=== PATIENT | female | born 1955 | race Caucasian/White ===

== ENCOUNTER → 2017-06-21 | Day surgery (SDC) | payer BC, OTHER ==
[~2017-06-21] MED LIST: APIX5TAB PO; ASPI-630 PO; BUPR150T8 PO; BYSTOLIC20 MG PO; CARV12.5 PO; CRESTOR20 MG PO; CYCL10TA2 PO; IBUP-1027 PO; IV RINGERS,LACTATED 1000ML 1,000 ML IV SCH; LANS30CA66 PO; LIDOCAINE 1% PF 2 ML VIAL. ID PRN; LIDOCAINE 2% PF Vial for OR 5 ML VIAL. ONE; LISI-338 PO; LORA-434 PO; MIDAZOLAM HCL/PF 2 MG/2 ML VIAL. IV PRN; MIDAZOLAM HCL/PF 5 MG/5 ML VIAL. ONE; NIAC1000 PO; OMEG500C PO; OMEP40CA5 PO; PROPOFOL 20 ML IV ONE; RANO10002 PO; RIVA20TA2 PO; SITA50TA PO; VILA20TA PO; diphenhydrAMINE 50 MG/ML VIAL IV ONE; diphenhydrAMINE 50 MG/ML VIAL ONE; fentaNYL PF VIAL 100 MCG/2 ML VIAL IV PRN; fentaNYL PF VIAL 100 MCG/2 ML VIAL ONE
[2017-06-21 11:15] VITALS: BP 144/83
--- NOTE | 2017-06-22 13:27 | PATHOLOGY ---
PATHOLOGY REPORT * * * * * * * * FINAL DIAGNOSIS: Esophageal biopsy, distal esophagus: - Segments of hyperplastic squamous esophageal mucosa consistent with reflux esophagitis. COMMENT: Sections of the distal esophageal biopsy reveal segments of focally tangentially-oriented hyperplastic squamous esophageal mucosa. The findings are consistent with reflux esophagitis. There is no evidence of Velez's change, dysplasia or malignancy. (JPM:mml; 06/22/2017) REPORT ELECTRONICALLY SIGNED BY: Aman Shukla M.D. DATE/TIME: 06/22/2017 13:26 * * * * * * * * GROSS PATHOLOGY: Received in formalin labeled "Ana Mcgrath, distal esophagus BX," are 4 segments of lauren soft tissue measuring 1.9 x 0.6 x 0.3 cm in aggregate dimensions and ranging from 0.3 to 0.8 cm in maximum dimension. The specimen is submitted entirely in cassette A1. (TSD; 06/21/2017) INITIAL CPT CODE(S): A; 56811 Professional services performed [place] [facility] [place] [address] Technical services performed by [facility] at [address] [place] [address]. SPECIMEN(S) RECEIVED: A.Distal esophagus biopsy CLINICAL HISTORY: Dysphagia PATIENT: ANA MCGRATH /AGE: 10 1955 (Age: 61) PATIENT #: [id number] ALT CASE #: SPECIMEN COLLECTION DATE: 06/21/2017 SPECIMEN RECEIVED DATE: 06/21/2017 [facility] - [address] [place] [address] - PHONE: [phone] * * * END OF REPORT * * *
== END | disposition home or self-care (01) ==
LOC: SURG 09:47
PROVIDERS: ATTEND Internal Medicine Gastroenterology
DX: K22.2 Esophageal obstruction (principal); K21.0 Gastro-esophageal reflux disease with esophagitis; Z98.890 Other specified postprocedural states; Z88.0 Allergy status to penicillin
CPT/HCPCS: 43239; 43450; 82962; J1200; J2250; J2704; J3010; 88305; J2001

== ENCOUNTER 2019-01-25 13:14 | Inpatient (IN) | payer BC, OTHER ==
[~2019-01-25] VITALS: Ht 162.6 cm; Wt 88.9 kg
[~2019-01-25 13:14] MED LIST changes: -IV RINGERS,LACTATED 1000ML 1,000 ML IV SCH; -LIDOCAINE 1% PF 2 ML VIAL. ID PRN; -LIDOCAINE 2% PF Vial for OR 5 ML VIAL. ONE; -MIDAZOLAM HCL/PF 2 MG/2 ML VIAL. IV PRN; -MIDAZOLAM HCL/PF 5 MG/5 ML VIAL. ONE; -PROPOFOL 20 ML IV ONE; -diphenhydrAMINE 50 MG/ML VIAL IV ONE; -diphenhydrAMINE 50 MG/ML VIAL ONE; -fentaNYL PF VIAL 100 MCG/2 ML VIAL IV PRN; -fentaNYL PF VIAL 100 MCG/2 ML VIAL ONE
[2019-01-25] MEDS ORDERED: fentaNYL PF VIAL 100 MCG/2 ML VIAL IV ONE (14:15)
[2019-01-25] MEDS ORDERED: IV NORMAL SALINE 1000ML BAG 1,000 ML IV ONE ×2 (14:15→18:15)
[2019-01-25] MEDS ORDERED: FAMOTIDINE 20 MG/2 ML VIAL IVP ONE (14:15)
[2019-01-25] MEDS ORDERED: ONDANSETRON PF 4 MG/2 ML VIAL. IV ONE (14:15)
[2019-01-25 14:24] LABS: BASO # 0.1 x10^3/uL (0.0-0.2); BASO % 0 % (0-3); EOS % 0 % (0-3); HEMATOCRIT 35.1 % (36.0-47.0); HEMOGLOBIN 11.6 g/dL (12.0-15.5); LYMPH # 1.1 x10^3/uL (1.0-4.8); LYMPH % 8 % (24-48); MEAN CORPUSCULAR HEMOGLOBIN 29 pg (25-35); MEAN CORPUSCULAR HGB CONC 33 g/dL (31-37); MEAN CORPUSCULAR VOLUME 87 fL (79-100); MONO # 0.7 x10^3/uL (0.0-1.1); MONO % 5 % (0-9); NEUT # 12.2 x10^3uL (1.8-7.7); NEUT % 87 % (31-73); PLATELET COUNT 401 x10^3/uL (140-400); RED BLOOD COUNT 4.05 x10^6/uL (3.50-5.40); RED CELL DISTRIBUTION WIDTH 13.4 % (11.5-14.5); WHITE BLOOD COUNT 14.1 x10^3/uL (4.0-11.0)
[2019-01-25 14:36] LABS: CALCIUM 9.7 mg/dL (8.5-10.1); CREATININE 1.3 mg/dL (0.6-1.0); GFR 41.4
[2019-01-25 14:42] LABS: ALBUMIN/GLOBULIN RATIO 1.1 (1.0-1.7); TOTAL BILIRUBIN 0.6 mg/dL (0.2-1.0); TOTAL PROTEIN 7.8 g/dL (6.4-8.2)
[2019-01-25 15:04] LABS: % BANDS 1 % (0-9); % BASOS 1 % (0-3); % LYMPHS 6 % (24-48); % MONOS 6 % (0-10); % SEGS 86 % (35-66)
[2019-01-25 15:07] LABS: PLT ESTIMATE ADEQUATE (ADEQUATE); POLYCHROMASIA SLIGHT
--- NOTE | 2019-01-25 15:07 | RAD ---
Examination: CT ABDOMEN PELVIS WO CONTRAST History: Abdominal pain, nausea, vomiting, diarrhea Comparison/Correlation: None Findings: Axial images of the abdomen and pelvis were obtained without contrast. Sagittal and coronal reformatted images were provided. Marked right coronary and left circumflex coronary show calcifications identified. Visualized lung bases are clear. Small hiatal hernia is present containing fluid. Liver, spleen, pancreas, adrenal glands, and kidneys are normal. Gallbladder fossa is unremarkable. Appendix is nondistended. Appendicoliths identified. Diverticulosis of the colon is present. No acute inflammation. Urinary bladder is unremarkable. No pelvic free fluid. Impression: Small hiatal hernia. Fluid within the distal esophagus which may represent gastroesophageal reflux. Diverticulosis. No acute inflammatory process. PQRS Compliance Statement: One or more of the following individualized dose reduction techniques were utilized for this examination: 1. Automated exposure control 2. Adjustment of the mA and/or kV according to patient size 3. Use of iterative reconstruction technique Electronically signed by: Shiva Beltran MD (01/25/2019 3:04 PM) [id number]
[2019-01-25 15:57] LABS: AMPHETAMINE/METHAMPHETAMINE NEG (NEG); BARBITURATES NEG (NEG); BENZODIAZEPINES NEG (NEG); CANNABINOIDS POS (NEG); COCAINE NEG (NEG); METHADONE NEG (NEG); OPIATES NEG (NEG); PHENCYCLIDINE NEG (NEG)
[2019-01-25] MEDS ORDERED: LIDO:MAALOX 1:1 20 ML SINGLE DOSE. SWSW ONE (16:00)
[2019-01-25 16:26] LABS: BILIRUBIN,URINE NEGATIVE (NEG); CLARITY,URINE CLEAR; COLOR,URINE YELLOW; NITRITE,URINE NEGATIVE (NEG); PH,URINE 8.5; PROTEIN,URINE 30 mg/dL (NEG-TRACE); UROBILINOGEN,URINE 0.2 mg/dL (0.2 mg/dL)
[2019-01-25 16:32] LABS: BACTERIA,URINE FEW /HPF (0-FEW); HYALINE CASTS, URINE OCCASIONAL /HPF; RBC,URINE 0 /HPF (0-2); SQUAMOUS EPITHELIAL CELL,UR FEW /LPF; WBC,URINE OCC /HPF (0-4)
--- NOTE | 2019-01-25 17:19 | PHYS DOC ---
Past Medical History Past Medical History: A-Fib, CAD, Diabetes-Type II, Hypertension, MT, Migraines Additional Past Medical Histor: hernia (JAKUB LOVE APRN) Past Surgical History: Hysterectomy, Tonsillectomy Additional Past Surgical Histo: heart stents, colonoscopy, wrist sx (JAKUB LOVE APRN) Alcohol Use: None Drug Use: Marijuana (JAKUB LOVE APRN) Adult General Chief Complaint Chief Complaint: ABDOMINAL PAIN HPI HPI Patient is a 63 year old female with a history of hypertension, CAD, diabetes type 2, acid reflex, who presents with nausea, vomiting, diarrhea, symptoms began 3 AM this morning. Patient is also complaining of generalized 8 out of 10 sharp constant abdominal pain. She states she was seen at [facility] and got discharged on Wednesday, she states she had rectal bleeding then, she states she had a colonoscopy which she was told was negative. Denies any bloody stools this Patient is a poor historian, when I walked into the room, she had covered her head, holding an emesis bag, i asked her why she was in the hospital, she removed the cover, kept her eyes closed but told me to wait because she was vomiting and needs to take a break before she can talk to me.I waited for a few seconds then she started talking. (JAKUB LOVE APRN) Review of Systems Review of Systems Constitutional: Denies fever or chills [] Eyes: Denies change in visual acuity, redness, or eye pain [] HENT: Denies nasal congestion or sore throat [] Respiratory: Denies cough or shortness of breath [] Cardiovascular: No additional information not addressed in HPI [] GI: Reports abdominal pain, nausea, vomiting, diarrhea, denies bloody stools : Denies dysuria or hematuria [] Musculoskeletal: Denies back pain or joint pain [] Integument: Denies rash or skin lesions [] Neurologic: Denies headache, focal weakness or sensory changes [] All other systems were reviewed and found to be within normal limits, except as documented in this note. (JAKUB LOVE APRN) Current Medications Current Medications Current Medications Medications (Trade) Dose Ordered Sig/Lelia Start Time Stop Time Status Last Admin Dose Admin Famotidine (Pepcid Vial) 20 mg 1X ONCE 01/25/19 14:15 01/25/19 14:16 DC 01/25/19 14:21 20 MG Fentanyl Citrate (Fentanyl 2ml Vial) 50 mcg 1X ONCE 01/25/19 14:15 01/25/19 14:16 DC 01/25/19 14:22 50 MCG Multi-Ingredient Mouthwash/Gargle (Gi Cocktail) 20 ml 1X ONCE 01/25/19 16:00 01/25/19 16:01 DC 01/25/19 16:23 20 ML Ondansetron HCl (Zofran) 4 mg 1X ONCE 01/25/19 14:15 01/25/19 14:16 DC 01/25/19 14:21 4 MG Sodium Chloride 1,000 ml @ 1,000 mls/hr 1X ONCE 01/25/19 14:15 01/25/19 15:14 DC 01/25/19 14:21 1,000 MLS/HR (RASHID LOMBARDI MD) Allergies Allergies Allergies Coded Allergies Type Severity Reaction Last Updated Verified adhesive Allergy Severe 05/18/14 Yes morphine Allergy Intermediate hives 05/18/14 Yes (RASHID LOMBARDI MD) Physical Exam Physical Exam Constitutional: Well developed, well nourished, no acute distress, non-toxic appearance. [] HENT: Normocephalic, atraumatic, bilateral external ears normal, oropharynx moist, no oral exudates, nose normal. [] Eyes: PERRLA, EOMI, conjunctiva normal, no discharge. [] Neck: Normal range of motion, no tenderness, supple, no stridor. [] Cardiovascular:Heart rate regular rhythm, no murmur [] Lungs & Thorax: Bilateral breath sounds clear to auscultation [] Abdomen: Bowel sounds normal, soft, rounded abdomen, tenderness throughout the abdomen, no masses, no pulsatile masses. [] Skin: Warm, dry, no erythema, no rash. [] Back: No tenderness, no CVA tenderness. [] Extremities: No tenderness, no cyanosis, no clubbing, ROM intact, no edema. [] Neurologic: Alert and oriented X 3, normal motor function, normal sensory function, no focal deficits noted. [] Psychologic: Flat affect, appears depressed (MUTUNGA,JAKUB PROCESS TANK TENDER) Current Patient Data Vital Signs Vital Signs Date Time Temp Pulse Resp B/P (MAP) Pulse Ox O2 Delivery O2 Flow Rate FiO2 5/15/19 16:48 90 16 154/73 (100) 97 Room Air 01/25/19 13:26 98.2 98.2 (RASHID LOMBARDI MD) Lab Values Laboratory Tests Test 01/25/19 14:13 01/25/19 15:43 White Blood Count 14.1 x10^3/uL (4.0-11.0) H Red Blood Count 4.05 x10^6/uL (3.50-5.40) Hemoglobin 11.6 g/dL (12.0-15.5) L Hematocrit 35.1 % (36.0-47.0) L Mean Corpuscular Volume 87 fL (79-100) Mean Corpuscular Hemoglobin 29 pg (25-35) Mean Corpuscular Hemoglobin Concent 33 g/dL (31-37) Red Cell Distribution Width 13.4 % (11.5-14.5) Platelet Count 401 x10^3/uL (140-400) H Neutrophils (%) (Auto) 87 % (31-73) H Lymphocytes (%) (Auto) 8 % (24-48) L Monocytes (%) (Auto) 5 % (0-9) Eosinophils (%) (Auto) 0 % (0-3) Basophils (%) (Auto) 0 % (0-3) Neutrophils # (Auto) 12.2 x10^3uL (1.8-7.7) H Lymphocytes # (Auto) 1.1 x10^3/uL (1.0-4.8) Monocytes # (Auto) 0.7 x10^3/uL (0.0-1.1) Eosinophils # (Auto) 0.0 x10^3/uL (0.0-0.7) Basophils # (Auto) 0.1 x10^3/uL (0.0-0.2) Segmented Neutrophils % 86 % (35-66) H Band Neutrophils % 1 % (0-9) Lymphocytes % 6 % (24-48) L Monocytes % 6 % (0-10) Basophils % 1 % (0-3) Platelet Estimate Adequate (ADEQUATE) Polychromasia Slight Sodium Level 143 mmol/L (136-145) Potassium Level 4.0 mmol/L (3.5-5.1) Chloride Level 104 mmol/L (98-107) Carbon Dioxide Level 23 mmol/L (21-32) Anion Gap 16 (6-14) H Blood Urea Nitrogen 16 mg/dL (7-20) Creatinine 1.3 mg/dL (0.6-1.0) H Estimated GFR (Cockcroft-Gault) 41.4 BUN/Creatinine Ratio 12 (6-20) Glucose Level 175 mg/dL (70-99) H Calcium Level 9.7 mg/dL (8.5-10.1) Total Bilirubin 0.6 mg/dL (0.2-1.0) Aspartate Amino Transferase (AST) 50 U/L (15-37) H Alanine Aminotransferase (ALT) 49 U/L (14-59) Alkaline Phosphatase 77 U/L (46-116) Troponin I Quantitative < 0.017 ng/mL (0.000-0.055) Total Protein 7.8 g/dL (6.4-8.2) Albumin 4.0 g/dL (3.4-5.0) Albumin/Globulin Ratio 1.1 (1.0-1.7) Lipase 179 U/L (73-393) Ethyl Alcohol Level < 10 mg/dL (0-10) Urine Collection Type Unknown Urine Color Yellow Urine Clarity Clear Urine pH 8.5 Urine Specific [place] 1.020 Urine Protein 30 mg/dL (NEG-TRACE) Urine Glucose (UA) Negative mg/dL (NEG) Urine Ketones (Stick) 15 mg/dL (NEG) Urine Blood Negative (NEG) Urine Nitrite Negative (NEG) Urine Bilirubin Negative (NEG) Urine Urobilinogen Dipstick 0.2 mg/dL (0.2 mg/dL) Urine Leukocyte Esterase Negative (NEG) Urine RBC 0 /HPF (0-2) Urine WBC Occ /HPF (0-4) Urine Squamous Epithelial Cells Few /LPF Urine Bacteria Few /HPF (0-FEW) Urine Hyaline Casts Occasional /HPF Urine Mucus Mod /LPF Urine Opiates Screen Neg (NEG) Urine Methadone Screen Neg (NEG) Urine Barbiturates Neg (NEG) Urine Phencyclidine Screen Neg (NEG) Urine Amphetamine/Methamphetamine Neg (NEG) Urine Benzodiazepines Screen Neg (NEG) Urine Cocaine Screen Neg (NEG) Urine Cannabinoids Screen Pos (NEG) Urine Ethyl Alcohol Neg (NEG) Laboratory Tests 01/25/19 14:13 Laboratory Tests 01/25/19 14:13 (RASHID LOMBARDI MD) EKG EKG 13:[address] Lombardi sinus rhythm heart rate 74 no STEMI (JAKUB LOVE APRN) Radiology/Procedures Radiology/Procedures []PROCEDURE: CT ABDOMEN PELVIS WO CONTRAST Examination: CT ABDOMEN PELVIS WO CONTRAST History: Abdominal pain, nausea, vomiting, diarrhea Comparison/Correlation: None Findings: Axial images of the abdomen and pelvis were obtained without contrast. Sagittal and coronal reformatted images were provided. Marked right coronary and left circumflex coronary show calcifications identified. Visualized lung bases are clear. Small hiatal hernia is present containing fluid. Liver, spleen, pancreas, adrenal glands, and kidneys are normal. Gallbladder fossa is unremarkable. Appendix is nondistended. Appendicoliths identified. Diverticulosis of the colon is present. No acute inflammation. Urinary bladder is unremarkable. No pelvic free fluid. Impression: Small hiatal hernia. Fluid within the distal esophagus which may represent gastroesophageal reflux. Diverticulosis. No acute inflammatory process. PQRS Compliance Statement: One or more of the following individualized dose reduction techniques were utilized for this examination: 1. Automated exposure control 2. Adjustment of the mA and/or kV according to patient size 3. Use of iterative reconstruction technique Electronically signed by: Shiva Castro MD (01/25/2019 3:04 PM) [id number] DICTATED and SIGNED BY: SHIVA CASTRO MD DATE: 01/25/19 1504 (JAKUB LOVE APRN) Course & Med Decision Making Course & Med Decision Making Pertinent Labs and Imaging studies reviewed. (See chart for details) This is a 63-year-old female patient presenting to the ED today complaining of nausea vomiting and diarrhea that began at 3 AM this morning, also complaining of abdominal pain. Patient was seen at [facility], discharged on Wednesday, had a colonoscopy for rectal bleeding. She believes the results were negative. CBC with a WBC of 14.1, hemoglobin 11.6, hematocrit 35.1, creatinine 1.3, BUN is normal, glucose [address] of the abdomen and pelvic was negative for any acute findings noted for acid reflex diverticulosis with no diverticulitis. Patient has been given IV fluids, Zofran and Pepcid. Also given pain medicine. Discussed above results with patient, patient became emotional, she states she cannot go home because she lives by herself. She states if I send her home she'll turn around and come back to the ED. She is requesting to be admitted. I asked her if she needs placement, she states she does not need placement but does not feel well enough to go home. Spoke with Dr. Restrepo who accepted patient for admission Routine consult placed for GI (JAKUB LOVE APRN) Course & Med Decision Making This pt was seen by an YVONNE. I did not see or evaluate the pt unless specified above. I was available for consultation as needed. (RASHID LOMBARDI MD) Dragon Disclaimer Dragon Disclaimer This electronic medical record was generated, in whole or in part, using a voice recognition dictation system. (JAKUB LOVE APRN) Departure Departure Impression: Primary Impression: Gastroparesis Additional Impressions: Intractable nausea and vomiting Abdominal pain Diarrhea Disposition: ADMITTED INPATIENT Condition: STABLE Referrals: UNKNOWN PCP NAME (PCP) Scripts Metronidazole (FLAGYL) 500 Mg Tablet 1 TAB PO BID for Giardiasis for 7 Days, #14 TAB Prov: ELAINE CROOKS MD 01/28/19 Ondansetron (ONDANSETRON ODT) 4 Mg Tab.rapdis 4 MG PO PRN Q6HRS PRN for NAUSEA/VOMITING for 30 Days, #60 TAB 5 Refills Prov: ELAINE CROOKS MD 01/28/19 [Lido:Maalox 1:1] 20 ML ORAL.SUSP No Conflict Check 20 ML PO PRN QID PRN for CHEST PAIN for 30 Days, #240 ML 5 Refills Prov: ELAINE CROOKS MD 01/28/19 Problem Qualifiers Additional Impressions: Intractable nausea and vomiting Vomiting type: unspecified Qualified Codes: R11.2 - Nausea with vomiting, unspecified Abdominal pain Abdominal location: generalized Qualified Codes: R10.84 - Generalized abdominal pain Diarrhea Diarrhea type: unspecified type Qualified Codes: R19.7 - Diarrhea, unspecified JAKUB LOVE APRN January 25, 2019 17:19 RASHID LOMBARDI MD February 03, 2019 18:36
[2019-01-25] MEDS ORDERED: METOCLOPRAMIDE HCL 10 MG/2 ML VIAL. IV PRN (18:15)
[2019-01-25] MEDS ORDERED: ACETAMINOPHEN 325 MG TABLET. PO PRN (18:15)
[2019-01-25] MEDS ORDERED: ONDANSETRON PF 4 MG/2 ML VIAL. IV PRN (18:15)
[2019-01-25] MEDS: fentaNYL PF VIAL 100 MCG/2 ML VIAL IV PRN (18:38)
--- NOTE | 2019-01-25 19:28 | NUR ---
The patient, ANA MCGRATH, 63 y/o, F admitted by HAMZAH PATINO MD, was given written information regarding hospital policies, unit procedures and contact persons. Patient arrived to room via wheelchair accompanied by ED staff. Valuables were checked and noted. Patient is resting in bed with her eyes closed at this time. Patient states no needs, this RN will continue to monitor the patient at this time.
[2019-01-25] MEDS ORDERED: guaiFENesin ORAL 200 MG/10 ML LIQUID. PO PRN (20:00)
[2019-01-25] MEDS ORDERED: cloNIDine HCL 0.1 MG TABLET PO PRN (20:00)
[2019-01-25] MEDS ORDERED: LORazepam 0.5 MG TABLET PO PRN (20:00)
[2019-01-25] MEDS ORDERED: ZOLPIDEM 5 MG TABLET. PO PRN (20:00)
[2019-01-25] MEDS ORDERED: MAG HYDROX/ALUMINUM HYD/SIMETH 30 ML ORAL.SUSP PO PRN (20:00)
[2019-01-25] MEDS ORDERED: DOCUSATE SODIUM 100 MG CAPSULE. PO PRN (20:00)
[2019-01-25] MEDS ORDERED: DEXTROSE 50% 25 GM / 50ML DISP.SYRIN. IV PRN (20:00)
[2019-01-25] MEDS ORDERED: ALBUTEROL SULFATE 2.5 MG/3 ML NEBU. NEB PRN (20:00)
[2019-01-25] MEDS: IV NORMAL SALINE 1000ML BAG 1,000 ML IV SCH (20:44)
[2019-01-25] MEDS: CARVEDILOL 12.5 MG TABLET. PO SCH (20:45)
[2019-01-25] MEDS: LORazepam 1 MG TABLET PO SCH (20:45)
[2019-01-25] MEDS: buPROPion SR 150 MG TABLET.SA PO SCH (20:45)
[2019-01-25] MEDS: CYCLOBENZAPRINE 10 MG TABLET. PO SCH (20:45)
[2019-01-25] MEDS: VILAZODONE HYDROCHLORIDE 20 MG PO SCH (20:45)
[2019-01-25] MEDS ORDERED: CLON1TAB11 PO (21:43)
[2019-01-25] MEDS ORDERED: ERGO500027 PO (21:43)
[2019-01-25] MEDS ORDERED: OMEP20CA10 PO (21:43)
[2019-01-25] MEDS ORDERED: FERR325T14 PO (21:43)
[2019-01-25] MEDS ORDERED: RANI300C PO (21:43)
[2019-01-25] MEDS ORDERED: ISOS30TA4 PO (21:43)
[2019-01-25] MEDS ORDERED: CITA10TA4 PO (21:43)
[2019-01-25] MEDS ORDERED: LORA0.5T96 PO (21:43)
[2019-01-25] MEDS ORDERED: PROM6.257 PO (21:43)
[2019-01-25] MEDS ORDERED: SITA100T PO (21:43)
[2019-01-25] MEDS ORDERED: SILV20CR14 TP (21:43)
--- NOTE | 2019-01-25 22:23 | PDOC1 ---
History and Physical Date of Admission Date of Admission 01/25/2019 Identification/Chief Complaint Chief Complaint I am bleeding Problems: (1) Gastroparesis (2) Intractable nausea and vomiting Source Source: Chart review, Patient History of Present Illness History of Present Illness Patient with past medical history of diabetes mellitus, hypertension who was recently admitted to [facility] for similar presentation and black tarry stools. She was admitted for evaluation and had a colonoscopy done she reports normal results no records are available for review. She went to a follow up appointment with her primary care but due to persistent symptoms caem to the ED for evlaution . She reports being told at [facility] she had an E coli infection but she says she was not given treatment for it. She denies fever or chills, she does complain of abdominal discomfort over the epigastric area that she describes as a cramp. Nio hematemesis no hemaotchezxia reported. Patient last hemoglobin a1c wqs reported at 7.8. she denies palpitations, no shortness of breath no cough or sputum production. No dietary trangression no travels outside the area. no sick contacts reported. SHe does complain of odynophagia and dysphagia as well. Plan of care discussed in detail. Reassurance provided. Current Problem List Problem List Problems Medical Problems: (1) Abdominal pain Status: Acute (2) Diarrhea Status: Acute (3) Gastroparesis Status: Acute (4) Intractable nausea and vomiting Status: Acute Current Medications Current Medications Current Medications Medications (Trade) Dose Ordered Sig/Lelia Start Time Stop Time Status Last Admin Dose Admin Acetaminophen (Tylenol) 650 mg PRN Q4HRS PRN 01/25/19 20:00 Al Hydroxide/Mg Hydroxide (Mylanta Plus Xs) 30 ml PRN DAILY PRN 01/25/19 20:00 Albuterol Sulfate (Ventolin Neb Soln) 2.5 mg PRN Q4HRS PRN 01/25/19 20:00 Bupropion HCl (Wellbutrin Sr) 150 mg BID 01/25/19 21:00 Carvedilol (Coreg) 12.5 mg BIDWMEALS 01/25/19 21:00 Clonidine HCl (Catapres) 0.1 mg PRN Q6HRS PRN 01/25/19 20:00 Cyclobenzaprine HCl (Flexeril) 10 mg TID 01/25/19 21:00 Dextrose (Dextrose 50%-Water Syringe) 12.5 gm PRN Q15MIN PRN 01/25/19 20:00 Docusate Sodium (Colace) 100 mg PRN BID PRN 01/25/19 20:00 Famotidine (Pepcid Vial) 20 mg DAILY 01/26/19 09:00 Fentanyl Citrate (Fentanyl 2ml Vial) 50 mcg PRN Q1HR PRN 01/25/19 18:15 01/26/19 18:14 01/25/19 18:38 50 MCG Guaifenesin (Robitussin) 200 mg PRN Q4HRS PRN 01/25/19 20:00 Insulin Human Lispro (HumaLOG) 0-5 UNITS TIDWMEALS 01/26/19 08:00 Linagliptin (Tradjenta) 5 mg DAILY 01/26/19 09:00 Lisinopril (Prinivil) 5 mg DAILY 01/26/19 09:00 Lorazepam (Ativan) 1 mg BID 01/25/19 21:00 Metoclopramide HCl (Reglan Vial) 10 mg PRN TID PRN 01/25/19 18:15 01/25/19 20:46 10 MG Multi-Ingredient Mouthwash/Gargle (Gi Cocktail) 20 ml 1X ONCE 01/25/19 16:00 01/25/19 16:01 DC 01/25/19 16:23 20 ML Non-Formulary Medication (Vilazodone Hydrochloride (Viibryd)) 20 mg BID 01/25/19 21:00 UNV Ondansetron HCl (Zofran) 4 mg PRN Q4HRS PRN 01/25/19 20:00 Pantoprazole Sodium (Protonix) 40 mg DAILYAC 01/26/19 07:30 Sodium Chloride 1,000 ml @ 100 mls/hr Q10H 01/25/19 19:48 01/25/19 20:44 100 MLS/HR Zolpidem Tartrate (Ambien) 5 mg PRN QHS PRN 01/25/19 20:00 Allergies Allergies Allergies Coded Allergies Type Severity Reaction Last Updated Verified adhesive Allergy Severe 05/18/14 Yes morphine Allergy Intermediate hives 05/18/14 Yes amlodipine Allergy Unknown Swelling 01/25/19 Yes ROS Review of System CONSTITUTIONAL: No fever or chills EYES: No recent changes SKIN: No rash or itching CARDIOVASCULAR: No chest pain, syncope, palpitations, or edema RESPIRATORY: No SOB or cough GASTROINTESTINAL: No nausea, vomiting or abdominal pain NEUROLOGICAL: No headaches or weakness ENDOCRINE: No cold or heat intolerance GENITOURINARY: No urgency or frequency of urination MUSCULOSKELETAL: No back pain or joint pain LYMPHATICS: No enlarged lymph nodes PSYCHIATRIC: No anxiety or depression Physical Exam Physical Exam GEN.: No apparent distress. Alert and oriented. HEENT: Head is normocephalic, atraumatic NECK: Supple. LUNGS: Clear to auscultation. HEART: RRR, S1, S2 present. Peripheral pulses intact ABDOMEN: Soft, nontender. Positive bowel sounds. EXTREMITIES: Without any cyanosis. NEUROLOGIC: Normal speech, normal tone PSYCHIATRIC: Normal affect, normal mood. SKIN: No ulcerations Vitals Vitals Vital Signs Date Time Temp Pulse Resp B/P (MAP) Pulse Ox O2 Delivery O2 Flow Rate FiO2 01/25/19 20:08 Room Air 01/25/19 19:18 90 140/77 (98) 92 01/25/19 18:48 17 01/25/19 13:26 98.2 98.2 Labs Labs Laboratory Tests Test 01/25/19 14:13 01/25/19 15:43 01/25/19 20:59 White Blood Count 14.1 x10^3/uL (4.0-11.0) Red Blood Count 4.05 x10^6/uL (3.50-5.40) Hemoglobin 11.6 g/dL (12.0-15.5) Hematocrit 35.1 % (36.0-47.0) Mean Corpuscular Volume 87 fL (79-100) Mean Corpuscular Hemoglobin 29 pg (25-35) Mean Corpuscular Hemoglobin Concent 33 g/dL (31-37) Red Cell Distribution Width 13.4 % (11.5-14.5) Platelet Count 401 x10^3/uL (140-400) Neutrophils (%) (Auto) 87 % (31-73) Lymphocytes (%) (Auto) 8 % (24-48) Monocytes (%) (Auto) 5 % (0-9) Eosinophils (%) (Auto) 0 % (0-3) Basophils (%) (Auto) 0 % (0-3) Neutrophils # (Auto) 12.2 x10^3uL (1.8-7.7) Lymphocytes # (Auto) 1.1 x10^3/uL (1.0-4.8) Monocytes # (Auto) 0.7 x10^3/uL (0.0-1.1) Eosinophils # (Auto) 0.0 x10^3/uL (0.0-0.7) Basophils # (Auto) 0.1 x10^3/uL (0.0-0.2) Segmented Neutrophils % 86 % (35-66) Band Neutrophils % 1 % (0-9) Lymphocytes % 6 % (24-48) Monocytes % 6 % (0-10) Basophils % 1 % (0-3) Platelet Estimate Adequate (ADEQUATE) Polychromasia Slight Sodium Level 143 mmol/L (136-145) Potassium Level 4.0 mmol/L (3.5-5.1) Chloride Level 104 mmol/L (98-107) Carbon Dioxide Level 23 mmol/L (21-32) Anion Gap 16 (6-14) Blood Urea Nitrogen 16 mg/dL (7-20) Creatinine 1.3 mg/dL (0.6-1.0) Estimated GFR (Cockcroft-Gault) 41.4 BUN/Creatinine Ratio 12 (6-20) Glucose Level 175 mg/dL (70-99) Calcium Level 9.7 mg/dL (8.5-10.1) Total Bilirubin 0.6 mg/dL (0.2-1.0) Aspartate Amino Transf (AST/SGOT) 50 U/L (15-37) Alanine Aminotransferase (ALT/SGPT) 49 U/L (14-59) Alkaline Phosphatase 77 U/L (46-116) Troponin I Quantitative < 0.017 ng/mL (0.000-0.055) Total Protein 7.8 g/dL (6.4-8.2) Albumin 4.0 g/dL (3.4-5.0) Albumin/Globulin Ratio 1.1 (1.0-1.7) Lipase 179 U/L (73-393) Ethyl Alcohol Level < 10 mg/dL (0-10) Urine Collection Type Unknown Urine Color Yellow Urine Clarity Clear Urine pH 8.5 Urine Specific [place] 1.020 Urine Protein 30 mg/dL (NEG-TRACE) Urine Glucose (UA) Negative mg/dL (NEG) Urine Ketones (Stick) 15 mg/dL (NEG) Urine Blood Negative (NEG) Urine Nitrite Negative (NEG) Urine Bilirubin Negative (NEG) Urine Urobilinogen Dipstick 0.2 mg/dL (0.2 mg/dL) Urine Leukocyte Esterase Negative (NEG) Urine RBC 0 /HPF (0-2) Urine WBC Occ /HPF (0-4) Urine Squamous Epithelial Cells Few /LPF Urine Bacteria Few /HPF (0-FEW) Urine Hyaline Casts Occasional /HPF Urine Mucus Mod /LPF Urine Opiates Screen Neg (NEG) Urine Methadone Screen Neg (NEG) Urine Barbiturates Neg (NEG) Urine Phencyclidine Screen Neg (NEG) Urine Amphetamine/Methamphetamine Neg (NEG) Urine Benzodiazepines Screen Neg (NEG) Urine Cocaine Screen Neg (NEG) Urine Cannabinoids Screen Pos (NEG) Urine Ethyl Alcohol Neg (NEG) Glucose (Fingerstick) 125 mg/dL (70-99) Laboratory Tests Test 01/25/19 14:13 01/25/19 15:43 01/25/19 20:59 White Blood Count 14.1 x10^3/uL (4.0-11.0) Red Blood Count 4.05 x10^6/uL (3.50-5.40) Hemoglobin 11.6 g/dL (12.0-15.5) Hematocrit 35.1 % (36.0-47.0) Mean Corpuscular Volume 87 fL (79-100) Mean Corpuscular Hemoglobin 29 pg (25-35) Mean Corpuscular Hemoglobin Concent 33 g/dL (31-37) Red Cell Distribution Width 13.4 % (11.5-14.5) Platelet Count 401 x10^3/uL (140-400) Neutrophils (%) (Auto) 87 % (31-73) Lymphocytes (%) (Auto) 8 % (24-48) Monocytes (%) (Auto) 5 % (0-9) Eosinophils (%) (Auto) 0 % (0-3) Basophils (%) (Auto) 0 % (0-3) Neutrophils # (Auto) 12.2 x10^3uL (1.8-7.7) Lymphocytes # (Auto) 1.1 x10^3/uL (1.0-4.8) Monocytes # (Auto) 0.7 x10^3/uL (0.0-1.1) Eosinophils # (Auto) 0.0 x10^3/uL (0.0-0.7) Basophils # (Auto) 0.1 x10^3/uL (0.0-0.2) Segmented Neutrophils % 86 % (35-66) Band Neutrophils % 1 % (0-9) Lymphocytes % 6 % (24-48) Monocytes % 6 % (0-10) Basophils % 1 % (0-3) Platelet Estimate Adequate (ADEQUATE) Polychromasia Slight Sodium Level 143 mmol/L (136-145) Potassium Level 4.0 mmol/L (3.5-5.1) Chloride Level 104 mmol/L (98-107) Carbon Dioxide Level 23 mmol/L (21-32) Anion Gap 16 (6-14) Blood Urea Nitrogen 16 mg/dL (7-20) Creatinine 1.3 mg/dL (0.6-1.0) Estimated GFR (Cockcroft-Gault) 41.4 BUN/Creatinine Ratio 12 (6-20) Glucose Level 175 mg/dL (70-99) Calcium Level 9.7 mg/dL (8.5-10.1) Total Bilirubin 0.6 mg/dL (0.2-1.0) Aspartate Amino Transf (AST/SGOT) 50 U/L (15-37) Alanine Aminotransferase (ALT/SGPT) 49 U/L (14-59) Alkaline Phosphatase 77 U/L (46-116) Troponin I Quantitative < 0.017 ng/mL (0.000-0.055) Total Protein 7.8 g/dL (6.4-8.2) Albumin 4.0 g/dL (3.4-5.0) Albumin/Globulin Ratio 1.1 (1.0-1.7) Lipase 179 U/L (73-393) Ethyl Alcohol Level < 10 mg/dL (0-10) Urine Collection Type Unknown Urine Color Yellow Urine Clarity Clear Urine pH 8.5 Urine Specific [place] 1.020 Urine Protein 30 mg/dL (NEG-TRACE) Urine Glucose (UA) Negative mg/dL (NEG) Urine Ketones (Stick) 15 mg/dL (NEG) Urine Blood Negative (NEG) Urine Nitrite Negative (NEG) Urine Bilirubin Negative (NEG) Urine Urobilinogen Dipstick 0.2 mg/dL (0.2 mg/dL) Urine Leukocyte Esterase Negative (NEG) Urine RBC 0 /HPF (0-2) Urine WBC Occ /HPF (0-4) Urine Squamous Epithelial Cells Few /LPF Urine Bacteria Few /HPF (0-FEW) Urine Hyaline Casts Occasional /HPF Urine Mucus Mod /LPF Urine Opiates Screen Neg (NEG) Urine Methadone Screen Neg (NEG) Urine Barbiturates Neg (NEG) Urine Phencyclidine Screen Neg (NEG) Urine Amphetamine/Methamphetamine Neg (NEG) Urine Benzodiazepines Screen Neg (NEG) Urine Cocaine Screen Neg (NEG) Urine Cannabinoids Screen Pos (NEG) Urine Ethyl Alcohol Neg (NEG) Glucose (Fingerstick) 125 mg/dL (70-99) VTE Prophylaxis Ordered VTE Prophylaxis Devices: Yes VTE Pharmacological Prophylaxi: No Assessment/Plan Assessment/Plan Intractabel nausea and vomiting Dysphagia Diabetic gastroparesis? E coli infection? 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
[2019-01-25 23:00] VITALS: BP 126/76
[2019-01-26] MEDS: fentaNYL PF VIAL 100 MCG/2 ML VIAL IV PRN ×3 (00:52→16:10)
[2019-01-26 03:00] VITALS: BP 132/80
[2019-01-26] MEDS: IV NORMAL SALINE 1000ML BAG 1,000 ML IV SCH ×2 (06:28→15:48)
[2019-01-26] MEDS: ONDANSETRON PF 4 MG/2 ML VIAL. IV PRN ×3 (06:35→21:15)
[2019-01-26 07:00] VITALS: BP 113/71
[2019-01-26] MEDS: PANTOPRAZOLE 40 MG TABLET.DR. PO SCH (07:30)
[2019-01-26] MEDS: CARVEDILOL 12.5 MG TABLET. PO SCH (08:00)
[2019-01-26] MEDS: INSULIN LISPRO 300 UNITS/3 ML INSULN.PEN. SQ SCH ×3 (08:00→17:00)
--- NOTE | 2019-01-26 08:22 | EKG ---
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
[2019-01-26] MEDS: LORazepam 1 MG TABLET PO SCH (09:00)
[2019-01-26] MEDS: CYCLOBENZAPRINE 10 MG TABLET. PO SCH ×2 (09:00→14:00)
[2019-01-26] MEDS ORDERED: FAMOTIDINE 20 MG/2 ML VIAL IVP SCH (09:00)
[2019-01-26] MEDS: LINAGLIPTIN 5 MG TABLET PO SCH (09:00)
[2019-01-26] MEDS: LISINOPRIL 5 MG TABLET. PO SCH (09:00)
[2019-01-26] MEDS: buPROPion SR 150 MG TABLET.SA PO SCH ×2 (09:00→21:00)
[2019-01-26] MEDS: VILAZODONE HYDROCHLORIDE 20 MG PO SCH (09:00)
--- NOTE | 2019-01-26 09:34 | PDOC2 ---
GI CONSULT HPI: HPI: 63 y/o female admitted through ER. Says she went to [facility] on 01/15/19 w/ hematochezia (no diarrhea or constipation). She says her Hgb was 8 (not transfused), she stayed overnight, had a colonoscopy, was told she had E Coli and Giardia, and was discharged to home without any specific treatment. Bleeding did not recur after discharge. She followed-up w/ Dr. Donahue and says she was prescribed iron and an anxiety medication but did not start the iron. She also resumed Xarelto (h/o A Fib) w/o issue. Then, on 01/24, possibly after eating a burger and fries ("that smelled like smoke") at [facility], she had 4 episodes of brown watery diarrhea. The next day she had vomiting ("brown liquid that burned"). Diarrhea and vomiting have resolved, but now she has some upper abdominal soreness, bloating, and a sore throat w/ possible globus/dysphagia. She took a couple bites of applesauce that "didn't feel right" so she stopped eating. Thinks a GI cocktail would probably help. H/o GERD on Prilosec 40mg QD ("usually before breakfast") and ranitidine QHS. Intermittent issues w/ nausea but not typically vomiting. Typically no abd pain, diarrhea, or constipation. No melena. No weight loss. No swallowing issues prior to today. Normal GES here in 2013. Does not recall h/o gastroparesis or any repeat GES since then. Says DM is well-controlled w/ A1c of 7.8. Colonoscopy 02/2015 (Dr. Beltre) for screening and h/o adenomatous polyp: sigmoid diverticulosis, non-bleeding internal hemorrhoids. EGD 06/2017 (Dr. Beltre) for dysphagia and heartburn: LA Grade A reflux esophagitis (biopsy c/s reflux, no Velez's), mild Schatzki's ring (dilated 54Fr), normal stomach, normal duodenum. Office notes indicate h/o reflux (at one point visually c/w Velez's - not on pathology), dysphagia, esophageal stricture/dilation, epigastric pain, n/v, flattened duodenal mucosa (biopsy negative for pathology), and colon polyps in 2001 and possibly 2004. No GB, liver, or pancreas history. Remote h/o ulcers, remembers taking Carafate. No NSAIDs. CT A/P here shows small hiatal hernia, fluid in distal esophagus (possible GERD), and diverticulosis. PMH: PMH: [place], CAD, A Fib, HTN, TIA, DM, migraines cardiac caths w/ stents, lumbar puncture, hysterectomy, bilateral wrist surgeries, tonsillectomy and adenoidectomy FH: Family History: Cancer (brother - "esopahgeal and stomach"), CAD, CVA, Other (son comitted suicide, first due to a work accident, second had Hep C and liver cancer, father had alcoholic cirrhosis and colon polyps) Social History: Smoke: Quit ALCOHOL: rare Drugs: Marijuana ROS: GEN: Denies fevers, chills, sweats HEENT: Denies blurred vision, sore throat CV: Denies chest pain RESP: Denies shortness of air, cough GI: Per HPI : Denies hematuria, dysuria ENDO: Denies weight changes NEURO: Denies confusion, dizziness MSK: Denies weakness, joint pain/swelling SKIN: Denies jaundice, pruritus Vitals: Vitals: Vital Signs Date Time Temp Pulse Resp B/P (MAP) Pulse Ox O2 Delivery O2 Flow Rate FiO2 01/26/19 07:00 99.0 90 14 113/71 (85) 94 Room Air 99.0 Labs: Labs: Laboratory Tests Test 01/25/19 14:13 01/25/19 15:43 01/25/19 20:59 01/26/19 07:17 White Blood Count 14.1 x10^3/uL (4.0-11.0) Red Blood Count 4.05 x10^6/uL (3.50-5.40) Hemoglobin 11.6 g/dL (12.0-15.5) Hematocrit 35.1 % (36.0-47.0) Mean Corpuscular Volume 87 fL (79-100) Mean Corpuscular Hemoglobin 29 pg (25-35) Mean Corpuscular Hemoglobin Concent 33 g/dL (31-37) Red Cell Distribution Width 13.4 % (11.5-14.5) Platelet Count 401 x10^3/uL (140-400) Neutrophils (%) (Auto) 87 % (31-73) Lymphocytes (%) (Auto) 8 % (24-48) Monocytes (%) (Auto) 5 % (0-9) Eosinophils (%) (Auto) 0 % (0-3) Basophils (%) (Auto) 0 % (0-3) Neutrophils # (Auto) 12.2 x10^3uL (1.8-7.7) Lymphocytes # (Auto) 1.1 x10^3/uL (1.0-4.8) Monocytes # (Auto) 0.7 x10^3/uL (0.0-1.1) Eosinophils # (Auto) 0.0 x10^3/uL (0.0-0.7) Basophils # (Auto) 0.1 x10^3/uL (0.0-0.2) Segmented Neutrophils % 86 % (35-66) Band Neutrophils % 1 % (0-9) Lymphocytes % 6 % (24-48) Monocytes % 6 % (0-10) Basophils % 1 % (0-3) Platelet Estimate Adequate (ADEQUATE) Polychromasia Slight Sodium Level 143 mmol/L (136-145) Potassium Level 4.0 mmol/L (3.5-5.1) Chloride Level 104 mmol/L (98-107) Carbon Dioxide Level 23 mmol/L (21-32) Anion Gap 16 (6-14) Blood Urea Nitrogen 16 mg/dL (7-20) Creatinine 1.3 mg/dL (0.6-1.0) Estimated GFR (Cockcroft-Gault) 41.4 BUN/Creatinine Ratio 12 (6-20) Glucose Level 175 mg/dL (70-99) Calcium Level 9.7 mg/dL (8.5-10.1) Total Bilirubin 0.6 mg/dL (0.2-1.0) Aspartate Amino Transf (AST/SGOT) 50 U/L (15-37) Alanine Aminotransferase (ALT/SGPT) 49 U/L (14-59) Alkaline Phosphatase 77 U/L (46-116) Troponin I Quantitative < 0.017 ng/mL (0.000-0.055) Total Protein 7.8 g/dL (6.4-8.2) Albumin 4.0 g/dL (3.4-5.0) Albumin/Globulin Ratio 1.1 (1.0-1.7) Lipase 179 U/L (73-393) Ethyl Alcohol Level < 10 mg/dL (0-10) Urine Collection Type Unknown Urine Color Yellow Urine Clarity Clear Urine pH 8.5 Urine Specific [place] 1.020 Urine Protein 30 mg/dL (NEG-TRACE) Urine Glucose (UA) Negative mg/dL (NEG) Urine Ketones (Stick) 15 mg/dL (NEG) Urine Blood Negative (NEG) Urine Nitrite Negative (NEG) Urine Bilirubin Negative (NEG) Urine Urobilinogen Dipstick 0.2 mg/dL (0.2 mg/dL) Urine Leukocyte Esterase Negative (NEG) Urine RBC 0 /HPF (0-2) Urine WBC Occ /HPF (0-4) Urine Squamous Epithelial Cells Few /LPF Urine Bacteria Few /HPF (0-FEW) Urine Hyaline Casts Occasional /HPF Urine Mucus Mod /LPF Urine Opiates Screen Neg (NEG) Urine Methadone Screen Neg (NEG) Urine Barbiturates Neg (NEG) Urine Phencyclidine Screen Neg (NEG) Urine Amphetamine/Methamphetamine Neg (NEG) Urine Benzodiazepines Screen Neg (NEG) Urine Cocaine Screen Neg (NEG) Urine Cannabinoids Screen Pos (NEG) Urine Ethyl Alcohol Neg (NEG) Glucose (Fingerstick) 125 mg/dL (70-99) 131 mg/dL (70-99) Allergies: Coded Allergies: adhesive (Verified Allergy, Severe, 05/18/14) morphine (Verified Allergy, Intermediate, hives, 05/18/14) amlodipine (Verified Allergy, Unknown, Swelling, 01/25/19) feet swelling Medications: Current Medications Medications (Trade) Dose Ordered Sig/Lelia Route PRN Reason Start Time Stop Time Status Last Admin Dose Admin Fentanyl Citrate (Fentanyl 2ml Vial) 50 mcg 1X ONCE IV 01/25/19 14:15 01/25/19 14:16 DC 01/25/19 14:22 Ondansetron HCl (Zofran) 4 mg 1X ONCE IV 01/25/19 14:15 01/25/19 14:16 DC 01/25/19 14:21 Famotidine (Pepcid Vial) 20 mg 1X ONCE IVP 01/25/19 14:15 01/25/19 14:16 DC 01/25/19 14:21 Sodium Chloride 1,000 ml @ 1,000 mls/hr 1X ONCE IV 01/25/19 14:15 01/25/19 15:14 DC 01/25/19 14:21 Multi-Ingredient Mouthwash/Gargle (Gi Cocktail) 20 ml 1X ONCE SWSW 01/25/19 16:00 01/25/19 16:01 DC 01/25/19 16:23 Ondansetron HCl (Zofran) 4 mg PRN Q8HRS PRN IV NAUSEA/VOMITING 01/25/19 18:15 01/26/19 18:14 01/25/19 18:37 Fentanyl Citrate (Fentanyl 2ml Vial) 50 mcg PRN Q1HR PRN IV PAIN 01/25/19 18:15 01/26/19 18:14 01/26/19 00:52 Metoclopramide HCl (Reglan Vial) 10 mg PRN TID PRN IV NAUSEA 01/25/19 18:15 01/25/19 20:46 Sodium Chloride 1,000 ml @ 100 mls/hr Q10H IV 01/25/19 19:48 01/26/19 06:28 Ondansetron HCl (Zofran) 4 mg PRN Q4HRS PRN IV NAUSEA/VOMITING 01/25/19 20:00 01/26/19 06:35 Imaging: Imaging: CT A/P w/o contrast 01/25/19 Marked right coronary and left circumflex coronary show calcifications identified. Visualized lung bases are clear. Small hiatal hernia is present containing fluid. Liver, spleen, pancreas, adrenal glands, and kidneys are normal. Gallbladder fossa is unremarkable. Appendix is nondistended. Appendicoliths identified. Diverticulosis of the colon is present. No acute inflammation. Urinary bladder is unremarkable. No pelvic free fluid. Impression: Small hiatal hernia. Fluid within the distal esophagus which may represent gastroesophageal reflux. Diverticulosis. No acute inflammatory process. PE: GEN: NAD - voice is raspy HEENT: Atraumatic, PERRL LUNGS: CTAB HEART: RRR ABD: NABS, S/ND, epigastric discomfort to RUQ EXTREMITY: No edema SKIN: No rashes, no jaundice NEURO/PSYCH: A & O 3 A/P: A/P: N/v, diarrhea - acute onset after eating a burger and fries, now resolved Upper abd discomfort, ?dysphagia/globus H/o GERD and dysphagia, remote h/o ulcer - on PPI, H2 christopher, past EGDs w/ esophageal dilation Recent hematochezia - workup @ [facility] per HPI, no recurrent bleeding CRC screen, h/o polyps - UTD (2014) Diverticulosis, hemorrhoids H/o A Fib on Xarelto, h/o DM (says well-controlled), ?ABDULLAHI Anemia +marijuana -- NPO for EGD this afternoon. Agree w/ PPI. Records already requested from [facility]. FRANCISCO JAVIER TOBIAS January 26, 2019 09:34
[2019-01-26 09:59] LABS: BASO % 0 % (0-3); EOS % 0 % (0-3); HEMATOCRIT 30.1 % (36.0-47.0); LYMPH # 1.5 x10^3/uL (1.0-4.8); LYMPH % 13 % (24-48); MEAN CORPUSCULAR HEMOGLOBIN 29 pg (25-35); MEAN CORPUSCULAR HGB CONC 33 g/dL (31-37); MEAN CORPUSCULAR VOLUME 88 fL (79-100); MONO # 0.8 x10^3/uL (0.0-1.1); MONO % 7 % (0-9); NEUT # 9.6 x10^3uL (1.8-7.7); NEUT % 80 % (31-73); PLATELET COUNT 298 x10^3/uL (140-400); RED BLOOD COUNT 3.43 x10^6/uL (3.50-5.40); RED CELL DISTRIBUTION WIDTH 13.7 % (11.5-14.5)
[2019-01-26 10:40] LABS: CALCIUM 8.4 mg/dL (8.5-10.1); CREATININE 0.9 mg/dL (0.6-1.0); GFR 63.2; POTASSIUM 3.7 mmol/L (3.5-5.1)
[2019-01-26 11:02] VITALS: BP 142/107
[2019-01-26] MEDS ORDERED: IV RINGERS,LACTATED 1000ML 1,000 ML IV SCH (13:00)
[2019-01-26] MEDS ORDERED: fentaNYL PF VIAL 100 MCG/2 ML VIAL IV PRN ×2 (13:15)
--- NOTE | 2019-01-26 14:07 | PDOC ---
PROGRESS NOTES Chief Complaint Chief Complaint Intractabel nausea and vomiting Dysphagia Diabetic gastroparesis? E coli infection? 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 Says she went to [facility] on 01/15/19 w/ hematochezia, found with Hgb was 8, had a colonoscopy, was told she had E Coli and Giardia, and was discharged to home without any specific treatment. Intermittent issues w/ nausea but not typically vomiting, now with difficulty with swallowing and food sticking as well as diarrhea. No melena. No weight loss. No swallowing issues prior to today. Normal GES here in 2013. Does not recall h/o gastroparesis or any repeat GES since then. Says DM is well-controlled w/ A1c of 7.8. She still has loose bowels this morning, going for EGD this afternoon. Still has abdominal pain, not improved. Vitals Vitals Vital Signs Date Time Temp Pulse Resp B/P (MAP) Pulse Ox O2 Delivery O2 Flow Rate FiO2 01/26/19 11:41 16 01/26/19 11:11 Room Air 01/26/19 11:02 99.0 88 142/107 (119) 96 99.0 Physical Exam General: Alert, Oriented X3, Cooperative Heart: Regular rate, Normal S1, Normal S2 Lungs: Clear Abdomen: Normal bowel sounds Extremities: No clubbing, No cyanosis Skin: No rashes, No breakdown Labs LABS Laboratory Tests Test 01/25/19 14:13 01/25/19 15:43 01/25/19 20:59 01/26/19 07:17 White Blood Count 14.1 x10^3/uL (4.0-11.0) Red Blood Count 4.05 x10^6/uL (3.50-5.40) Hemoglobin 11.6 g/dL (12.0-15.5) Hematocrit 35.1 % (36.0-47.0) Mean Corpuscular Volume 87 fL (79-100) Mean Corpuscular Hemoglobin 29 pg (25-35) Mean Corpuscular Hemoglobin Concent 33 g/dL (31-37) Red Cell Distribution Width 13.4 % (11.5-14.5) Platelet Count 401 x10^3/uL (140-400) Neutrophils (%) (Auto) 87 % (31-73) Lymphocytes (%) (Auto) 8 % (24-48) Monocytes (%) (Auto) 5 % (0-9) Eosinophils (%) (Auto) 0 % (0-3) Basophils (%) (Auto) 0 % (0-3) Neutrophils # (Auto) 12.2 x10^3uL (1.8-7.7) Lymphocytes # (Auto) 1.1 x10^3/uL (1.0-4.8) Monocytes # (Auto) 0.7 x10^3/uL (0.0-1.1) Eosinophils # (Auto) 0.0 x10^3/uL (0.0-0.7) Basophils # (Auto) 0.1 x10^3/uL (0.0-0.2) Segmented Neutrophils % 86 % (35-66) Band Neutrophils % 1 % (0-9) Lymphocytes % 6 % (24-48) Monocytes % 6 % (0-10) Basophils % 1 % (0-3) Platelet Estimate Adequate (ADEQUATE) Polychromasia Slight Sodium Level 143 mmol/L (136-145) Potassium Level 4.0 mmol/L (3.5-5.1) Chloride Level 104 mmol/L (98-107) Carbon Dioxide Level 23 mmol/L (21-32) Anion Gap 16 (6-14) Blood Urea Nitrogen 16 mg/dL (7-20) Creatinine 1.3 mg/dL (0.6-1.0) Estimated GFR (Cockcroft-Gault) 41.4 BUN/Creatinine Ratio 12 (6-20) Glucose Level 175 mg/dL (70-99) Calcium Level 9.7 mg/dL (8.5-10.1) Total Bilirubin 0.6 mg/dL (0.2-1.0) Aspartate Amino Transf (AST/SGOT) 50 U/L (15-37) Alanine Aminotransferase (ALT/SGPT) 49 U/L (14-59) Alkaline Phosphatase 77 U/L (46-116) Troponin I Quantitative < 0.017 ng/mL (0.000-0.055) Total Protein 7.8 g/dL (6.4-8.2) Albumin 4.0 g/dL (3.4-5.0) Albumin/Globulin Ratio 1.1 (1.0-1.7) Lipase 179 U/L (73-393) Ethyl Alcohol Level < 10 mg/dL (0-10) Urine Collection Type Unknown Urine Color Yellow Urine Clarity Clear Urine pH 8.5 Urine Specific Davis 1.020 Urine Protein 30 mg/dL (NEG-TRACE) Urine Glucose (UA) Negative mg/dL (NEG) Urine Ketones (Stick) 15 mg/dL (NEG) Urine Blood Negative (NEG) Urine Nitrite Negative (NEG) Urine Bilirubin Negative (NEG) Urine Urobilinogen Dipstick 0.2 mg/dL (0.2 mg/dL) Urine Leukocyte Esterase Negative (NEG) Urine RBC 0 /HPF (0-2) Urine WBC Occ /HPF (0-4) Urine Squamous Epithelial Cells Few /LPF Urine Bacteria Few /HPF (0-FEW) Urine Hyaline Casts Occasional /HPF Urine Mucus Mod /LPF Urine Opiates Screen Neg (NEG) Urine Methadone Screen Neg (NEG) Urine Barbiturates Neg (NEG) Urine Phencyclidine Screen Neg (NEG) Urine Amphetamine/Methamphetamine Neg (NEG) Urine Benzodiazepines Screen Neg (NEG) Urine Cocaine Screen Neg (NEG) Urine Cannabinoids Screen Pos (NEG) Urine Ethyl Alcohol Neg (NEG) Glucose (Fingerstick) 125 mg/dL (70-99) 131 mg/dL (70-99) Test 01/26/19 09:03 01/26/19 11:39 White Blood Count 12.0 x10^3/uL (4.0-11.0) Red Blood Count 3.43 x10^6/uL (3.50-5.40) Hemoglobin 10.0 g/dL (12.0-15.5) Hematocrit 30.1 % (36.0-47.0) Mean Corpuscular Volume 88 fL (79-100) Mean Corpuscular Hemoglobin 29 pg (25-35) Mean Corpuscular Hemoglobin Concent 33 g/dL (31-37) Red Cell Distribution Width 13.7 % (11.5-14.5) Platelet Count 298 x10^3/uL (140-400) Neutrophils (%) (Auto) 80 % (31-73) Lymphocytes (%) (Auto) 13 % (24-48) Monocytes (%) (Auto) 7 % (0-9) Eosinophils (%) (Auto) 0 % (0-3) Basophils (%) (Auto) 0 % (0-3) Neutrophils # (Auto) 9.6 x10^3uL (1.8-7.7) Lymphocytes # (Auto) 1.5 x10^3/uL (1.0-4.8) Monocytes # (Auto) 0.8 x10^3/uL (0.0-1.1) Eosinophils # (Auto) 0.0 x10^3/uL (0.0-0.7) Basophils # (Auto) 0.0 x10^3/uL (0.0-0.2) Sodium Level 141 mmol/L (136-145) Potassium Level 3.7 mmol/L (3.5-5.1) Chloride Level 106 mmol/L (98-107) Carbon Dioxide Level 22 mmol/L (21-32) Anion Gap 13 (6-14) Blood Urea Nitrogen 10 mg/dL (7-20) Creatinine 0.9 mg/dL (0.6-1.0) Estimated GFR (Cockcroft-Gault) 63.2 Glucose Level 180 mg/dL (70-99) Calcium Level 8.4 mg/dL (8.5-10.1) Iron Level 28 ug/dL (50-170) Total Iron Binding Capacity 328 ug/dL (250-450) Iron Saturation 9 % (15-34) Glucose (Fingerstick) 118 mg/dL (70-99) Assessment and Plan Assessmemt and Plan Problems Medical Problems: (1) Abdominal pain Status: Acute (2) Diarrhea Status: Acute (3) Gastroparesis Status: Acute (4) Intractable nausea and vomiting Status: Acute Comment Review of Relevant I have reviewed the following items mumtaz (where applicable) has been applied. Labs Laboratory Tests Test 01/25/19 14:13 01/25/19 15:43 01/25/19 20:59 01/26/19 07:17 White Blood Count 14.1 x10^3/uL (4.0-11.0) Red Blood Count 4.05 x10^6/uL (3.50-5.40) Hemoglobin 11.6 g/dL (12.0-15.5) Hematocrit 35.1 % (36.0-47.0) Mean Corpuscular Volume 87 fL (79-100) Mean Corpuscular Hemoglobin 29 pg (25-35) Mean Corpuscular Hemoglobin Concent 33 g/dL (31-37) Red Cell Distribution Width 13.4 % (11.5-14.5) Platelet Count 401 x10^3/uL (140-400) Neutrophils (%) (Auto) 87 % (31-73) Lymphocytes (%) (Auto) 8 % (24-48) Monocytes (%) (Auto) 5 % (0-9) Eosinophils (%) (Auto) 0 % (0-3) Basophils (%) (Auto) 0 % (0-3) Neutrophils # (Auto) 12.2 x10^3uL (1.8-7.7) Lymphocytes # (Auto) 1.1 x10^3/uL (1.0-4.8) Monocytes # (Auto) 0.7 x10^3/uL (0.0-1.1) Eosinophils # (Auto) 0.0 x10^3/uL (0.0-0.7) Basophils # (Auto) 0.1 x10^3/uL (0.0-0.2) Segmented Neutrophils % 86 % (35-66) Band Neutrophils % 1 % (0-9) Lymphocytes % 6 % (24-48) Monocytes % 6 % (0-10) Basophils % 1 % (0-3) Platelet Estimate Adequate (ADEQUATE) Polychromasia Slight Sodium Level 143 mmol/L (136-145) Potassium Level 4.0 mmol/L (3.5-5.1) Chloride Level 104 mmol/L (98-107) Carbon Dioxide Level 23 mmol/L (21-32) Anion Gap 16 (6-14) Blood Urea Nitrogen 16 mg/dL (7-20) Creatinine 1.3 mg/dL (0.6-1.0) Estimated GFR (Cockcroft-Gault) 41.4 BUN/Creatinine Ratio 12 (6-20) Glucose Level 175 mg/dL (70-99) Calcium Level 9.7 mg/dL (8.5-10.1) Total Bilirubin 0.6 mg/dL (0.2-1.0) Aspartate Amino Transf (AST/SGOT) 50 U/L (15-37) Alanine Aminotransferase (ALT/SGPT) 49 U/L (14-59) Alkaline Phosphatase 77 U/L (46-116) Troponin I Quantitative < 0.017 ng/mL (0.000-0.055) Total Protein 7.8 g/dL (6.4-8.2) Albumin 4.0 g/dL (3.4-5.0) Albumin/Globulin Ratio 1.1 (1.0-1.7) Lipase 179 U/L (73-393) Ethyl Alcohol Level < 10 mg/dL (0-10) Urine Collection Type Unknown Urine Color Yellow Urine Clarity Clear Urine pH 8.5 Urine Specific Davis 1.020 Urine Protein 30 mg/dL (NEG-TRACE) Urine Glucose (UA) Negative mg/dL (NEG) Urine Ketones (Stick) 15 mg/dL (NEG) Urine Blood Negative (NEG) Urine Nitrite Negative (NEG) Urine Bilirubin Negative (NEG) Urine Urobilinogen Dipstick 0.2 mg/dL (0.2 mg/dL) Urine Leukocyte Esterase Negative (NEG) Urine RBC 0 /HPF (0-2) Urine WBC Occ /HPF (0-4) Urine Squamous Epithelial Cells Few /LPF Urine Bacteria Few /HPF (0-FEW) Urine Hyaline Casts Occasional /HPF Urine Mucus Mod /LPF Urine Opiates Screen Neg (NEG) Urine Methadone Screen Neg (NEG) Urine Barbiturates Neg (NEG) Urine Phencyclidine Screen Neg (NEG) Urine Amphetamine/Methamphetamine Neg (NEG) Urine Benzodiazepines Screen Neg (NEG) Urine Cocaine Screen Neg (NEG) Urine Cannabinoids Screen Pos (NEG) Urine Ethyl Alcohol Neg (NEG) Glucose (Fingerstick) 125 mg/dL (70-99) 131 mg/dL (70-99) Test 01/26/19 09:03 01/26/19 11:39 White Blood Count 12.0 x10^3/uL (4.0-11.0) Red Blood Count 3.43 x10^6/uL (3.50-5.40) Hemoglobin 10.0 g/dL (12.0-15.5) Hematocrit 30.1 % (36.0-47.0) Mean Corpuscular Volume 88 fL (79-100) Mean Corpuscular Hemoglobin 29 pg (25-35) Mean Corpuscular Hemoglobin Concent 33 g/dL (31-37) Red Cell Distribution Width 13.7 % (11.5-14.5) Platelet Count 298 x10^3/uL (140-400) Neutrophils (%) (Auto) 80 % (31-73) Lymphocytes (%) (Auto) 13 % (24-48) Monocytes (%) (Auto) 7 % (0-9) Eosinophils (%) (Auto) 0 % (0-3) Basophils (%) (Auto) 0 % (0-3) Neutrophils # (Auto) 9.6 x10^3uL (1.8-7.7) Lymphocytes # (Auto) 1.5 x10^3/uL (1.0-4.8) Monocytes # (Auto) 0.8 x10^3/uL (0.0-1.1) Eosinophils # (Auto) 0.0 x10^3/uL (0.0-0.7) Basophils # (Auto) 0.0 x10^3/uL (0.0-0.2) Sodium Level 141 mmol/L (136-145) Potassium Level 3.7 mmol/L (3.5-5.1) Chloride Level 106 mmol/L (98-107) Carbon Dioxide Level 22 mmol/L (21-32) Anion Gap 13 (6-14) Blood Urea Nitrogen 10 mg/dL (7-20) Creatinine 0.9 mg/dL (0.6-1.0) Estimated GFR (Cockcroft-Gault) 63.2 Glucose Level 180 mg/dL (70-99) Calcium Level 8.4 mg/dL (8.5-10.1) Iron Level 28 ug/dL (50-170) Total Iron Binding Capacity 328 ug/dL (250-450) Iron Saturation 9 % (15-34) Glucose (Fingerstick) 118 mg/dL (70-99) Laboratory Tests Test 01/25/19 14:13 01/25/19 15:43 01/25/19 20:59 01/26/19 07:17 White Blood Count 14.1 x10^3/uL (4.0-11.0) Red Blood Count 4.05 x10^6/uL (3.50-5.40) Hemoglobin 11.6 g/dL (12.0-15.5) Hematocrit 35.1 % (36.0-47.0) Mean Corpuscular Volume 87 fL (79-100) Mean Corpuscular Hemoglobin 29 pg (25-35) Mean Corpuscular Hemoglobin Concent 33 g/dL (31-37) Red Cell Distribution Width 13.4 % (11.5-14.5) Platelet Count 401 x10^3/uL (140-400) Neutrophils (%) (Auto) 87 % (31-73) Lymphocytes (%) (Auto) 8 % (24-48) Monocytes (%) (Auto) 5 % (0-9) Eosinophils (%) (Auto) 0 % (0-3) Basophils (%) (Auto) 0 % (0-3) Neutrophils # (Auto) 12.2 x10^3uL (1.8-7.7) Lymphocytes # (Auto) 1.1 x10^3/uL (1.0-4.8) Monocytes # (Auto) 0.7 x10^3/uL (0.0-1.1) Eosinophils # (Auto) 0.0 x10^3/uL (0.0-0.7) Basophils # (Auto) 0.1 x10^3/uL (0.0-0.2) Segmented Neutrophils % 86 % (35-66) Band Neutrophils % 1 % (0-9) Lymphocytes % 6 % (24-48) Monocytes % 6 % (0-10) Basophils % 1 % (0-3) Platelet Estimate Adequate (ADEQUATE) Polychromasia Slight Sodium Level 143 mmol/L (136-145) Potassium Level 4.0 mmol/L (3.5-5.1) Chloride Level 104 mmol/L (98-107) Carbon Dioxide Level 23 mmol/L (21-32) Anion Gap 16 (6-14) Blood Urea Nitrogen 16 mg/dL (7-20) Creatinine 1.3 mg/dL (0.6-1.0) Estimated GFR (Cockcroft-Gault) 41.4 BUN/Creatinine Ratio 12 (6-20) Glucose Level 175 mg/dL (70-99) Calcium Level 9.7 mg/dL (8.5-10.1) Total Bilirubin 0.6 mg/dL (0.2-1.0) Aspartate Amino Transf (AST/SGOT) 50 U/L (15-37) Alanine Aminotransferase (ALT/SGPT) 49 U/L (14-59) Alkaline Phosphatase 77 U/L (46-116) Troponin I Quantitative < 0.017 ng/mL (0.000-0.055) Total Protein 7.8 g/dL (6.4-8.2) Albumin 4.0 g/dL (3.4-5.0) Albumin/Globulin Ratio 1.1 (1.0-1.7) Lipase 179 U/L (73-393) Ethyl Alcohol Level < 10 mg/dL (0-10) Urine Collection Type Unknown Urine Color Yellow Urine Clarity Clear Urine pH 8.5 Urine Specific Davis 1.020 Urine Protein 30 mg/dL (NEG-TRACE) Urine Glucose (UA) Negative mg/dL (NEG) Urine Ketones (Stick) 15 mg/dL (NEG) Urine Blood Negative (NEG) Urine Nitrite Negative (NEG) Urine Bilirubin Negative (NEG) Urine Urobilinogen Dipstick 0.2 mg/dL (0.2 mg/dL) Urine Leukocyte Esterase Negative (NEG) Urine RBC 0 /HPF (0-2) Urine WBC Occ /HPF (0-4) Urine Squamous Epithelial Cells Few /LPF Urine Bacteria Few /HPF (0-FEW) Urine Hyaline Casts Occasional /HPF Urine Mucus Mod /LPF Urine Opiates Screen Neg (NEG) Urine Methadone Screen Neg (NEG) Urine Barbiturates Neg (NEG) Urine Phencyclidine Screen Neg (NEG) Urine Amphetamine/Methamphetamine Neg (NEG) Urine Benzodiazepines Screen Neg (NEG) Urine Cocaine Screen Neg (NEG) Urine Cannabinoids Screen Pos (NEG) Urine Ethyl Alcohol Neg (NEG) Glucose (Fingerstick) 125 mg/dL (70-99) 131 mg/dL (70-99) Test 01/26/19 09:03 01/26/19 11:39 White Blood Count 12.0 x10^3/uL (4.0-11.0) Red Blood Count 3.43 x10^6/uL (3.50-5.40) Hemoglobin 10.0 g/dL (12.0-15.5) Hematocrit 30.1 % (36.0-47.0) Mean Corpuscular Volume 88 fL (79-100) Mean Corpuscular Hemoglobin 29 pg (25-35) Mean Corpuscular Hemoglobin Concent 33 g/dL (31-37) Red Cell Distribution Width 13.7 % (11.5-14.5) Platelet Count 298 x10^3/uL (140-400) Neutrophils (%) (Auto) 80 % (31-73) Lymphocytes (%) (Auto) 13 % (24-48) Monocytes (%) (Auto) 7 % (0-9) Eosinophils (%) (Auto) 0 % (0-3) Basophils (%) (Auto) 0 % (0-3) Neutrophils # (Auto) 9.6 x10^3uL (1.8-7.7) Lymphocytes # (Auto) 1.5 x10^3/uL (1.0-4.8) Monocytes # (Auto) 0.8 x10^3/uL (0.0-1.1) Eosinophils # (Auto) 0.0 x10^3/uL (0.0-0.7) Basophils # (Auto) 0.0 x10^3/uL (0.0-0.2) Sodium Level 141 mmol/L (136-145) Potassium Level 3.7 mmol/L (3.5-5.1) Chloride Level 106 mmol/L (98-107) Carbon Dioxide Level 22 mmol/L (21-32) Anion Gap 13 (6-14) Blood Urea Nitrogen 10 mg/dL (7-20) Creatinine 0.9 mg/dL (0.6-1.0) Estimated GFR (Cockcroft-Gault) 63.2 Glucose Level 180 mg/dL (70-99) Calcium Level 8.4 mg/dL (8.5-10.1) Iron Level 28 ug/dL (50-170) Total Iron Binding Capacity 328 ug/dL (250-450) Iron Saturation 9 % (15-34) Glucose (Fingerstick) 118 mg/dL (70-99) Medications Current Medications Fentanyl Citrate (Fentanyl 2ml Vial) 50 mcg 1X ONCE IV Last administered on 01/25/19at 14:22; Start 01/25/19 at 14:15; Stop 01/25/19 at 14:16; Status DC Ondansetron HCl (Zofran) 4 mg 1X ONCE IV Last administered on 01/25/19at 14:21; Start 01/25/19 at 14:15; Stop 01/25/19 at 14:16; Status DC Famotidine (Pepcid Vial) 20 mg 1X ONCE IVP Last administered on 01/25/19at 14:21; Start 01/25/19 at 14:15; Stop 01/25/19 at 14:16; Status DC Sodium Chloride 1,000 ml @ 1,000 mls/hr 1X ONCE IV Last administered on 01/25/19at 14:21; Start 01/25/19 at 14:15; Stop 01/25/19 at 15:14; Status DC Multi-Ingredient Mouthwash/Gargle (Gi Cocktail) 20 ml 1X ONCE SWSW Last administered on 01/25/19at 16:23; Start 01/25/19 at 16:00; Stop 01/25/19 at 16:01; Status DC Ondansetron HCl (Zofran) 4 mg PRN Q8HRS PRN IV NAUSEA/VOMITING Last administered on 01/25/19at 18:37; Start 01/25/19 at 18:15; Stop 01/26/19 at 18:14 Fentanyl Citrate (Fentanyl 2ml Vial) 50 mcg PRN Q1HR PRN IV PAIN Last administered on 01/26/19at 11:11; Start 01/25/19 at 18:15; Stop 01/26/19 at 18:14 Acetaminophen (Tylenol) 650 mg PRN Q4HRS PRN PO FEVER; Start 01/25/19 at 18:15; Stop 01/26/19 at 18:14 Metoclopramide HCl (Reglan Vial) 10 mg PRN TID PRN IV NAUSEA Last administered on 01/25/19at 20:46; Start 01/25/19 at 18:15 Famotidine (Pepcid Vial) 20 mg DAILY IVP Last administered on 01/26/19at 09:53; Start 01/26/19 at 09:00; Stop 01/26/19 at 10:59; Status DC Sodium Chloride 1,000 ml @ 125 mls/hr 1X ONCE IV ; Start 01/25/19 at 18:15; Stop 01/26/19 at 02:14; Status DC Sodium Chloride 1,000 ml @ 100 mls/hr Q10H IV Last administered on 01/26/19at 06:28; Start 01/25/19 at 19:48 Ondansetron HCl (Zofran) 4 mg PRN Q4HRS PRN IV NAUSEA/VOMITING Last administered on 01/26/19at 06:35; Start 01/25/19 at 20:00 Zolpidem Tartrate (Ambien) 5 mg PRN QHS PRN PO INSOMNIA; Start 01/25/19 at 20:00 Acetaminophen (Tylenol) 650 mg PRN Q4HRS PRN PO TEMP OVER 100.4F OR MILD PAIN; Start 01/25/19 at 20:00 Al Hydroxide/Mg Hydroxide (Mylanta Plus Xs) 30 ml PRN DAILY PRN PO HEARTBURN / GAS; Start 01/25/19 at 20:00 Clonidine HCl (Catapres) 0.1 mg PRN Q6HRS PRN PO SBP>160 OR DBP>90; Start 01/25/19 at 20:00 Docusate Sodium (Colace) 100 mg PRN BID PRN PO CONSTIPATION; Start 01/25/19 at 20:00 Albuterol Sulfate (Ventolin Neb Soln) 2.5 mg PRN Q4HRS PRN NEB SHORTNESS OF BREATH; Start 01/25/19 at 20:00 Guaifenesin (Robitussin) 200 mg PRN Q4HRS PRN PO COUGH; Start 01/25/19 at 20:00 Lorazepam (Ativan) 0.5 mg PRN Q4HRS PRN PO ANXIETY / AGITATION; Start 01/25/19 at 20:00 Insulin Human Lispro (HumaLOG) 0-5 UNITS TIDWMEALS SQ ; Start 01/26/19 at 08:00 Dextrose (Dextrose 50%-Water Syringe) 12.5 gm PRN Q15MIN PRN IV SEE COMMENTS; Start 01/25/19 at 20:00 Bupropion HCl (Wellbutrin Sr) 150 mg BID PO ; Start 01/25/19 at 21:00 Carvedilol (Coreg) 12.5 mg BIDWMEALS PO ; Start 01/25/19 at 21:00 Cyclobenzaprine HCl (Flexeril) 10 mg TID PO ; Start 01/25/19 at 21:00 Lorazepam (Ativan) 1 mg BID PO ; Start 01/25/19 at 21:00 Lisinopril (Prinivil) 5 mg DAILY PO ; Start 01/26/19 at 09:00 Pantoprazole Sodium (Protonix) 40 mg DAILYAC PO ; Start 01/26/19 at 07:30 Linagliptin (Tradjenta) 5 mg DAILY PO ; Start 01/26/19 at 09:00 Non-Formulary Medication (Vilazodone Hydrochloride (Viibryd)) 20 mg BID PO ; Start 01/25/19 at 21:00; Status UNV Fentanyl Citrate (Fentanyl 2ml Vial) 25 mcg PRN Q5MIN PRN IV MILD PAIN 1-3; S tart 01/26/19 at 13:15; Stop 01/26/19 at 21:00 Fentanyl Citrate (Fentanyl 2ml Vial) 50 mcg PRN Q5MIN PRN IV MODERATE TO SEVERE PAIN; Start 01/26/19 at 13:15; Stop 01/26/19 at 21:00 Ringer's Solution 1,000 ml @ 30 mls/hr Q24H IV ; Start 01/26/19 at 13:00; Stop 01/26/19 at 21:00 Active Scripts Active Reported Ativan (Lorazepam) 0.5 Mg Tablet 0.5 Mg PO TID Isosorbide Mononitrate Er (Isosorbide Mononitrate) 30 Mg Tab.er.24h 30 Mg PO BID Januvia (Sitagliptin Phosphate) 100 Mg Tablet 1 Tab PO DAILY Citalopram Hbr (Citalopram Hydrobromide) 10 Mg Tablet 10 Mg PO DAILY Silvadene (Silver Sulfadiazine) 20 Gm Cream..g. 1 Varun TP PRN BID PRN Promethazine Hcl 6.25 Mg/5 Ml Syrup 10 Ml PO PRN Q6HRS PRN Vitamin D2 (Ergocalciferol (Vitamin D2)) 50,000 Unit Capsule 50,000 Unit PO BID Omeprazole 20 Mg Capsule.dr 1 Cap PO DAILY Ranitidine Hcl 300 Mg Capsule 300 Mg PO PRN DAILY PRN Ferrous Sulfate 325 Mg Tablet 1 Tab PO BID Clonazepam 1 Mg Tablet 1 Tab PO BID Coreg (Carvedilol) 12.5 Mg Tablet 1 Tab PO BID Lisinopril 5 Mg Tablet 1 Tab PO DAILY Xarelto (Rivaroxaban) 20 Mg Tablet 20 Mg PO DAILY Wellbutrin Sr (Bupropion Hcl) 150 Mg Tablet.er 1 Tab PO BID Vitals/I & O Vital Sign - Last 24 Hours 01/25/19 01/25/19 01/25/19 5/15/19 14:18 15:08 15:18 15:49 Pulse 82 84 82 86 Resp 17 18 18 18 B/P (MAP) 161/77 (105) 161/86 (111) 153/81 (105) 157/74 (101) Pulse Ox 98 95 96 96 O2 Delivery Room Air Room Air Room Air Room Air 01/25/19 01/25/19 01/25/19 01/25/19 16:18 16:48 17:18 17:48 Pulse 86 90 90 92 Resp 16 16 15 16 B/P (MAP) 167/79 (108) 154/73 (100) 144/70 (94) 147/75 (99) Pulse Ox 95 97 95 96 O2 Delivery Room Air Room Air Room Air Room Air 01/25/19 01/25/19 01/25/19 01/25/19 18:18 18:38 18:48 19:18 Pulse 90 92 90 Resp 18 16 17 B/P (MAP) 157/74 (101) 138/64 (88) 140/77 (98) Pulse Ox 99 99 96 92 O2 Delivery Room Air Room Air Room Air Room Air 01/25/19 01/25/19 01/25/19 01/26/19 19:30 20:08 23:00 00:52 Temp 99.7 99.7 Pulse 93 Resp 18 B/P (MAP) 126/76 (93) Pulse Ox 97 O2 Delivery Room Air Room Air Room Air Room Air 01/26/19 01/26/19 01/26/19 01/26/19 03:00 07:00 11:02 11:11 Temp 98.2 99.0 99.0 98.2 99.0 99.0 Pulse 97 90 88 Resp 18 14 14 16 B/P (MAP) 132/80 (97) 113/71 (85) 142/107 (119) Pulse Ox 95 94 96 O2 Delivery Room Air Room Air Room Air Room Air 01/26/19 11:41 Resp 16 Intake and Output 01/25/19 01/25/19 01/26/19 15:00 23:00 07:00 Intake Total 1200 ml 300 ml Balance 1200 ml 300 ml ELAINE CROOKS MD January 26, 2019 14:07
[2019-01-26] MEDS ORDERED: LIDOCAINE 2% PF 5 ML VIAL. ONE (14:08)
[2019-01-26] MEDS ORDERED: PROPOFOL 20 ML IV ONE (14:08)
[2019-01-26] MEDS ORDERED: LIDO:MAALOX 1:1 20 ML SINGLE DOSE. PO PRN (14:30)
--- NOTE | 2019-01-26 14:33 | PDOC4 ---
PROCEDURE Procedure EGD Indication: odynophagia w/o dysphagia Meds: per anesthesia Findings: E--Exudate distal half, likely from repeat emesis of gastric contents. Mild Shatzki's ring at GEJ; not dilated due to esophageal injury and no dysphagia currently. G--Small HH. D--Normal to second portion. Marquis. well. IMP: Exudative esophagitis from repeated emesis. Mild Shatzki's ring, not dilated this occasion. Hiatal hernia. REC: Continue PPI, etc. In the short term, might benefit from GI cocktail prn. OK to try diet, consider discharge. JEY CONTRERAS MD January 26, 2019 14:33
[2019-01-26 15:00] VITALS: BP 147/75
[2019-01-26] MEDS: RIVAROXABAN 10 MG TABLET. PO SCH (17:00)
[2019-01-26 19:00] VITALS: BP 119/67
[2019-01-26] MEDS: ISOSORBIDE MONONITRATE ER 30 MG TAB.ER.24H PO SCH (21:00)
[2019-01-26 22:52] VITALS: BP 125/86
[2019-01-27] MEDS: IV NORMAL SALINE 1000ML BAG 1,000 ML IV SCH ×2 (01:48→12:15)
[2019-01-27 02:58] VITALS: BP 124/82
[2019-01-27 06:30] VITALS: BP 122/84
[2019-01-27] MEDS: INSULIN LISPRO 300 UNITS/3 ML INSULN.PEN. SQ SCH ×3 (08:00→17:00)
[2019-01-27] MEDS: FERROUS SULFATE 325 MG TABLET. PO SCH (08:00)
[2019-01-27] MEDS: LINAGLIPTIN 5 MG TABLET PO SCH (08:03)
[2019-01-27] MEDS: CITALOPRAM 10 MG TABLET. PO SCH (08:03)
[2019-01-27] MEDS: ISOSORBIDE MONONITRATE ER 30 MG TAB.ER.24H PO SCH ×2 (08:03→21:16)
[2019-01-27] MEDS: PANTOPRAZOLE 40 MG TABLET.DR. PO SCH (08:03)
[2019-01-27] MEDS: buPROPion SR 150 MG TABLET.SA PO SCH ×2 (08:03→21:16)
[2019-01-27] MEDS: LISINOPRIL 5 MG TABLET. PO SCH (08:04)
[2019-01-27] MEDS: ONDANSETRON PF 4 MG/2 ML VIAL. IV PRN ×3 (08:07→21:15)
--- NOTE | 2019-01-27 09:16 | PDOC ---
PROGRESS NOTES Chief Complaint Chief Complaint Intractable nausea and vomiting Dysphagia Diabetic gastroparesis? E coli infection? History of atrial fibrillation on Xarelto currently has not taken her medications since her dismissal from the hospital History of CAD with 12 stents placed in the past as per patient currently asymptomatic History of Present Illness History of Present Illness Ms Zhang is a 63 y/o F w/ PMH NE, CAD, A Fib, HTN, TIA, DM, migraines admitted through ER for abdominal pain. Says she went to [facility] on 01/15/19 w/ hematochezia, found with Hgb was 8, had a colonoscopy, was told she had E Coli and Giardia, and was discharged to home without any specific treatment. Intermittent issues w/ nausea but not typically vomiting, now with difficulty with swallowing and food sticking as well as diarrhea. No melena. No weight loss. No swallowing issues prior to today. Normal GES here in 2013. Does not recall h/o gastroparesis or any repeat GES since then. Says DM is well-controlled w/ A1c of 7.8. S/P EGD 01/26/19 - Exudate distal half, likely from repeat emesis of gastric contents. Mild Shatzki's ring at [facility]; not dilated due to esophageal injury She still has loose bowels this morning. Still has abdominal pain, not improved. Confirmed her stool DNA testing from [facility] positive for EAEC and giardia. No mention from physicians about treatment considerations and no ova and parasite results. Vitals Vitals Vital Signs Date Time Temp Pulse Resp B/P (MAP) Pulse Ox O2 Delivery O2 Flow Rate FiO2 01/27/19 08:04 94 122/84 01/27/19 06:30 98.5 17 97 Room Air 98.5 01/26/19 14:29 3 Physical Exam General: Alert, Oriented X3, Cooperative Heart: Regular rate, Normal S1, Normal S2 Lungs: Clear Abdomen: Normal bowel sounds Extremities: No clubbing, No cyanosis Skin: No rashes, No breakdown Labs LABS Laboratory Tests Test 01/26/19 11:39 01/26/19 17:01 01/26/19 20:12 01/27/19 07:14 Glucose (Fingerstick) 118 mg/dL (70-99) 145 mg/dL (70-99) 119 mg/dL (70-99) 129 mg/dL (70-99) Assessment and Plan Assessmemt and Plan Problems Medical Problems: (1) Abdominal pain Status: Acute (2) Diarrhea Status: Acute (3) Gastroparesis Status: Acute (4) Intractable nausea and vomiting Status: Acute Comment Review of Relevant I have reviewed the following items mumtaz (where applicable) has been applied. Labs Laboratory Tests Test 01/25/19 14:13 01/25/19 15:43 01/25/19 20:59 01/26/19 07:17 White Blood Count 14.1 x10^3/uL (4.0-11.0) Red Blood Count 4.05 x10^6/uL (3.50-5.40) Hemoglobin 11.6 g/dL (12.0-15.5) Hematocrit 35.1 % (36.0-47.0) Mean Corpuscular Volume 87 fL (79-100) Mean Corpuscular Hemoglobin 29 pg (25-35) Mean Corpuscular Hemoglobin Concent 33 g/dL (31-37) Red Cell Distribution Width 13.4 % (11.5-14.5) Platelet Count 401 x10^3/uL (140-400) Neutrophils (%) (Auto) 87 % (31-73) Lymphocytes (%) (Auto) 8 % (24-48) Monocytes (%) (Auto) 5 % (0-9) Eosinophils (%) (Auto) 0 % (0-3) Basophils (%) (Auto) 0 % (0-3) Neutrophils # (Auto) 12.2 x10^3uL (1.8-7.7) Lymphocytes # (Auto) 1.1 x10^3/uL (1.0-4.8) Monocytes # (Auto) 0.7 x10^3/uL (0.0-1.1) Eosinophils # (Auto) 0.0 x10^3/uL (0.0-0.7) Basophils # (Auto) 0.1 x10^3/uL (0.0-0.2) Segmented Neutrophils % 86 % (35-66) Band Neutrophils % 1 % (0-9) Lymphocytes % 6 % (24-48) Monocytes % 6 % (0-10) Basophils % 1 % (0-3) Platelet Estimate Adequate (ADEQUATE) Polychromasia Slight Sodium Level 143 mmol/L (136-145) Potassium Level 4.0 mmol/L (3.5-5.1) Chloride Level 104 mmol/L (98-107) Carbon Dioxide Level 23 mmol/L (21-32) Anion Gap 16 (6-14) Blood Urea Nitrogen 16 mg/dL (7-20) Creatinine 1.3 mg/dL (0.6-1.0) Estimated GFR (Cockcroft-Gault) 41.4 BUN/Creatinine Ratio 12 (6-20) Glucose Level 175 mg/dL (70-99) Calcium Level 9.7 mg/dL (8.5-10.1) Total Bilirubin 0.6 mg/dL (0.2-1.0) Aspartate Amino Transf (AST/SGOT) 50 U/L (15-37) Alanine Aminotransferase (ALT/SGPT) 49 U/L (14-59) Alkaline Phosphatase 77 U/L (46-116) Troponin I Quantitative < 0.017 ng/mL (0.000-0.055) Total Protein 7.8 g/dL (6.4-8.2) Albumin 4.0 g/dL (3.4-5.0) Albumin/Globulin Ratio 1.1 (1.0-1.7) Lipase 179 U/L (73-393) Ethyl Alcohol Level < 10 mg/dL (0-10) Urine Collection Type Unknown Urine Color Yellow Urine Clarity Clear Urine pH 8.5 Urine Specific [place] 1.020 Urine Protein 30 mg/dL (NEG-TRACE) Urine Glucose (UA) Negative mg/dL (NEG) Urine Ketones (Stick) 15 mg/dL (NEG) Urine Blood Negative (NEG) Urine Nitrite Negative (NEG) Urine Bilirubin Negative (NEG) Urine Urobilinogen Dipstick 0.2 mg/dL (0.2 mg/dL) Urine Leukocyte Esterase Negative (NEG) Urine RBC 0 /HPF (0-2) Urine WBC Occ /HPF (0-4) Urine Squamous Epithelial Cells Few /LPF Urine Bacteria Few /HPF (0-FEW) Urine Hyaline Casts Occasional /HPF Urine Mucus Mod /LPF Urine Opiates Screen Neg (NEG) Urine Methadone Screen Neg (NEG) Urine Barbiturates Neg (NEG) Urine Phencyclidine Screen Neg (NEG) Urine Amphetamine/Methamphetamine Neg (NEG) Urine Benzodiazepines Screen Neg (NEG) Urine Cocaine Screen Neg (NEG) Urine Cannabinoids Screen Pos (NEG) Urine Ethyl Alcohol Neg (NEG) Glucose (Fingerstick) 125 mg/dL (70-99) 131 mg/dL (70-99) Test 01/26/19 09:03 01/26/19 11:39 01/26/19 17:01 01/26/19 20:12 White Blood Count 12.0 x10^3/uL (4.0-11.0) Red Blood Count 3.43 x10^6/uL (3.50-5.40) Hemoglobin 10.0 g/dL (12.0-15.5) Hematocrit 30.1 % (36.0-47.0) Mean Corpuscular Volume 88 fL (79-100) Mean Corpuscular Hemoglobin 29 pg (25-35) Mean Corpuscular Hemoglobin Concent 33 g/dL (31-37) Red Cell Distribution Width 13.7 % (11.5-14.5) Platelet Count 298 x10^3/uL (140-400) Neutrophils (%) (Auto) 80 % (31-73) Lymphocytes (%) (Auto) 13 % (24-48) Monocytes (%) (Auto) 7 % (0-9) Eosinophils (%) (Auto) 0 % (0-3) Basophils (%) (Auto) 0 % (0-3) Neutrophils # (Auto) 9.6 x10^3uL (1.8-7.7) Lymphocytes # (Auto) 1.5 x10^3/uL (1.0-4.8) Monocytes # (Auto) 0.8 x10^3/uL (0.0-1.1) Eosinophils # (Auto) 0.0 x10^3/uL (0.0-0.7) Basophils # (Auto) 0.0 x10^3/uL (0.0-0.2) Sodium Level 141 mmol/L (136-145) Potassium Level 3.7 mmol/L (3.5-5.1) Chloride Level 106 mmol/L (98-107) Carbon Dioxide Level 22 mmol/L (21-32) Anion Gap 13 (6-14) Blood Urea Nitrogen 10 mg/dL (7-20) Creatinine 0.9 mg/dL (0.6-1.0) Estimated GFR (Cockcroft-Gault) 63.2 Glucose Level 180 mg/dL (70-99) Calcium Level 8.4 mg/dL (8.5-10.1) Iron Level 28 ug/dL (50-170) Total Iron Binding Capacity 328 ug/dL (250-450) Iron Saturation 9 % (15-34) Glucose (Fingerstick) 118 mg/dL (70-99) 145 mg/dL (70-99) 119 mg/dL (70-99) Test 01/27/19 07:14 Glucose (Fingerstick) 129 mg/dL (70-99) Laboratory Tests Test 01/26/19 11:39 01/26/19 17:01 01/26/19 20:12 01/27/19 07:14 Glucose (Fingerstick) 118 mg/dL (70-99) 145 mg/dL (70-99) 119 mg/dL (70-99) 129 mg/dL (70-99) Medications Current Medications Fentanyl Citrate (Fentanyl 2ml Vial) 50 mcg 1X ONCE IV Last administered on 01/25/19 14:22; Start 01/25/19 at 14:15; Stop 01/25/19 at 14:16; Status DC Ondansetron HCl (Zofran) 4 mg 1X ONCE IV Last administered on 01/25/19at 14:21; Start 01/25/19 at 14:15; Stop 01/25/19 at 14:16; Status DC Famotidine (Pepcid Vial) 20 mg 1X ONCE IVP Last administered on 01/25/19at 14:21; Start 01/25/19 at 14:15; Stop 01/25/19 at 14:16; Status DC Sodium Chloride 1,000 ml @ 1,000 mls/hr 1X ONCE IV Last administered on 01/25/19at 14:21; Start 01/25/19 at 14:15; Stop 01/25/19 at 15:14; Status DC Multi-Ingredient Mouthwash/Gargle (Gi Cocktail) 20 ml 1X ONCE SWSW Last administered on 01/25/19at 16:23; Start 01/25/19 at 16:00; Stop 01/25/19 at 16:01; Status DC Ondansetron HCl (Zofran) 4 mg PRN Q8HRS PRN IV NAUSEA/VOMITING Last administered on 01/25/19at 18:37; Start 01/25/19 at 18:15; Stop 01/26/19 at 18:14; Status DC Fentanyl Citrate (Fentanyl 2ml Vial) 50 mcg PRN Q1HR PRN IV PAIN Last administered on 01/26/19at 16:10; Start 01/25/19 at 18:15; Stop 01/26/19 at 18:14; Status DC Acetaminophen (Tylenol) 650 mg PRN Q4HRS PRN PO FEVER; Start 01/25/19 at 18:15; Stop 01/26/19 at 14:44; Status DC Metoclopramide HCl (Reglan Vial) 10 mg PRN TID PRN IV NAUSEA Last administered on 01/25/19at 20:46; Start 01/25/19 at 18:15; Stop 01/26/19 at 14:35; Status DC Famotidine (Pepcid Vial) 20 mg DAILY IVP Last administered on 01/26/19at 09:53; Start 01/26/19 at 09:00; Stop 01/26/19 at 10:59; Status DC Sodium Chloride 1,000 ml @ 125 mls/hr 1X ONCE IV ; Start 01/25/19 at 18:15; Stop 01/26/19 at 02:14; Status DC Sodium Chloride 1,000 ml @ 100 mls/hr Q10H IV Last administered on 01/27/19at 01:48; Start 01/25/19 at 19:48 Ondansetron HCl (Zofran) 4 mg PRN Q4HRS PRN IV NAUSEA/VOMITING Last administered on 01/27/19at 08:07; Start 01/25/19 at 20:00 Zolpidem Tartrate (Ambien) 5 mg PRN QHS PRN PO INSOMNIA; Start 01/25/19 at 20:00 Acetaminophen (Tylenol) 650 mg PRN Q4HRS PRN PO TEMP OVER 100.4F OR MILD PAIN; Start 01/25/19 at 20:00 Al Hydroxide/Mg Hydroxide (Mylanta Plus Xs) 30 ml PRN DAILY PRN PO HEARTBURN / GAS; Start 01/25/19 at 20:00; Status Cancel Clonidine HCl (Catapres) 0.1 mg PRN Q6HRS PRN PO SBP>160 OR DBP>90; Start 01/25/19 at 20:00; Status Cancel Docusate Sodium (Colace) 100 mg PRN BID PRN PO CONSTIPATION; Start 01/25/19 at 20:00; Status Cancel Albuterol Sulfate (Ventolin Neb Soln) 2.5 mg PRN Q4HRS PRN NEB SHORTNESS OF BREATH; Start 01/25/19 at 20:00 Guaifenesin (Robitussin) 200 mg PRN Q4HRS PRN PO COUGH; Start 01/25/19 at 20:00 Lorazepam (Ativan) 0.5 mg PRN Q4HRS PRN PO ANXIETY / AGITATION Last administered on 01/26/19at 21:15; Start 01/25/19 at 20:00 Insulin Human Lispro (HumaLOG) 0-5 UNITS TIDWMEALS SQ ; Start 01/26/19 at 08:00 Dextrose (Dextrose 50%-Water Syringe) 12.5 gm PRN Q15MIN PRN IV SEE COMMENTS; Start 01/25/19 at 20:00 Bupropion HCl (Wellbutrin Sr) 150 mg BID PO Last administered on 01/27/19at 08:03; Start 01/25/19 at 21:00 Carvedilol (Coreg) 12.5 mg BIDWMEALS PO ; Start 01/25/19 at 21:00; Stop 01/26/19 at 14:35; Status DC Cyclobenzaprine HCl (Flexeril) 10 mg TID PO ; Start 01/25/19 at 21:00; Stop 01/26/19 at 14:35; Status DC Lorazepam (Ativan) 1 mg BID PO ; Start 01/25/19 at 21:00; Stop 01/26/19 at 14:35; Status DC Lisinopril (Prinivil) 5 mg DAILY PO Last administered on 01/27/19at 08:04; Start 01/26/19 at 09:00 Pantoprazole Sodium (Protonix) 40 mg DAILYAC PO Last administered on 01/27/19at 08:03; Start 01/26/19 at 07:30 Linagliptin (Tradjenta) 5 mg DAILY PO Last administered on 01/27/19at 08:03; Start 01/26/19 at 09:00 Non-Formulary Medication (Vilazodone Hydrochloride (Viibryd)) 20 mg BID PO ; Start 01/25/19 at 21:00; Stop 01/26/19 at 14:35; Status DC Fentanyl Citrate (Fentanyl 2ml Vial) 25 mcg PRN Q5MIN PRN IV MILD PAIN 1-3; Start 01/26/19 at 13:15; Stop 01/26/19 at 21:00; Status DC Fentanyl Citrate (Fentanyl 2ml Vial) 50 mcg PRN Q5MIN PRN IV MODERATE TO SEVERE PAIN; Start 01/26/19 at 13:15; Stop 01/26/19 at 21:00; Status DC Ringer's Solution 1,000 ml @ 30 mls/hr Q24H IV Last administered on 01/26/19at 14:14; Start 01/26/19 at 13:00; Stop 01/26/19 at 21:00; Status DC Propofol 20 ml @ As Directed STK-MED ONCE IV ; Start 01/26/19 at 14:08; Stop 01/26/19 at 14:09; Status DC Lidocaine HCl (Lidocaine Pf 2% Vial) 5 ml STK-MED ONCE .ROUTE ; Start 01/26/19 at 14:08; Stop 01/26/19 at 14:09; Status DC Multi-Ingredient Mouthwash/Gargle (Gi Cocktail) 20 ml PRN QID PRN PO throat pain; Start 01/26/19 at 14:30 Isosorbide Mononitrate (Imdur) 30 mg BID PO Last administered on 01/27/19at 08:03; Start 01/26/19 at 21:00 Rivaroxaban (Xarelto) 20 mg DAILYWSUP PO ; Start 01/26/19 at 17:00 Citalopram Hydrobromide (CeleXA) 10 mg DAILY PO Last administered on 01/27/19at 08:03; Start 01/27/19 at 09:00 Ferrous Sulfate (Feosol) 325 mg DAILYWBKFT PO ; Start 01/27/19 at 08:00 Active Scripts Active Reported Ativan (Lorazepam) 0.5 Mg Tablet 0.5 Mg PO TID Isosorbide Mononitrate Er (Isosorbide Mononitrate) 30 Mg Tab.er.24h 30 Mg PO BID Januvia (Sitagliptin Phosphate) 100 Mg Tablet 1 Tab PO DAILY Citalopram Hbr (Citalopram Hydrobromide) 10 Mg Tablet 10 Mg PO DAILY Silvadene (Silver Sulfadiazine) 20 Gm Cream..g. 1 Varun TP PRN BID PRN Promethazine Hcl 6.25 Mg/5 Ml Syrup 10 Ml PO PRN Q6HRS PRN Vitamin D2 (Ergocalciferol (Vitamin D2)) 50,000 Unit Capsule 50,000 Unit PO BID Omeprazole 20 Mg Capsule.dr 1 Cap PO DAILY Ranitidine Hcl 300 Mg Capsule 300 Mg PO PRN DAILY PRN Ferrous Sulfate 325 Mg Tablet 1 Tab PO BID Clonazepam 1 Mg Tablet 1 Tab PO BID Coreg (Carvedilol) 12.5 Mg Tablet 1 Tab PO BID Lisinopril 5 Mg Tablet 1 Tab PO DAILY Xarelto (Rivaroxaban) 20 Mg Tablet 20 Mg PO DAILY Wellbutrin Sr (Bupropion Hcl) 150 Mg Tablet.er 1 Tab PO BID Vitals/I & O Vital Sign - Last 24 Hours 01/26/19 01/26/19 01/26/19 01/26/19 11:02 11:11 14:05 14:05 Temp 99.0 97.8 99.0 97.8 Pulse 88 95 Resp 14 16 18 B/P (MAP) 142/107 (119) Pulse Ox 96 97 O2 Delivery Room Air Room Air Room Air 01/26/19 01/26/19 01/26/19 01/26/19 14:29 14:44 14:59 15:00 Temp 98 98.0 98.0 98.2 98.0 98.0 98.0 98.2 Pulse 92 89 87 84 Resp 18 18 18 14 B/P (MAP) 131/64 141/84 139/77 147/75 (99) Pulse Ox 95 95 95 95 O2 Delivery Room Air Room Air Room Air Room Air O2 Flow Rate 3 01/26/19 01/26/19 01/26/19 01/26/19 16:10 16:40 19:00 20:00 Temp 100.2 100.2 Pulse 113 Resp 18 16 18 B/P (MAP) 119/67 (84) Pulse Ox 96 O2 Delivery Room Air Room Air Room Air Room Air 01/26/19 01/26/19 01/27/19 01/27/19 21:00 22:52 02:58 06:30 Temp 99.3 99.5 99.1 98.5 99.3 99.5 99.1 98.5 Pulse 108 108 94 Resp 18 18 17 B/P (MAP) 125/86 (99) 124/82 (96) 122/84 (97) Pulse Ox 97 94 97 O2 Delivery Room Air Room Air Room Air 01/27/19 01/27/19 08:03 08:04 Pulse 94 94 B/P (MAP) 122/84 122/84 Intake and Output 01/26/19 01/26/19 01/27/19 15:00 23:00 07:00 Intake Total 100 ml 400 ml Output Total 50 ml Balance 50 ml 400 ml ELAINE CROOKS MD January 27, 2019 09:16
[2019-01-27] MEDS ORDERED: IRON SUCROSE COMPLEX 200 MG in IV NORMAL SALINE 100ML 100 ML IV ONE (10:00)
[2019-01-27] MEDS: LIDO:MAALOX 1:1 20 ML SINGLE DOSE. PO PRN ×2 (10:43→21:17)
[2019-01-27 11:00] VITALS: BP 125/80
--- NOTE | 2019-01-27 11:24 | PDOC ---
Subjective: Subjective: Voice is better. Tolerating some PO - no n/v, just not much appetite. Throat is still sore, feels swollen. No dysphagia. Hasn't tried GI cocktail. Crampy LLQ pain, probably worse before stooling - had three watery stools this morning. Says Bentyl has worked well for cramping in the past. Doesn't think ready to go home yet. Thinks got a dose of Zosyn at [facility]. Objective: Objective: D/w Dr. Rae. Records from [facility] reviewed after I saw her - suspected diverticular bleed, CT showed distal descending and sigmoid diverticular changes without diverticulitis, colonoscopy on 01/16 (Dr. Willson) showed moderate diverticulosis in the whole colon but was otherwise normal, and stool panel showed enteroaggregative E. coli and Giardia were detected, though this was not discussed in notes. Vital Signs: Vital Signs Date Time Temp Pulse Resp B/P (MAP) Pulse Ox O2 Delivery O2 Flow Rate FiO2 01/27/19 08:04 94 122/84 01/27/19 06:30 98.5 17 97 Room Air 98.5 01/26/19 14:29 3 Labs: Laboratory Tests Test 01/26/19 17:01 01/26/19 20:12 01/27/19 07:14 01/27/19 10:56 Glucose (Fingerstick) 145 mg/dL 119 mg/dL 129 mg/dL 135 mg/dL Imaging: EGD 01/26 E--Exudate distal half, likely from repeat emesis of gastric contents. Mild Shatzki's ring at [facility]; not dilated due to esophageal injury and no dysphagia currently. G--Small HH. D--Normal to second portion. IMP: Exudative esophagitis from repeated emesis. Mild Shatzki's ring, not dilated this occasion. Hiatal hernia. PE: GEN: NAD LUNGS: CTAB HEART: RRR ABD: NABS, S/ND/NT NEURO/PSYCH: A & O 3 A/P: N/v, odynophagia - better, exudative esophagitis on EGD Lower abd discomfort/cramping, diarrhea CECILLE - recent diverticular bleed @ [facility] -- Diarrhea worse today - will review [facility] testing w/ Dr. Crook. Continue PPI, can try GI cocktail, add Bentyl. FRANCISCO JAVIER TOBIAS January 27, 2019 11:24
[2019-01-27] MEDS: DICYCLOMINE HCL 10 MG CAPSULE PO PRN ×2 (12:14→21:16)
[2019-01-27] MEDS ORDERED: ANTI-COAG MONITOR BY PHARMACY. MC PRN (12:30)
[2019-01-27 15:00] VITALS: BP 126/69
[2019-01-27] MEDS: ACETAMINOPHEN 325 MG TABLET. PO PRN ×2 (16:38→21:16)
[2019-01-27] MEDS: RIVAROXABAN 10 MG TABLET. PO SCH (16:38)
[2019-01-27 19:00] VITALS: BP 129/70
[2019-01-27 23:00] VITALS: BP 139/83
[2019-01-28 00:14] VITALS: BP 161/69
[2019-01-28 04:10] VITALS: BP 118/75
[2019-01-28] MEDS: IV NORMAL SALINE 1000ML BAG 1,000 ML IV SCH (04:41)
[2019-01-28 07:00] VITALS: BP 128/79
[2019-01-28] MEDS: INSULIN LISPRO 300 UNITS/3 ML INSULN.PEN. SQ SCH (08:00)
--- NOTE | 2019-01-28 08:43 | PDOC ---
PROGRESS NOTES Chief Complaint Chief Complaint Intractable nausea and vomiting Dysphagia Diabetic gastroparesis? E coli infection? History of atrial fibrillation on Xarelto currently has not taken her medications since her dismissal from the hospital History of CAD with 12 stents placed in the past as per patient currently asymptomatic History of Present Illness History of Present Illness Ms Zhang is a 63 y/o F w/ PMH MO, CAD, A Fib, HTN, TIA, DM, migraines admitted through ER for abdominal pain. Says she went to [facility] on 01/15/19 w/ hematochezia, found with Hgb was 8, had a colonoscopy, was told she had E Coli and Giardia, and was discharged to home without any specific treatment. Intermittent issues w/ nausea but not typically vomiting, now with difficulty with swallowing and food sticking as well as diarrhea. No melena. No weight loss. No swallowing issues prior to today. Normal GES here in 2013. Does not recall h/o gastroparesis or any repeat GES since then. Says DM is well-controlled w/ A1c of 7.8. S/P EGD 01/26/19 - Exudate distal half, likely from repeat emesis of gastric contents. Mild Shatzki's ring at [facility]; not dilated due to esophageal injury She still has loose bowels this morning. Still has abdominal pain, not improved. Confirmed her stool DNA testing from [facility] positive for EAEC and giardia. No mention from physicians about treatment considerations and no ova and parasite results. Plan: May be worthwhile to give Flagyl 500mg BID for 5-7 days. I am uncertain how to interpret giardia DNA results on stool PCR, however Vitals Vitals Vital Signs Date Time Temp Pulse Resp B/P (MAP) Pulse Ox O2 Delivery O2 Flow Rate FiO2 01/28/19 07:00 98.6 85 19 128/79 (95) 96 Room Air 98.6 Physical Exam General: Alert, Oriented X3, Cooperative Heart: Regular rate, Normal S1, Normal S2 Lungs: Clear Abdomen: Normal bowel sounds Extremities: No clubbing, No cyanosis Skin: No rashes, No breakdown Labs LABS Laboratory Tests Test 01/27/19 10:56 01/27/19 16:56 01/27/19 20:04 Glucose (Fingerstick) 135 mg/dL (70-99) 149 mg/dL (70-99) 98 mg/dL (70-99) Assessment and Plan Assessmemt and Plan Problems Medical Problems: (1) Abdominal pain Status: Acute (2) Diarrhea Status: Acute (3) Gastroparesis Status: Acute (4) Intractable nausea and vomiting Status: Acute Comment Review of Relevant I have reviewed the following items mumtaz (where applicable) has been applied. Labs Laboratory Tests Test 01/26/19 09:03 01/26/19 11:39 01/26/19 17:01 01/26/19 20:12 White Blood Count 12.0 x10^3/uL (4.0-11.0) Red Blood Count 3.43 x10^6/uL (3.50-5.40) Hemoglobin 10.0 g/dL (12.0-15.5) Hematocrit 30.1 % (36.0-47.0) Mean Corpuscular Volume 88 fL (79-100) Mean Corpuscular Hemoglobin 29 pg (25-35) Mean Corpuscular Hemoglobin Concent 33 g/dL (31-37) Red Cell Distribution Width 13.7 % (11.5-14.5) Platelet Count 298 x10^3/uL (140-400) Neutrophils (%) (Auto) 80 % (31-73) Lymphocytes (%) (Auto) 13 % (24-48) Monocytes (%) (Auto) 7 % (0-9) Eosinophils (%) (Auto) 0 % (0-3) Basophils (%) (Auto) 0 % (0-3) Neutrophils # (Auto) 9.6 x10^3uL (1.8-7.7) Lymphocytes # (Auto) 1.5 x10^3/uL (1.0-4.8) Monocytes # (Auto) 0.8 x10^3/uL (0.0-1.1) Eosinophils # (Auto) 0.0 x10^3/uL (0.0-0.7) Basophils # (Auto) 0.0 x10^3/uL (0.0-0.2) Sodium Level 141 mmol/L (136-145) Potassium Level 3.7 mmol/L (3.5-5.1) Chloride Level 106 mmol/L (98-107) Carbon Dioxide Level 22 mmol/L (21-32) Anion Gap 13 (6-14) Blood Urea Nitrogen 10 mg/dL (7-20) Creatinine 0.9 mg/dL (0.6-1.0) Estimated GFR (Cockcroft-Gault) 63.2 Glucose Level 180 mg/dL (70-99) Calcium Level 8.4 mg/dL (8.5-10.1) Iron Level 28 ug/dL (50-170) Total Iron Binding Capacity 328 ug/dL (250-450) Iron Saturation 9 % (15-34) Glucose (Fingerstick) 118 mg/dL (70-99) 145 mg/dL (70-99) 119 mg/dL (70-99) Test 01/27/19 07:14 01/27/19 10:56 01/27/19 16:56 01/27/19 20:04 Glucose (Fingerstick) 129 mg/dL (70-99) 135 mg/dL (70-99) 149 mg/dL (70-99) 98 mg/dL (70-99) Laboratory Tests Test 01/27/19 10:56 01/27/19 16:56 01/27/19 20:04 Glucose (Fingerstick) 135 mg/dL (70-99) 149 mg/dL (70-99) 98 mg/dL (70-99) Medications Current Medications Fentanyl Citrate (Fentanyl 2ml Vial) 50 mcg 1X ONCE IV Last administered on 01/25/19at 14:22; Start 01/25/19 at 14:15; Stop 01/25/19 at 14:16; Status DC Ondansetron HCl (Zofran) 4 mg 1X ONCE IV Last administered on 01/25/19at 14:21; Start 01/25/19 at 14:15; Stop 01/25/19 at 14:16; Status DC Famotidine (Pepcid Vial) 20 mg 1X ONCE IVP Last administered on 01/25/19at 14:21; Start 01/25/19 at 14:15; Stop 01/25/19 at 14:16; Status DC Sodium Chloride 1,000 ml @ 1,000 mls/hr 1X ONCE IV Last administered on 01/25/19at 14:21; Start 01/25/19 at 14:15; Stop 01/25/19 at 15:14; Status DC Multi-Ingredient Mouthwash/Gargle (Gi Cocktail) 20 ml 1X ONCE SWSW Last administered on 01/25/19 16:23; Start 01/25/19 at 16:00; Stop 01/25/19 at 16:01; Status DC Ondansetron HCl (Zofran) 4 mg PRN Q8HRS PRN IV NAUSEA/VOMITING Last adminis tered on 01/25/19at 18:37; Start 01/25/19 at 18:15; Stop 01/26/19 at 18:14; Status DC Fentanyl Citrate (Fentanyl 2ml Vial) 50 mcg PRN Q1HR PRN IV PAIN Last administered on 01/26/19 16:10; Start 01/25/19 at 18:15; Stop 01/26/19 at 18:14; Status DC Acetaminophen (Tylenol) 650 mg PRN Q4HRS PRN PO FEVER; Start 01/25/19 at 18:15; Stop 01/26/19 at 14:44; Status DC Metoclopramide HCl (Reglan Vial) 10 mg PRN TID PRN IV NAUSEA Last administered on 01/25/19at 20:46; Start 01/25/19 at 18:15; Stop 01/26/19 at 14:35; Status DC Famotidine (Pepcid Vial) 20 mg DAILY IVP Last administered on 01/26/19 09:53; Start 01/26/19 at 09:00; Stop 01/26/19 at 10:59; Status DC Sodium Chloride 1,000 ml @ 125 mls/hr 1X ONCE IV ; Start 01/25/19 at 18:15; Stop 01/26/19 at 02:14; Status DC Sodium Chloride 1,000 ml @ 100 mls/hr Q10H IV Last administered on 01/28/19at 04:41; Start 01/25/19 at 19:48 Ondansetron HCl (Zofran) 4 mg PRN Q4HRS PRN IV NAUSEA/VOMITING Last administered on 01/27/19at 21:15; Start 01/25/19 at 20:00 Zolpidem Tartrate (Ambien) 5 mg PRN QHS PRN PO INSOMNIA Last administered on 01/27/19at 22:17; Start 01/25/19 at 20:00 Acetaminophen (Tylenol) 650 mg PRN Q4HRS PRN PO TEMP OVER 100.4F OR MILD PAIN Last administered on 01/27/19at 21:16; Start 01/25/19 at 20:00 Al Hydroxide/Mg Hydroxide (Mylanta Plus Xs) 30 ml PRN DAILY PRN PO HEARTBURN / GAS; Start 01/25/19 at 20:00; Status Cancel Clonidine HCl (Catapres) 0.1 mg PRN Q6HRS PRN PO SBP>160 OR DBP>90; Start 01/25/19 at 20:00; Status Cancel Docusate Sodium (Colace) 100 mg PRN BID PRN PO CONSTIPATION; Start 01/25/19 at 20:00; Status Cancel Albuterol Sulfate (Ventolin Neb Soln) 2.5 mg PRN Q4HRS PRN NEB SHORTNESS OF BREATH; Start 01/25/19 at 20:00 Guaifenesin (Robitussin) 200 mg PRN Q4HRS PRN PO COUGH; Start 01/25/19 at 20:00 Lorazepam (Ativan) 0.5 mg PRN Q4HRS PRN PO ANXIETY / AGITATION Last administered on 01/26/19at 21:15; Start 01/25/19 at 20:00 Insulin Human Lispro (HumaLOG) 0-5 UNITS TIDWMEALS SQ ; Start 01/26/19 at 08:00 Dextrose (Dextrose 50%-Water Syringe) 12.5 gm PRN Q15MIN PRN IV SEE COMMENTS; Start 01/25/19 at 20:00 Bupropion HCl (Wellbutrin Sr) 150 mg BID PO Last administered on 01/27/19at 21:16; Start 01/25/19 at 21:00 Carvedilol (Coreg) 12.5 mg BIDWMEALS PO ; Start 01/25/19 at 21:00; Stop 01/26/19 at 14:35; Status DC Cyclobenzaprine HCl (Flexeril) 10 mg TID PO ; Start 01/25/19 at 21:00; Stop 01/26/19 at 14:35; Status DC Lorazepam (Ativan) 1 mg BID PO ; Start 01/25/19 at 21:00; Stop 01/26/19 at 14:35; Status DC Lisinopril (Prinivil) 5 mg DAILY PO Last administered on 01/27/19at 08:04; Start 01/26/19 at 09:00 Pantoprazole Sodium (Protonix) 40 mg DAILYAC PO Last administered on 01/27/19at 08:03; Start 01/26/19 at 07:30 Linagliptin (Tradjenta) 5 mg DAILY PO Last administered on 01/27/19at 08:03; Start 01/26/19 at 09:00 Non-Formulary Medication (Vilazodone Hydrochloride (Viibryd)) 20 mg BID PO ; Start 01/25/19 at 21:00; Stop 01/26/19 at 14:35; Status DC Fentanyl Citrate (Fentanyl 2ml Vial) 25 mcg PRN Q5MIN PRN IV MILD PAIN 1-3; Start 01/26/19 at 13:15; Stop 01/26/19 at 21:00; Status DC Fentanyl Citrate (Fentanyl 2ml Vial) 50 mcg PRN Q5MIN PRN IV MODERATE TO SEVERE PAIN; Start 01/26/19 at 13:15; Stop 01/26/19 at 21:00; Status DC Ringer's Solution 1,000 ml @ 30 mls/hr Q24H IV Last administered on 01/26/19at 14:14; Start 01/26/19 at 13:00; Stop 01/26/19 at 21:00; Status DC Propofol 20 ml @ As Directed STK-MED ONCE IV ; Start 01/26/19 at 14:08; Stop 01/26/19 at 14:09; Status DC Lidocaine HCl (Lidocaine Pf 2% Vial) 5 ml STK-MED ONCE .ROUTE ; Start 01/26/19 a t 14:08; Stop 01/26/19 at 14:09; Status DC Multi-Ingredient Mouthwash/Gargle (Gi Cocktail) 20 ml PRN QID PRN PO throat pain; Start 01/26/19 at 14:30; Status Cancel Isosorbide Mononitrate (Imdur) 30 mg BID PO Last administered on 01/27/19at 21:16; Start 01/26/19 at 21:00 Rivaroxaban (Xarelto) 20 mg DAILYWSUP PO Last administered on 01/27/19at 16:38; Start 01/26/19 at 17:00 Citalopram Hydrobromide (CeleXA) 10 mg DAILY PO Last administered on 01/27/19at 08:03; Start 01/27/19 at 09:00 Ferrous Sulfate (Feosol) 325 mg DAILYWBKFT PO ; Start 01/27/19 at 08:00 Iron Sucrose 200 mg/Sodium Chloride 110 ml @ 55 mls/hr 1X ONCE IV Last admin istered on 01/27/19at 10:41; Start 01/27/19 at 10:00; Stop 01/27/19 at 11:59; Status DC Multi-Ingredient Mouthwash/Gargle (Gi Cocktail) 20 ml PRN QID PRN PO CHEST PAIN Last administered on 01/27/19at 21:17; Start 01/27/19 at 09:15 Dicyclomine HCl (Bentyl) 10 mg PRN QID PRN PO abd pain Last administered on 01/27/19at 21:16; Start 01/27/19 at 11:30 Info (Anti-Coagulation Monitoring By Pharmacy) 1 each PRN DAILY PRN MC SEE COMMENTS Last administered on 01/27/19at 12:34; Start 01/27/19 at 12:30 Active Scripts Active Reported Ativan (Lorazepam) 0.5 Mg Tablet 0.5 Mg PO TID Isosorbide Mononitrate Er (Isosorbide Mononitrate) 30 Mg Tab.er.24h 30 Mg PO BID Januvia (Sitagliptin Phosphate) 100 Mg Tablet 1 Tab PO DAILY Citalopram Hbr (Citalopram Hydrobromide) 10 Mg Tablet 10 Mg PO DAILY Silvadene (Silver Sulfadiazine) 20 Gm Cream..g. 1 Varun TP PRN BID PRN Promethazine Hcl 6.25 Mg/5 Ml Syrup 10 Ml PO PRN Q6HRS PRN Vitamin D2 (Ergocalciferol (Vitamin D2)) 50,000 Unit Capsule 50,000 Unit PO BID Omeprazole 20 Mg Capsule.dr 1 Cap PO DAILY Ranitidine Hcl 300 Mg Capsule 300 Mg PO PRN DAILY PRN Ferrous Sulfate 325 Mg Tablet 1 Tab PO BID Clonazepam 1 Mg Tablet 1 Tab PO BID Coreg (Carvedilol) 12.5 Mg Tablet 1 Tab PO BID Lisinopril 5 Mg Tablet 1 Tab PO DAILY Xarelto (Rivaroxaban) 20 Mg Tablet 20 Mg PO DAILY Wellbutrin Sr (Bupropion Hcl) 150 Mg Tablet.er 1 Tab PO BID Vitals/I & O Vital Sign - Last 24 Hours 01/27/19 01/27/19 01/27/19 01/27/19 11:00 15:00 19:00 20:00 Temp 98.1 98.3 99.3 98.1 98.3 99.3 Pulse 74 73 69 Resp 18 19 20 B/P (MAP) 125/80 (95) 126/69 (88) 129/70 (89) Pulse Ox 97 96 92 O2 Delivery Room Air Room Air Room Air Room Air 01/27/19 01/27/19 01/28/19 01/28/19 21:16 23:00 00:14 04:10 Temp 98.3 98.2 98.6 98.3 98.2 98.6 Pulse 69 73 75 103 Resp 20 20 20 B/P (MAP) 129/70 139/83 (101) 161/69 (99) 118/75 (89) Pulse Ox 96 93 96 O2 Delivery Room Air Nasal Cannula Room Air 01/28/19 07:00 Temp 98.6 98.6 Pulse 85 Resp 19 B/P (MAP) 128/79 (95) Pulse Ox 96 O2 Delivery Room Air ELAINE CROOKS MD January 28, 2019 08:43
[2019-01-28] MEDS: PANTOPRAZOLE 40 MG TABLET.DR. PO SCH (10:50)
[2019-01-28] MEDS: FERROUS SULFATE 325 MG TABLET. PO SCH (10:50)
[2019-01-28] MEDS: CITALOPRAM 10 MG TABLET. PO SCH (10:50)
[2019-01-28] MEDS: LISINOPRIL 5 MG TABLET. PO SCH (10:51)
[2019-01-28] MEDS: LINAGLIPTIN 5 MG TABLET PO SCH (10:51)
[2019-01-28] MEDS: buPROPion SR 150 MG TABLET.SA PO SCH (10:51)
[2019-01-28 11:00] VITALS: BP 129/88
[2019-01-28] MEDS ORDERED: LIDO:MAALOX 1:1 20 ML SINGLE DOSE. PO PRN (11:00)
[2019-01-28] MEDS ORDERED: ONDANSETRON ODT 4 MG TAB.RAPDIS. PO PRN (11:00)
[2019-01-28] MEDS ORDERED: METR500T PO (11:01)
[2019-01-28] MEDS ORDERED: Lido:Maalox 1:1 PO (11:01)
[2019-01-28] MEDS ORDERED: ONDA4TAB12 PO (11:01)
--- NOTE | 2019-01-28 11:05 | PDOC3 ---
Discharge Summary Visit Information Date of Admission: January 25, 2019 Date of Discharge: January 28, 2019 Admitting Diagnosis: Diarrhea, abdominal pain Final Diagnosis Problems Medical Problems: (1) Abdominal pain Status: Acute (2) Diarrhea Status: Acute (3) Gastroparesis Status: Acute (4) Intractable nausea and vomiting Status: Acute Brief Hospital Course Allergies Allergies Coded Allergies Type Severity Reaction Last Updated Verified adhesive Allergy Severe 05/18/14 Yes morphine Allergy Intermediate hives 05/18/14 Yes amlodipine Allergy Unknown Swelling 01/25/19 Yes Vital Signs Vital Signs Date Time Temp Pulse Resp B/P (MAP) Pulse Ox O2 Delivery O2 Flow Rate FiO2 01/28/19 10:51 96 129/88 01/28/19 07:00 98.6 19 96 Room Air 98.6 Lab Results Laboratory Tests Test 01/26/19 11:39 01/26/19 17:01 01/26/19 20:12 01/27/19 07:14 Glucose (Fingerstick) 118 mg/dL (70-99) 145 mg/dL (70-99) 119 mg/dL (70-99) 129 mg/dL (70-99) Test 01/27/19 10:56 01/27/19 16:56 01/27/19 20:04 Glucose (Fingerstick) 135 mg/dL (70-99) 149 mg/dL (70-99) 98 mg/dL (70-99) Laboratory Tests Test 01/27/19 16:56 01/27/19 20:04 Glucose (Fingerstick) 149 mg/dL (70-99) 98 mg/dL (70-99) Brief Hospital Course Ms Zhang is a 63 y/o F w/ PMH MO, CAD, A Fib, HTN, TIA, DM, migraines admitted through ER for abdominal pain. Says she went to [facility] on 01/15/19 w/ hematochezia, found with Hgb was 8, had a colonoscopy, was told she had E Coli and Giardia, and was discharged to home without any specific treatment. Intermittent issues w/ nausea but not typically vomiting, now with difficulty with swallowing and food sticking as well as diarrhea. No melena. No weight loss. No swallowing issues prior to today. Normal GES here in 2013. Does not recall h/o gastroparesis or any repeat GES since then. Says DM is well-controlled w/ A1c of 7.8. S/P EGD 01/26/19 - Exudate distal half, likely from repeat emesis of gastric contents. Mild Shatzki's ring at [facility]; not dilated due to esophageal injury She still has loose bowels this morning. Still has abdominal pain, not improved. Confirmed her stool DNA testing from [facility] positive for EAEC and giardia. No mention from physicians about treatment considerations and no ova and parasite results. Will be worthwhile to give Flagyl 500mg BID for 5-7 days. I am uncertain how to interpret giardia DNA results on stool PCR, however. GI is ambivalent, but with her cyclical diarrhea it is worth treating. Intractable nausea and vomiting - will treat with zofran, GI cocktail, flagyl Dysphagia - s/p EGD as above Diabetic gastroparesis - GES down the road recommended E coli infection - uncertain historically how EAEC should be interpreted, will not treat History of atrial fibrillation on Xarelto currently has not taken her medications since her dismissal from the hospital - recommended to restart History of CAD with 12 stents placed in the past as per patient currently asymptomatic Greater than 30 minutes spent on discharge. Discharge Information Condition at Discharge: Improved Follow Up: Weeks (2) Disposition/Orders: D/C to Home Scheduled Bupropion Hcl (Wellbutrin Sr) 150 Mg Tablet.er, 1 TAB PO BID, #60 Ref 5 (Reported) Entered as Reported by: MAKI LOPEZ on 05/18/14 1524 Last Action: Continued on 01/25/191957 by HAMZAH PATINO MD Carvedilol (Coreg ) 12.5 Mg Tablet, 1 TAB PO BID, #180 Ref 1 (Reported) Entered as Reported by: ROXIE COLINDRES on 06/21/17 1023 Last Action: Continued on 01/25/191957 by HAMZAH PATINO MD Citalopram Hydrobromide (Citalopram Hbr) 10 Mg Tablet, 10 MG PO DAILY for depression, (Reported) Entered as Reported by: FRANNIE KEVIN on 01/25/192142 Last Action: New Order on 01/25/192142 by FRANNIE KEVIN Ergocalciferol (Vitamin D2) (Vitamin D2) 50,000 Unit Capsule, 50,000 UNIT PO BID for vitamin D deficiency, (Reported) Entered as Reported by: FRANNIE KEVIN on 01/25/192142 Last Action: New Order on 01/25/192142 by FRANNIE KEVIN Ferrous Sulfate (Ferrous Sulfate) 325 Mg Tablet, 1 TAB PO BID for anemia, #30 Ref 3 (Reported) Entered as Reported by: FRANNIE KEVIN on 01/25/192142 Last Action: New Order on 01/25/192142 by FRANNIE KEVIN Isosorbide Mononitrate (Isosorbide Mononitrate Er) 30 Mg Tab.er.24h, 30 MG PO BID for high blood pressure, (Reported) Entered as Reported by: FRANNIE KEVIN on 01/25/192142 Last Action: New Order on 01/25/192142 by FRANNIE KEVIN Lisinopril (Lisinopril) 5 Mg Tablet, 1 TAB PO DAILY, #30 Ref 5 (Reported) Entered as Reported by: ROXIE COLINDRES on 06/21/17 1023 Last Action: Converted on 01/25/191957 by HAMZAH PATINO MD Lorazepam (Ativan) 0.5 Mg Tablet, 0.5 MG PO TID for anxiety, (Reported) Entered as Reported by: FRANNIE KEVIN on 01/25/192142 Last Action: New Order on 01/25/192142 by FRANNIE KEVIN Metronidazole (Flagyl) 500 Mg Tablet, 1 TAB PO BID for Giardiasis for 7 Days, #14 Prescribed by: ELAINE CROOKS MD on 01/28/19 1101 Omeprazole (Omeprazole) 20 Mg Capsule.dr, 1 CAP PO DAILY for heartburn, #30 Ref 5 (Reported) Entered as Reported by: FRANNIE KEVIN on 01/25/192142 Last Action: New Order on 01/25/192142 by FRANNIE KEVIN Rivaroxaban (Xarelto) 20 Mg Tablet, 20 MG PO DAILY, (Reported) Entered as Reported by: ROXIE COLINDRES on 06/21/17 1023 Last Action: HELD on 01/25/191956 by HAMZAH PATINO MD Sitagliptin Phosphate (Januvia) 100 Mg Tablet, 1 TAB PO DAILY for diabetes, #30 Ref 5 (Reported) Entered as Reported by: FRANNIE KEVIN on 01/25/192142 Last Action: New Order on 01/25/192142 by FRANNIE KEVIN Scheduled PRN Ondansetron (Ondansetron Odt) 4 Mg Tab.rapdis, 4 MG PO PRN Q6HRS PRN for NAUSEA /VOMITING for 30 Days, #60 Ref 5 Prescribed by: ELAINE CROOKS MD on 01/28/191100 Promethazine Hcl (Promethazine Hcl) 6.25 Mg/5 Ml Syrup, 10 ML PO PRN Q6HRS PRN for MIGRAINE HEADACHE, #400 (Reported) Entered as Reported by: FRANNIE KEVIN on 01/25/192142 Last Action: New Order on 01/25/192142 by FRANNIE KEVIN Ranitidine Hcl (Ranitidine Hcl) 300 Mg Capsule, 300 MG PO PRN DAILY PRN for HEARTBURN / GAS, (Reported) Entered as Reported by: FRANNIE KEVIN on 01/25/192142 Last Action: New Order on 01/25/192142 by FRANNIE KEVIN Silver Sulfadiazine (Silvadene) 20 Gm Cream..g., 1 YVONNE TP PRN BID PRN for wounds, #50 (Reported) Entered as Reported by: FRANNIE KEVIN on 01/25/192142 Last Action: New Order on 01/25/192142 by FRANNIE KEVIN [Lido:Maalox 1:1] 20 ML ORAL.SUSP, 20 ML PO PRN QID PRN for CHEST PAIN for 30 Days, #240 Ref 5 Prescribed by: ELAINE CROOKS MD on 01/28/191100 Discontinued Medications Aspirin (Aspirin) 81 Mg Tab.chew, 1 TAB PO HS, #30 Ref 3 (Reported) Entered as Reported by: MAKI LOPEZ on 05/18/141523 Last Action: Discontinued on 01/25/192142 by FRANNIE KEVIN Clonazepam (Clonazepam) 1 Mg Tablet, 1 TAB PO BID for anxiety, #60 Ref 1 (Reported) Entered as Reported by: FRANNIE KEVIN on 01/25/192142 Last Action: New Order on 01/25/192142 by FRANNIE KEVIN Lorazepam (Ativan) 1 Mg Tablet, 1 MG PO BID, (Reported) Entered as Reported by: MAKI LOPEZ on 05/18/141523 Last Action: Discontinued on 01/25/192142 by FRANNIE KEVIN Omeprazole (Omeprazole) 40 Mg Capsule.dr, 1 CAP PO DAILY, #30 Ref 3 (Reported) Entered as Reported by: ROXIE COLINDRES on 06/21/17 1026 Last Action: Discontinued on 01/25/192142 by FRANNIE KEVIN Sitagliptin Phosphate (Januvia) 50 Mg Tablet, 1 TAB PO DAILY, #30 Ref 5 (Reported) Entered as Reported by: ORXIE COLINDRES on 06/21/17 1032 Last Action: Discontinued on 01/25/192142 by FRANNIE KEVIN Vilazodone Hydrochloride (Viibryd) 20 Mg Tablet, 20 MG PO BID, (Reported) Entered as Reported by: MAKI LOPEZ on 05/18/14 1524 Last Action: Discontinued on 01/25/192142 by ELAINE ZAMBRANO MD January 28, 2019 11:05
--- NOTE | 2019-01-28 13:12 | PDOC ---
G I PROGRESS NOTE Subjective Much less odynophagia; eating well. Had formed stool. Physical Exam Lungs clear. RRR Abdomen soft, not distended. Some rectus muscle tenderness. Review of Relevant I have reviewed the following items mumtaz (where applicable) has been applied. Labs Laboratory Tests Test 01/26/19 17:01 01/26/19 20:12 01/27/19 07:14 01/27/19 10:56 Glucose (Fingerstick) 145 mg/dL (70-99) 119 mg/dL (70-99) 129 mg/dL (70-99) 135 mg/dL (70-99) Test 01/27/19 16:56 01/27/19 20:04 01/28/19 07:11 01/28/19 10:45 Glucose (Fingerstick) 149 mg/dL (70-99) 98 mg/dL (70-99) 107 mg/dL (70-99) 149 mg/dL (70-99) Laboratory Tests Test 01/27/19 16:56 01/27/19 20:04 01/28/19 07:11 01/28/19 10:45 Glucose (Fingerstick) 149 mg/dL (70-99) 98 mg/dL (70-99) 107 mg/dL (70-99) 149 mg/dL (70-99) Vitals/I & O Vital Sign - Last 24 Hours 01/27/19 01/27/19 01/27/19 01/27/19 15:00 19:00 20:00 21:16 Temp 98.3 99.3 98.3 99.3 Pulse 73 69 69 Resp 19 20 B/P (MAP) 126/69 (88) 129/70 (89) 129/70 Pulse Ox 96 92 O2 Delivery Room Air Room Air Room Air 01/27/19 01/28/19 01/28/19 01/28/19 23:00 00:14 04:10 07:00 Temp 98.3 98.2 98.6 98.6 98.3 98.2 98.6 98.6 Pulse 73 75 103 85 Resp 20 20 20 19 B/P (MAP) 139/83 (101) 161/69 (99) 118/75 (89) 128/79 (95) Pulse Ox 96 93 96 96 O2 Delivery Room Air Nasal Cannula Room Air Room Air 01/28/19 01/28/19 10:51 11:00 Temp 98.9 98.9 Pulse 96 97 Resp 18 B/P (MAP) 129/88 129/88 (102) Pulse Ox 97 O2 Delivery Room Air Problem List Problems Medical Problems: (1) Abdominal pain Status: Acute (2) Diarrhea Status: Acute (3) Gastroparesis Status: Acute (4) Intractable nausea and vomiting Status: Acute Assessment Probable toxic food poisoning; seems resolved. Plan of Care Note Discussed with Dr. Rae; OK to dismiss on chronic GI meds. JEY CONTRERAS MD January 28, 2019 13:12
[2019-01-28 13:19] VITALS: BP 129/88
[2019-01-28] MEDS: ISOSORBIDE MONONITRATE ER 30 MG TAB.ER.24H PO SCH (13:19)
[2019-01-28] MEDS: DICYCLOMINE HCL 10 MG CAPSULE PO PRN (13:19)
[2019-01-28] MEDS: LIDO:MAALOX 1:1 20 ML SINGLE DOSE. PO PRN (13:19)
--- NOTE | 2019-01-28 16:24 | NUR ---
Discharge Note: ANA MCGRATH Discharge instructions and discharge home medications reviewed with Patient and a copy given. All questions have been answered and understanding verbalized. The following instructions and handouts were given: medication education, diet, follow up information. Discontinued lines and drains: peripheral IV. Patient discharged to home with self care via private vehicle. Pt left unit in stable condition with all personal belongings.
== END 2019-01-28 13:31 | disposition home or self-care (01) | DRG 74 ==
LOC: ER 13:14 → 5 NORTH 17:17
PROVIDERS: ADMIT Internal Medicine; ATTEND Internal Medicine
PROC: 0DJ08ZZ Inspection of Upper Intestinal Tract, Via Natural or Artificial Opening Endoscopic (ICD-10-PCS; principal; 2019-01-26 14:30)
DX: E11.43 Type 2 diabetes mellitus with diabetic autonomic (poly)neuropathy (principal); K31.84 Gastroparesis; I25.10 Atherosclerotic heart disease of native coronary artery without angina pectoris; I48.91 Unspecified atrial fibrillation; I10 Essential (primary) hypertension; G43.909 Migraine, unspecified, not intractable, without status migrainosus; K21.9 Gastro-esophageal reflux disease without esophagitis; K57.90 Diverticulosis of intestine, part unspecified, without perforation or abscess without bleeding; F12.90 Cannabis use, unspecified, uncomplicated; D64.9 Anemia, unspecified; R13.10 Dysphagia, unspecified; K20.9 Esophagitis, unspecified; K44.9 Diaphragmatic hernia without obstruction or gangrene; I25.2 Old myocardial infarction; Z90.710 Acquired absence of both cervix and uterus; Z95.5 Presence of coronary angioplasty implant and graft; Z88.5 Allergy status to narcotic agent; Z91.048 Other nonmedicinal substance allergy status; Z86.73 Personal history of transient ischemic attack (TIA), and cerebral infarction without residual deficits; Z80.9 Family history of malignant neoplasm, unspecified; Z82.3 Family history of stroke; Z82.49 Family history of ischemic heart disease and other diseases of the circulatory system; Z79.01 Long term (current) use of anticoagulants; Z87.891 Personal history of nicotine dependence; K20.8 Other esophagitis; K22.2 Esophageal obstruction
CPT/HCPCS: 36415; 43235; 74176; 80048; 80053; 80307; 81001; 82962; 83540; 83550; 83690; 84484; 85007; 85025; 93005; 96361; 96374; 96375; 96376; G0480; J1756; J2001; J2405; J2704; J2765; J3010; J3490; J7030; J7120; Q0162; 99285-25

== ENCOUNTER 2019-05-31 08:35 | Inpatient (IN) | payer BC ==
[2019-05-31] VITALS (14 sets, daily range): BP systolic 83–150; BP diastolic 49–74
[~2019-05-31] VITALS: Ht 162.6 cm; Wt 88.1 kg
[~2019-05-31 08:35] MED LIST changes: +CITA10TA4 PO; +CLONAZEPAM1 MG PO; +ERGO500027 PO; +FERR325T14 PO; +ISOS30TA4 PO; +LACT1CAP19 PO; +LORA0.5T96 PO; +Lido:Maalox 1:1 PO; +METR500T PO; +OMEP20CA10 PO; +ONDA4TAB12 PO; +PROM6.257 PO; +RANI300C PO; +RANI300T PO; +SILV20CR14 TP; +SITA100T PO; +VANC500V PO
[2019-05-31] MEDS ORDERED: IV NORMAL SALINE 1000ML BAG 1,000 ML IV SCH (08:56)
[2019-05-31] MEDS ORDERED: ONDANSETRON PF 4 MG/2 ML VIAL. IV ONE ×3 (09:00→12:45)
[2019-05-31 09:10] LABS: BILIRUBIN,URINE NEGATIVE (NEG); CLARITY,URINE CLEAR; COLOR,URINE YELLOW; NITRITE,URINE NEGATIVE (NEG); PH,URINE 5.5; PROTEIN,URINE NEGATIVE (NEG-TRACE); UROBILINOGEN,URINE 0.2 mg/dL (0.2 mg/dL)
[2019-05-31 09:28] LABS: BASO # 0.1 x10^3/uL (0.0-0.2); BASO % 1 % (0-3); EOS # 0.1 x10^3/uL (0.0-0.7); EOS % 1 % (0-3); HEMATOCRIT 33.4 % (36.0-47.0); HEMOGLOBIN 11.1 g/dL (12.0-15.5); LYMPH # 2.5 x10^3/uL (1.0-4.8); LYMPH % 17 % (24-48); MEAN CORPUSCULAR HEMOGLOBIN 28 pg (25-35); MEAN CORPUSCULAR HGB CONC 33 g/dL (31-37); MEAN CORPUSCULAR VOLUME 83 fL (79-100); MONO # 0.8 x10^3/uL (0.0-1.1); MONO % 5 % (0-9); NEUT # 11.3 x10^3/uL (1.8-7.7); NEUT % 77 % (31-73); PLATELET COUNT 284 x10^3/uL (140-400); RED BLOOD COUNT 4.03 x10^6/uL (3.50-5.40); RED CELL DISTRIBUTION WIDTH 17.7 % (11.5-14.5); WHITE BLOOD COUNT 14.7 x10^3/uL (4.0-11.0)
[2019-05-31 09:29] LABS: BACTERIA,URINE FEW /HPF (0-FEW); RBC,URINE OCC /HPF (0-2); SQUAMOUS EPITHELIAL CELL,UR MANY /LPF
[2019-05-31 09:45] LABS: CALCIUM 9.3 mg/dL (8.5-10.1); CREATININE 1.3 mg/dL (0.6-1.0); GFR 41.4; POTASSIUM 4.2 mmol/L (3.5-5.1)
[2019-05-31] MEDS ORDERED: fentaNYL PF VIAL 100 MCG/2 ML VIAL IV ONE ×2 (09:45→11:30)
--- NOTE | 2019-05-31 09:45 | PHYS DOC ---
Past Medical History Past Medical History: A-Fib, CAD, Diabetes-Type II, Diverticulosis, Hypertension, HI, Migraines Additional Past Medical Histor: hernia, GASTROPARESIS Past Surgical History: Hysterectomy, Tonsillectomy Additional Past Surgical Histo: heart stents, colonoscopy, wrist sx Alcohol Use: None Drug Use: Marijuana Social History Narrative: last use "January" Adult General Chief Complaint Chief Complaint: NAUSEA/VOMITING/DIARRHA HPI HPI Patient is a 63 year old female who presents with complaining of vomiting. Patient complaining of more than 10 episodes of vomiting since last night with left upper quadrant and substernal chest pain. Patient states left upper quadrant pain only happens during episodes of vomiting but chest pain is a con stant pressure pain with radiation to left arm and rated her pain 7/10. Patient states she has had intermittent episodes of nausea and vomiting since April of this year after she was admitted at Hospital and diagnosed with C Diff.. Patient states she finished a course of oral vancomycin and denies using antibiotic or diarrhea. Review of Systems Review of Systems Constitutional: Denies fever or chills [] Eyes: Denies change in visual acuity, redness, or eye pain [] HENT: Denies nasal congestion or sore throat [] Respiratory: Denies cough or shortness of breath [] Cardiovascular: No additional information not addressed in HPI [] GI: Reports abdominal pain, nausea, vomiting, denies bloody stools or diarrhea [] : Denies dysuria or hematuria [] Musculoskeletal: Denies back pain or joint pain [] Integument: Denies rash or skin lesions [] Neurologic: Denies headache, focal weakness or sensory changes [] Endocrine: Denies polyuria or polydipsia [] All other systems were reviewed and found to be within normal limits, except as documented in this note. Current Medications Current Medications Current Medications Medications (Trade) Dose Ordered Sig/Lelia Start Time Stop Time Status Last Admin Dose Admin Amiodarone HCl 900 mg/Dextrose 518 ml @ 0 mls/hr CONT PRN 05/31/19 10:15 05/31/19 10:41 DC 05/31/19 10:41 33.3 MLS/HR Diltiazem HCl (Cardizem Iv Push) 15 mg 1X ONCE 05/31/19 10:30 05/31/19 10:31 DC 05/31/19 10:18 15 MG Fentanyl Citrate (Fentanyl 2ml Vial) 50 mcg 1X ONCE 05/31/19 09:45 05/31/19 09:46 DC 05/31/19 09:49 50 MCG Ondansetron HCl (Zofran) 4 mg 1X ONCE 05/31/19 10:15 05/31/19 10:16 DC 05/31/19 10:14 4 MG Pantoprazole Sodium (PROTONIX VIAL for IV PUSH) 80 mg 1X ONCE 05/31/19 10:30 05/31/19 10:31 DC 05/31/19 11:34 80 MG Pantoprazole Sodium 80 mg/ Sodium Chloride 100 ml @ 10 mls/hr 1X ONCE 05/31/19 10:30 05/31/19 20:29 05/31/19 14:05 10 MLS/HR Piperacillin Sod/ Tazobactam Sod 3.375 gm/Sodium Chloride 50 ml @ 100 mls/hr 1X ONCE 05/31/19 10:30 05/31/19 10:59 DC 05/31/19 10:52 100 MLS/HR Sodium Chloride 1,000 ml @ 1,000 mls/hr 1X ONCE 05/31/19 10:30 05/31/19 11:29 DC 05/31/19 10:40 1,000 MLS/HR Vancomycin HCl 250 ml @ 250 mls/hr 1X ONCE 05/31/19 10:30 05/31/19 11:29 DC Allergies Allergies Allergies Coded Allergies Type Severity Reaction Last Updated Verified adhesive Allergy Severe 05/18/14 Yes morphine Allergy Intermediate hives 05/18/14 Yes amlodipine Allergy Unknown Swelling 01/25/19 Yes Physical Exam Physical Exam Constitutional: Well developed, well nourished, moderate distress, non-toxic appearance. [] HENT: Normocephalic, atraumatic. Eyes: PERRLA, EOMI, conjunctiva normal, no discharge. [] Neck: Normal range of motion, no tenderness, supple, no stridor. [] Cardiovascular:Heart rate regular rhythm, no murmur [] Lungs & Thorax: Bilateral breath sounds clear to auscultation [] Abdomen: Bowel sounds normal, soft, no tenderness, no masses, no pulsatile masses. [] Skin: Warm, dry, no erythema, no rash. [] Back: No tenderness, no CVA tenderness. [] Extremities: No tenderness, no cyanosis, no clubbing, ROM intact, no edema. [] Neurologic: Alert and oriented X 3, no focal deficits noted. [] Psychologic: Affect anxious, judgement normal, mood normal. [] Current Patient Data Vital Signs Vital Signs Date Time Temp Pulse Resp B/P (MAP) Pulse Ox O2 Delivery O2 Flow Rate FiO2 05/31/19 10:42 62 30 72/42 (52) 96 Nasal Cannula 3.0 05/31/19 08:40 98.0 98.0 Lab Values Laboratory Tests Test 05/31/19 08:55 05/31/19 09:15 05/31/19 09:19 05/31/19 10:15 Urine Collection Type Void Urine Color Yellow Urine Clarity Clear Urine pH 5.5 Urine Specific [place] 1.025 Urine Protein Negative mg/dL (NEG-TRACE) Urine Glucose (UA) Negative mg/dL (NEG) Urine Ketones (Stick) Negative mg/dL (NEG) Urine Blood Negative (NEG) Urine Nitrite Negative (NEG) Urine Bilirubin Negative (NEG) Urine Urobilinogen Dipstick 0.2 mg/dL (0.2 mg/dL) Urine Leukocyte Esterase Moderate (NEG) Urine RBC Occ /HPF (0-2) Urine WBC 5-10 /HPF (0-4) Urine Squamous Epithelial Cells Many /LPF Urine Transitional Epithelial Cells Mod /LPF Urine Renal Epithelial Cells Occ /LPF Urine Bacteria Few /HPF (0-FEW) Urine Mucus Slight /LPF White Blood Count 14.7 x10^3/uL (4.0-11.0) H Red Blood Count 4.03 x10^6/uL (3.50-5.40) Hemoglobin 11.1 g/dL (12.0-15.5) L Hematocrit 33.4 % (36.0-47.0) L Mean Corpuscular Volume 83 fL (79-100) Mean Corpuscular Hemoglobin 28 pg (25-35) Mean Corpuscular Hemoglobin Concent 33 g/dL (31-37) Red Cell Distribution Width 17.7 % (11.5-14.5) H Platelet Count 284 x10^3/uL (140-400) Neutrophils (%) (Auto) 77 % (31-73) H Lymphocytes (%) (Auto) 17 % (24-48) L Monocytes (%) (Auto) 5 % (0-9) Eosinophils (%) (Auto) 1 % (0-3) Basophils (%) (Auto) 1 % (0-3) Neutrophils # (Auto) 11.3 x10^3/uL (1.8-7.7) H Lymphocytes # (Auto) 2.5 x10^3/uL (1.0-4.8) Monocytes # (Auto) 0.8 x10^3/uL (0.0-1.1) Eosinophils # (Auto) 0.1 x10^3/uL (0.0-0.7) Basophils # (Auto) 0.1 x10^3/uL (0.0-0.2) Prothrombin Time 14.8 SEC (11.7-14.0) H Prothrombin Time INR 1.2 (0.8-1.1) H Activated Partial Thromboplast Time 28 SEC (24-38) Sodium Level 143 mmol/L (136-145) Potassium Level 4.2 mmol/L (3.5-5.1) Chloride Level 108 mmol/L (98-107) H Carbon Dioxide Level 16 mmol/L (21-32) L Anion Gap 19 (6-14) H Blood Urea Nitrogen 47 mg/dL (7-20) H Creatinine 1.3 mg/dL (0.6-1.0) H Estimated GFR (Cockcroft-Gault) 41.4 BUN/Creatinine Ratio 36 (6-20) H Glucose Level 187 mg/dL (70-99) H Lactic Acid Level 4.5 mmol/L (0.4-2.0) *H Calcium Level 9.3 mg/dL (8.5-10.1) Magnesium Level 1.9 mg/dL (1.8-2.4) Total Bilirubin 0.5 mg/dL (0.2-1.0) Aspartate Amino Transferase (AST) 14 U/L (15-37) L Alanine Aminotransferase (ALT) 15 U/L (14-59) Alkaline Phosphatase 77 U/L (46-116) Creatine Kinase 21 U/L (26-192) L Troponin I Quantitative < 0.017 ng/mL (0.000-0.055) WZ-Tyx-P-Type Natriuretic Peptide 307 pg/mL (0-124) H Total Protein 7.0 g/dL (6.4-8.2) Albumin 3.5 g/dL (3.4-5.0) Albumin/Globulin Ratio 1.0 (1.0-1.7) Lipase 124 U/L (73-393) Glucose (Fingerstick) 178 mg/dL (70-99) H Gastric Fluid Occult Blood Positive (NEG) Laboratory Tests 05/31/19 09:15 Laboratory Tests 05/31/19 09:15 EKG EKG EKG interpreted by me. EKG at 0852 showed normal sinus rhythm at rate 91, left dalton axis, normal AR and QT interval, no acute ST and T-wave elevation. Repeated EKG at 1004 after cardioversion showed atrial fibrillation with RVR at rate of 120, ST and T-wave abnormalities with severe ST depression in anteroseptal leads and ST elevation in inferior leads EKG at 1028 after conversation of atrial fibrillation with Cardizem showed atrial fibrillation at rate of 74, moist elevation, new onset of ST depression in anteroseptal leads Repeated EKG at 1040 showed sinus rhythm at rate of 83 with PVCs, prolonged AR interval worse, ST and T-wave abnormalities with severe ST depression in anteroseptal leads without acute ST-T elevation. Radiology/Procedures Radiology/Procedures [] Course & Med Decision Making Course & Med Decision Making Pertinent Labs and Imaging studies reviewed. (See chart for details) Evaluation of patient in ER showed 63-year-old female patient with history of extensive cardiac history and multiple stent placement presented to ER with complaining of nausea and vomiting since last night with episodes of left upper quadrant and substernal chest pain. Patient had coffee-ground material with taking Xarelto and aspirin was not given. Patient treated with IV fluid, Zofran, fentanyl with improvement of vomiting and pain. Patient developed ventricular fibrillation at 1000 without having parts and CPR was started and looked at 1002 with 200 J 8 change of heart rate regular physician with RVR and having spontaneous pulse and able to talk. Atrial fibrillation with RVR converted to atrial fibrillation without RVR with 15 mg of Cardizem bolus and EKG showed severe ST depression in anteroseptal leads and code STEMI was activated and Dr. Kim was returned the call at 1040. Patient was transferred to woven label designer. Patient requiring admission for further evaluation and treatment. Discussed with Dr. Osei who is in agreement with admission. Discussed findings and plan with patient and family, who acknowledge understanding and agreement. Hospitalist was informed at 1043 again about patient's condition. GI metal numerical control programmer Dr. Crook was consulted at 1033. Dragon Disclaimer Dragon Disclaimer This electronic medical record was generated, in whole or in part, using a voice recognition dictation system. Departure Departure Impression: Primary Impression: Ventricular fibrillation Additional Impressions: STEMI (ST elevation myocardial infarction) Severe sepsis Intractable nausea and vomiting Atrial fibrillation with RVR ABDULLAHI (acute kidney injury) Upper GI bleeding Anemia Disposition: 09 ADMITTED INPATIENT (At 1001) Condition: GUARDED Referrals: UNKNOWN PCP NAME (PCP) Critical Care Time Critical care time was 90 minutes exclusive of procedures. The HEART Score for CP Pts HEART Score for Chest Pain: HEART Score for Chest Pain Response (Comments) Value History Moderately Suspicious 1 ECG Normal 0 Age >45 - < 65 1 Risk Factors >3 Risk Factors or Hx CAD 2 Troponin < Normal Limit 0 Total 4 Risk Factors: Risk Factors: DM, Current or recent (<one month) smoker, HTN, HLP, family history of CAD, obesity. Risk Scores: Score 0 - 3: 2.5% MACE over next 6 weeks - Discharge Home Score 4 - 6: 20.3% MACE over next 6 weeks - Admit for Clinical Observation Score 7 - 10: 72.7% MACE over next 6 weeks - Early Invasive Strategies Date and Time of Reassessment Date: May 31, 2019 Time: 10:45 Fluid Challenge Is the fluid challenge complet: Yes IBW Target Volume Used: Yes BMI > 30: No Vital Signs Vital Signs: Vital Signs Date Time Temp Pulse Resp B/P (MAP) Pulse Ox O2 Delivery O2 Flow Rate FiO2 05/31/19 10:42 62 30 72/42 (52) 96 Nasal Cannula 3.0 05/31/19 08:40 98.0 98.0 Temperature Source: Oral Cardiovascular Pulse Rhythm: Irregular Heart: S1 and S2 normal Lung Sounds Breath Sounds: Clear Capillary Refil Capillary Refill: Rt Hand > 3 seconds Peripheral Pulse Pulse Location: Radial Pulse Strength: Weak (1+) Pulse Assessment Method: NIBP Integumentary Skin Moisture: Diaphoretic Problem Qualifiers Additional Impressions: STEMI (ST elevation myocardial infarction) Involved coronary artery: unspecified coronary artery Qualified Codes: I21.3 - ST elevation (STEMI) myocardial infarction of unspecified site Intractable nausea and vomiting Vomiting type: unspecified Qualified Codes: R11.2 - Nausea with vomiting, unspecified Anemia Anemia type: unspecified type Qualified Codes: D64.9 - Anemia, unspecified MARGARITA CORNEJO MD May 31, 2019 09:45
[2019-05-31 09:46] LABS: PROTHROMBIN TIME PATIENT 14.8 SEC (11.7-14.0)
[2019-05-31 09:52] LABS: ALBUMIN 3.5 g/dL (3.4-5.0); MAGNESIUM 1.9 mg/dL (1.8-2.4); TOTAL BILIRUBIN 0.5 mg/dL (0.2-1.0)
[2019-05-31] MEDS ORDERED: PANTOPRAZOLE IV PUSH 40 MG VIAL. IVP ONE ×2 (10:08→10:30)
[2019-05-31] MEDS ORDERED: dilTIAZem IV PUSH 25 MG/5 ML VIAL ONE (10:09)
[2019-05-31] MEDS ORDERED: IV NORMAL SALINE 1000ML BAG 1,000 ML IV ONE ×2 (10:15→10:30)
[2019-05-31] MEDS ORDERED: AMIODARONE 900 MG in IV DEXTROSE 5% 500 ML IV PRN (10:15)
[2019-05-31] MEDS: IV NORMAL SALINE 1000ML BAG 1,000 ML IV SCH ×3 (10:16→22:26)
[2019-05-31] MEDS ORDERED: IV NORMAL SALINE 500ML BAG 500 ML IV ONE (10:30)
[2019-05-31] MEDS ORDERED: PIPERACILLIN/TAZOBACTAM 3.375 GM in IV NORMAL SALINE 50ML 50 ML IV ONE (10:30)
[2019-05-31] MEDS ORDERED: PANTOPRAZOLE SODIUM IV DRIP 80 MG in IV NORMAL SALINE 100ML 100 ML IV ONE (10:30)
[2019-05-31] MEDS ORDERED: dilTIAZem IV PUSH 25 MG/5 ML VIAL IVP ONE (10:30)
[2019-05-31] MEDS ORDERED: VANCOMYCIN 1GM IVPB FOR OMNI 250 ML IV ONE (10:30)
[2019-05-31 10:46] LABS: GASTRIC OB PAT POSITIVE (NEG)
[2019-05-31] MEDS ORDERED: IODIXANOL 320 MG/ML 100 ML VIAL. ONE ×2 (10:58→11:02)
[2019-05-31] MEDS ORDERED: LIDOCAINE 1% Multi-Dose 20 ML VIAL. ONE (11:02)
[2019-05-31] MEDS ORDERED: NOREPINEPHRIN 8MG/250ML PREMIX 250 ML IV PRN (11:15)
--- NOTE | 2019-05-31 11:21 | EKG ---
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
[2019-05-31] MEDS ORDERED: BIVALIRUDIN 250 MG VIAL. IV ONE ×2 (11:23→11:30)
--- NOTE | 2019-05-31 11:23 | EKG ---
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
--- NOTE | 2019-05-31 11:27 | EKG ---
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
--- NOTE | 2019-05-31 11:27 | EKG ---
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
[2019-05-31] MEDS ORDERED: fentaNYL PF VIAL 100 MCG/2 ML VIAL ONE (11:28)
[2019-05-31] MEDS ORDERED: MIDAZOLAM HCL/PF 2 MG/2 ML VIAL. ONE (11:28)
[2019-05-31] MEDS ORDERED: IODIXANOL 320 MG/ML 100 ML VIAL. IART ONE (11:30)
[2019-05-31] MEDS ORDERED: MIDAZOLAM HCL/PF 2 MG/2 ML VIAL. IV ONE (11:30)
[2019-05-31] MEDS ORDERED: LIDOCAINE 1% Multi-Dose 20 ML VIAL. INJ ONE (11:30)
[2019-05-31] MEDS ORDERED: CONTRAST GIVEN. MC PRN (11:45)
[2019-05-31] MEDS ORDERED: NITROGLYCERIN 200 MCG/2 ML SYRINGE FOR CATH/VASC LAB. ICAR ONE (12:00)
[2019-05-31] MEDS ORDERED: ASPIRIN 325 MG TABLET PO ONE (12:00)
[2019-05-31] MEDS ORDERED: CLOPIDOGREL BISULFATE 75 MG TABLET PO ONE (12:00)
[2019-05-31] MEDS ORDERED: ONDANSETRON PF 4 MG/2 ML VIAL. ONE (12:22)
--- NOTE | 2019-05-31 13:16 | HP ---
ADMIT DATE: 05/31/2019 CHIEF COMPLAINT: Nausea, vomiting, diarrhea. HISTORY OF PRESENT ILLNESS: The patient is a pleasant 63-year-old female who presented to the ER with nausea, vomiting, diarrhea. She has been very weak. She rates it at 7/10. She has associated anxiety. The ER doctor called me, explained the situation and stated that the patient also had a little bit of chest pain. We initially were just going to admit the patient with some routine GI workup and consult Cardiology, but then the patient developed VFib in the ER, she got shocked. We then called Cardiology back, they have now taken her for emergent cardiac catheterization. The patient is now just received her thirteenth cardiac stent. The patient is going to the ICU. PAST MEDICAL HISTORY: AFib, CAD with previous 12 stents and a "full metal jacket," diabetes, diverticulosis, hypertension, migraines, hernia repair, gastroparesis, hysterectomy, tonsillectomy, colonoscopy, wrist surgery, marijuana use. ALLERGIES: ADHESIVE, AMLODIPINE AND MORPHINE. FAMILY HISTORY: Coronary artery disease. SOCIAL HISTORY: She quit smoking, no drinking or drugs. MEDICATIONS: Reviewed, please refer to the MRAD. REVIEW OF SYSTEMS: GENERAL: No history of weight change, weakness or fevers. SKIN: No bruising, hair changes or rashes. EYES: No blurred, double or loss of vision. NOSE AND THROAT: No history of nosebleeds, hoarseness or sore throat. HEART: She complains of chest pain. LUNGS: Denies cough, hemoptysis, wheezing or shortness of breath. GASTROINTESTINAL: She complains of nausea, vomiting. GENITOURINARY: No history of frequency, urgency, hesitancy or nocturia. NEUROLOGIC: Denies history of numbness, tingling, tremor or weakness. PSYCHIATRIC: No history of panic, anxiety or depression. ENDOCRINE: No history of heat or cold intolerance, polyuria or polydipsia. EXTREMITIES: Denies muscle weakness, joint pain, pain on walking or stiffness. PHYSICAL EXAMINATION: VITALS: Within normal limits and are stable. GENERAL: No apparent distress. Alert and oriented. HEENT: Head is normocephalic, atraumatic, pupils were equally round and reactive to light and accommodation. NECK: Supple, no JVD, no thyromegaly was noted. LUNGS: Clear to auscultation in all lung hyde without rhonchi or wheezing. HEART: RRR, S1, S2 present. Peripheral pulses intact, no obvious murmurs were noted. ABDOMEN: She has decreased bowel sounds. EXTREMITIES: Without any cyanosis, clubbing, or edema. Pedal pulses intact, Homans sign is negative. NEUROLOGIC: She is very weak. PSYCHIATRIC: She is depressed. SKIN: She is very pale. VASCULAR: Good capillary refill, neurovascular bundle appears to be intact. LABORATORY DATA: Troponin is 0.5. ASSESSMENT AND PLAN: Acute myocardial infarction. The patient has been admitted and taken to the catheterization lab. She received an emergent cardiac stent (that is her thirteenth stents). Clinically, the patient is slightly improved after her stent, she is going to the ICU. I talked to Dr. Jc as well. For now, we are going to do home meds. Deep vein thrombosis prophylaxis. Full code. PROGNOSIS: Guarded. RACHEL RODRIGUEZ DO DR: KAITY/michael JOB#: [id number] / [id number]
[2019-05-31] MEDS: IV 1/2 NORMAL SALINE 1,000 ML IV SCH (13:46)
--- NOTE | 2019-05-31 13:46 | PDOC2 ---
CONSULT Date of Consult Date of Consult DATE: 05/31/19 TIME: 13:46 Reason for Consult Reason for Consult: Acute myocardial infarction Referring Physician Referring Physician: Dr. Osei Identification/Chief Complaint Chief Complaint Nausea/vomiting Source Source: Chart review, Patient History of Present Illness Reason for Visit: 63-year-old female with history of coronary artery disease s/p multiple PCI/stents placement (12 stents from 2000 to 2007 per patient) and paroxysmal atrial fibrillation, usually followed by [facility] for was recently treated at [facility] for C. difficile colitis presented with nausea, vomiting, coffee-ground emesis, chest pain and diarrhea. Initial EKG showed sinus rhythm without any acute changes. While she was being worked up in the ED, she had cardiac arrest from ventricular fibrillation and underwent CPR/defibrillations and successful conversion to sinus rhythm. Repeat EKG however showed atrial fibrillation with inferior ST elevations prompting cardiology consultation. Patient continues to complain of retrosternal chest pain. She denied any orthopnea/PND or palpitations. Past Medical History Past Medical History Coronary artery disease s/p multiple PCI/stents placement Hypertension Diabetes mellitus type 2 C. difficile colitis Migraine Gastroparesis Past Surgical History Past Surgical History Hysterectomy Tonsillectomy Family History Family History Not contributory due to her known history of coronary artery disease Social History ALCOHOL: rare Drugs: Marijuana Current Problem List Problem List Problems Medical Problems: (1) ABDULLAHI (acute kidney injury) Status: Acute (2) Anemia Status: Acute (3) Atrial fibrillation with RVR Status: Acute (4) Intractable nausea and vomiting Status: Acute (5) Severe sepsis Status: Acute (6) STEMI (ST elevation myocardial infarction) Status: Acute (7) Upper GI bleeding Status: Acute (8) Ventricular fibrillation Status: Acute Current Medications Current Medications Current Medications Sodium Chloride 1,000 ml @ 1,000 mls/hr Q1H IV Last administered on 05/31/19at 09:29; Start 05/31/19 at 08:56; Stop 05/31/19 at 09:55; Status DC Ondansetron HCl (Zofran) 4 mg 1X ONCE IV Last administered on 05/31/19at 09:29; Start 05/31/19 at 09:00; Stop 05/31/19 at 09:05; Status DC Fentanyl Citrate (Fentanyl 2ml Vial) 50 mcg 1X ONCE IV Last administered on 05/31/19at 09:49; Start 05/31/19 at 09:45; Stop 05/31/19 at 09:46; Status DC Pantoprazole Sodium (PROTONIX VIAL for IV PUSH) 40 mg STK-MED ONCE IVP ; Start 05/31/19 at 10:08; Stop 05/31/19 at 10:09; Status DC Diltiazem HCl (Cardizem Iv Push) 25 mg STK-MED ONCE .ROUTE ; Start 05/31/19 at 10:09; Stop 05/31/19 at 10:09; Status DC Diltiazem HCl (Cardizem Iv Push) 15 mg 1X ONCE IVP Last administered on 05/31/19at 10:18; Start 05/31/19 at 10:30; Stop 05/31/19 at 10:31; Status DC Pantoprazole Sodium (PROTONIX VIAL for IV PUSH) 80 mg 1X ONCE IVP Last administered on 05/31/19at 11:34; Start 05/31/19 at 10:30; Stop 05/31/19 at 10:31; Status DC Sodium Chloride 1,000 ml @ 1,000 mls/hr 1X ONCE IV Last administered on 05/31/19at 10:14; Start 05/31/19 at 10:15; Stop 05/31/19 at 11:14; Status DC Ondansetron HCl (Zofran) 4 mg 1X ONCE IV Last administered on 05/31/19at 10:14; Start 05/31/19 at 10:15; Stop 05/31/19 at 10:16; Status DC Amiodarone HCl 900 mg/Dextrose 518 ml @ 0 mls/hr CONT PRN IV SEE I/O RECORD Last administered on 05/31/19at 10:41; Start 05/31/19 at 10:15; Stop 05/31/19 at 10:41; Status DC Pantoprazole Sodium 80 mg/ Sodium Chloride 100 ml @ 10 mls/hr 1X ONCE IV ; Start 05/31/19 at 10:30; Stop 05/31/19 at 20:29 Vancomycin HCl 250 ml @ 250 mls/hr 1X ONCE IV ; Start 05/31/19 at 10:30; Stop 05/31/19 at 11:29; Status DC Piperacillin Sod/ Tazobactam Sod 3.375 gm/Sodium Chloride 50 ml @ 100 mls/hr 1X ONCE IV Last administered on 05/31/19at 10:52; Start 05/31/19 at 10:30; Stop 05/31/19 at 10:59; Status DC Sodium Chloride 500 ml @ 500 mls/hr 1X ONCE IV ; Start 05/31/19 at 10:30; Stop 05/31/19 at 11:29; Status DC Sodium Chloride 1,000 ml @ 150 mls/hr Q6H40M IV ; Start 05/31/19 at 10:16; Stop 06/01/19 at 10:15 Sodium Chloride 1,000 ml @ 1,000 mls/hr 1X ONCE IV Last administered on 05/31/19at 10:40; Start 05/31/19 at 10:30; Stop 05/31/19 at 11:29; Status DC Iodixanol (Visipaque 320) 100 ml STK-MED ONCE .ROUTE ; Start 05/31/19 at 10:58; Stop 05/31/19 at 10:58; Status DC Heparin Sodium/ Sodium Chloride 500 ml @ As Directed STK-MED ONCE .ROUTE ; Start 05/31/19 at 10:58; Stop 05/31/19 at 10:59; Status DC Iodixanol (Visipaque 320) 100 ml STK-MED ONCE .ROUTE ; Start 05/31/19 at 11:02; Stop 05/31/19 at 11:02; Status DC Lidocaine HCl (Lidocaine 1% 20ml Vial) 20 ml STK-MED ONCE .ROUTE ; Start 05/31/19 at 11:02; Stop 05/31/19 at 11:02; Status DC Heparin Sodium/ Sodium Chloride 500 ml @ As Directed STK-MED ONCE .ROUTE ; Start 05/31/19 at 11:04; Stop 05/31/19 at 11:04; Status DC Norepinephrine Bitartrate 250 ml @ 14.17 mls/ hr CONT PRN IV SEE I/O RECORD Last administered on 05/31/19at 12:33; Start 05/31/19 at 11:15 Bivalirudin (Angiomax) 250 mg STK-MED ONCE IV ; Start 05/31/19 at 11:23; Stop 05/31/19 at 11:24; Status DC Midazolam HCl (Versed) 2 mg STK-MED ONCE .ROUTE ; Start 05/31/19 at 11:28; Stop 05/31/19 at 11:28; Status DC Fentanyl Citrate (Fentanyl 2ml Vial) 100 mcg STK-MED ONCE .ROUTE ; Start 05/31/19 at 11:28; Stop 05/31/19 at 11:28; Status DC Heparin Sodium/ Sodium Chloride (HEPARIN for ARTERIAL LINE FLUSH) 1,000 unit 1X ONCE IART Last administered on 05/31/19 12:33; Start 05/31/19 at 11:30; Stop 05/31/19 at 11:38; Status DC Heparin Sodium/ Sodium Chloride (HEPARIN for ARTERIAL LINE FLUSH) 1,000 unit 1X ONCE IART Last administered on 05/31/19at 12:33; Start 05/31/19 at 11:30; Stop 05/31/19 at 11:39; Status DC Midazolam HCl (Versed) 2 mg 1X ONCE IV Last administered on 05/31/19 12:33; Start 05/31/19 at 11:30; Stop 05/31/19 at 11:40; Status DC Fentanyl Citrate (Fentanyl 2ml Vial) 100 mcg 1X ONCE IV Last administered on 05/31/19 12:33; Start 05/31/19 at 11:30; Stop 05/31/19 at 11:38; Status DC Iodixanol (Visipaque 320) 100 ml 1X ONCE IART Last administered on 05/31/19 12:33; Start 05/31/19 at 11:30; Stop 05/31/19 at 11:39; Status DC Bivalirudin (Angiomax) 250 mg 1X ONCE IV Last administered on 05/31/19 12:33; Start 05/31/19 at 11:30; Stop 05/31/19 at 11:41; Status DC Lidocaine HCl (Lidocaine 1% 20ml Vial) 20 ml 1X ONCE INJ Last administered on 05/31/19 12:33; Start 05/31/19 at 11:30; Stop 05/31/19 at 11:39; Status DC Info (CONTRAST GIVEN -- Rx MONITORING) 1 each PRN DAILY PRN MC SEE COMMENTS; Start 05/31/19 at 11:45; Stop 06/02/19 at 11:44 Nitroglycerin (Nitroglycerin) 200 mcg 1X ONCE ICAR Last administered on 05/31/19at 12:34; Start 05/31/19 at 12:00; Stop 05/31/19 at 12:01; Status DC Clopidogrel Bisulfate (Plavix) 600 mg 1X ONCE PO Last administered on 05/31/19at 12:34; Start 05/31/19 at 12:00; Stop 05/31/19 at 12:01; Status DC Aspirin (Naomi Aspirin) 325 mg 1X ONCE PO Last administered on 05/31/19at 12:34; Start 05/31/19 at 12:00; Stop 05/31/19 at 12:01; Status DC Ondansetron HCl (Zofran) 4 mg STK-MED ONCE .ROUTE ; Start 05/31/19 at 12:22; Stop 05/31/19 at 12:23; Status DC Ondansetron HCl (Zofran) 4 mg 1X ONCE IV Last administered on 05/31/19at 12:41; Start 05/31/19 at 12:45; Stop 05/31/19 at 12:46; Status DC Ondansetron HCl (Zofran) 4 mg PRN Q6HRS PRN IV NAUSEA/VOMITING; Start 05/31/19 at 13:45 Fentanyl Citrate (Fentanyl 2ml Vial) 50 mcg PRN Q2HR PRN IV PAIN; Start 05/31/19 at 13:45 Active Scripts Active Ondansetron Odt (Ondansetron) 4 Mg Tab.rapdis 4 Mg PO PRN Q6HRS PRN 30 Days Reported Ranitidine Hcl 300 Mg Tablet 1 Tab PO QHS Aspirin 81 Mg Tab.chew 1 Tab PO DAILY Clonazepam 1 Mg Tablet 1 Mg PO BID Isosorbide Mononitrate Er (Isosorbide Mononitrate) 30 Mg Tab.er.24h 30 Mg PO BID Januvia (Sitagliptin Phosphate) 100 Mg Tablet 1 Tab PO DAILY Citalopram Hbr (Citalopram Hydrobromide) 10 Mg Tablet 10 Mg PO DAILY Promethazine Hcl 6.25 Mg/5 Ml Syrup 10 Ml PO PRN Q6HRS PRN Coreg (Carvedilol) 12.5 Mg Tablet 1 Tab PO BID Lisinopril 5 Mg Tablet 1 Tab PO DAILY Xarelto (Rivaroxaban) 20 Mg Tablet 20 Mg PO DAILY Wellbutrin Sr (Bupropion Hcl) 150 Mg Tablet.er 1 Tab PO BID Allergies Allergies: Coded Allergies: adhesive (Verified Allergy, Severe, 05/18/14) morphine (Verified Allergy, Intermediate, hives, 05/18/14) amlodipine (Verified Allergy, Unknown, Swelling, 01/25/19) feet swelling ROS General: YES: Fatigue PSYCHOLOGICAL ROS: No: Hallucinations Eyes: No Loss of vision HEENT: No: Epistaxis Respiratory: No: Hemoptysis Cardiovascular: yes Chest Pain Gastrointestinal: Yes Nausea, Yes Vomiting, Yes Diarrhea Neurological: No Seizures Skin: No Rash Physical Exam General: Alert, mild distress HEENT: Atraumatic Lungs: Clear to auscultation Heart: Other (heart rate is irregular) Abdomen: Soft Extremities: No edema Psych/Mental Status: Mood NL Vitals VITALS Vital Signs Date Time Temp Pulse Resp B/P (MAP) Pulse Ox O2 Delivery O2 Flow Rate FiO2 05/31/19 12:34 97 24 97 Nasal Cannula 4.0 05/31/19 10:18 132/85 05/31/19 08:40 98.0 98.0 Labs Labs Laboratory Tests Test 05/31/19 08:55 05/31/19 09:15 05/31/19 09:19 05/31/19 10:15 Urine Collection Type Void Urine Color Yellow Urine Clarity Clear Urine pH 5.5 Urine Specific Dodson 1.025 Urine Protein Negative mg/dL (NEG-TRACE) Urine Glucose (UA) Negative mg/dL (NEG) Urine Ketones (Stick) Negative mg/dL (NEG) Urine Blood Negative (NEG) Urine Nitrite Negative (NEG) Urine Bilirubin Negative (NEG) Urine Urobilinogen Dipstick 0.2 mg/dL (0.2 mg/dL) Urine Leukocyte Esterase Moderate (NEG) Urine RBC Occ /HPF (0-2) Urine WBC 5-10 /HPF (0-4) Urine Squamous Epithelial Cells Many /LPF Urine Transitional Epithelial Cells Mod /LPF Urine Renal Epithelial Cells Occ /LPF Urine Bacteria Few /HPF (0-FEW) Urine Mucus Slight /LPF White Blood Count 14.7 x10^3/uL (4.0-11.0) Red Blood Count 4.03 x10^6/uL (3.50-5.40) Hemoglobin 11.1 g/dL (12.0-15.5) Hematocrit 33.4 % (36.0-47.0) Mean Corpuscular Volume 83 fL (79-100) Mean Corpuscular Hemoglobin 28 pg (25-35) Mean Corpuscular Hemoglobin Concent 33 g/dL (31-37) Red Cell Distribution Width 17.7 % (11.5-14.5) Platelet Count 284 x10^3/uL (140-400) Neutrophils (%) (Auto) 77 % (31-73) Lymphocytes (%) (Auto) 17 % (24-48) Monocytes (%) (Auto) 5 % (0-9) Eosinophils (%) (Auto) 1 % (0-3) Basophils (%) (Auto) 1 % (0-3) Neutrophils # (Auto) 11.3 x10^3/uL (1.8-7.7) Lymphocytes # (Auto) 2.5 x10^3/uL (1.0-4.8) Monocytes # (Auto) 0.8 x10^3/uL (0.0-1.1) Eosinophils # (Auto) 0.1 x10^3/uL (0.0-0.7) Basophils # (Auto) 0.1 x10^3/uL (0.0-0.2) Prothrombin Time 14.8 SEC (11.7-14.0) Prothromb Time International Ratio 1.2 (0.8-1.1) Activated Partial Thromboplast Time 28 SEC (24-38) Sodium Level 143 mmol/L (136-145) Potassium Level 4.2 mmol/L (3.5-5.1) Chloride Level 108 mmol/L (98-107) Carbon Dioxide Level 16 mmol/L (21-32) Anion Gap 19 (6-14) Blood Urea Nitrogen 47 mg/dL (7-20) Creatinine 1.3 mg/dL (0.6-1.0) Estimated GFR (Cockcroft-Gault) 41.4 BUN/Creatinine Ratio 36 (6-20) Glucose Level 187 mg/dL (70-99) Lactic Acid Level 4.5 mmol/L (0.4-2.0) Calcium Level 9.3 mg/dL (8.5-10.1) Magnesium Level 1.9 mg/dL (1.8-2.4) Total Bilirubin 0.5 mg/dL (0.2-1.0) Aspartate Amino Transf (AST/SGOT) 14 U/L (15-37) Alanine Aminotransferase (ALT/SGPT) 15 U/L (14-59) Alkaline Phosphatase 77 U/L (46-116) Creatine Kinase 21 U/L (26-192) Troponin I Quantitative < 0.017 ng/mL (0.000-0.055) PQ-Jyr-V-Type Natriuretic Peptide 307 pg/mL (0-124) Total Protein 7.0 g/dL (6.4-8.2) Albumin 3.5 g/dL (3.4-5.0) Albumin/Globulin Ratio 1.0 (1.0-1.7) Lipase 124 U/L (73-393) Glucose (Fingerstick) 178 mg/dL (70-99) Gastric Fluid Occult Blood Positive (NEG) Laboratory Tests Test 05/31/19 08:55 05/31/19 09:15 05/31/19 09:19 05/31/19 10:15 Urine Collection Type Void Urine Color Yellow Urine Clarity Clear Urine pH 5.5 Urine Specific Dodson 1.025 Urine Protein Negative mg/dL (NEG-TRACE) Urine Glucose (UA) Negative mg/dL (NEG) Urine Ketones (Stick) Negative mg/dL (NEG) Urine Blood Negative (NEG) Urine Nitrite Negative (NEG) Urine Bilirubin Negative (NEG) Urine Urobilinogen Dipstick 0.2 mg/dL (0.2 mg/dL) Urine Leukocyte Esterase Moderate (NEG) Urine RBC Occ /HPF (0-2) Urine WBC 5-10 /HPF (0-4) Urine Squamous Epithelial Cells Many /LPF Urine Transitional Epithelial Cells Mod /LPF Urine Renal Epithelial Cells Occ /LPF Urine Bacteria Few /HPF (0-FEW) Urine Mucus Slight /LPF White Blood Count 14.7 x10^3/uL (4.0-11.0) Red Blood Count 4.03 x10^6/uL (3.50-5.40) Hemoglobin 11.1 g/dL (12.0-15.5) Hematocrit 33.4 % (36.0-47.0) Mean Corpuscular Volume 83 fL (79-100) Mean Corpuscular Hemoglobin 28 pg (25-35) Mean Corpuscular Hemoglobin Concent 33 g/dL (31-37) Red Cell Distribution Width 17.7 % (11.5-14.5) Platelet Count 284 x10^3/uL (140-400) Neutrophils (%) (Auto) 77 % (31-73) Lymphocytes (%) (Auto) 17 % (24-48) Monocytes (%) (Auto) 5 % (0-9) Eosinophils (%) (Auto) 1 % (0-3) Basophils (%) (Auto) 1 % (0-3) Neutrophils # (Auto) 11.3 x10^3/uL (1.8-7.7) Lymphocytes # (Auto) 2.5 x10^3/uL (1.0-4.8) Monocytes # (Auto) 0.8 x10^3/uL (0.0-1.1) Eosinophils # (Auto) 0.1 x10^3/uL (0.0-0.7) Basophils # (Auto) 0.1 x10^3/uL (0.0-0.2) Prothrombin Time 14.8 SEC (11.7-14.0) Prothromb Time International Ratio 1.2 (0.8-1.1) Activated Partial Thromboplast Time 28 SEC (24-38) Sodium Level 143 mmol/L (136-145) Potassium Level 4.2 mmol/L (3.5-5.1) Chloride Level 108 mmol/L (98-107) Carbon Dioxide Level 16 mmol/L (21-32) Anion Gap 19 (6-14) Blood Urea Nitrogen 47 mg/dL (7-20) Creatinine 1.3 mg/dL (0.6-1.0) Estimated GFR (Cockcroft-Gault) 41.4 BUN/Creatinine Ratio 36 (6-20) Glucose Level 187 mg/dL (70-99) Lactic Acid Level 4.5 mmol/L (0.4-2.0) Calcium Level 9.3 mg/dL (8.5-10.1) Magnesium Level 1.9 mg/dL (1.8-2.4) Total Bilirubin 0.5 mg/dL (0.2-1.0) Aspartate Amino Transf (AST/SGOT) 14 U/L (15-37) Alanine Aminotransferase (ALT/SGPT) 15 U/L (14-59) Alkaline Phosphatase 77 U/L (46-116) Creatine Kinase 21 U/L (26-192) Troponin I Quantitative < 0.017 ng/mL (0.000-0.055) JK-[id number]-Z-Type Natriuretic Peptide 307 pg/mL (0-124) Total Protein 7.0 g/dL (6.4-8.2) Albumin 3.5 g/dL (3.4-5.0) Albumin/Globulin Ratio 1.0 (1.0-1.7) Lipase 124 U/L (73-393) Glucose (Fingerstick) 178 mg/dL (70-99) Gastric Fluid Occult Blood Positive (NEG) Assessment/Plan Assessment/Plan 1. Acute inferior wall myocardial infarction in a patient with known history of coronary artery disease s/p multiple PCI/stents placement, the last one in 2007. She has ongoing chest pain. We will proceed with emergent cardiac catheterization and possible primary PCI/stent placement. Risks and benefits were explained. 2. Hypertension: Controlled 3. Cardiac arrest/ventricular fibrillation: most probably ischemic etiology s/p defibrillation, presently in sinus rhythm. Continue amiodarone for now. 4. Nausea/vomiting/hematemesis/diarrhea: Consult gastroenterology team 5. Diabetes mellitus type 2: Treat per IM Thank you for your consultation CYDNEY JACKSON MD May 31, 2019 13:46
[2019-05-31] MEDS ORDERED: NITROGLYCERIN SUBLINGUAL 0.4 MG BOTTLE OF 25. SL PRN (14:00)
[2019-05-31] MEDS: fentaNYL PF VIAL 100 MCG/2 ML VIAL IV PRN ×3 (14:05→22:09)
[2019-05-31] MEDS: ONDANSETRON PF 4 MG/2 ML VIAL. IV PRN (14:05)
--- NOTE | 2019-05-31 15:35 | CARD ---
MR#: [id number] Date of Study: 05/31/2019 Ordering Physician: MARGARITA CORNEJO, Referring Physician: MARGARITA CORNEJO, Tech: RT Amilcar (R) APPROVED REPORT Technologist: RT Amilcar (R) Nurse: Esha Mcfarlane R.N. Procedure(s) performed: 1. Left heart catheterization, selective coronary angiography and left ventr iculography 2. Successful PCI/drug eluting stent placement to the left circumflex artery and successful PTCA to the obtuse marginal branch FLuoro time: 12.5 MIN Dose: 54 Gycm2 Contrast: 161cc Moderate sedation: 57 MINUTES INDICATION The indication(s) include : 63-year-old female with history of coronary artery disease presented with nausea and vomiting with coffee ground emesis. Initial EKG showed sinus rhythm without any ST elevat ions. While she was being worked up in ED, she had sudden cardiac arrest and was found to be in ventr icular fibrillation. She underwent CPR and defibrillation with conversion to atrial fibrillation. Rep eat EKG showed ST elevations inferior leads and hence she was emergently taken to catheter lab for co ronary angiography and possible PCI.. CSHA Clinical Frailty Scale [facility] Clinical Frailty Scale: Moderately Frail Heart Failure Heart Failure: No PROCEDURE NARRATIVE After explaining the risks, benefits and alternative options, informed consent was obtained from haley ent. Patient was brought to the [facility] [employer] [facility] and her right groin was prepped and draped in the usu al fashion. 20 mL of 2% lidocaine was infiltrated into the skin and subcutaneous drain is tissues for local anesthesia. Arterial access was obtained the right common femoral artery and a [place] sheath was inserted. [place] JL4 and [place] JR4 catheters were used to perform selective angiography of the left and right coronary arteries. 6 [place] pigtail catheter was used to perform left ventriculogr aphy. The following findings were noted: FINDINGS 1. Hemodynamics: Left ventricle end diastolic pressure 22 mmHg. No pullback gradient across the aor tic valve. 2. Left ventriculography: Posterobasal and diaphragmatic wall hypokinesis with ejection fraction es timated at 40%. No significant mitral regurgitation was seen. 3. Coronary angiography: a. The left main coronary artery arose from the left sinus of Valsalva, gave rise to the left anteri or descending and left circumflex arteries and did not show any significant stenosis. b. The left anterior descending artery showed 30% in-stent restenosis in the midsegment and 80% in-s tent restenosis in the distal segment. c. The left circumflex artery was a large and dominant vessel that showed long stented proximal, mid and distal segments and also a stented obtuse marginal branch with 100% occlusion noted within the s tent in proximal segment of left circumflex artery. d. The right coronary artery was a nondominant vessel that showed a long 80-90% in-stent restenosis in the proximal to midsegment. INTERVENTION The left main coronary artery was engaged with a 6 [place] XB 3.5 guide catheter and the occlusion wit hin the stent in the proximal segment of the left circumflex artery was crossed into the obtuse liliana nal branch with a 0.014 inch Alverix Pro water guidewire. Multiple inflations were made within the prox imal to mid segments of the left circumflex artery and the proximal segment of the obtuse marginal br anch using 2.5 x 12 mm trek balloon. The proximal to midsegment of the left circumflex artery was th en dilated with a 3.5 x 12 mm noncompliant NC euphora balloon. Initial attempts to advance a stent in to the proximal segment of the left circumflex artery were unsuccessful. With the help of backup supp ort from guide liner inner catheter, a 3.5 x 15 mm Chaves Xience Brenda drug-eluting stent was advanc ed into the proximal to midsegment of left circumflex artery and deployed successfully. Follow-up atr ophy showed resolution of the stenosis to 0% with good distal flow. Patient tolerated the procedure w ell. Hemostasis in the right groin was achieved using Angio-Seal. There were no immediate complicatio ns. JAZMIN Flow JAZMIN Flow (Pre-Intervention): JAZMIN-0 JAZMIN Flow (Post-Intervention): JAZMIN-3 Conclusion 1. Three-vessel coronary artery disease as described above with the culprit vessel for patient's JESSIE MS being dominant left circumflex artery occlusion 2. Successful PCI/drug eluting stent placement to the left circumflex artery and successful PTCA to the obtuse marginal branch 3. Posterobasal and diaphragmatic wall hypokinesis with ejection fraction estimated at 40% Recommendations 1. Aspirin 81 mg daily for one month (patient on triple therapy) 2. Plavix 75 mg daily for preferably one year 3. Cardiovascular risk factor modification Signed by : Umesh Jc, Electronically Approved : 05/31/2019 15:34:47
--- NOTE | 2019-05-31 15:45 | PDOC2 ---
GI CONSULT Reason For Consult: GI bleeding on Xarelto HPI: HPI: 63 y/o female admitted through ER - d/w ER physician this morning - came w/ n/v, had an episode of "coffee-ground emesis" in ER, went into V Fib and pulse was lost, had CPR and was shocked, now s/p cardiac cath w/ stent placement ( in circumflex). N/v intermittently since we last saw in April - much worse yesterday and terrible today. No bleeding at home but "red and black" in ER. "I knew I was having a heart attack." H/o GERD - previously on Prilosec, then took Reglan, and most recently on raniti dine QD. We last saw in 04/2019 for n/v, post-prandial epigastric pain, and C Diff. Finished vanco and diarrhea improved. Has lost 30 pounds since February. Past workup: Normal GES here in 2013. Does not recall h/o gastroparesis or any repeat GES since then though this diagnosis is mentioned in her chart. Colonoscopy 02/2015 (Dr. Beltre) for screening and h/o adenomatous polyp: si gmoid diverticulosis, non-bleeding internal hemorrhoids. [facility]ochezia and anemia - was told she had E Coli and Giardia. EGD 06/2017 (Dr. Beltre) for dysphagia and heartburn: LA Grade A reflux esophagitis (biopsy c/s reflux, no Velez's), mild Schatzki's ring (dilated 54Fr), normal stomach, normal duodenum. EGD 01/2019 (Dr. Crook) for n/v and dysphagia showed exudative esophagitis from vomiting, mild Schatzki's ring (not dilated), hiatal hernia, and normal duodenum. Office notes indicate h/o reflux (at one point visually c/w Velez's - not on pathology), dysphagia, esophageal stricture/dilation, epigastric pain, n/v, flattened duodenal mucosa (biopsy negative for pathology), and colon polyps in 2001 and possibly 2004. No GB, liver, or pancreas history. Remote h/o ulcers, remembers taking Carafate. No NSAIDs. H/o A Fib on Xarelto. Past CT A/P: small hiatal hernia, fluid in distal esophagus (possible GERD), and diverticulosis. PMH: PMH: MA, CAD, A Fib, HTN, TIA, DM, migraines, GERD, Schatzki's ring, hiatal hernia, adenomatous colon polyp, diverticulosis, hemorrhoids cardiac stents, LP, hysterectomy, bilateral wrist surgeries, tonsillectomy/adenoidectomy FH: Family History: Cancer (brother - esopahgeal and stomach), CAD, CVA, Other (son comitted suicide, first due to a work accident, second had Hep C and liver cancer, father had alcoholic cirrhosis and colon polyps) Social History: Smoke: Quit ALCOHOL: rare Drugs: Marijuana ROS: GEN: Denies fevers, chills, sweats HEENT: Denies blurred vision, sore throat CV: +chest pain RESP: Denies shortness of air, cough GI: Per HPI : Denies hematuria, dysuria ENDO: Denies weight changes NEURO: Denies confusion, dizziness MSK: Denies weakness, joint pain/swelling SKIN: Denies jaundice, pruritus Vitals: Vitals: Vital Signs Date Time Temp Pulse Resp B/P (MAP) Pulse Ox O2 Delivery O2 Flow Rate FiO2 05/31/19 14:05 16 97 Nasal Cannula 3.0 05/31/19 12:34 97 05/31/19 10:47 84/40 (55) 05/31/19 08:40 98.0 98.0 Labs: Labs: Laboratory Tests Test 05/31/19 08:55 05/31/19 09:15 05/31/19 09:19 05/31/19 10:15 Urine Collection Type Void Urine Color Yellow Urine Clarity Clear Urine pH 5.5 Urine Specific [place] Level 1.025 Urine Protein Negative mg/dL (NEG-TRACE) Urine Glucose (UA) Negative mg/dL (NEG) Urine Ketones (Stick) Negative mg/dL (NEG) Urine Blood Negative (NEG) Urine Nitrite Negative (NEG) Urine Bilirubin Negative (NEG) Urine Urobilinogen Dipstick 0.2 mg/dL (0.2 mg/dL) Urine Leukocyte Esterase Moderate (NEG) Urine RBC Occ /HPF (0-2) Urine WBC 5-10 /HPF (0-4) Urine Squamous Epithelial Cells Many /LPF Urine Transitional Epithelial Cells Mod /LPF Urine Renal Epithelial Cells Occ /LPF Urine Bacteria Few /HPF (0-FEW) Urine Mucus Slight /LPF White Blood Count 14.7 x10^3/uL (4.0-11.0) Red Blood Count 4.03 x10^6/uL (3.50-5.40) Hemoglobin 11.1 g/dL (12.0-15.5) Hematocrit 33.4 % (36.0-47.0) Mean Corpuscular Volume 83 fL (79-100) Mean Corpuscular Hemoglobin 28 pg (25-35) Mean Corpuscular Hemoglobin Concent 33 g/dL (31-37) Red Cell Distribution Width 17.7 % (11.5-14.5) Platelet Count 284 x10^3/uL (140-400) Neutrophils (%) (Auto) 77 % (31-73) Lymphocytes (%) (Auto) 17 % (24-48) Monocytes (%) (Auto) 5 % (0-9) Eosinophils (%) (Auto) 1 % (0-3) Basophils (%) (Auto) 1 % (0-3) Neutrophils # (Auto) 11.3 x10^3/uL (1.8-7.7) Lymphocytes # (Auto) 2.5 x10^3/uL (1.0-4.8) Monocytes # (Auto) 0.8 x10^3/uL (0.0-1.1) Eosinophils # (Auto) 0.1 x10^3/uL (0.0-0.7) Basophils # (Auto) 0.1 x10^3/uL (0.0-0.2) Prothrombin Time 14.8 SEC (11.7-14.0) Prothromb Time International Ratio 1.2 (0.8-1.1) Activated Partial Thromboplast Time 28 SEC (24-38) Sodium Level 143 mmol/L (136-145) Potassium Level 4.2 mmol/L (3.5-5.1) Chloride Level 108 mmol/L (98-107) Carbon Dioxide Level 16 mmol/L (21-32) Anion Gap 19 (6-14) Blood Urea Nitrogen 47 mg/dL (7-20) Creatinine 1.3 mg/dL (0.6-1.0) Estimated GFR (Cockcroft-Gault) 41.4 BUN/Creatinine Ratio 36 (6-20) Glucose Level 187 mg/dL (70-99) Lactic Acid Level 4.5 mmol/L (0.4-2.0) Calcium Level 9.3 mg/dL (8.5-10.1) Magnesium Level 1.9 mg/dL (1.8-2.4) Total Bilirubin 0.5 mg/dL (0.2-1.0) Aspartate Amino Transf (AST/SGOT) 14 U/L (15-37) Alanine Aminotransferase (ALT/SGPT) 15 U/L (14-59) Alkaline Phosphatase 77 U/L (46-116) Creatine Kinase 21 U/L (26-192) Troponin I Quantitative < 0.017 ng/mL (0.000-0.055) DW-Qer-L-Type Natriuretic Peptide 307 pg/mL (0-124) Total Protein 7.0 g/dL (6.4-8.2) Albumin 3.5 g/dL (3.4-5.0) Albumin/Globulin Ratio 1.0 (1.0-1.7) Lipase 124 U/L (73-393) Glucose (Fingerstick) 178 mg/dL (70-99) Gastric Fluid Occult Blood Positive (NEG) Test 05/31/19 13:13 Lactic Acid Level 3.3 mmol/L (0.4-2.0) Troponin I Quantitative 18.296 ng/mL (0.000-0.055) Allergies: Coded Allergies: adhesive (Verified Allergy, Severe, 05/18/14) morphine (Verified Allergy, Intermediate, hives, 05/18/14) amlodipine (Verified Allergy, Unknown, Swelling, 01/25/19) feet swelling Medications: Current Medications Medications (Trade) Dose Ordered Sig/Lelia Route PRN Reason Start Time Stop Time Status Last Admin Dose Admin Sodium Chloride 1,000 ml @ 1,000 mls/hr Q1H IV 05/31/19 08:56 05/31/19 09:55 DC 05/31/19 09:29 Ondansetron HCl (Zofran) 4 mg 1X ONCE IV 05/31/19 09:00 05/31/19 09:05 DC 05/31/19 09:29 Fentanyl Citrate (Fentanyl 2ml Vial) 50 mcg 1X ONCE IV 05/31/19 09:45 05/31/19 09:46 DC 05/31/19 09:49 Diltiazem HCl (Cardizem Iv Push) 15 mg 1X ONCE IVP 05/31/19 10:30 05/31/19 10:31 DC 05/31/19 10:18 Pantoprazole Sodium (PROTONIX VIAL for IV PUSH) 80 mg 1X ONCE IVP 05/31/19 10:30 05/31/19 10:31 DC 05/31/19 11:34 Sodium Chloride 1,000 ml @ 1,000 mls/hr 1X ONCE IV 05/31/19 10:15 05/31/19 11:14 DC 05/31/19 10:14 Ondansetron HCl (Zofran) 4 mg 1X ONCE IV 05/31/19 10:15 05/31/19 10:16 DC 05/31/19 10:14 Amiodarone HCl 900 mg/Dextrose 518 ml @ 0 mls/hr CONT PRN IV SEE I/O RECORD 05/31/19 10:15 05/31/19 10:41 DC 05/31/19 10:41 Pantoprazole Sodium 80 mg/ Sodium Chloride 100 ml @ 10 mls/hr 1X ONCE IV 05/31/19 10:30 05/31/19 20:29 05/31/19 14:05 Piperacillin Sod/ Tazobactam Sod 3.375 gm/Sodium Chloride 50 ml @ 100 mls/hr 1X ONCE IV 05/31/19 10:30 05/31/19 10:59 DC 05/31/19 10:52 Sodium Chloride 1,000 ml @ 1,000 mls/hr 1X ONCE IV 05/31/19 10:30 05/31/19 11:29 DC 05/31/19 10:40 Norepinephrine Bitartrate 250 ml @ 14.17 mls/ hr CONT PRN IV SEE I/O RECORD 05/31/19 11:15 05/31/19 12:33 Heparin Sodium/ Sodium Chloride (HEPARIN for ARTERIAL LINE FLUSH) 1,000 unit 1X ONCE IART 05/31/19 11:30 05/31/19 11:38 DC 05/31/19 12:33 Heparin Sodium/ Sodium Chloride (HEPARIN for ARTERIAL LINE FLUSH) 1,000 unit 1X ONCE IART 05/31/19 11:30 05/31/19 11:39 DC 05/31/19 12:33 Midazolam HCl (Versed) 2 mg 1X ONCE IV 05/31/19 11:30 05/31/19 11:40 DC 05/31/19 12:33 Fentanyl Citrate (Fentanyl 2ml Vial) 100 mcg 1X ONCE IV 05/31/19 11:30 05/31/19 11:38 DC 05/31/19 12:33 Iodixanol (Visipaque 320) 100 ml 1X ONCE IART 05/31/19 11:30 05/31/19 11:39 DC 05/31/19 12:33 Bivalirudin (Angiomax) 250 mg 1X ONCE IV 05/31/19 11:30 05/31/19 11:41 DC 05/31/19 12:33 Lidocaine HCl (Lidocaine 1% 20ml Vial) 20 ml 1X ONCE INJ 05/31/19 11:30 05/31/19 11:39 DC 05/31/19 12:33 Nitroglycerin (Nitroglycerin) 200 mcg 1X ONCE ICAR 05/31/19 12:00 05/31/19 12:01 DC 05/31/19 12:34 Clopidogrel Bisulfate (Plavix) 600 mg 1X ONCE PO 05/31/19 12:00 05/31/19 12:01 DC 05/31/19 12:34 Aspirin (Naomi Aspirin) 325 mg 1X ONCE PO 05/31/19 12:00 05/31/19 12:01 DC 05/31/19 12:34 Ondansetron HCl (Zofran) 4 mg 1X ONCE IV 05/31/19 12:45 05/31/19 12:46 DC 05/31/19 12:41 Ondansetron HCl (Zofran) 4 mg PRN Q6HRS PRN IV NAUSEA/VOMITING 05/31/19 13:45 05/31/19 14:05 Fentanyl Citrate (Fentanyl 2ml Vial) 50 mcg PRN Q2HR PRN IV PAIN 05/31/19 13:45 05/31/19 14:05 Sodium Chloride 1,000 ml @ 75 mls/hr [id number] IV 05/31/19 13:46 05/31/19 14:07 Imaging: Imaging: - PE: GEN: NAD HEENT: Atraumatic, PERRL LUNGS: CTAB HEART: RRR ABD: NABS, S/ND/NT EXTREMITY: No edema SKIN: No rashes, no jaundice NEURO/PSYCH: A & O �3 A/P: A/P: N/v, "coffee-ground emesis," +gastric occult MA, CAD s/p stent placement 05/31/19, ABDULLAHI GERD, Schatzki's ring, hiatal hernia - on H2 christopher at home [facility] screen, h/o colon polyps - UTD Diverticulosis, hemorrhoids H/o C Diff - treated w/ vanco H/o A Fib on Xarelto Anemia - iron deficient in 01/2019 -- Concern for UGI bleeding w/ n/v - feels better after cath/stent placement and has had recent scopes. Continue PPI - could probably change to IV push. ?try PO - will review w/ Dr. Armaan RICH-FRANCISCO JAVIER MICHAELS May 31, 2019 15:45
[2019-05-31] MEDS: KETOROLAC 15 MG/ML VIAL. IV PRN ×2 (16:16→22:34)
[2019-05-31 16:43] LABS: MAGNESIUM 1.8 mg/dL (1.8-2.4); POTASSIUM 5.1 mmol/L (3.5-5.1)
[2019-05-31] MEDS ORDERED: RIVAROXABAN 10 MG TABLET. PO SCH (17:00)
[2019-05-31] MEDS: CARVEDILOL 12.5 MG TABLET. PO SCH (17:00)
[2019-05-31] MEDS ORDERED: C.DIFF MED SCREEN BY RX. MC SCH (17:45)
[2019-05-31] MEDS ORDERED: FAMOTIDINE 20 MG TABLET. PO SCH (21:00)
[2019-05-31] MEDS: LACTOBACILLUS RHAMNOSUS GG 1 CAPSULE. PO SCH (21:09)
[2019-05-31] MEDS: clonazePAM 0.5 MG TABLET PO SCH (21:09)
[2019-05-31] MEDS: ISOSORBIDE MONONITRATE ER 30 MG TAB.ER.24H PO SCH (21:09)
[2019-05-31] MEDS: ATORVASTATIN CALCIUM 40 MG TABLET. PO SCH (21:09)
[2019-05-31] MEDS: buPROPion SR 150 MG TABLET.SA PO SCH (21:10)
[2019-06-01] VITALS (32 sets, daily range): BP systolic 67–122; BP diastolic 44–68
[2019-06-01] MEDS: PROMETHAZINE 6.25 MG/5 ML SYRUP. PO PRN (05:38)
[2019-06-01] MEDS: IV 1/2 NORMAL SALINE 1,000 ML IV SCH ×2 (06:10→21:52)
[2019-06-01] MEDS: IV NORMAL SALINE 1000ML BAG 1,000 ML IV SCH (06:16)
[2019-06-01] MEDS: CARVEDILOL 12.5 MG TABLET. PO SCH ×2 (08:00→17:00)
[2019-06-01] MEDS: CITALOPRAM 10 MG TABLET. PO SCH (08:45)
[2019-06-01] MEDS: ASPIRIN ENTERIC COATED 81 MG TABLET.DR. PO SCH (08:45)
[2019-06-01] MEDS: LACTOBACILLUS RHAMNOSUS GG 1 CAPSULE. PO SCH ×2 (08:46→20:00)
[2019-06-01] MEDS: CLOPIDOGREL BISULFATE 75 MG TABLET PO SCH (08:46)
[2019-06-01] MEDS: clonazePAM 0.5 MG TABLET PO SCH ×2 (08:47→19:59)
[2019-06-01] MEDS: buPROPion SR 150 MG TABLET.SA PO SCH ×2 (08:47→20:01)
[2019-06-01] MEDS: LISINOPRIL 5 MG TABLET. PO SCH (09:00)
[2019-06-01] MEDS: ISOSORBIDE MONONITRATE ER 30 MG TAB.ER.24H PO SCH ×2 (09:00→20:00)
[2019-06-01] MEDS ORDERED: ASPIRIN CHEWABLE 81 MG TABLET. PO SCH (09:00)
[2019-06-01 09:25] LABS: CALCIUM 7.9 mg/dL (8.5-10.1); MAGNESIUM 1.7 mg/dL (1.8-2.4); POTASSIUM 4.1 mmol/L (3.5-5.1)
--- NOTE | 2019-06-01 10:10 | PDOC ---
[employer] PROGRESS NOTE Chief Complaint Chief Complaint Nausea, vomiting, diarrhea, chest pain History of Present Illness History of Present Illness 06/01/19 Pt seen at bedside 1 day post catheterization. She had a drug eluting stent placed in her left coronary artery and percutaneous transluminal angioplasty to her obtuse marginal branch. Pt has right groin clean dry dressing Pt feels worse DW RN Vitals/I&O Vitals/I&O: Vital Signs Date Time Temp Pulse Resp B/P (MAP) Pulse Ox O2 Delivery O2 Flow Rate FiO2 06/01/19 09:59 97.9 82 20 90/58 (69) 95 Room Air 97.9 05/31/19 18:14 2.0 I & O 05/31/19 05/31/19 06/01/19 15:00 23:00 07:00 Intake Total 1000 ml 557 ml 2691 ml Output Total 0 ml Balance 1000 ml 557 ml 2691 ml Physical Exam General: Alert, Oriented X3, mild distress Heart: Regular rate, Other (heart rate is irregular) Lungs: Clear Abdomen: Soft Extremities: No edema Labs Labs: Laboratory Tests Test 05/31/19 10:15 05/31/19 13:13 05/31/19 16:20 05/31/19 22:07 Gastric Fluid Occult Blood Positive (NEG) Lactic Acid Level 3.3 mmol/L (0.4-2.0) Troponin I Quantitative 18.296 ng/mL (0.000-0.055) 38.538 ng/mL (0.000-0.055) Potassium Level 5.1 mmol/L (3.5-5.1) Magnesium Level 1.8 mg/dL (1.8-2.4) Glucose (Fingerstick) 129 mg/dL (70-99) Test 06/01/19 08:36 06/01/19 08:50 Glucose (Fingerstick) 153 mg/dL (70-99) Sodium Level 140 mmol/L (136-145) Potassium Level 4.1 mmol/L (3.5-5.1) Chloride Level 111 mmol/L (98-107) Carbon Dioxide Level 19 mmol/L (21-32) Anion Gap 10 (6-14) Blood Urea Nitrogen 36 mg/dL (7-20) Creatinine 1.0 mg/dL (0.6-1.0) Estimated GFR (Cockcroft-Gault) 56.0 Glucose Level 158 mg/dL (70-99) Calcium Level 7.9 mg/dL (8.5-10.1) Magnesium Level 1.7 mg/dL (1.8-2.4) Review of Systems Review of Systems: Pt co fatigue Pt co nausea Assessment and Plan Assessmemt and Plan Problems Medical Problems: (1) ABDULLAHI (acute kidney injury) Status: Acute (2) Anemia Status: Acute (3) Atrial fibrillation with RVR Status: Acute (4) CAD (coronary artery disease) Status: Chronic (5) Coffee ground emesis Status: Acute (6) GERD (gastroesophageal reflux disease) Status: Chronic (7) Hemorrhoids Status: Chronic (8) Hiatal hernia Status: Chronic (9) Intractable nausea and vomiting Status: Acute (10) Schatzki's ring Status: Chronic (11) Severe sepsis Status: Acute (12) STEMI (ST elevation myocardial infarction) Status: Acute (13) Upper GI bleeding Status: Acute (14) Ventricular fibrillation Status: Acute Assessment Anemia Acute inferior wall myocardial infarction CAD HTN Cardiac arrest/ventricular fibrillation Nausea/vomiting/hematemesis/diarrhea Diabetes mellitus type 2 Plan Type, cross, and transfuse 2 units blood ICU monitoring Wound care Consult GI +/- medications per Cardio and GI Full code Comment Review of Relevant I have reviewed the following items mumtaz (where applicable) has been applied. Medications: Current Medications Medications (Trade) Dose Ordered Sig/Lelia Route PRN Reason Start Time Stop Time Status Last Admin Dose Admin Diltiazem HCl (Cardizem Iv Push) 15 mg 1X ONCE IVP 05/31/19 10:30 05/31/19 10:31 DC 05/31/19 10:18 Pantoprazole Sodium (PROTONIX VIAL for IV PUSH) 80 mg 1X ONCE IVP 05/31/19 10:30 05/31/19 10:31 DC 05/31/19 11:34 Sodium Chloride 1,000 ml @ 1,000 mls/hr 1X ONCE IV 05/31/19 10:15 05/31/19 11:14 DC 05/31/19 10:14 Ondansetron HCl (Zofran) 4 mg 1X ONCE IV 05/31/19 10:15 05/31/19 10:16 DC 05/31/19 10:14 Amiodarone HCl 900 mg/Dextrose 518 ml @ 0 mls/hr CONT PRN IV SEE I/O RECORD 05/31/19 10:15 05/31/19 10:41 DC 05/31/19 10:41 Pantoprazole Sodium 80 mg/ Sodium Chloride 100 ml @ 10 mls/hr 1X ONCE IV 05/31/19 10:30 05/31/19 20:29 DC 05/31/19 14:05 Piperacillin Sod/ Tazobactam Sod 3.375 gm/Sodium Chloride 50 ml @ 100 mls/hr 1X ONCE IV 05/31/19 10:30 05/31/19 10:59 DC 05/31/19 10:52 Sodium Chloride 1,000 ml @ 1,000 mls/hr 1X ONCE IV 05/31/19 10:30 05/31/19 11:29 DC 05/31/19 10:40 Norepinephrine Bitartrate 250 ml @ 14.17 mls/ hr CONT PRN IV SEE I/O RECORD 05/31/19 11:15 05/31/19 12:33 Heparin Sodium/ Sodium Chloride (HEPARIN for ARTERIAL LINE FLUSH) 1,000 unit 1X ONCE IART 05/31/19 11:30 05/31/19 11:38 DC 05/31/19 12:33 Heparin Sodium/ Sodium Chloride (HEPARIN for ARTERIAL LINE FLUSH) 1,000 unit 1X ONCE IART 05/31/19 11:30 05/31/19 11:39 DC 05/31/19 12:33 Midazolam HCl (Versed) 2 mg 1X ONCE IV 05/31/19 11:30 05/31/19 11:40 DC 05/31/19 12:33 Fentanyl Citrate (Fentanyl 2ml Vial) 100 mcg 1X ONCE IV 05/31/19 11:30 05/31/19 11:38 DC 05/31/19 12:33 Iodixanol (Visipaque 320) 100 ml 1X ONCE IART 05/31/19 11:30 05/31/19 11:39 DC 05/31/19 12:33 Bivalirudin (Angiomax) 250 mg 1X ONCE IV 05/31/19 11:30 05/31/19 11:41 DC 05/31/19 12:33 Lidocaine HCl (Lidocaine 1% 20ml Vial) 20 ml 1X ONCE INJ 05/31/19 11:30 05/31/19 11:39 DC 05/31/19 12:33 Nitroglycerin (Nitroglycerin) 200 mcg 1X ONCE ICAR 05/31/19 12:00 05/31/19 12:01 DC 05/31/19 12:34 Clopidogrel Bisulfate (Plavix) 600 mg 1X ONCE PO 05/31/19 12:00 05/31/19 12:01 DC 05/31/19 12:34 Aspirin (Naomi Aspirin) 325 mg 1X ONCE PO 05/31/19 12:00 05/31/19 12:01 DC 05/31/19 12:34 Ondansetron HCl (Zofran) 4 mg 1X ONCE IV 05/31/19 12:45 05/31/19 12:46 DC 05/31/19 12:41 Ondansetron HCl (Zofran) 4 mg PRN Q6HRS PRN IV NAUSEA/VOMITING 05/31/19 13:45 05/31/19 14:05 Fentanyl Citrate (Fentanyl 2ml Vial) 50 mcg PRN Q2HR PRN IV PAIN 05/31/19 13:45 05/31/19 22:09 Sodium Chloride 1,000 ml @ 75 mls/hr [id number] IV 05/31/19 13:46 06/01/19 06:10 Aspirin (Ecotrin) 81 mg DAILYWBKFT PO 06/01/19 08:00 06/01/19 08:47 Clopidogrel Bisulfate (Plavix) 75 mg DAILYWBKFT PO 06/01/19 08:00 06/01/19 08:47 Atorvastatin Calcium (Lipitor) 40 mg QHS PO 05/31/19 21:00 05/31/19 21:10 Bupropion HCl (Wellbutrin Sr) 150 mg BID PO 05/31/19 21:00 06/01/19 08:47 Citalopram Hydrobromide (CeleXA) 10 mg DAILY PO 06/01/19 09:00 06/01/19 08:47 Isosorbide Mononitrate (Imdur) 30 mg BID PO 05/31/19 21:00 05/31/19 21:10 Lactobacillus Rhamnosus (Culturelle) 1 cap BID PO 05/31/19 21:00 06/01/19 08:47 Promethazine HCl (Phenergan Syrup) 12.5 mg PRN Q6HRS PRN PO NAUSEA/VOMITING 05/31/19 16:00 06/01/19 05:38 Clonazepam (KlonoPIN) 1 mg BID PO 05/31/19 21:00 06/01/19 08:47 Famotidine (Pepcid) 20 mg QHS PO 05/31/19 21:00 05/31/19 21:10 Rivaroxaban (Xarelto) 20 mg DAILYWSUP PO 05/31/19 17:00 05/31/19 18:20 Ketorolac Tromethamine (Toradol 15mg Vial) 15 mg PRN Q6HRS PRN IV PAIN 05/31/19 16:00 06/05/19 15:59 05/31/19 22:34 RACHEL RODRIGUEZ III DO Jun 01, 2019 10:10
[2019-06-01] MEDS: KETOROLAC 15 MG/ML VIAL. IV PRN ×3 (10:27→23:08)
[2019-06-01 10:31] LABS: RED BLOOD COUNT 2.11 x10^6/uL (3.50-5.40); RED CELL DISTRIBUTION WIDTH 17.9 % (11.5-14.5); WHITE BLOOD COUNT 8.8 x10^3/uL (4.0-11.0)
[2019-06-01 10:36] LABS: HEMATOCRIT 17.8 % (36.0-47.0)
[2019-06-01] MEDS ORDERED: AMIODARONE HCL 200 MG TABLET. PO SCH (10:45)
[2019-06-01] MEDS ORDERED: AMIODARONE 900 MG in IV DEXTROSE 5% 500 ML IV PRN (11:00)
[2019-06-01] MEDS: AMIODARONE 450 MG in IV DEXTROSE 5% 250 ML IV PRN (11:26)
--- NOTE | 2019-06-01 11:43 | PDOC ---
Subjective: Subjective: Chest pain - thinks related to chest compressions. Nausea w/o vomiting - no recurrent bleeding. Objective: Objective: D/w nurse - no bleeding since admission - getting Xarelto, Plavix, ASA per cardiology. PPI drip stopped and is getting PO H2 christopher. Vital Signs: Vital Signs Date Time Temp Pulse Resp B/P (MAP) Pulse Ox O2 Delivery O2 Flow Rate FiO2 06/01/19 11:00 83 20 94/63 (73) 93 Room Air 06/01/19 09:59 97.9 97.9 05/31/19 18:14 2.0 Labs: Laboratory Tests Test 05/31/19 13:13 05/31/19 16:20 05/31/19 22:07 06/01/19 08:36 Lactic Acid Level 3.3 mmol/L Troponin I Quantitative 18.296 ng/mL 38.538 ng/mL Potassium Level 5.1 mmol/L Magnesium Level 1.8 mg/dL Glucose (Fingerstick) 129 mg/dL 153 mg/dL Test 06/01/19 08:50 06/01/19 10:05 Sodium Level 140 mmol/L Potassium Level 4.1 mmol/L Chloride Level 111 mmol/L Carbon Dioxide Level 19 mmol/L Anion Gap 10 Blood Urea Nitrogen 36 mg/dL Creatinine 1.0 mg/dL Estimated GFR (Cockcroft-Gault) 56.0 Glucose Level 158 mg/dL Calcium Level 7.9 mg/dL Magnesium Level 1.7 mg/dL White Blood Count 8.8 x10^3/uL Red Blood Count 2.11 x10^6/uL Hemoglobin 6.0 g/dL Hematocrit 17.8 % Mean Corpuscular Volume 85 fL Mean Corpuscular Hemoglobin 29 pg Mean Corpuscular Hemoglobin Concent 34 g/dL Red Cell Distribution Width 17.9 % Platelet Count 150 x10^3/uL PE: GEN: NAD LUNGS: CTAB HEART: RRR ABD: S/ND/NT NEURO/PSYCH: A & O �3 A/P: N/v, "coffee-ground emesis" - has nausea today, no recurrent vomiting or bleeding STEMI s/p stent placement Anemia - on Xarelto, ASA, Plavix per cardiology -- Clears sparingly. Stop H2 christopher and resume IV PPI. Transfusion ordered. [facility] FRANCISCO JAVIER TOBIAS Jun 01, 2019 11:43
--- NOTE | 2019-06-01 13:02 | PDOC ---
Infectious Disease Note Vital Sign Vital Signs Vital Signs Date Time Temp Pulse Resp B/P (MAP) Pulse Ox O2 Delivery O2 Flow Rate FiO2 06/01/19 11:00 83 20 94/63 (73) 93 Room Air 06/01/19 09:59 97.9 97.9 05/31/19 18:14 2.0 Labs Lab Laboratory Tests Test 05/31/19 13:13 05/31/19 16:20 05/31/19 22:07 06/01/19 08:36 Lactic Acid Level 3.3 mmol/L (0.4-2.0) Troponin I Quantitative 18.296 ng/mL (0.000-0.055) 38.538 ng/mL (0.000-0.055) Potassium Level 5.1 mmol/L (3.5-5.1) Magnesium Level 1.8 mg/dL (1.8-2.4) Glucose (Fingerstick) 129 mg/dL (70-99) 153 mg/dL (70-99) Test 06/01/19 08:50 06/01/19 10:05 Sodium Level 140 mmol/L (136-145) Potassium Level 4.1 mmol/L (3.5-5.1) Chloride Level 111 mmol/L (98-107) Carbon Dioxide Level 19 mmol/L (21-32) Anion Gap 10 (6-14) Blood Urea Nitrogen 36 mg/dL (7-20) Creatinine 1.0 mg/dL (0.6-1.0) Estimated GFR (Cockcroft-Gault) 56.0 Glucose Level 158 mg/dL (70-99) Calcium Level 7.9 mg/dL (8.5-10.1) Magnesium Level 1.7 mg/dL (1.8-2.4) White Blood Count 8.8 x10^3/uL (4.0-11.0) Red Blood Count 2.11 x10^6/uL (3.50-5.40) Hemoglobin 6.0 g/dL (12.0-15.5) Hematocrit 17.8 % (36.0-47.0) Mean Corpuscular Volume 85 fL (79-100) Mean Corpuscular Hemoglobin 29 pg (25-35) Mean Corpuscular Hemoglobin Concent 34 g/dL (31-37) Red Cell Distribution Width 17.9 % (11.5-14.5) Platelet Count 150 x10^3/uL (140-400) Micro Microbiology 05/31/19 Blood Culture - Final, Complete Objective Assessment GPC sepsis 05/31 POA STEMI S/p Successful PCI/drug eluting stent placement to the left circumflex artery and successful PTCA to the obtuse marginal branch 05/31 Leukocytosis - better Anemia - getting PRBCs S/p cardiac arrest from ventricular fibrillation and underwent CPR/defibrillations and successful conversion to sinus rhythm - 05/31 H/o C-diff April 20 h/o E. coli and Giardia on stool panel treated in January 2019 at [facility] Plan Plan of Care Vanc and zosyn PO BID Vanc F/u labs and cults Thank you # [id number] LYNN KNAPP MD Jun 01, 2019 13:02
[2019-06-01] MEDS: PANTOPRAZOLE SODIUM IV DRIP 80 MG in IV NORMAL SALINE 100ML 100 ML IV SCH (13:05)
[2019-06-01] MEDS: VANCOMYCIN 125 MG/2.5 ML ORAL SOLUTION. PO SCH ×2 (13:05→20:01)
[2019-06-01] MEDS: PIPERACILLIN/TAZOBACTAM 3.375 GM in IV NORMAL SALINE 50ML 50 ML IV SCH ×2 (13:13→17:50)
[2019-06-01] MEDS ORDERED: MAGNESIUM SULFATE 2GM 50 ML IV ONE (13:45)
[2019-06-01] MEDS ORDERED: FUROSEMIDE 40 MG/4 ML VIAL. IVP ONE (13:45)
--- NOTE | 2019-06-01 13:47 | PDOC ---
K[facility]STA [facility]UIZ [employer] TRA[employer] 06/01/19 1347: CARDIO Progress Notes Date and Time Date of Service 06/01/2019 Time of Evaluation 1300 Subjective Subjective: No Chest Pain, No shortness of breath, No Palpitations, Other (right chest pain from compression) Vitals Vitals Vital Signs Date Time Temp Pulse Resp B/P (MAP) Pulse Ox O2 Delivery O2 Flow Rate FiO2 06/01/19 13:04 83 94/63 06/01/19 11:00 20 93 Room Air 06/01/19 09:59 97.9 97.9 05/31/19 18:14 2.0 Weight Weight [ ] Input and Output Intake and Output Intake and Output 06/01/19 06:59 Intake Total 4248 ml Output Total 0 ml Balance 4248 ml Intake Oral 600 ml IV Total 3648 ml Output Urine Total 0 ml # Voids 2 # Bowel Movements 1 Laboratory Labs Laboratory Tests Test 05/31/19 16:20 05/31/19 22:07 06/01/19 08:36 06/01/19 08:50 Potassium Level 5.1 mmol/L (3.5-5.1) 4.1 mmol/L (3.5-5.1) Magnesium Level 1.8 mg/dL (1.8-2.4) 1.7 mg/dL (1.8-2.4) Troponin I Quantitative 38.538 ng/mL (0.000-0.055) Glucose (Fingerstick) 129 mg/dL (70-99) 153 mg/dL (70-99) Sodium Level 140 mmol/L (136-145) Chloride Level 111 mmol/L (98-107) Carbon Dioxide Level 19 mmol/L (21-32) Anion Gap 10 (6-14) Blood Urea Nitrogen 36 mg/dL (7-20) Creatinine 1.0 mg/dL (0.6-1.0) Estimated GFR (Cockcroft-Gault) 56.0 Glucose Level 158 mg/dL (70-99) Calcium Level 7.9 mg/dL (8.5-10.1) Test 06/01/19 10:05 White Blood Count 8.8 x10^3/uL (4.0-11.0) Red Blood Count 2.11 x10^6/uL (3.50-5.40) Hemoglobin 6.0 g/dL (12.0-15.5) Hematocrit 17.8 % (36.0-47.0) Mean Corpuscular Volume 85 fL (79-100) Mean Corpuscular Hemoglobin 29 pg (25-35) Mean Corpuscular Hemoglobin Concent 34 g/dL (31-37) Red Cell Distribution Width 17.9 % (11.5-14.5) Platelet Count 150 x10^3/uL (140-400) Microbiology Micro Microbiology 05/31/19 Blood Culture - Preliminary, Resulted NO GROWTH AFTER 1 DAY Physical Exam HEENT: Neck Supple W Full Motion Chest: Symmetric LUNGS: Other (diminished bases) Heart: RRR (SR) Abdomen: Soft N/T Extremities: No Calf Tenderness Neurology: alert, oriented, follow commands Assessment Assessment 1. Brief Vfib arrest: shock x1, AFIB RVR then SR. 2. Acute inferior TN: S/P PCI/ANABEL to LCx and PTCA to OM 3. Acute GI bleed, +gastroccult. unclear source possibly frail ectasias. so far. 5. Nausea/vomiting/hematemesis/diarrhea: with hx of gastroparesis. GI following 6. DM2 7. Acute anemia: from 11.1 to 6 8. ICM: EF 40% 9. PAFIB: presently SR 10. HTN: BP marginal Recommendations 1. Continue BB, ACEi pending BP trend. Continue with PPI. 2. TTE today 3. Transfuse today, lasix between bags 4. DC xarelto. Continue ASA/plavix. Statin. Monitor hemogram. 5. Consult ID antibiotics per them. 6. Cardiac rehab. 7. Convert amiodarone to PO. Lidoderm to right chest CYDNEY JACKSON MD 06/01/19 1645: CARDIO Progress Notes Assessment Assessment Patient seen and examined. Agree with [employer]'s assessment and plan. s/p PCI/ANABEL to LCx yesterday. Continue DAPT No further episodes of VT/VF on telemetry Patient getting blood transfusion for anemia Agree with holding xarelto Continue antibiotics per ID team KRISTA RUIZ APRN Jun 01, 2019 13:47 CYDNEY JACKSON MD Jun 01, 2019 16:45
[2019-06-01] MEDS ORDERED: VANCOMYCIN 1.75 GM in IV NORMAL SALINE 500ML BAG 500 ML IV ONE (14:00)
--- NOTE | 2019-06-01 14:56 | CARD ---
MR#: [id number] Date of Study: 06/01/2019 Ordering Physician: KRISTA RUIZ, Referring Physician: KRISTA RUIZ Tech: Negra Case BENNETT APPROVED REPORT EXAM: Two-dimensional and M-mode echocardiogram with Doppler and color Doppler. Other Information Quality : AverageHR: 80bpm Rhythm : NSRTechnically limited study due to body habitus. INDICATION STEMI 2D DIMENSIONS RVDd2.7 (2.9-3.5cm)Left Atrium(2D)3.9 (1.6-4.0cm) IVSd1.1 (0.7-1.1cm)Aortic Root(2D)2.7 (2.0-3.7cm) LVDd5.2 (3.9-5.9cm)LVOT Diameter2.1 (1.8-2.4cm) PWd1.2 (0.7-1.1cm)LVDs3.9 (2.5-4.0cm) FS (%) 25.2 %SV63.8 ml LVEF(%)49.5 (>50%) M-Mode DIMENSIONS Left Atrium(MM)4.20 (2.5-4.0cm)Aortic Root3.07 (2.2-3.7cm) Aortic Cusp Exc1.75 (1.5-2.0cm) Aortic Valve AoV Peak Shaun.150.8cm/sAoV VTI25.1cm AO Peak GR.9.1mmHgLVOT VTI 16.69cm AO Mean GR.5mmHgAVA (VTI)2.20cm2 Mitral Valve MV E Teowuogj24.1cm/sMV E Peak Gr.73mmHg MV DECEL [id number] A Sokhhpdm59.4cm/s MV E Mean Gr.2mmHgE/A Ratio1.1 MV A Dutveyaw26td Tricuspid Valve TR P. [id number]/sRAP [id number] TR Peak Gr.90guLjRVIV09rvEx LEFT VENTRICLE The left ventricle is normal size. There is mild concentric left ventricular hypertrophy. Left ventri daniel systolic function is mildly impaired. The Ejection Fraction is 45-50%. There is global hypokinesi s of the left ventricle. Transmitral Doppler flow pattern is Grade II-pseudonormal filling dynamics. RIGHT VENTRICLE The right ventricle is normal size. There is normal right ventricular wall thickness. The right ventr icular systolic function is normal. ATRIA The left atrium is mildly dilated. The right atrium size is normal. The interatrial septum is intact with no evidence for an atrial septal defect or patent foramen ovale as noted on 2-D or Doppler imagi ng. AORTIC VALVE Mild calcified Doppler and Color Flow revealed no significant aortic regurgitation. There is no signi ficant aortic valvular stenosis. There is no aortic valvular vegetation. MITRAL VALVE The mitral valve is normal in structure and function. There is no evidence of mitral valve prolapse. There is no mitral valve stenosis. Doppler and Color-flow revealed mild mitral regurgitation. TRICUSPID VALVE The tricuspid valve is normal in structure and function. Doppler and Color Flow revealed trace tricus pid regurgitation. The PA pressure was estimated at 29 mmHg. There is no tricuspid valve prolapse or vegetation. There is no tricuspid valve stenosis. PULMONIC VALVE The pulmonic valve is not well visualized. GREAT VESSELS The aortic root is normal in size. The ascending aorta is normal in size. The IVC is normal in size a nd collapses >50% with inspiration. PERICARDIAL EFFUSION There is no evidence of significant pericardial effusion. Critical Notification Critical Value: No <Conclusion> Left ventricle systolic function is mildly impaired. The Ejection Fraction is 45-50%. There is global hypokinesis of the left ventricle. Signed by : Nash Kim, Electronically Approved : 06/01/2019 14:55:46
[2019-06-01] MEDS: LIDOCAINE (700MG/PATCH) PATCH. TD SCH (15:25)
[2019-06-01] MEDS: ONDANSETRON PF 4 MG/2 ML VIAL. IV PRN (16:27)
[2019-06-01] MEDS: VANCOMYCIN PER PHARMACY MC PRN (16:44)
[2019-06-01] MEDS: ATORVASTATIN CALCIUM 40 MG TABLET. PO SCH (20:00)
[2019-06-01] MEDS: fentaNYL PF VIAL 100 MCG/2 ML VIAL IV PRN (20:01)
[2019-06-01 20:38] LABS: HEMOGLOBIN 8.4 g/dL (12.0-15.5); RED BLOOD COUNT 2.86 x10^6/uL (3.50-5.40); RED CELL DISTRIBUTION WIDTH 17.3 % (11.5-14.5); WHITE BLOOD COUNT 8.6 x10^3/uL (4.0-11.0)
[2019-06-01] MEDS ORDERED: HYDROmorphone 2 MG/ML VIAL IV PRN (20:45)
--- NOTE | 2019-06-01 21:05 | CONS ---
DATE OF CONSULTATION: 06/01/2019 INFECTIOUS DISEASE CONSULT PATIENT'S ROOM: ICU 5. REQUESTING PHYSICIAN: ____ of Cardiology. REASON FOR CONSULTATION: Positive blood cultures. HISTORY OF PRESENT ILLNESS: The patient is a 63-year-old female with a history of recent Giardia and E. coli in her stool over the summer, recently admitted to [facility], was found to have C. diff colitis. She does have a history of coronary artery disease and complications with previous nausea and vomiting. She presented to [facility] Emergency Room on the afternoon of 05/31/2019 with nausea, vomiting and coffee-ground emesis with some chest pain and some loose stool. While she was being worked up in the Emergency Room, she underwent a cardiac arrest from ventricular fibrillation, underwent CPR and defibrillation and successful conversion to sinus rhythm. She was taken to the metallurgy laboratory technician and underwent cardiac catheterization and had a successful stent placed to the left circumflex artery and successful PTCA to the obtuse marginal branch. She was given vancomycin and Zosyn. She is now in the Intensive Care Unit. She is on amiodarone and blood cultures have now turned positive for 2 out of 4 bottles with Gram-positive cocci. Currently, she is lying in bed. She is fairly comfortable. PAST MEDICAL HISTORY: Positive for the above-mentioned C. diff colitis, history of the E. coli and Giardia in her stool previously, history of gastroesophageal reflux disease, sigmoid diverticulosis, Schatzki's ring with a history of gastroparesis, atrial fibrillation, type 2 diabetes, coronary artery disease, myocardial infarction, depression, anxiety, hypertension and chronic low back pain. PAST SURGICAL HISTORY: Positive for Schatzki's ring dilation, tonsillectomy, adenoidectomy, cardiac stents, hysterectomy and the above-mentioned cardiac stents. REVIEW OF SYSTEMS: Otherwise, negative. ALLERGIES: LISTED ADHESIVE, AMLODIPINE AND MORPHINE. REVIEW OF SYSTEMS: Otherwise, negative except for mentioned above. SOCIAL HISTORY: She is x 2. Does have a history of marijuana use. No alcohol. She is disabled and has dogs at home. FAMILY HISTORY: Positive for cancer, suicide, hypertension, depression and cardiovascular disease. CURRENT MEDICATIONS: Again, she did receive a dose of vancomycin and Zosyn. She is on amiodarone drip, Levophed p.r.n., pantoprazole, aspirin, Lipitor, Wellbutrin, Coreg, Celexa, Klonopin, Plavix, Imdur, lactobacillus, Prinivil and Xarelto. PHYSICAL EXAMINATION: VITAL SIGNS: She has been afebrile since her admission. Blood pressure has been as low as the 70s/40s, current temperature 97.9, pulse 83, respirations 20, blood pressure 94/63 and satting 93% on room air. CONSTITUTIONAL: She is lying in bed. She is cooperative. She is in no acute distress. HEENT: Her pupils are equal and reactive. She has normal conjunctivae. Oral cavity, pharynx was dry. NECK: Supple, no JVD. LUNGS: Clear to auscultation bilaterally. HEART: S1, S2. ABDOMEN: Soft with decreased but positive bowel sounds, nontender and nondistended. EXTREMITIES: Without clubbing, cyanosis or gross edema. SKIN: Warm to touch without signs of rash. NEUROLOGIC: She is nonfocal. Affect is appropriate, IV sites clean. LABORATORY VALUES: White count 8.8, down from 14.7; hemoglobin 6 and platelets of 115. Creatinine of 1 and glucose 158. Urinalysis looks contaminated. IMAGING: There are no radiological studies. IMPRESSION: 1. Gram-positive sepsis on 05/31, present on admission. 2. ST-elevation myocardial infarction. 3. Successful percutaneous transluminal coronary angioplasty as mentioned above and drug-eluting stent on the left circumflex artery and percutaneous transluminal coronary angioplasty to the obtuse marginal on the . 4. Leukocytosis, that is better. 5. Anemia. Packed red blood cells. 6. Status post cardiac arrest from ventricular fibrillation as mentioned above. 7. History of Clostridium difficile on 05/07. 8. History of Escherichia coli and Giardia in the stool back in 01/[address] [facility]. RECOMMENDATIONS: For now, we will restart vancomycin and Zosyn and begin p.o. vancomycin b.i.d. We will follow up on labs and cultures. Thank you for allowing me to participate in the patient's care. Should you have any questions, please do not hesitate to contact me. LYNN KNAPP MD DR: JOSUE/michael JOB#: [id number] / [id number]
[2019-06-02] VITALS (23 sets, daily range): BP systolic 85–109; BP diastolic 51–74
[2019-06-02] MEDS: PIPERACILLIN/TAZOBACTAM 3.375 GM in IV NORMAL SALINE 50ML 50 ML IV SCH ×2 (00:14→05:57)
[2019-06-02] MEDS: VANCOMYCIN 1.25 GM in IV NORMAL SALINE 250ML 250 ML IV SCH ×2 (01:10→12:18)
[2019-06-02] MEDS: AMIODARONE 450 MG in IV DEXTROSE 5% 250 ML IV PRN (03:32)
[2019-06-02] MEDS: PANTOPRAZOLE SODIUM IV DRIP 80 MG in IV NORMAL SALINE 100ML 100 ML IV SCH (03:33)
[2019-06-02 05:44] LABS: BASO % 1 % (0-3); EOS # 0.2 x10^3/uL (0.0-0.7); EOS % 3 % (0-3); HEMOGLOBIN 7.8 g/dL (12.0-15.5); LYMPH # 1.5 x10^3/uL (1.0-4.8); LYMPH % 20 % (24-48); MEAN CORPUSCULAR HEMOGLOBIN 30 pg (25-35); MEAN CORPUSCULAR HGB CONC 34 g/dL (31-37); MEAN CORPUSCULAR VOLUME 87 fL (79-100); MONO # 0.5 x10^3/uL (0.0-1.1); MONO % 7 % (0-9); NEUT # 5.4 x10^3/uL (1.8-7.7); NEUT % 70 % (31-73); PLATELET COUNT 117 x10^3/uL (140-400); RED BLOOD COUNT 2.64 x10^6/uL (3.50-5.40); RED CELL DISTRIBUTION WIDTH 17.4 % (11.5-14.5); WHITE BLOOD COUNT 7.7 x10^3/uL (4.0-11.0)
[2019-06-02] MEDS: fentaNYL PF VIAL 100 MCG/2 ML VIAL IV PRN ×3 (05:58→20:51)
[2019-06-02 06:04] LABS: CALCIUM 7.8 mg/dL (8.5-10.1); MAGNESIUM 2.2 mg/dL (1.8-2.4); POTASSIUM 3.6 mmol/L (3.5-5.1)
[2019-06-02] MEDS: ONDANSETRON PF 4 MG/2 ML VIAL. IV PRN (06:05)
--- NOTE | 2019-06-02 07:14 | PDOC ---
Infectious Disease Note Subjective Subjective Some pain from CPR but o/w ok No F/C/S/N/V/D/SOA/rash ROS ROS o/w neg Vital Sign Vital Signs Vital Signs Date Time Temp Pulse Resp B/P (MAP) Pulse Ox O2 Delivery O2 Flow Rate FiO2 06/02/19 06:45 Nasal Cannula 2.0 06/02/19 06:00 70 18 85/51 (62) 97 06/02/19 05:00 98.5 98.5 Physical Exam PHYSICAL EXAM CONSTITUTIONAL: She is lying in bed. She is cooperative. She is in no acute distress. Looks well HEENT: Her pupils are equal and reactive. She has normal conjunctivae. Oral cavity, pharynx was dry. NECK: Supple, no JVD. LUNGS: Clear to auscultation bilaterally. HEART: S1, S2. ABDOMEN: Soft with decreased but positive bowel sounds, nontender and nondistended. : tirado in place EXTREMITIES: Without clubbing, cyanosis or gross edema. Right groin post cath site is clean SKIN: Warm to touch without signs of rash. NEUROLOGIC: She is nonfocal. Affect is appropriate, IV sites clean. Labs Lab Laboratory Tests Test 06/01/19 08:36 06/01/19 08:50 06/01/19 10:05 06/01/19 13:11 Glucose (Fingerstick) 153 mg/dL (70-99) 136 mg/dL (70-99) Sodium Level 140 mmol/L (136-145) Potassium Level 4.1 mmol/L (3.5-5.1) Chloride Level 111 mmol/L (98-107) Carbon Dioxide Level 19 mmol/L (21-32) Anion Gap 10 (6-14) Blood Urea Nitrogen 36 mg/dL (7-20) Creatinine 1.0 mg/dL (0.6-1.0) Estimated GFR (Cockcroft-Gault) 56.0 Glucose Level 158 mg/dL (70-99) Calcium Level 7.9 mg/dL (8.5-10.1) Magnesium Level 1.7 mg/dL (1.8-2.4) White Blood Count 8.8 x10^3/uL (4.0-11.0) Red Blood Count 2.11 x10^6/uL (3.50-5.40) Hemoglobin 6.0 g/dL (12.0-15.5) Hematocrit 17.8 % (36.0-47.0) Mean Corpuscular Volume 85 fL (79-100) Mean Corpuscular Hemoglobin 29 pg (25-35) Mean Corpuscular Hemoglobin Concent 34 g/dL (31-37) Red Cell Distribution Width 17.9 % (11.5-14.5) Platelet Count 150 x10^3/uL (140-400) Test 06/01/19 18:08 06/01/19 20:25 06/01/19 23:11 06/02/19 05:00 Glucose (Fingerstick) 123 mg/dL (70-99) 117 mg/dL (70-99) White Blood Count 8.6 x10^3/uL (4.0-11.0) 7.7 x10^3/uL (4.0-11.0) Red Blood Count 2.86 x10^6/uL (3.50-5.40) 2.64 x10^6/uL (3.50-5.40) Hemoglobin 8.4 g/dL (12.0-15.5) 7.8 g/dL (12.0-15.5) Hematocrit 25.0 % (36.0-47.0) 23.0 % (36.0-47.0) Mean Corpuscular Volume 88 fL (79-100) 87 fL (79-100) Mean Corpuscular Hemoglobin 30 pg (25-35) 30 pg (25-35) Mean Corpuscular Hemoglobin Concent 34 g/dL (31-37) 34 g/dL (31-37) Red Cell Distribution Width 17.3 % (11.5-14.5) 17.4 % (11.5-14.5) Platelet Count 128 x10^3/uL (140-400) 117 x10^3/uL (140-400) Neutrophils (%) (Auto) 70 % (31-73) Lymphocytes (%) (Auto) 20 % (24-48) Monocytes (%) (Auto) 7 % (0-9) Eosinophils (%) (Auto) 3 % (0-3) Basophils (%) (Auto) 1 % (0-3) Neutrophils # (Auto) 5.4 x10^3/uL (1.8-7.7) Lymphocytes # (Auto) 1.5 x10^3/uL (1.0-4.8) Monocytes # (Auto) 0.5 x10^3/uL (0.0-1.1) Eosinophils # (Auto) 0.2 x10^3/uL (0.0-0.7) Basophils # (Auto) 0.0 x10^3/uL (0.0-0.2) Sodium Level 141 mmol/L (136-145) Potassium Level 3.6 mmol/L (3.5-5.1) Chloride Level 114 mmol/L (98-107) Carbon Dioxide Level 16 mmol/L (21-32) Anion Gap 11 (6-14) Blood Urea Nitrogen 21 mg/dL (7-20) Creatinine 1.0 mg/dL (0.6-1.0) Estimated GFR (Cockcroft-Gault) 56.0 Glucose Level 123 mg/dL (70-99) Calcium Level 7.8 mg/dL (8.5-10.1) Magnesium Level 2.2 mg/dL (1.8-2.4) Micro Microbiology 05/31/19 Blood Culture - Final, Complete Objective Assessment GPC sepsis 05/31 POA STEMI Urinary retention s/p tirado S/p Successful PCI/drug eluting stent placement to the left circumflex artery and successful PTCA to the obtuse marginal branch 05/31 Leukocytosis - better Anemia - getting PRBCs S/p cardiac arrest from ventricular fibrillation and underwent CPR/defib rillations and successful conversion to sinus rhythm - 05/31 H/o C-diff April 20 h/o E. coli and Giardia on stool panel treated in January 2019 at [facility] Plan Plan of Care Vanc D/c zosyn today PO BID Vanc F/u labs and cults D/w LYNN DEL CID MD Jun 02, 2019 07:14
[2019-06-02] MEDS: CARVEDILOL 12.5 MG TABLET. PO SCH ×2 (08:00→17:00)
[2019-06-02] MEDS: LACTOBACILLUS RHAMNOSUS GG 1 CAPSULE. PO SCH ×2 (08:29→20:48)
[2019-06-02] MEDS: buPROPion SR 150 MG TABLET.SA PO SCH ×2 (08:29→20:49)
[2019-06-02] MEDS: CITALOPRAM 10 MG TABLET. PO SCH (08:29)
[2019-06-02] MEDS: clonazePAM 0.5 MG TABLET PO SCH ×2 (08:29→20:48)
[2019-06-02] MEDS: ASPIRIN ENTERIC COATED 81 MG TABLET.DR. PO SCH (08:29)
[2019-06-02] MEDS: CLOPIDOGREL BISULFATE 75 MG TABLET PO SCH (08:29)
[2019-06-02] MEDS: VANCOMYCIN 125 MG/2.5 ML ORAL SOLUTION. PO SCH ×2 (08:30→20:49)
[2019-06-02] MEDS: KETOROLAC 15 MG/ML VIAL. IV PRN ×2 (08:30→20:50)
[2019-06-02] MEDS: LIDOCAINE (700MG/PATCH) PATCH. TD SCH (08:33)
[2019-06-02] MEDS: ISOSORBIDE MONONITRATE ER 30 MG TAB.ER.24H PO SCH ×2 (09:00→20:51)
[2019-06-02] MEDS: LISINOPRIL 5 MG TABLET. PO SCH (09:00)
[2019-06-02] MEDS: VANCOMYCIN PER PHARMACY MC PRN (11:47)
--- NOTE | 2019-06-02 12:20 | PDOC ---
Subjective: Subjective: Feels better. Tolerating clears. No bleeding. Mild LUQ pain - thinks might be a muscle. Objective: Objective: D/w nurse - better today, off levo, tolerating clears, no bleeding. Wonders if still needs C Diff checked (order from ER). Vital Signs: Vital Signs Date Time Temp Pulse Resp B/P (MAP) Pulse Ox O2 Delivery O2 Flow Rate FiO2 06/02/19 11:06 72 18 109/67 (81) 96 Nasal Cannula 2.0 06/02/19 07:00 97.9 97.9 Labs: Laboratory Tests Test 06/01/19 13:11 06/01/19 18:08 06/01/19 20:25 06/01/19 23:11 Glucose (Fingerstick) 136 mg/dL 123 mg/dL 117 mg/dL White Blood Count 8.6 x10^3/uL Red Blood Count 2.86 x10^6/uL Hemoglobin 8.4 g/dL Hematocrit 25.0 % Mean Corpuscular Volume 88 fL Mean Corpuscular Hemoglobin 30 pg Mean Corpuscular Hemoglobin Concent 34 g/dL Red Cell Distribution Width 17.3 % Platelet Count 128 x10^3/uL Test 06/02/19 05:00 White Blood Count 7.7 x10^3/uL Red Blood Count 2.64 x10^6/uL Hemoglobin 7.8 g/dL Hematocrit 23.0 % Mean Corpuscular Volume 87 fL Mean Corpuscular Hemoglobin 30 pg Mean Corpuscular Hemoglobin Concent 34 g/dL Red Cell Distribution Width 17.4 % Platelet Count 117 x10^3/uL Neutrophils (%) (Auto) 70 % Lymphocytes (%) (Auto) 20 % Monocytes (%) (Auto) 7 % Eosinophils (%) (Auto) 3 % Basophils (%) (Auto) 1 % Neutrophils # (Auto) 5.4 x10^3/uL Lymphocytes # (Auto) 1.5 x10^3/uL Monocytes # (Auto) 0.5 x10^3/uL Eosinophils # (Auto) 0.2 x10^3/uL Basophils # (Auto) 0.0 x10^3/uL Sodium Level 141 mmol/L Potassium Level 3.6 mmol/L Chloride Level 114 mmol/L Carbon Dioxide Level 16 mmol/L Anion Gap 11 Blood Urea Nitrogen 21 mg/dL Creatinine 1.0 mg/dL Estimated GFR (Cockcroft-Gault) 56.0 Glucose Level 123 mg/dL Calcium Level 7.8 mg/dL Magnesium Level 2.2 mg/dL Imaging: Echo 06/01 <Conclusion> Left ventricle systolic function is mildly impaired. The Ejection Fraction is 45-50%. There is global hypokinesis of the left ventricl PE: GEN: NAD - looks better today LUNGS: NC HEART: RRR ABD: mild LUQ discomfort NEURO/PSYCH: A & O �3 A/P: "Coffee-ground emesis" - no recurrence STEMI s/p stent placement - on Plavix and ASA Anemia - stable after transfusion H/o C Diff - no stools -- Try full liquids. Change to PO PPI. Cancel C Diff check for now. Agree that LUQ discomfort could be MSK. FRANCISCO JAVIER TOBIAS Jun 02, 2019 12:20
--- NOTE | 2019-06-02 12:30 | PDOC ---
KRISTA RUIZ FINE [employer]S INSTRUCTOR 06/02/19 1230: CARDIO Progress Notes Date and Time Date of Service 06/02/2019 Time of Evaluation 1210 Subjective Subjective: No Chest Pain, No shortness of breath, No Palpitations, Other (feels better today) Vitals Vitals Vital Signs Date Time Temp Pulse Resp B/P (MAP) Pulse Ox O2 Delivery O2 Flow Rate FiO2 06/02/19 12:19 72 95/59 06/02/19 11:06 18 96 Nasal Cannula 2.0 06/02/19 07:00 97.9 97.9 Weight Weight [ ] Input and Output Intake and Output Intake and Output 06/02/19 06:59 Intake Total 4895.78 ml Output Total 2510 ml Balance 2385.78 ml Intake Oral 1260 ml IV Total 2919.78 ml Blood Product 616 ml Blood Product IV Normal Saline Flush 100 ml Output Urine Total 2510 ml Laboratory Labs Laboratory Tests Test 06/01/19 13:11 06/01/19 18:08 06/01/19 20:25 06/01/19 23:11 Glucose (Fingerstick) 136 mg/dL (70-99) 123 mg/dL (70-99) 117 mg/dL (70-99) White Blood Count 8.6 x10^3/uL (4.0-11.0) Red Blood Count 2.86 x10^6/uL (3.50-5.40) Hemoglobin 8.4 g/dL (12.0-15.5) Hematocrit 25.0 % (36.0-47.0) Mean Corpuscular Volume 88 fL (79-100) Mean Corpuscular Hemoglobin 30 pg (25-35) Mean Corpuscular Hemoglobin Concent 34 g/dL (31-37) Red Cell Distribution Width 17.3 % (11.5-14.5) Platelet Count 128 x10^3/uL (140-400) Test 06/02/19 05:00 White Blood Count 7.7 x10^3/uL (4.0-11.0) Red Blood Count 2.64 x10^6/uL (3.50-5.40) Hemoglobin 7.8 g/dL (12.0-15.5) Hematocrit 23.0 % (36.0-47.0) Mean Corpuscular Volume 87 fL (79-100) Mean Corpuscular Hemoglobin 30 pg (25-35) Mean Corpuscular Hemoglobin Concent 34 g/dL (31-37) Red Cell Distribution Width 17.4 % (11.5-14.5) Platelet Count 117 x10^3/uL (140-400) Neutrophils (%) (Auto) 70 % (31-73) Lymphocytes (%) (Auto) 20 % (24-48) Monocytes (%) (Auto) 7 % (0-9) Eosinophils (%) (Auto) 3 % (0-3) Basophils (%) (Auto) 1 % (0-3) Neutrophils # (Auto) 5.4 x10^3/uL (1.8-7.7) Lymphocytes # (Auto) 1.5 x10^3/uL (1.0-4.8) Monocytes # (Auto) 0.5 x10^3/uL (0.0-1.1) Eosinophils # (Auto) 0.2 x10^3/uL (0.0-0.7) Basophils # (Auto) 0.0 x10^3/uL (0.0-0.2) Sodium Level 141 mmol/L (136-145) Potassium Level 3.6 mmol/L (3.5-5.1) Chloride Level 114 mmol/L (98-107) Carbon Dioxide Level 16 mmol/L (21-32) Anion Gap 11 (6-14) Blood Urea Nitrogen 21 mg/dL (7-20) Creatinine 1.0 mg/dL (0.6-1.0) Estimated GFR (Cockcroft-Gault) 56.0 Glucose Level 123 mg/dL (70-99) Calcium Level 7.8 mg/dL (8.5-10.1) Magnesium Level 2.2 mg/dL (1.8-2.4) Microbiology Micro Microbiology 05/31/19 Blood Culture - Preliminary, Resulted NO GROWTH AFTER 1 DAY Physical Exam HEENT: Neck Supple W Full Motion Chest: Symmetric LUNGS: Other (diminished bases) Heart: RRR (SR) Abdomen: Soft N/T Extremities: No Calf Tenderness Neurology: alert, oriented, follow commands Assessment Assessment 1. Brief Vfib arrest: shock x1, AFIB RVR then SR. 2. Acute inferior LA: S/P PCI/ANABEL to LCx and PTCA to OM 3. Acute GI bleed, +gastroccult. unclear source, Hgb stable at 7.8 post transfusion 5. Nausea/vomiting/hematemesis/diarrhea: with hx of gastroparesis. GI following 6. DM2 7. Acute anemia: from 11.1 to 6. Hgb 7.8 post transfusion 8. ICM: EF 40% 9. PAFIB: maintaining SR 10. HTN: BP marginal but stable Recommendations 1. Continue BB, ACEi, lasix pending BP trend. Continue with PPI. 2. Convert amiodarone to PO. Lidoderm to right chest 3. DC xarelto. Continue ASA/plavix. Statin. Monitor hemogram. 4. Abx per ID 5. Cardiac rehab. CYDNEY JACKSON MD 06/02/19 1535: CARDIO Progress Notes Assessment Assessment Patient seen and examined. Agree with CONSUMER AFFAIRS DIRECTOR's assessment and plan. Telemetry did not show any VT/VF. PAF maintaining sinus rhythm with amiodarone s/p PCI/ANABEL to LCx, stable clinically Continue DAPT Hold off any oral anticoagulation till GI workup is completed Follow-up with our office in 1 month KRISTA RUIZ APRN Jun 02, 2019 12:30 CYDNEY JACKSON MD Jun 02, 2019 15:35
[2019-06-02] MEDS: FUROSEMIDE 20 MG TABLET PO SCH (12:49)
[2019-06-02] MEDS: AMIODARONE HCL 200 MG TABLET. PO SCH (12:49)
[2019-06-02] MEDS: PANTOPRAZOLE 40 MG TABLET.DR. PO SCH (12:49)
--- NOTE | 2019-06-02 13:50 | PDOC ---
PROGRESS NOTES Chief Complaint Chief Complaint Nausea, vomiting, diarrhea, chest pain sepsis, bacteremia STEMI - acute systolic CHF, S/p Successful PCI/drug eluting stent placement to the left circumflex artery and successful PTCA to the obtuse marginal branch 05/31 acute blood loss anemia, upper GI bleed, ? gastritis= S/p cardiac arrest from ventricular fibrillation and underwent CPR/defibrillations and successful conversion to sinus rhythm - 05/31 chest pain from chest compressions History of Present Illness History of Present Illness 06/02, still in ICU blood given yesterday, req. 02 overnight abx to be tapered try Pt and ot , very weak 06/01/19 Pt seen at bedside 1 day post catheterization. She had a drug eluting stent placed in her left coronary artery and percutaneous transluminal angioplasty to her obtuse marginal branch. Pt has right groin clean dry dressing Pt feels worse DW RN Vitals Vitals Vital Signs Date Time Temp Pulse Resp B/P (MAP) Pulse Ox O2 Delivery O2 Flow Rate FiO2 06/02/19 13:02 78 18 98/62 (74) 96 Room Air 06/02/19 12:00 98.0 98.0 06/02/19 11:06 2.0 Physical Exam Physical Exam CONSTITUTIONAL: She is lying in bed. She is cooperative. She is in no acute distress. Looks well HEENT: Her pupils are equal and reactive. She has normal conjunctivae. Oral cavity, pharynx was dry. NECK: Supple, no JVD. LUNGS: Clear to auscultation bilaterally. HEART: S1, S2. ABDOMEN: Soft with decreased but positive bowel sounds, nontender and nondistended. : tirado in place EXTREMITIES: Without clubbing, cyanosis or gross edema. Right groin post cath site is clean SKIN: Warm to touch without signs of rash. NEUROLOGIC: She is nonfocal. Affect is appropriate, IV sites clean. General: Alert, Oriented X3, mild distress Heart: Regular rate, Other (heart rate is irregular) Lungs: Clear Abdomen: Soft Extremities: No cyanosis, No edema Skin: No rashes Labs LABS Laboratory Tests Test 06/01/19 18:08 06/01/19 20:25 06/01/19 23:11 06/02/19 05:00 Glucose (Fingerstick) 123 mg/dL (70-99) 117 mg/dL (70-99) White Blood Count 8.6 x10^3/uL (4.0-11.0) 7.7 x10^3/uL (4.0-11.0) Red Blood Count 2.86 x10^6/uL (3.50-5.40) 2.64 x10^6/uL (3.50-5.40) Hemoglobin 8.4 g/dL (12.0-15.5) 7.8 g/dL (12.0-15.5) Hematocrit 25.0 % (36.0-47.0) 23.0 % (36.0-47.0) Mean Corpuscular Volume 88 fL (79-100) 87 fL (79-100) Mean Corpuscular Hemoglobin 30 pg (25-35) 30 pg (25-35) Mean Corpuscular Hemoglobin Concent 34 g/dL (31-37) 34 g/dL (31-37) Red Cell Distribution Width 17.3 % (11.5-14.5) 17.4 % (11.5-14.5) Platelet Count 128 x10^3/uL (140-400) 117 x10^3/uL (140-400) Neutrophils (%) (Auto) 70 % (31-73) Lymphocytes (%) (Auto) 20 % (24-48) Monocytes (%) (Auto) 7 % (0-9) Eosinophils (%) (Auto) 3 % (0-3) Basophils (%) (Auto) 1 % (0-3) Neutrophils # (Auto) 5.4 x10^3/uL (1.8-7.7) Lymphocytes # (Auto) 1.5 x10^3/uL (1.0-4.8) Monocytes # (Auto) 0.5 x10^3/uL (0.0-1.1) Eosinophils # (Auto) 0.2 x10^3/uL (0.0-0.7) Basophils # (Auto) 0.0 x10^3/uL (0.0-0.2) Sodium Level 141 mmol/L (136-145) Potassium Level 3.6 mmol/L (3.5-5.1) Chloride Level 114 mmol/L (98-107) Carbon Dioxide Level 16 mmol/L (21-32) Anion Gap 11 (6-14) Blood Urea Nitrogen 21 mg/dL (7-20) Creatinine 1.0 mg/dL (0.6-1.0) Estimated GFR (Cockcroft-Gault) 56.0 Glucose Level 123 mg/dL (70-99) Calcium Level 7.8 mg/dL (8.5-10.1) Magnesium Level 2.2 mg/dL (1.8-2.4) Test 06/02/19 12:31 Glucose (Fingerstick) 195 mg/dL (70-99) Assessment and Plan Assessmemt and Plan Problems Medical Problems: (1) ABDULLAHI (acute kidney injury) Status: Acute (2) Anemia Status: Acute (3) Atrial fibrillation with RVR Status: Acute (4) CAD (coronary artery disease) Status: Chronic (5) Coffee ground emesis Status: Acute (6) GERD (gastroesophageal reflux disease) Status: Chronic (7) Hemorrhoids Status: Chronic (8) Hiatal hernia Status: Chronic (9) Intractable nausea and vomiting Status: Acute (10) Schatzki's ring Status: Chronic (11) Severe sepsis Status: Acute (12) STEMI (ST elevation myocardial infarction) Status: Acute (13) Upper GI bleeding Status: Acute (14) Ventricular fibrillation Status: Acute Comment Review of Relevant I have reviewed the following items mumtaz (where applicable) has been applied. Labs Laboratory Tests Test 05/31/19 16:20 05/31/19 22:07 06/01/19 08:36 06/01/19 08:50 Potassium Level 5.1 mmol/L (3.5-5.1) 4.1 mmol/L (3.5-5.1) Magnesium Level 1.8 mg/dL (1.8-2.4) 1.7 mg/dL (1.8-2.4) Troponin I Quantitative 38.538 ng/mL (0.000-0.055) Glucose (Fingerstick) 129 mg/dL (70-99) 153 mg/dL (70-99) Sodium Level 140 mmol/L (136-145) Chloride Level 111 mmol/L (98-107) Carbon Dioxide Level 19 mmol/L (21-32) Anion Gap 10 (6-14) Blood Urea Nitrogen 36 mg/dL (7-20) Creatinine 1.0 mg/dL (0.6-1.0) Estimated GFR (Cockcroft-Gault) 56.0 Glucose Level 158 mg/dL (70-99) Calcium Level 7.9 mg/dL (8.5-10.1) Test 06/01/19 10:05 06/01/19 13:11 06/01/19 18:08 06/01/19 20:25 White Blood Count 8.8 x10^3/uL (4.0-11.0) 8.6 x10^3/uL (4.0-11.0) Red Blood Count 2.11 x10^6/uL (3.50-5.40) 2.86 x10^6/uL (3.50-5.40) Hemoglobin 6.0 g/dL (12.0-15.5) 8.4 g/dL (12.0-15.5) Hematocrit 17.8 % (36.0-47.0) 25.0 % (36.0-47.0) Mean Corpuscular Volume 85 fL (79-100) 88 fL (79-100) Mean Corpuscular Hemoglobin 29 pg (25-35) 30 pg (25-35) Mean Corpuscular Hemoglobin Concent 34 g/dL (31-37) 34 g/dL (31-37) Red Cell Distribution Width 17.9 % (11.5-14.5) 17.3 % (11.5-14.5) Platelet Count 150 x10^3/uL (140-400) 128 x10^3/uL (140-400) Glucose (Fingerstick) 136 mg/dL (70-99) 123 mg/dL (70-99) Test 06/01/19 23:11 06/02/19 05:00 06/02/19 12:31 Glucose (Fingerstick) 117 mg/dL (70-99) 195 mg/dL (70-99) White Blood Count 7.7 x10^3/uL (4.0-11.0) Red Blood Count 2.64 x10^6/uL (3.50-5.40) Hemoglobin 7.8 g/dL (12.0-15.5) Hematocrit 23.0 % (36.0-47.0) Mean Corpuscular Volume 87 fL (79-100) Mean Corpuscular Hemoglobin 30 pg (25-35) Mean Corpuscular Hemoglobin Concent 34 g/dL (31-37) Red Cell Distribution Width 17.4 % (11.5-14.5) Platelet Count 117 x10^3/uL (140-400) Neutrophils (%) (Auto) 70 % (31-73) Lymphocytes (%) (Auto) 20 % (24-48) Monocytes (%) (Auto) 7 % (0-9) Eosinophils (%) (Auto) 3 % (0-3) Basophils (%) (Auto) 1 % (0-3) Neutrophils # (Auto) 5.4 x10^3/uL (1.8-7.7) Lymphocytes # (Auto) 1.5 x10^3/uL (1.0-4.8) Monocytes # (Auto) 0.5 x10^3/uL (0.0-1.1) Eosinophils # (Auto) 0.2 x10^3/uL (0.0-0.7) Basophils # (Auto) 0.0 x10^3/uL (0.0-0.2) Sodium Level 141 mmol/L (136-145) Potassium Level 3.6 mmol/L (3.5-5.1) Chloride Level 114 mmol/L (98-107) Carbon Dioxide Level 16 mmol/L (21-32) Anion Gap 11 (6-14) Blood Urea Nitrogen 21 mg/dL (7-20) Creatinine 1.0 mg/dL (0.6-1.0) Estimated GFR (Cockcroft-Gault) 56.0 Glucose Level 123 mg/dL (70-99) Calcium Level 7.8 mg/dL (8.5-10.1) Magnesium Level 2.2 mg/dL (1.8-2.4) Laboratory Tests Test 06/01/19 18:08 06/01/19 20:25 06/01/19 23:11 06/02/19 05:00 Glucose (Fingerstick) 123 mg/dL (70-99) 117 mg/dL (70-99) White Blood Count 8.6 x10^3/uL (4.0-11.0) 7.7 x10^3/uL (4.0-11.0) Red Blood Count 2.86 x10^6/uL (3.50-5.40) 2.64 x10^6/uL (3.50-5.40) Hemoglobin 8.4 g/dL (12.0-15.5) 7.8 g/dL (12.0-15.5) Hematocrit 25.0 % (36.0-47.0) 23.0 % (36.0-47.0) Mean Corpuscular Volume 88 fL (79-100) 87 fL (79-100) Mean Corpuscular Hemoglobin 30 pg (25-35) 30 pg (25-35) Mean Corpuscular Hemoglobin Concent 34 g/dL (31-37) 34 g/dL (31-37) Red Cell Distribution Width 17.3 % (11.5-14.5) 17.4 % (11.5-14.5) Platelet Count 128 x10^3/uL (140-400) 117 x10^3/uL (140-400) Neutrophils (%) (Auto) 70 % (31-73) Lymphocytes (%) (Auto) 20 % (24-48) Monocytes (%) (Auto) 7 % (0-9) Eosinophils (%) (Auto) 3 % (0-3) Basophils (%) (Auto) 1 % (0-3) Neutrophils # (Auto) 5.4 x10^3/uL (1.8-7.7) Lymphocytes # (Auto) 1.5 x10^3/uL (1.0-4.8) Monocytes # (Auto) 0.5 x10^3/uL (0.0-1.1) Eosinophils # (Auto) 0.2 x10^3/uL (0.0-0.7) Basophils # (Auto) 0.0 x10^3/uL (0.0-0.2) Sodium Level 141 mmol/L (136-145) Potassium Level 3.6 mmol/L (3.5-5.1) Chloride Level 114 mmol/L (98-107) Carbon Dioxide Level 16 mmol/L (21-32) Anion Gap 11 (6-14) Blood Urea Nitrogen 21 mg/dL (7-20) Creatinine 1.0 mg/dL (0.6-1.0) Estimated GFR (Cockcroft-Gault) 56.0 Glucose Level 123 mg/dL (70-99) Calcium Level 7.8 mg/dL (8.5-10.1) Magnesium Level 2.2 mg/dL (1.8-2.4) Test 06/02/19 12:31 Glucose (Fingerstick) 195 mg/dL (70-99) Microbiology 05/31/19 Blood Culture - Preliminary, Resulted NO GROWTH AFTER 2 DAYS Medications Current Medications Sodium Chloride 1,000 ml @ 1,000 mls/hr Q1H IV Last administered on 05/31/19at 09:29; Start 05/31/19 at 08:56; Stop 05/31/19 at 09:55; Status DC Ondansetron HCl (Zofran) 4 mg 1X ONCE IV Last administered on 05/31/19at 09:29; Start 05/31/19 at 09:00; Stop 05/31/19 at 22:26; Status DC Fentanyl Citrate (Fentanyl 2ml Vial) 50 mcg 1X ONCE IV Last administered on 05/31/19at 09:49; Start 05/31/19 at 09:45; Stop 05/31/19 at 09:46; Status DC Pantoprazole Sodium (PROTONIX VIAL for IV PUSH) 40 mg STK-MED ONCE IVP ; Start 05/31/19 at 10:08; Stop 05/31/19 at 10:09; Status DC Diltiazem HCl (Cardizem Iv Push) 25 mg STK-MED ONCE .ROUTE ; Start 05/31/19 at 10:09; Stop 05/31/19 at 10:09; Status DC Diltiazem HCl (Cardizem Iv Push) 15 mg 1X ONCE IVP Last administered on 05/31/19at 10:18; Start 05/31/19 at 10:30; Stop 05/31/19 at 10:31; Status DC Pantoprazole Sodium (PROTONIX VIAL for IV PUSH) 80 mg 1X ONCE IVP Last administered on 05/31/19at 11:34; Start 05/31/19 at 10:30; Stop 05/31/19 at 10:31; Status DC Sodium Chloride 1,000 ml @ 1,000 mls/hr 1X ONCE IV Last administered on 05/14 05/01at 10:14; Start 05/31/19 at 10:15; Stop 05/31/19 at 11:14; Status DC Ondansetron HCl (Zofran) 4 mg 1X ONCE IV Last administered on 05/31/19at 10:14; Start 05/31/19 at 10:15; Stop 05/31/19 at 10:16; Status DC Amiodarone HCl 900 mg/Dextrose 518 ml @ 0 mls/hr CONT PRN IV SEE I/O RECORD Last administered on 05/31/19at 10:41; Start 05/31/19 at 10:15; Stop 05/31/19 at 10:41; Status DC Pantoprazole Sodium 80 mg/ Sodium Chloride 100 ml @ 10 mls/hr 1X ONCE IV Last administered on 05/31/19at 14:05; Start 05/31/19 at 10:30; Stop 05/31/19 at 20:29; Status DC Vancomycin HCl 250 ml @ 250 mls/hr 1X ONCE IV ; Start 05/31/19 at 10:30; Stop 05/31/19 at 11:29; Status DC Piperacillin Sod/ Tazobactam Sod 3.375 gm/Sodium Chloride 50 ml @ 100 mls/hr 1X ONCE IV Last administered on 05/31/19at 10:52; Start 05/31/19 at 10:30; Stop 05/31/19 at 10:59; Status DC Sodium Chloride 500 ml @ 500 mls/hr 1X ONCE IV ; Start 05/31/19 at 10:30; Stop 05/31/19 at 11:29; Status DC Sodium Chloride 1,000 ml @ 150 mls/hr Q6H40M IV ; Start 05/31/19 at 10:16; Stop 06/01/19 at 10:15; Status DC Sodium Chloride 1,000 ml @ 1,000 mls/hr 1X ONCE IV Last administered on 05/31/19at 10:40; Start 05/31/19 at 10:30; Stop 05/31/19 at 11:29; Status DC Iodixanol (Visipaque 320) 100 ml STK-MED ONCE .ROUTE ; Start 05/31/19 at 10:58; Stop 05/31/19 at 10:58; Status DC Heparin Sodium/ Sodium Chloride 500 ml @ As Directed STK-MED ONCE .ROUTE ; Start 05/31/19 at 10:58; Stop 05/31/19 at 10:59; Status DC Iodixanol (Visipaque 320) 100 ml STK-MED ONCE .ROUTE ; Start 05/31/19 at 11:02; Stop 05/31/19 at 11:02; Status DC Lidocaine HCl (Lidocaine 1% 20ml Vial) 20 ml STK-MED ONCE .ROUTE ; Start 05/31/19 at 11:02; Stop 05/31/19 at 11:02; Status DC Heparin Sodium/ Sodium Chloride 500 ml @ As Directed STK-MED ONCE .ROUTE ; Start 05/31/19 at 11:04; Stop 05/31/19 at 11:04; Status DC Norepinephrine Bitartrate 250 ml @ 14.17 mls/ hr CONT PRN IV SEE I/O RECORD Last administered on 05/31/19at 12:33; Start 05/31/19 at 11:15 Bivalirudin (Angiomax) 250 mg STK-MED ONCE IV ; Start 05/31/19 at 11:23; Stop 05/31/19 at 11:24; Status DC Midazolam HCl (Versed) 2 mg STK-MED ONCE .ROUTE ; Start 05/31/19 at 11:28; Stop 05/31/19 at 11:28; Status DC Fentanyl Citrate (Fentanyl 2ml Vial) 100 mcg STK-MED ONCE .ROUTE ; Start 9 at 11:28; Stop 05/31/19 at 11:28; Status DC Heparin Sodium/ Sodium Chloride (HEPARIN for ARTERIAL LINE FLUSH) 1,000 unit 1X ONCE IART Last administered on 05/31/19 12:33; Start 05/31/19 at 11:30; Stop 05/31/19 at 11:38; Status DC Heparin Sodium/ Sodium Chloride (HEPARIN for ARTERIAL LINE FLUSH) 1,000 unit 1X ONCE IART Last administered on 05/31/19 12:33; Start 05/31/19 at 11:30; Stop 05/31/19 at 11:39; Status DC Midazolam HCl (Versed) 2 mg 1X ONCE IV Last administered on 05/31/19 12:33; Start 05/31/19 at 11:30; Stop 05/31/19 at 11:40; Status DC Fentanyl Citrate (Fentanyl 2ml Vial) 100 mcg 1X ONCE IV Last administered on 05/31/19at 12:33; Start 05/31/19 at 11:30; Stop 05/31/19 at 11:38; Status DC Iodixanol (Visipaque 320) 100 ml 1X ONCE IART Last administered on 05/31/19at 12:33; Start 05/31/19 at 11:30; Stop 05/31/19 at 11:39; Status DC Bivalirudin (Angiomax) 250 mg 1X ONCE IV Last administered on 05/31/19at 12:33; Start 05/31/19 at 11:30; Stop 05/31/19 at 11:41; Status DC Lidocaine HCl (Lidocaine 1% 20ml Vial) 20 ml 1X ONCE INJ Last administered on 05/31/19at 12:33; Start 05/31/19 at 11:30; Stop 05/31/19 at 11:39; Status DC Info (CONTRAST GIVEN -- Rx MONITORING) 1 each PRN DAILY PRN MC SEE COMMENTS; Start 05/31/19 at 11:45; Stop 06/02/19 at 11:44; Status DC Nitroglycerin (Nitroglycerin) 200 mcg 1X ONCE ICAR Last administered on 05/31/19at 12:34; Start 05/31/19 at 12:00; Stop 05/31/19 at 12:01; Status DC Clopidogrel Bisulfate (Plavix) 600 mg 1X ONCE PO Last administered on 05/31/19at 12:34; Start 05/31/19 at 12:00; Stop 05/31/19 at 12:01; Status DC Aspirin (Naomi Aspirin) 325 mg 1X ONCE PO Last administered on 05/31/19at 12:34; Start 05/31/19 at 12:00; Stop 05/31/19 at 12:01; Status DC Ondansetron HCl (Zofran) 4 mg STK-MED ONCE .ROUTE ; Start 05/31/19 at 12:22; Stop 05/31/19 at 12:23; Status DC Ondansetron HCl (Zofran) 4 mg 1X ONCE IV Last administered on 05/31/19at 12:41; Start 05/31/19 at 12:45; Stop 05/31/19 at 12:46; Status DC Ondansetron HCl (Zofran) 4 mg PRN Q6HRS PRN IV NAUSEA/VOMITING Last administered on 06/02/19at 06:05; Start 05/31/19 at 13:45 Fentanyl Citrate (Fentanyl 2ml Vial) 50 mcg PRN Q2HR PRN IV MODERATE PAIN, SEVERE PAIN Last administered on 06/02/19 05:59; Start 05/31/19 at 13:45 Sodium Chloride 1,000 ml @ 75 mls/hr [id number] IV Last administered on 06/01/19 21:52; Start 05/31/19 at 13:46; Stop 06/02/19 at 12:45; Status DC Aspirin (Ecotrin) 81 mg DAILYWBKFT PO Last administered on 06/02/19 08:30; Start 06/01/19 at 08:00 Clopidogrel Bisulfate (Plavix) 75 mg DAILYWBKFT PO Last administered on 06/02/19 08:30; Start 06/01/19 at 08:00 Atorvastatin Calcium (Lipitor) 40 mg QHS PO Last administered on 06/01/19 20:01; Start 05/31/19 at 21:00 Acetaminophen (Tylenol) 650 mg PRN Q6HRS PRN PO MILD PAIN / TEMP; Start 05/31/19 at 14:00 Nitroglycerin (Nitrostat) 0.4 mg PRN Q5MIN PRN SL CHEST PAIN; Start 05/31/19 at 14:00 Aspirin (Children'S Aspirin) 81 mg DAILY PO ; Start 06/01/19 at 09:00; Status UNV Bupropion HCl (Wellbutrin Sr) 150 mg BID PO Last administered on 06/02/19 08:30; Start 05/31/19 at 21:00 Carvedilol (Coreg) 12.5 mg BIDWMEALS PO ; Start 05/31/19 at 17:00 Citalopram Hydrobromide (CeleXA) 10 mg DAILY PO Last administered on 06/02/19 08:30; Start 06/01/19 at 09:00 Isosorbide Mononitrate (Imdur) 30 mg BID PO Last administered on 06/01/19 20:01; Start 05/31/19 at 21:00 Lactobacillus Rhamnosus (Culturelle) 1 cap BID PO Last administered on 06/02/19 08:30; Start 05/31/19 at 21:00 Lisinopril (Prinivil) 5 mg DAILY PO ; Start 06/01/19 at 09:00 Ondansetron HCl (Zofran Odt) 4 mg PRN Q6HRS PRN PO NAUSEA/VOMITING, 1ST CHOICE PO; Start 05/31/19 at 16:00 Promethazine HCl (Phenergan Syrup) 12.5 mg PRN Q6HRS PRN PO NAUSEA/VOMITING, 2ND CHOICE PO Last administered on 06/01/19at 05:38; Start 05/31/19 at 16:00 Clonazepam (KlonoPIN) 1 mg BID PO Last administered on 06/02/19at 08:30; Start 05/31/19 at 21:00 Famotidine (Pepcid) 20 mg QHS PO Last administered on 05/31/19at 21:10; Start 05/31/19 at 21:00; Stop 06/01/19 at 11:44; Status DC Rivaroxaban (Xarelto) 20 mg DAILYWSUP PO Last administered on 05/31/19at 18:20; Start 05/31/19 at 17:00; Stop 06/01/19 at 13:30; Status DC Ketorolac Tromethamine (Toradol 15mg Vial) 15 mg PRN Q6HRS PRN IV MILD PAIN 1-3 Last administered on 06/02/19at 08:30; Start 05/31/19 at 16:00; Stop 06/05/19 at 15:59 Pharmacy Consult (C.diff Med Screen By Rx) 1 each 1X MC ; Start 05/31/19 at 17:45; Status UNV Amiodarone HCl (Cordarone) 400 mg DAILY PO ; Start 06/01/19 at 10:45; Stop 06/01/19 at 10:55; Status DC Amiodarone HCl 900 mg/Dextrose 518 ml @ 0 mls/hr CONT PRN IV SEE I/O RECORD; Start 06/01/19 at 11:00; Status UNV Amiodarone HCl 450 mg/Dextrose 259 ml @ 17.267 mls/ hr CONT PRN IV SEE I/O RECORD Last administered on 06/02/19at 03:33; Start 06/01/19 at 11:00; Stop 06/02/19 at 12:34; Status DC Pantoprazole Sodium 80 mg/ Sodium Chloride 100 ml @ 10 mls/hr Q10H IV Last administered on 06/02/19at 03:33; Start 06/01/19 at 12:00; Stop 06/02/19 at 12:19; Status DC Vancomycin HCl (Vanco Per Pharmacy) 1 each PRN DAILY PRN MC SEE COMMENTS Last administered on 06/02/19at 11:47; Start 06/01/19 at 13:00 Piperacillin Sod/ Tazobactam Sod 3.375 gm/Sodium Chloride 50 ml @ 100 mls/hr Q6HRS IV Last administered on 06/02/19at 05:59; Start 06/01/19 at 13:00; Stop 06/02/19 at 07:40; Status DC Vancomycin HCl (Vancomycin Oral Solution) 125 mg BID PO Last administered on 06/02/19 08:30; Start 06/01/19 at 13:00 Vancomycin HCl 1.75 gm/Sodium Chloride 500 ml @ 250 mls/hr 1X ONCE IV Last administered on 06/01/19 13:06; Start 06/01/19 at 14:00; Stop 06/01/19 at 1 5:59; Status DC Lidocaine (Lidoderm) 1 patch DAILY TD Last administered on 06/02/19at 08:33; Start 06/01/19 at 13:45 Magnesium Sulfate 50 ml @ 25 mls/hr 1X ONCE IV Last administered on 06/01/19at 15:25; Start 06/01/19 at 13:45; Stop 06/01/19 at 15:44; Status DC Furosemide (Lasix) 20 mg 1X ONCE IVP ; Start 06/01/19 at 13:45; Stop 06/01/19 at 13:47; Status DC Vancomycin HCl 1.25 gm/Sodium Chloride 250 ml @ 167 mls/hr Q12H IV Last administered on 06/02/19at 12:19; Start 06/02/19 at 01:00 Vancomycin HCl (Vancomycin Trough Level) 1 each 1X ONCE MC ; Start 06/03/19 at 00:30; Stop 06/03/19 at 00:31 Hydromorphone HCl (Dilaudid) 1 mg PRN Q4HRS PRN IV PAIN; Start 06/01/19 at 20:45; Status Cancel Pantoprazole Sodium (Protonix) 40 mg DAILYAC PO Last administered on 06/02/19at 12:49; Start 06/02/19 at 13:00 Furosemide (Lasix) 20 mg DAILY PO Last administered on 06/02/19at 12:49; Start 06/02/19 at 12:45 Amiodarone HCl (Cordarone) 400 mg DAILY PO Last administered on 06/02/19at 12:49; Start 06/02/19 at 12:30 Active Scripts Active Culturelle (Lactobacillus Rhamnosus Gg) 1 Each Cap.sprink 1 Cap PO BID 30 Days Vancomycin Hcl 500 Mg Vial 125 Mg PO [id number] 14 Days Ondansetron Odt (Ondansetron) 4 Mg Tab.rapdis 4 Mg PO PRN Q6HRS PRN 30 Days Reported Ranitidine Hcl 300 Mg Tablet 1 Tab PO QHS Aspirin 81 Mg Tab.chew 1 Tab PO DAILY Clonazepam 1 Mg Tablet 1 Mg PO BID Isosorbide Mononitrate Er (Isosorbide Mononitrate) 30 Mg Tab.er.24h 30 Mg PO BID Citalopram Hbr (Citalopram Hydrobromide) 10 Mg Tablet 10 Mg PO DAILY Promethazine Hcl 6.25 Mg/5 Ml Syrup 10 Ml PO PRN Q6HRS PRN Coreg (Carvedilol) 12.5 Mg Tablet 1 Tab PO BID Lisinopril 5 Mg Tablet 1 Tab PO DAILY Xarelto (Rivaroxaban) 20 Mg Tablet 20 Mg PO DAILY Wellbutrin Sr (Bupropion Hcl) 150 Mg Tablet.er 1 Tab PO BID Vitals/I & O Vital Sign - Last 24 Hours 06/01/19 06/01/19 06/01/19 06/01/19 14:00 14:47 15:05 15:05 Temp 98.5 98.4 98.4 98.5 98.4 98.4 Pulse 76 77 73 73 Resp 18 B/P (MAP) 100/56 (71) 87/56 81/54 (63) 81/54 Pulse Ox 93 93 O2 Delivery Room Air Room Air 06/01/19 06/01/19 06/01/19 06/01/19 16:00 16:05 16:53 16:59 Temp 98.4 98.7 98.7 98.4 98.7 98.7 Pulse 74 81 76 Resp 18 18 18 B/P (MAP) 91/57 (68) 87/49 (62) 87/49 Pulse Ox 93 94 O2 Delivery Room Air Room Air Room Air 06/01/19 06/01/19 06/01/19 06/01/19 17:00 17:15 17:48 18:00 Temp 98.7 98.7 98.7 98.7 98.7 98.7 Pulse 79 74 74 71 Resp 20 18 18 B/P (MAP) 87/49 89/58 89/58 89/58 (68) Pulse Ox 96 O2 Delivery Room Air 06/01/19 06/01/19 06/01/19 06/01/19 19:00 20:00 20:00 20:01 Temp 98.4 98.4 Pulse 75 79 82 Resp 20 18 B/P (MAP) 93/59 (70) 82/49 (60) 97/61 Pulse Ox 95 95 O2 Delivery Room Air Room Air Room Air 06/01/19 06/01/19 06/01/19 06/01/19 20:01 21:00 22:00 23:00 Pulse 72 71 80 Resp 20 16 18 B/P (MAP) 80/47 (58) 91/57 (68) 100/60 (73) Pulse Ox 95 93 94 92 O2 Delivery Room Air Room Air Room Air Room Air 06/01/19 06/01/19 06/02/19 06/02/19 23:08 23:59 00:00 01:00 Temp 98.3 98.3 Pulse 71 68 Resp 17 18 B/P (MAP) 93/56 (68) 93/56 (68) Pulse Ox 94 93 O2 Delivery Room Air Room Air Room Air Room Air 06/02/19 06/02/19 06/02/19 06/02/19 02:00 03:00 04:00 04:00 Pulse 69 70 69 Resp 20 18 20 B/P (MAP) 92/51 (65) 100/62 (75) 91/57 (68) Pulse Ox 94 92 96 O2 Delivery Room Air Room Air Room Air Nasal Cannula O2 Flow Rate 2.0 06/02/19 06/02/19 06/02/19 06/02/19 05:00 05:59 06:00 06:45 Temp 98.5 98.5 Pulse 69 70 Resp 16 18 B/P (MAP) 99/54 (69) 85/51 (62) Pulse Ox 97 96 97 O2 Delivery Nasal Cannula Nasal Cannula Nasal Cannula Nasal Cannula O2 Flow Rate 2.0 2.0 2.0 2.0 06/02/19 06/02/19 06/02/1906/02/19 07:00 07:27 08:00 09:00 Temp 97.9 97.9 Pulse 74 68 68 Resp 18 18 B/P (MAP) 85/51 (62) 97/57 (70) 94/55 (68) Pulse Ox 95 97 98 O2 Delivery Nasal Cannula Room Air Nasal Cannula Nasal Cannula O2 Flow Rate 2.0 2.0 2.0 06/02/19 06/02/19 06/02/19 06/02/19 10:00 11:06 12:00 12:00 Temp 98.0 98.0 Pulse 65 72 81 Resp 18 18 18 B/P (MAP) 95/58 (70) 109/67 (81) 95/59 (71) Pulse Ox 96 96 93 O2 Delivery Nasal Cannula Nasal Cannula Room Air Room Air O2 Flow Rate 2.0 2.0 06/02/19 06/02/19 06/02/19 06/02/19 12:19 12:44 12:44 12:49 Pulse 72 81 81 81 B/P (MAP) 95/59 95/59 95/59 95/59 06/02/19 13:02 Pulse 78 Resp 18 B/P (MAP) 98/62 (74) Pulse Ox 96 O2 Delivery Room Air Intake and Output 06/01/19 06/01/19 06/02/19 14:59 22:59 06:59 Intake Total 540 ml 2084 ml 2271.78 ml Output Total 550 ml 1255 ml 705 ml Balance -10 ml 829 ml 1566.78 ml Nutrition Consultation Dietary Evaluation: Recommendations by RD: Protein supplementation Comments: REC Ensure clear (dinner) Advance diet as able pending GI status, goal diet cardiac/ADA w/snacks/supplements as needed Expected Outcomes/Goals: diet advancement Interpretation of weight loss: >7.5% in 3 months Malnutrition Findings: Food and Nutrition Intake (Mod: <75% est energy req 7days Weight Status: Overweight WILLIAM SOTELO MD Jun 02, 2019 13:50
[2019-06-02 15:34] LABS: HEMATOCRIT 24.8 % (36.0-47.0); HEMOGLOBIN 8.3 g/dL (12.0-15.5); RED BLOOD COUNT 2.82 x10^6/uL (3.50-5.40); RED CELL DISTRIBUTION WIDTH 17.9 % (11.5-14.5); WHITE BLOOD COUNT 8.2 x10^3/uL (4.0-11.0)
[2019-06-02] MEDS: ATORVASTATIN CALCIUM 40 MG TABLET. PO SCH (20:48)
[2019-06-03] VITALS (13 sets, daily range): BP systolic 83–125; BP diastolic 46–73
[2019-06-03 00:43] LABS: VANC TR 21.4 mcg/mL (10.0-20.0)
[2019-06-03] MEDS: VANCOMYCIN PER PHARMACY MC PRN ×2 (01:23→15:13)
[2019-06-03] MEDS ORDERED: VANCOMYCIN 1.25 GM in IV NORMAL SALINE 250ML 250 ML IV SCH (01:30)
[2019-06-03] MEDS: ONDANSETRON PF 4 MG/2 ML VIAL. IV PRN ×3 (01:49→17:44)
[2019-06-03 05:36] LABS: BASO % 0 % (0-3); EOS # 0.3 x10^3/uL (0.0-0.7); EOS % 4 % (0-3); HEMATOCRIT 25.7 % (36.0-47.0); HEMOGLOBIN 8.6 g/dL (12.0-15.5); LYMPH # 1.5 x10^3/uL (1.0-4.8); LYMPH % 16 % (24-48); MEAN CORPUSCULAR HEMOGLOBIN 30 pg (25-35); MEAN CORPUSCULAR HGB CONC 34 g/dL (31-37); MEAN CORPUSCULAR VOLUME 88 fL (79-100); MONO # 0.7 x10^3/uL (0.0-1.1); MONO % 8 % (0-9); NEUT # 6.4 x10^3/uL (1.8-7.7); NEUT % 72 % (31-73); PLATELET COUNT 141 x10^3/uL (140-400); RED BLOOD COUNT 2.92 x10^6/uL (3.50-5.40); RED CELL DISTRIBUTION WIDTH 17.8 % (11.5-14.5); WHITE BLOOD COUNT 8.9 x10^3/uL (4.0-11.0)
[2019-06-03 06:04] LABS: ALBUMIN 2.5 g/dL (3.4-5.0); ALBUMIN/GLOBULIN RATIO 1.1 (1.0-1.7); CALCIUM 8.1 mg/dL (8.5-10.1); CREATININE 0.9 mg/dL (0.6-1.0); GFR 63.2; POTASSIUM 3.8 mmol/L (3.5-5.1); TOTAL BILIRUBIN 0.4 mg/dL (0.2-1.0); TOTAL PROTEIN 4.8 g/dL (6.4-8.2)
[2019-06-03] MEDS: KETOROLAC 15 MG/ML VIAL. IV PRN ×2 (08:39→17:46)
[2019-06-03] MEDS: PANTOPRAZOLE 40 MG TABLET.DR. PO SCH (08:48)
--- NOTE | 2019-06-03 08:57 | PDOC ---
Infectious Disease Note Subjective Subjective Feeling better, started to eat last night Some pain right scapular/chest area Denies F/C/S O2 2L ROS ROS per HPI Vital Sign Vital Signs Vital Signs Date Time Temp Pulse Resp B/P (MAP) Pulse Ox O2 Delivery O2 Flow Rate FiO2 06/03/19 06:00 77 18 109/68 (82) 96 Room Air 06/03/19 04:00 98.2 98.2 06/03/19 04:00 2.0 Physical Exam PHYSICAL EXAM GENERAL: Propped up in bed, alert, NAD HEENT: Pupils are equal and reactive. Normal conjunctivae. Oral cavity, pharynx dry. NECK: Supple, no JVD. LUNGS: Clear to auscultation bilaterally. HEART: S1, S2, regular ABDOMEN: Soft nontender : tirado in place EXTREMITIES: Without clubbing, cyanosis or gross edema. Right groin post cath site is clean SKIN: Warm to touch without signs of rash. NEUROLOGIC: Nnfocal. PIV Labs Lab Laboratory Tests Test 06/02/19 12:31 06/02/19 15:05 06/02/19 17:14 06/02/19 22:06 Glucose (Fingerstick) 195 mg/dL (70-99) 121 mg/dL (70-99) 93 mg/dL (70-99) White Blood Count 8.2 x10^3/uL (4.0-11.0) Red Blood Count 2.82 x10^6/uL (3.50-5.40) Hemoglobin 8.3 g/dL (12.0-15.5) Hematocrit 24.8 % (36.0-47.0) Mean Corpuscular Volume 88 fL (79-100) Mean Corpuscular Hemoglobin 30 pg (25-35) Mean Corpuscular Hemoglobin Concent 34 g/dL (31-37) Red Cell Distribution Width 17.9 % (11.5-14.5) Platelet Count 125 x10^3/uL (140-400) Test 06/03/19 00:20 06/03/19 05:11 Vancomycin Level Trough 21.4 mcg/mL (10.0-20.0) Vancomycin Last Dose Date Vancomycin Last Dose Time 1300 White Blood Count 8.9 x10^3/uL (4.0-11.0) Red Blood Count 2.92 x10^6/uL (3.50-5.40) Hemoglobin 8.6 g/dL (12.0-15.5) Hematocrit 25.7 % (36.0-47.0) Mean Corpuscular Volume 88 fL (79-100) Mean Corpuscular Hemoglobin 30 pg (25-35) Mean Corpuscular Hemoglobin Concent 34 g/dL (31-37) Red Cell Distribution Width 17.8 % (11.5-14.5) Platelet Count 141 x10^3/uL (140-400) Neutrophils (%) (Auto) 72 % (31-73) Lymphocytes (%) (Auto) 16 % (24-48) Monocytes (%) (Auto) 8 % (0-9) Eosinophils (%) (Auto) 4 % (0-3) Basophils (%) (Auto) 0 % (0-3) Neutrophils # (Auto) 6.4 x10^3/uL (1.8-7.7) Lymphocytes # (Auto) 1.5 x10^3/uL (1.0-4.8) Monocytes # (Auto) 0.7 x10^3/uL (0.0-1.1) Eosinophils # (Auto) 0.3 x10^3/uL (0.0-0.7) Basophils # (Auto) 0.0 x10^3/uL (0.0-0.2) Sodium Level 143 mmol/L (136-145) Potassium Level 3.8 mmol/L (3.5-5.1) Chloride Level 114 mmol/L (98-107) Carbon Dioxide Level 19 mmol/L (21-32) Anion Gap 10 (6-14) Blood Urea Nitrogen 11 mg/dL (7-20) Creatinine 0.9 mg/dL (0.6-1.0) Estimated GFR (Cockcroft-Gault) 63.2 BUN/Creatinine Ratio 12 (6-20) Glucose Level 91 mg/dL (70-99) Calcium Level 8.1 mg/dL (8.5-10.1) Total Bilirubin 0.4 mg/dL (0.2-1.0) Aspartate Amino Transf (AST/SGOT) 53 U/L (15-37) Alanine Aminotransferase (ALT/SGPT) 18 U/L (14-59) Alkaline Phosphatase 59 U/L (46-116) Total Protein 4.8 g/dL (6.4-8.2) Albumin 2.5 g/dL (3.4-5.0) Albumin/Globulin Ratio 1.1 (1.0-1.7) Micro 05/31. BLOOD CULTURE Final AMENDED REPORT: 2 OF 4 BOTTLES ARE NOW POSITIVE FOR GRAM POSITIVE COCCI IN [facility]. CALLED TO GUILLERMO LECHUGA IN ICU 06/01/19 AT 1224 BY Jaylen KRUEGER. 05/31. URINE CULTURE RES 1 Preliminary Gram negative rods 25,000-50,000 colony forming units per mL Objective Assessment GPC sepsis 05/31 POA STEMI Urinary retention s/p Tirado. UA + squamous epi cells, GNR in urine S/p Successful PCI/drug eluting stent placement to the left circumflex artery and successful PTCA to the obtuse marginal branch 05/31 Leukocytosis - better Anemia - getting PRBCs S/p cardiac arrest from ventricular fibrillation and underwent CPR/defibrillations and successful conversion to sinus rhythm - 05/31 H/o C-diff April 20 h/o E. coli and Giardia on stool panel treated in January 2019 at [facility] Plan Plan of Care Vanc Trough 21.4 PO BID Vanc off Zosyn Probiotics F/u labs and cults D/w nursing Attending Co-Sign The patient was seen and interviewed as well as examined at the bedside. The chart was reviewed. The case was discussed. Agree with the plan of care. CROW ZARAGOZA APRN Jun 03, 2019 08:57 ROSALINE SINGH MD Jun 03, 2019 10:56
[2019-06-03] MEDS: LIDOCAINE (700MG/PATCH) PATCH. TD SCH (09:00)
[2019-06-03] MEDS: clonazePAM 0.5 MG TABLET PO SCH ×2 (11:23→21:47)
[2019-06-03] MEDS: LACTOBACILLUS RHAMNOSUS GG 1 CAPSULE. PO SCH ×2 (11:23→21:46)
[2019-06-03] MEDS: CARVEDILOL 12.5 MG TABLET. PO SCH ×2 (11:24→17:00)
[2019-06-03] MEDS: ASPIRIN ENTERIC COATED 81 MG TABLET.DR. PO SCH (11:24)
[2019-06-03] MEDS: buPROPion SR 150 MG TABLET.SA PO SCH ×2 (11:25→21:47)
[2019-06-03] MEDS: CITALOPRAM 10 MG TABLET. PO SCH (11:25)
[2019-06-03] MEDS: LISINOPRIL 5 MG TABLET. PO SCH (11:25)
[2019-06-03] MEDS: FUROSEMIDE 20 MG TABLET PO SCH (11:26)
[2019-06-03] MEDS: CLOPIDOGREL BISULFATE 75 MG TABLET PO SCH (11:26)
[2019-06-03] MEDS: ISOSORBIDE MONONITRATE ER 30 MG TAB.ER.24H PO SCH ×2 (11:26→21:00)
[2019-06-03] MEDS: AMIODARONE HCL 200 MG TABLET. PO SCH (11:27)
[2019-06-03] MEDS: VANCOMYCIN 125 MG/2.5 ML ORAL SOLUTION. PO SCH ×2 (11:35→21:47)
[2019-06-03] MEDS: PROMETHAZINE 6.25 MG/5 ML SYRUP. PO PRN (13:41)
[2019-06-03] MEDS: fentaNYL PF VIAL 100 MCG/2 ML VIAL IV PRN (13:42)
--- NOTE | 2019-06-03 13:58 | PDOC ---
PROGRESS NOTES Chief Complaint Chief Complaint Nausea, vomiting, diarrhea, chest pain sepsis, bacteremia STEMI - acute systolic CHF, S/p Successful PCI/drug eluting stent placement to the left circumflex artery and successful PTCA to the obtuse marginal branch 05/31 acute blood loss anemia, upper GI bleed, ? gastritis= S/p cardiac arrest from ventricular fibrillation and underwent CPR/defibrillations and successful conversion to sinus rhythm - 05/31 chest pain from chest compressions History of Present Illness History of Present Illness 06/03, still in ICU, will transfer to floor status, CV patient, cont monitor, hgb stable > 24 hours Pt and ot Vitals Vitals Vital Signs Date Time Temp Pulse Resp B/P (MAP) Pulse Ox O2 Delivery O2 Flow Rate FiO2 06/03/19 13:42 96 Nasal Cannula 2.0 06/03/19 11:29 111/66 06/03/19 11:29 87 06/03/19 06:00 18 06/03/19 04:00 98.2 98.2 Physical Exam Physical Exam GENERAL: Propped up in bed, alert, NAD HEENT: Pupils are equal and reactive. Normal conjunctivae. Oral cavity, pharynx dry. NECK: Supple, no JVD. LUNGS: Clear to auscultation bilaterally. HEART: S1, S2, regular ABDOMEN: Soft nontender : tirado in place EXTREMITIES: Without clubbing, cyanosis or gross edema. Right groin post cath site is clean SKIN: Warm to touch without signs of rash. NEUROLOGIC: Nnfocal. PIV General: Alert, Oriented X3, mild distress Heart: Regular rate, Other (heart rate is irregular) Lungs: Clear Abdomen: Soft Extremities: No cyanosis, No edema Skin: No rashes Labs LABS Laboratory Tests Test 06/02/19 15:05 06/02/19 17:14 06/02/19 22:06 06/03/19 00:20 White Blood Count 8.2 x10^3/uL (4.0-11.0) Red Blood Count 2.82 x10^6/uL (3.50-5.40) Hemoglobin 8.3 g/dL (12.0-15.5) Hematocrit 24.8 % (36.0-47.0) Mean Corpuscular Volume 88 fL (79-100) Mean Corpuscular Hemoglobin 30 pg (25-35) Mean Corpuscular Hemoglobin Concent 34 g/dL (31-37) Red Cell Distribution Width 17.9 % (11.5-14.5) Platelet Count 125 x10^3/uL (140-400) Glucose (Fingerstick) 121 mg/dL (70-99) 93 mg/dL (70-99) Vancomycin Level Trough 21.4 mcg/mL (10.0-20.0) Vancomycin Last Dose Date [id number] Vancomycin Last Dose Time 1300 Test 06/03/19 05:11 White Blood Count 8.9 x10^3/uL (4.0-11.0) Red Blood Count 2.92 x10^6/uL (3.50-5.40) Hemoglobin 8.6 g/dL (12.0-15.5) Hematocrit 25.7 % (36.0-47.0) Mean Corpuscular Volume 88 fL (79-100) Mean Corpuscular Hemoglobin 30 pg (25-35) Mean Corpuscular Hemoglobin Concent 34 g/dL (31-37) Red Cell Distribution Width 17.8 % (11.5-14.5) Platelet Count 141 x10^3/uL (140-400) Neutrophils (%) (Auto) 72 % (31-73) Lymphocytes (%) (Auto) 16 % (24-48) Monocytes (%) (Auto) 8 % (0-9) Eosinophils (%) (Auto) 4 % (0-3) Basophils (%) (Auto) 0 % (0-3) Neutrophils # (Auto) 6.4 x10^3/uL (1.8-7.7) Lymphocytes # (Auto) 1.5 x10^3/uL (1.0-4.8) Monocytes # (Auto) 0.7 x10^3/uL (0.0-1.1) Eosinophils # (Auto) 0.3 x10^3/uL (0.0-0.7) Basophils # (Auto) 0.0 x10^3/uL (0.0-0.2) Sodium Level 143 mmol/L (136-145) Potassium Level 3.8 mmol/L (3.5-5.1) Chloride Level 114 mmol/L (98-107) Carbon Dioxide Level 19 mmol/L (21-32) Anion Gap 10 (6-14) Blood Urea Nitrogen 11 mg/dL (7-20) Creatinine 0.9 mg/dL (0.6-1.0) Estimated GFR (Cockcroft-Gault) 63.2 BUN/Creatinine Ratio 12 (6-20) Glucose Level 91 mg/dL (70-99) Calcium Level 8.1 mg/dL (8.5-10.1) Total Bilirubin 0.4 mg/dL (0.2-1.0) Aspartate Amino Transf (AST/SGOT) 53 U/L (15-37) Alanine Aminotransferase (ALT/SGPT) 18 U/L (14-59) Alkaline Phosphatase 59 U/L (46-116) Total Protein 4.8 g/dL (6.4-8.2) Albumin 2.5 g/dL (3.4-5.0) Albumin/Globulin Ratio 1.1 (1.0-1.7) Review of Systems Review of Systems str better eating some, no n.v.d Assessment and Plan Assessmemt and Plan Problems Medical Problems: (1) ABDULLAHI (acute kidney injury) Status: Acute (2) Anemia Status: Acute (3) Atrial fibrillation with RVR Status: Acute (4) CAD (coronary artery disease) Status: Chronic (5) Coffee ground emesis Status: Acute (6) GERD (gastroesophageal reflux disease) Status: Chronic (7) Hemorrhoids Status: Chronic (8) Hiatal hernia Status: Chronic (9) Intractable nausea and vomiting Status: Acute (10) Schatzki's ring Status: Chronic (11) Severe sepsis Status: Acute (12) STEMI (ST elevation myocardial infarction) Status: Acute (13) Upper GI bleeding Status: Acute (14) Ventricular fibrillation Status: Acute Comment Review of Relevant I have reviewed the following items mumtaz (where applicable) has been applied. Labs Laboratory Tests Test 06/01/19 18:08 06/01/19 20:25 06/01/19 23:11 06/02/19 05:00 Glucose (Fingerstick) 123 mg/dL (70-99) 117 mg/dL (70-99) White Blood Count 8.6 x10^3/uL (4.0-11.0) 7.7 x10^3/uL (4.0-11.0) Red Blood Count 2.86 x10^6/uL (3.50-5.40) 2.64 x10^6/uL (3.50-5.40) Hemoglobin 8.4 g/dL (12.0-15.5) 7.8 g/dL (12.0-15.5) Hematocrit 25.0 % (36.0-47.0) 23.0 % (36.0-47.0) Mean Corpuscular Volume 88 fL (79-100) 87 fL (79-100) Mean Corpuscular Hemoglobin 30 pg (25-35) 30 pg (25-35) Mean Corpuscular Hemoglobin Concent 34 g/dL (31-37) 34 g/dL (31-37) Red Cell Distribution Width 17.3 % (11.5-14.5) 17.4 % (11.5-14.5) Platelet Count 128 x10^3/uL (140-400) 117 x10^3/uL (140-400) Neutrophils (%) (Auto) 70 % (31-73) Lymphocytes (%) (Auto) 20 % (24-48) Monocytes (%) (Auto) 7 % (0-9) Eosinophils (%) (Auto) 3 % (0-3) Basophils (%) (Auto) 1 % (0-3) Neutrophils # (Auto) 5.4 x10^3/uL (1.8-7.7) Lymphocytes # (Auto) 1.5 x10^3/uL (1.0-4.8) Monocytes # (Auto) 0.5 x10^3/uL (0.0-1.1) Eosinophils # (Auto) 0.2 x10^3/uL (0.0-0.7) Basophils # (Auto) 0.0 x10^3/uL (0.0-0.2) Sodium Level 141 mmol/L (136-145) Potassium Level 3.6 mmol/L (3.5-5.1) Chloride Level 114 mmol/L (98-107) Carbon Dioxide Level 16 mmol/L (21-32) Anion Gap 11 (6-14) Blood Urea Nitrogen 21 mg/dL (7-20) Creatinine 1.0 mg/dL (0.6-1.0) Estimated GFR (Cockcroft-Gault) 56.0 Glucose Level 123 mg/dL (70-99) Calcium Level 7.8 mg/dL (8.5-10.1) Magnesium Level 2.2 mg/dL (1.8-2.4) Test 06/02/19 12:31 06/02/19 15:05 06/02/19 17:14 06/02/19 22:06 Glucose (Fingerstick) 195 mg/dL (70-99) 121 mg/dL (70-99) 93 mg/dL (70-99) White Blood Count 8.2 x10^3/uL (4.0-11.0) Red Blood Count 2.82 x10^6/uL (3.50-5.40) Hemoglobin 8.3 g/dL (12.0-15.5) Hematocrit 24.8 % (36.0-47.0) Mean Corpuscular Volume 88 fL (79-100) Mean Corpuscular Hemoglobin 30 pg (25-35) Mean Corpuscular Hemoglobin Concent 34 g/dL (31-37) Red Cell Distribution Width 17.9 % (11.5-14.5) Platelet Count 125 x10^3/uL (140-400) Test 06/03/19 00:20 06/03/19 05:11 Vancomycin Level Trough 21.4 mcg/mL (10.0-20.0) Vancomycin Last Dose Date Vancomycin Last Dose Time 1300 White Blood Count 8.9 x10^3/uL (4.0-11.0) Red Blood Count 2.92 x10^6/uL (3.50-5.40) Hemoglobin 8.6 g/dL (12.0-15.5) Hematocrit 25.7 % (36.0-47.0) Mean Corpuscular Volume 88 fL (79-100) Mean Corpuscular Hemoglobin 30 pg (25-35) Mean Corpuscular Hemoglobin Concent 34 g/dL (31-37) Red Cell Distribution Width 17.8 % (11.5-14.5) Platelet Count 141 x10^3/uL (140-400) Neutrophils (%) (Auto) 72 % (31-73) Lymphocytes (%) (Auto) 16 % (24-48) Monocytes (%) (Auto) 8 % (0-9) Eosinophils (%) (Auto) 4 % (0-3) Basophils (%) (Auto) 0 % (0-3) Neutrophils # (Auto) 6.4 x10^3/uL (1.8-7.7) Lymphocytes # (Auto) 1.5 x10^3/uL (1.0-4.8) Monocytes # (Auto) 0.7 x10^3/uL (0.0-1.1) Eosinophils # (Auto) 0.3 x10^3/uL (0.0-0.7) Basophils # (Auto) 0.0 x10^3/uL (0.0-0.2) Sodium Level 143 mmol/L (136-145) Potassium Level 3.8 mmol/L (3.5-5.1) Chloride Level 114 mmol/L (98-107) Carbon Dioxide Level 19 mmol/L (21-32) Anion Gap 10 (6-14) Blood Urea Nitrogen 11 mg/dL (7-20) Creatinine 0.9 mg/dL (0.6-1.0) Estimated GFR (Cockcroft-Gault) 63.2 BUN/Creatinine Ratio 12 (6-20) Glucose Level 91 mg/dL (70-99) Calcium Level 8.1 mg/dL (8.5-10.1) Total Bilirubin 0.4 mg/dL (0.2-1.0) Aspartate Amino Transf (AST/SGOT) 53 U/L (15-37) Alanine Aminotransferase (ALT/SGPT) 18 U/L (14-59) Alkaline Phosphatase 59 U/L (46-116) Total Protein 4.8 g/dL (6.4-8.2) Albumin 2.5 g/dL (3.4-5.0) Albumin/Globulin Ratio 1.1 (1.0-1.7) Laboratory Tests Test 06/02/19 15:05 06/02/19 17:14 06/02/19 22:06 06/03/19 00:20 White Blood Count 8.2 x10^3/uL (4.0-11.0) Red Blood Count 2.82 x10^6/uL (3.50-5.40) Hemoglobin 8.3 g/dL (12.0-15.5) Hematocrit 24.8 % (36.0-47.0) Mean Corpuscular Volume 88 fL (79-100) Mean Corpuscular Hemoglobin 30 pg (25-35) Mean Corpuscular Hemoglobin Concent 34 g/dL (31-37) Red Cell Distribution Width 17.9 % (11.5-14.5) Platelet Count 125 x10^3/uL (140-400) Glucose (Fingerstick) 121 mg/dL (70-99) 93 mg/dL (70-99) Vancomycin Level Trough 21.4 mcg/mL (10.0-20.0) Vancomycin Last Dose Date [id number] Vancomycin Last Dose Time 1300 Test 06/03/19 05:11 White Blood Count 8.9 x10^3/uL (4.0-11.0) Red Blood Count 2.92 x10^6/uL (3.50-5.40) Hemoglobin 8.6 g/dL (12.0-15.5) Hematocrit 25.7 % (36.0-47.0) Mean Corpuscular Volume 88 fL (79-100) Mean Corpuscular Hemoglobin 30 pg (25-35) Mean Corpuscular Hemoglobin Concent 34 g/dL (31-37) Red Cell Distribution Width 17.8 % (11.5-14.5) Platelet Count 141 x10^3/uL (140-400) Neutrophils (%) (Auto) 72 % (31-73) Lymphocytes (%) (Auto) 16 % (24-48) Monocytes (%) (Auto) 8 % (0-9) Eosinophils (%) (Auto) 4 % (0-3) Basophils (%) (Auto) 0 % (0-3) Neutrophils # (Auto) 6.4 x10^3/uL (1.8-7.7) Lymphocytes # (Auto) 1.5 x10^3/uL (1.0-4.8) Monocytes # (Auto) 0.7 x10^3/uL (0.0-1.1) Eosinophils # (Auto) 0.3 x10^3/uL (0.0-0.7) Basophils # (Auto) 0.0 x10^3/uL (0.0-0.2) Sodium Level 143 mmol/L (136-145) Potassium Level 3.8 mmol/L (3.5-5.1) Chloride Level 114 mmol/L (98-107) Carbon Dioxide Level 19 mmol/L (21-32) Anion Gap 10 (6-14) Blood Urea Nitrogen 11 mg/dL (7-20) Creatinine 0.9 mg/dL (0.6-1.0) Estimated GFR (Cockcroft-Gault) 63.2 BUN/Creatinine Ratio 12 (6-20) Glucose Level 91 mg/dL (70-99) Calcium Level 8.1 mg/dL (8.5-10.1) Total Bilirubin 0.4 mg/dL (0.2-1.0) Aspartate Amino Transf (AST/SGOT) 53 U/L (15-37) Alanine Aminotransferase (ALT/SGPT) 18 U/L (14-59) Alkaline Phosphatase 59 U/L (46-116) Total Protein 4.8 g/dL (6.4-8.2) Albumin 2.5 g/dL (3.4-5.0) Albumin/Globulin Ratio 1.1 (1.0-1.7) Microbiology 05/31/19 Blood Culture - Preliminary, Resulted NO GROWTH AFTER 3 DAYS 05/31/19 Urine Culture - Final, Complete 05/31/19 Urine Culture Result 1 (SUZETTE) - Final, Complete 05/31/19 Antimicrobic Susceptibility - Final, Complete Medications Current Medications Sodium Chloride 1,000 ml @ 1,000 mls/hr Q1H IV Last administered on 05/31/19at 09:29; Start 05/31/19 at 08:56; Stop 05/31/19 at 09:55; Status DC Ondansetron HCl (Zofran) 4 mg 1X ONCE IV Last administered on 05/31/19at 09:29; Start 05/31/19 at 09:00; Stop 05/31/19 at 22:26; Status DC Fentanyl Citrate (Fentanyl 2ml Vial) 50 mcg 1X ONCE IV Last administered on 05/31/19at 09:49; Start 05/31/19 at 09:45; Stop 05/31/19 at 09:46; Status DC Pantoprazole Sodium (PROTONIX VIAL for IV PUSH) 40 mg STK-MED ONCE IVP ; Start 05/31/19 at 10:08; Stop 05/31/19 at 10:09; Status DC Diltiazem HCl (Cardizem Iv Push) 25 mg STK-MED ONCE .ROUTE ; Start 05/31/19 at 10:09; Stop 05/31/19 at 10:09; Status DC Diltiazem HCl (Cardizem Iv Push) 15 mg 1X ONCE IVP Last administered on 05/31/19at 10:18; Start 05/31/19 at 10:30; Stop 05/31/19 at 10:31; Status DC Pantoprazole Sodium (PROTONIX VIAL for IV PUSH) 80 mg 1X ONCE IVP Last admi nistered on 05/31/19at 11:34; Start 05/31/19 at 10:30; Stop 05/31/19 at 10:31; Status DC Sodium Chloride 1,000 ml @ 1,000 mls/hr 1X ONCE IV Last administered on 05/31/19at 10:14; Start 05/31/19 at 10:15; Stop 05/31/19 at 11:14; Status DC Ondansetron HCl (Zofran) 4 mg 1X ONCE IV Last administered on 05/31/19at 10:14; Start 05/31/19 at 10:15; Stop 05/31/19 at 10:16; Status DC Amiodarone HCl 900 mg/Dextrose 518 ml @ 0 mls/hr CONT PRN IV SEE I/O RECORD Last administered on 05/31/19at 10:41; Start 05/31/19 at 10:15; Stop 05/31/19 at 10:41; Status DC Pantoprazole Sodium 80 mg/ Sodium Chloride 100 ml @ 10 mls/hr 1X ONCE IV Last administered on 05/31/19at 14:05; Start 05/31/19 at 10:30; Stop 05/31/19 at 20:29; Status DC Vancomycin HCl 250 ml @ 250 mls/hr 1X ONCE IV ; Start 05/31/19 at 10:30; Stop 05/31/19 at 11:29; Status DC Piperacillin Sod/ Tazobactam Sod 3.375 gm/Sodium Chloride 50 ml @ 100 mls/hr 1X ONCE IV Last administered on 05/31/19at 10:52; Start 05/31/19 at 10:30; Stop 05/31/19 at 10:59; Status DC Sodium Chloride 500 ml @ 500 mls/hr 1X ONCE IV ; Start 05/31/19 at 10:30; Stop 05/31/19 at 11:29; Status DC Sodium Chloride 1,000 ml @ 150 mls/hr Q6H40M IV ; Start 05/31/19 at 10:16; Stop 06/01/19 at 10:15; Status DC Sodium Chloride 1,000 ml @ 1,000 mls/hr 1X ONCE IV Last administered on 05/31/19at 10:40; Start 05/31/19 at 10:30; Stop 05/31/19 at 11:29; Status DC Iodixanol (Visipaque 320) 100 ml STK-MED ONCE .ROUTE ; Start 05/31/19 at 10:58; Stop 05/31/19 at 10:58; Status DC Heparin Sodium/ Sodium Chloride 500 ml @ As Directed STK-MED ONCE .ROUTE ; Start 05/31/19 at 10:58; Stop 05/31/19 at 10:59; Status DC Iodixanol (Visipaque 320) 100 ml STK-MED ONCE .ROUTE ; Start 05/31/19 at 11:02; Stop 05/31/19 at 11:02; Status DC Lidocaine HCl (Lidocaine 1% 20ml Vial) 20 ml STK-MED ONCE .ROUTE ; Start 05/31/19 at 11:02; Stop 05/31/19 at 11:02; Status DC Heparin Sodium/ Sodium Chloride 500 ml @ As Directed STK-MED ONCE .ROUTE ; Start 05/31/19 at 11:04; Stop 05/31/19 at 11:04; Status DC Norepinephrine Bitartrate 250 ml @ 14.17 mls/ hr CONT PRN IV SEE I/O RECORD Last administered on 05/31/19at 12:33; Start 05/31/19 at 11:15 Bivalirudin (Angiomax) 250 mg STK-MED ONCE IV ; Start 05/31/19 at 11:23; Stop 05/31/19 at 11:24; Status DC Midazolam HCl (Versed) 2 mg STK-MED ONCE .ROUTE ; Start 05/31/19 at 11:28; Stop 05/31/19 at 11:28; Status DC Fentanyl Citrate (Fentanyl 2ml Vial) 100 mcg STK-MED ONCE .ROUTE ; Start 05/31/19 at 11:28; Stop 05/31/19 at 11:28; Status DC Heparin Sodium/ Sodium Chloride (HEPARIN for ARTERIAL LINE FLUSH) 1,000 unit 1X ONCE IART Last administered on 05/31/19at 12:33; Start 05/31/19 at 11:30; Stop 05/31/19 at 11:38; Status DC Heparin Sodium/ Sodium Chloride (HEPARIN for ARTERIAL LINE FLUSH) 1,000 unit 1X ONCE IART Last administered on 05/31/19 12:33; Start 05/31/19 at 11:30; Stop 05/31/19 at 11:39; Status DC Midazolam HCl (Versed) 2 mg 1X ONCE IV Last administered on 05/31/19 12:33; Start 05/31/19 at 11:30; Stop 05/31/19 at 11:40; Status DC Fentanyl Citrate (Fentanyl 2ml Vial) 100 mcg 1X ONCE IV Last administered on 05/31/19 12:33; Start 05/31/19 at 11:30; Stop 05/31/19 at 11:38; Status DC Iodixanol (Visipaque 320) 100 ml 1X ONCE IART Last administered on 05/31/19 12:33; Start 05/31/19 at 11:30; Stop 05/31/19 at 11:39; Status DC Bivalirudin (Angiomax) 250 mg 1X ONCE IV Last administered on 05/31/19 12:33; Start 05/31/19 at 11:30; Stop 05/31/19 at 11:41; Status DC Lidocaine HCl (Lidocaine 1% 20ml Vial) 20 ml 1X ONCE INJ Last administered on 05/31/19 12:33; Start 05/31/19 at 11:30; Stop 05/31/19 at 11:39; Status DC Info (CONTRAST GIVEN -- Rx MONITORING) 1 each PRN DAILY PRN MC SEE COMMENTS; Start 05/31/19 at 11:45; Stop 06/02/19 at 11:44; Status DC Nitroglycerin (Nitroglycerin) 200 mcg 1X ONCE ICAR Last administered on 05/31/19 12:34; Start 05/31/19 at 12:00; Stop 05/31/19 at 12:01; Status DC Clopidogrel Bisulfate (Plavix) 600 mg 1X ONCE PO Last administered on 05/31/19at 12:34; Start 05/31/19 at 12:00; Stop 05/31/19 at 12:01; Status DC Aspirin (Naomi Aspirin) 325 mg 1X ONCE PO Last administered on 05/31/19at 12:34; Start 05/31/19 at 12:00; Stop 05/31/19 at 12:01; Status DC Ondansetron HCl (Zofran) 4 mg STK-MED ONCE .ROUTE ; Start 05/31/19 at 12:22; Stop 05/31/19 at 12:23; Status DC Ondansetron HCl (Zofran) 4 mg 1X ONCE IV Last administered on 05/31/19at 12:41; Start 05/31/19 at 12:45; Stop 05/31/19 at 12:46; Status DC Ondansetron HCl (Zofran) 4 mg PRN Q6HRS PRN IV NAUSEA/VOMITING Last administered on 06/03/19 09:08; Start 05/31/19 at 13:45 Fentanyl Citrate (Fentanyl 2ml Vial) 50 mcg PRN Q2HR PRN IV MODERATE PAIN, SEVERE PAIN Last administered on 06/03/19 13:42; Start 05/31/19 at 13:45 Sodium Chloride 1,000 ml @ 75 mls/hr [id number] IV Last administered on 06/01/19 21:52; Start 05/31/19 at 13:46; Stop 06/02/19 at 12:45; Status DC Aspirin (Ecotrin) 81 mg DAILYWBKFT PO Last administered on 06/03/19 11:29; Start 06/01/19 at 08:00 Clopidogrel Bisulfate (Plavix) 75 mg DAILYWBKFT PO Last administered on 06/03/19at 11:29; Start 06/01/19 at 08:00 Atorvastatin Calcium (Lipitor) 40 mg QHS PO Last administered on 06/02/19at 20:52; Start 05/31/19 at 21:00 Acetaminophen (Tylenol) 650 mg PRN Q6HRS PRN PO MILD PAIN / TEMP; Start 05/31/19 at 14:00 Nitroglycerin (Nitrostat) 0.4 mg PRN Q5MIN PRN SL CHEST PAIN; Start 05/31/19 at 14:00 Aspirin (Children'S Aspirin) 81 mg DAILY PO ; Start 06/01/19 at 09:00; Status UNV Bupropion HCl (Wellbutrin Sr) 150 mg BID PO Last administered on 06/03/19at 11:29; Start 05/31/19 at 21:00 Carvedilol (Coreg) 12.5 mg BIDWMEALS PO Last administered on 06/03/19 11:29; Start 05/31/19 at 17:00 Citalopram Hydrobromide (CeleXA) 10 mg DAILY PO Last administered on 06/03/19 11:29; Start 06/01/19 at 09:00 Isosorbide Mononitrate (Imdur) 30 mg BID PO Last administered on 06/03/19 11:29; Start 05/31/19 at 21:00 Lactobacillus Rhamnosus (Culturelle) 1 cap BID PO Last administered on 06/03/19 11:29; Start 05/31/19 at 21:00 Lisinopril (Prinivil) 5 mg DAILY PO Last administered on 06/03/19 11:29; Start 06/01/19 at 09:00 Ondansetron HCl (Zofran Odt) 4 mg PRN Q6HRS PRN PO NAUSEA/VOMITING, 1ST CHOICE PO; Start 05/31/19 at 16:00 Promethazine HCl (Phenergan Syrup) 12.5 mg PRN Q6HRS PRN PO NAUSEA/VOMITING, 2ND CHOICE PO Last administered on 06/03/19 13:42; Start 05/31/19 at 16:00 Clonazepam (KlonoPIN) 1 mg BID PO Last administered on 06/03/19 11:29; Start 05/31/19 at 21:00 Famotidine (Pepcid) 20 mg QHS PO Last administered on 05/31/19at 21:10; Start 05/31/19 at 21:00; Stop 06/01/19 at 11:44; Status DC Rivaroxaban (Xarelto) 20 mg DAILYWSUP PO Last administered on 05/31/19 18:20; Start 05/31/19 at 17:00; Stop 06/01/19 at 13:30; Status DC Ketorolac Tromethamine (Toradol 15mg Vial) 15 mg PRN Q6HRS PRN IV MILD PAIN 1-3 Last administered on 06/03/19 08:48; Start 05/31/19 at 16:00; Stop 06/05/19 at 15:59 Pharmacy Consult (C.diff Med Screen By Rx) 1 each 1X ; Start 05/31/19 at 17:45; Status UNV Amiodarone HCl (Cordarone) 400 mg DAILY PO ; Start 06/01/19 at 10:45; Stop 06/01/19 at 10:55; Status DC Amiodarone HCl 900 mg/Dextrose 518 ml @ 0 mls/hr CONT PRN IV SEE I/O RECORD; Start 06/01/19 at 11:00; Status UNV Amiodarone HCl 450 mg/Dextrose 259 ml @ 17.267 mls/ hr CONT PRN IV SEE I/O RECORD Last administered on 06/02/19at 03:33; Start 06/01/19 at 11:00; Stop 06/02/19 at 12:34; Status DC Pantoprazole Sodium 80 mg/ Sodium Chloride 100 ml @ 10 mls/hr Q10H IV Last administered on 06/02/19at 03:33; Start 06/01/19 at 12:00; Stop 06/02/19 at 12:19; Status DC Vancomycin HCl (Vanco Per Pharmacy) 1 each PRN DAILY PRN MC SEE COMMENTS Last administered on 06/03/19at 01:23; Start 06/01/19 at 13:00 Piperacillin Sod/ Tazobactam Sod 3.375 gm/Sodium Chloride 50 ml @ 100 mls/hr Q6HRS IV Last administered on 06/02/19at 05:59; Start 06/01/19 at 13:00; Stop 06/02/19 at 07:40; Status DC Vancomycin HCl (Vancomycin Oral Solution) 125 mg BID PO Last administered on 06/03/19at 11:35; Start 06/01/19 at 13:00 Vancomycin HCl 1.75 gm/Sodium Chloride 500 ml @ 250 mls/hr 1X ONCE IV Last administered on 06/01/19at 13:06; Start 06/01/19 at 14:00; Stop 06/01/19 at 15:59; Status DC Lidocaine (Lidoderm) 1 patch DAILY TD Last administered on 06/03/19at 11:29; Start 06/01/19 at 13:45 Magnesium Sulfate 50 ml @ 25 mls/hr 1X ONCE IV Last administered on 06/01/19at 15:25; Start 06/01/19 at 13:45; Stop 06/01/19 at 15:44; Status DC Furosemide (Lasix) 20 mg 1X ONCE IVP ; Start 06/01/19 at 13:45; Stop 06/01/19 at 13:47; Status DC Vancomycin HCl 1.25 gm/Sodium Chloride 250 ml @ 167 mls/hr Q12H IV Last administered on 06/02/19at 12:19; Start 06/02/19 at 01:00; Stop 06/03/19 at 00:57; Status DC Vancomycin HCl (Vancomycin Trough Level) 1 each 1X ONCE MC Last administered on 06/03/19at 02:19; Start 06/03/19 at 00:30; Stop 06/03/19 at 00:31; Status DC Hydromorphone HCl (Dilaudid) 1 mg PRN Q4HRS PRN IV PAIN; Start 06/01/19 at 20:45; Status Cancel Pantoprazole Sodium (Protonix) 40 mg DAILYAC PO Last administered on 06/03/19at 08:48; Start 06/02/19 at 13:00 Furosemide (Lasix) 20 mg DAILY PO Last administered on 06/03/19at 11:29; Start 06/02/19 at 12:45 Amiodarone HCl (Cordarone) 400 mg DAILY PO Last administered on 06/03/19at 11:29; Start 06/02/19 at 12:30 Vancomycin HCl 1.25 gm/Sodium Chloride 250 ml @ 167 mls/hr Q18H IV ; Start 06/03/19 at 01:30; Stop 06/03/19 at 01:18; Status DC Vancomycin HCl (Vancomycin Trough Level) 1 each 1X ONCE MC ; Start 06/04/19 at 11:30; Stop 06/04/19 at 11:31 Vancomycin HCl 1.25 gm/Sodium Chloride 250 ml @ 167 mls/hr Q18H IV ; Start 05/15 10/01 at 18:00 Active Scripts Active Culturelle (Lactobacillus Rhamnosus Gg) 1 Each Cap.sprink 1 Cap PO BID 30 Days Vancomycin Hcl 500 Mg Vial 125 Mg PO [id number] 14 Days Ondansetron Odt (Ondansetron) 4 Mg Tab.rapdis 4 Mg PO PRN Q6HRS PRN 30 Days Reported Ranitidine Hcl 300 Mg Tablet 1 Tab PO QHS Aspirin 81 Mg Tab.chew 1 Tab PO DAILY Clonazepam 1 Mg Tablet 1 Mg PO BID Isosorbide Mononitrate Er (Isosorbide Mononitrate) 30 Mg Tab.er.24h 30 Mg PO BID Citalopram Hbr (Citalopram Hydrobromide) 10 Mg Tablet 10 Mg PO DAILY Promethazine Hcl 6.25 Mg/5 Ml Syrup 10 Ml PO PRN Q6HRS PRN Coreg (Carvedilol) 12.5 Mg Tablet 1 Tab PO BID Lisinopril 5 Mg Tablet 1 Tab PO DAILY Xarelto (Rivaroxaban) 20 Mg Tablet 20 Mg PO DAILY Wellbutrin Sr (Bupropion Hcl) 150 Mg Tablet.er 1 Tab PO BID Vitals/I & O Vital Sign - Last 24 Hours 06/02/19 06/02/19 06/02/19 06/02/19 14:00 15:00 15:10 15:29 Temp 98.2 98.2 Pulse 70 70 Resp 18 18 18 18 B/P (MAP) 87/56 (66) 101/60 (74) Pulse Ox 93 93 95 95 O2 Delivery Room Air Room Air Room Air Nasal Cannula O2 Flow Rate 2.0 06/02/19 06/02/19 06/02/19 06/02/19 15:42 16:00 17:00 17:18 Pulse 70 76 73 Resp 18 18 B/P (MAP) 97/54 (68) 99/63 (75) 99/63 Pulse Ox 95 96 O2 Delivery Nasal Cannula Nasal Cannula Nasal Cannula O2 Flow Rate 2.0 2.0 2.0 06/02/19 06/02/19 06/02/19 06/02/19 18:09 20:00 20:00 20:52 Temp 98.1 98.1 Pulse 86 80 Resp 18 18 28 B/P (MAP) 106/66 (79) 102/60 (74) Pulse Ox 95 97 95 O2 Delivery Room Air Nasal Cannula Room Air Nasal Cannula O2 Flow Rate 2.0 06/02/19 06/02/19 06/02/19 06/02/19 20:52 21:00 21:22 22:00 Pulse 83 86 76 Resp 18 24 18 B/P (MAP) 102/60 109/74 (86) 94/61 (72) Pulse Ox 97 96 95 O2 Delivery Room Air Nasal Cannula Room Air O2 Flow Rate 2.0 06/02/19 06/03/19 06/03/19 06/03/19 23:00 00:00 00:00 01:00 Temp 98.7 98.7 Pulse 77 79 80 Resp 18 18 18 B/P (MAP) 94/57 (69) 91/46 (61) 83/57 (66) Pulse Ox 97 96 96 O2 Delivery Room Air Room Air Nasal Cannula Room Air O2 Flow Rate 2.0 06/03/19 06/03/19 06/03/19 06/03/19 02:00 03:00 04:00 04:00 Temp 98.2 98.2 Pulse 80 77 77 Resp 18 18 18 B/P (MAP) 100/61 (74) 107/62 (77) 112/73 (86) Pulse Ox 96 94 94 O2 Delivery Room Air Room Air Nasal Cannula Room Air O2 Flow Rate 2.0 06/03/19 06/03/19 06/03/19 06/03/19 05:00 06:00 11:29 11:29 Pulse 77 77 87 Resp 18 18 B/P (MAP) 113/68 (83) 109/68 (82) 111/66 111/66 Pulse Ox 96 96 O2 Delivery Room Air Room Air 06/03/19 06/03/19 06/03/19 11:29 11:29 13:42 B/P (MAP) 111/66 111/66 Pulse Ox 96 O2 Delivery Nasal Cannula O2 Flow Rate 2.0 Intake and Output 06/02/19 06/02/19 06/03/19 15:00 23:00 07:00 Intake Total 1707 ml 460 ml 160 ml Output Total 940 ml 1155 ml 665 ml Balance 767 ml -695 ml -505 ml Nutrition Consultation Dietary Evaluation: Recommendations by RD: Protein supplementation Comments: REC Ensure clear (dinner) Advance diet as able pending GI status, goal diet cardiac/ADA w/snacks/supplements as needed Expected Outcomes/Goals: diet advancement Interpretation of weight loss: >7.5% in 3 months Malnutrition Findings: Food and Nutrition Intake (Mod: <75% est energy req 7days Weight Status: Overweight WILLIAM SOTELO MD Jun 03, 2019 13:58
[2019-06-03] MEDS ORDERED: FLU VAX QS 2019-20 (36MOS+)/PF 0.5 ML SYRINGE. VAX IM ONE (17:00)
[2019-06-03] MEDS: VANCOMYCIN 1.25 GM in IV NORMAL SALINE 250ML 250 ML IV SCH (17:22)
[2019-06-03] MEDS: ACETAMINOPHEN 325 MG TABLET. PO PRN (20:20)
[2019-06-03] MEDS: ATORVASTATIN CALCIUM 40 MG TABLET. PO SCH (21:47)
[2019-06-04] VITALS (7 sets, daily range): BP systolic 86–136; BP diastolic 50–68
[2019-06-04] MEDS: KETOROLAC 15 MG/ML VIAL. IV PRN ×2 (01:51→10:02)
[2019-06-04 04:56] LABS: BASO % 1 % (0-3); EOS # 0.3 x10^3/uL (0.0-0.7); EOS % 4 % (0-3); HEMOGLOBIN 8.5 g/dL (12.0-15.5); LYMPH # 1.1 x10^3/uL (1.0-4.8); LYMPH % 14 % (24-48); MEAN CORPUSCULAR HEMOGLOBIN 30 pg (25-35); MEAN CORPUSCULAR HGB CONC 34 g/dL (31-37); MEAN CORPUSCULAR VOLUME 87 fL (79-100); MONO # 0.6 x10^3/uL (0.0-1.1); MONO % 8 % (0-9); NEUT # 5.8 x10^3/uL (1.8-7.7); NEUT % 73 % (31-73); PLATELET COUNT 156 x10^3/uL (140-400); RED BLOOD COUNT 2.86 x10^6/uL (3.50-5.40); RED CELL DISTRIBUTION WIDTH 17.7 % (11.5-14.5); WHITE BLOOD COUNT 7.9 x10^3/uL (4.0-11.0)
[2019-06-04 05:22] LABS: ALBUMIN 2.2 g/dL (3.4-5.0); ALBUMIN/GLOBULIN RATIO 0.8 (1.0-1.7); CALCIUM 8.2 mg/dL (8.5-10.1); CREATININE 1.1 mg/dL (0.6-1.0); GFR 50.2; POTASSIUM 3.7 mmol/L (3.5-5.1); TOTAL BILIRUBIN 0.3 mg/dL (0.2-1.0); TOTAL PROTEIN 4.9 g/dL (6.4-8.2)
--- NOTE | 2019-06-04 08:41 | PDOC ---
Infectious Disease Note Subjective Subjective Feeling better Pain right scapular/chest area - stable + nauseous Denies F/C/S/V/D O2 2L ROS ROS per HPI Vital Sign Vital Signs Vital Signs Date Time Temp Pulse Resp B/P (MAP) Pulse Ox O2 Delivery O2 Flow Rate FiO2 06/04/19 04:00 97.2 71 12 86/50 (62) 97 Nasal Cannula 2.0 97.2 Physical Exam PHYSICAL EXAM GENERAL: Propped up in bed, alert, eating HEENT: Pupils are equal and reactive. Normal conjunctivae. Oral cavity, pharynx dry. NECK: Supple LUNGS: Clear to auscultation bilaterally. HEART: S1, S2, regular ABDOMEN: Soft nontender EXTREMITIES: Without clubbing, cyanosis or gross edema. SKIN: Warm to touch without signs of rash. NEUROLOGIC: Nonfocal. PIVs Labs Lab Laboratory Tests Test 06/03/19 22:05 06/04/19 04:30 Glucose (Fingerstick) 111 mg/dL (70-99) White Blood Count 7.9 x10^3/uL (4.0-11.0) Red Blood Count 2.86 x10^6/uL (3.50-5.40) Hemoglobin 8.5 g/dL (12.0-15.5) Hematocrit 25.0 % (36.0-47.0) Mean Corpuscular Volume 87 fL (79-100) Mean Corpuscular Hemoglobin 30 pg (25-35) Mean Corpuscular Hemoglobin Concent 34 g/dL (31-37) Red Cell Distribution Width 17.7 % (11.5-14.5) Platelet Count 156 x10^3/uL (140-400) Neutrophils (%) (Auto) 73 % (31-73) Lymphocytes (%) (Auto) 14 % (24-48) Monocytes (%) (Auto) 8 % (0-9) Eosinophils (%) (Auto) 4 % (0-3) Basophils (%) (Auto) 1 % (0-3) Neutrophils # (Auto) 5.8 x10^3/uL (1.8-7.7) Lymphocytes # (Auto) 1.1 x10^3/uL (1.0-4.8) Monocytes # (Auto) 0.6 x10^3/uL (0.0-1.1) Eosinophils # (Auto) 0.3 x10^3/uL (0.0-0.7) Basophils # (Auto) 0.0 x10^3/uL (0.0-0.2) Sodium Level 143 mmol/L (136-145) Potassium Level 3.7 mmol/L (3.5-5.1) Chloride Level 111 mmol/L (98-107) Carbon Dioxide Level 22 mmol/L (21-32) Anion Gap 10 (6-14) Blood Urea Nitrogen 14 mg/dL (7-20) Creatinine 1.1 mg/dL (0.6-1.0) Estimated GFR (Cockcroft-Gault) 50.2 BUN/Creatinine Ratio 13 (6-20) Glucose Level 155 mg/dL (70-99) Calcium Level 8.2 mg/dL (8.5-10.1) Total Bilirubin 0.3 mg/dL (0.2-1.0) Aspartate Amino Transf (AST/SGOT) 29 U/L (15-37) Alanine Aminotransferase (ALT/SGPT) 14 U/L (14-59) Alkaline Phosphatase 67 U/L (46-116) Total Protein 4.9 g/dL (6.4-8.2) Albumin 2.2 g/dL (3.4-5.0) Albumin/Globulin Ratio 0.8 (1.0-1.7) Micro 05/31. BLOOD CULTURE Final AMENDED REPORT: 2 OF 4 BOTTLES ARE NOW POSITIVE FOR GRAM POSITIVE COCCI IN [facility]. CALLED TO GUILLERMO LECHUGA IN ICU 06/01/19 AT 1224 BY Jaylen KRUEGER. BLD CULT RESULT 1 Preliminary Comment Coagulase negative Staphylococcus species. 05/31. URINE CULTURE RES 1 Preliminary Gram negative rods 25,000-50,000 colony forming units per mL URINE CULTURE RES 1 Final Gram negative rods Klebsiella oxytoca Antibiotic RSLT#1 Amoxicillin/Clavulanic Acid S =4 Ampicillin R>=32 Cefazolin R =8 Cefepime S<=0.12 Ceftriaxone S<=0.25 Cefuroxime S =4 Ciprofloxacin S<=0.25 Ertapenem S<=0.12 Gentamicin S<=1 Imipenem S<=0.25 Levofloxacin S<=0.12 Meropenem S<=0.25 Nitrofurantoin S<=16 Tetracycline S<=1 Tobramycin S<=1 Trimethoprim/Sulfa S<=20 Objective Assessment GPC sepsis 05/31 POA. CoNS STEMI Urinary retention s/p Wilson. UA + squamous epi cells, GNR in urine - Klebsiella S/p Successful PCI/drug eluting stent placement to the left circumflex artery and successful PTCA to the obtuse marginal branch 05/31 Leukocytosis - better Anemia - getting PRBCs S/p cardiac arrest from ventricular fibrillation and underwent CPR/defibrillations and successful conversion to sinus rhythm - 05/31 H/o C-diff April 20 h/o E. coli and Giardia on stool panel treated in January 2019 at [facility] Plan Plan of Care Vanc - wean off soon Trough 21.4 PO BID Vanc off Zosyn Probiotics F/u labs and cults Attending Co-Sign The patient was seen and interviewed as well as examined at the bedside. The chart was reviewed. The case was discussed. Agree with the plan of care. CROW ZARAGOZA APRN Jun 04, 2019 08:41 ROSALINE SINGH MD Jun 04, 2019 10:45
[2019-06-04] MEDS: LISINOPRIL 5 MG TABLET. PO SCH (09:00)
[2019-06-04] MEDS: VANCOMYCIN 125 MG/2.5 ML ORAL SOLUTION. PO SCH ×2 (09:45→22:28)
[2019-06-04] MEDS: clonazePAM 0.5 MG TABLET PO SCH ×2 (09:47→20:56)
[2019-06-04] MEDS: CITALOPRAM 10 MG TABLET. PO SCH (09:47)
[2019-06-04] MEDS: buPROPion SR 150 MG TABLET.SA PO SCH ×2 (09:48→20:56)
[2019-06-04] MEDS: ASPIRIN ENTERIC COATED 81 MG TABLET.DR. PO SCH (09:48)
[2019-06-04] MEDS: LACTOBACILLUS RHAMNOSUS GG 1 CAPSULE. PO SCH ×2 (09:49→20:56)
[2019-06-04] MEDS: CLOPIDOGREL BISULFATE 75 MG TABLET PO SCH (09:49)
[2019-06-04] MEDS: PANTOPRAZOLE 40 MG TABLET.DR. PO SCH (09:49)
[2019-06-04] MEDS: CARVEDILOL 12.5 MG TABLET. PO SCH ×2 (09:50→17:52)
[2019-06-04] MEDS: ISOSORBIDE MONONITRATE ER 30 MG TAB.ER.24H PO SCH ×2 (09:51→20:56)
[2019-06-04] MEDS: LIDOCAINE (700MG/PATCH) PATCH. TD SCH (09:53)
--- NOTE | 2019-06-04 11:50 | PDOC ---
PROGRESS NOTES Chief Complaint Chief Complaint Nausea, vomiting, diarrhea, chest pain sepsis, bacteremia STEMI - acute systolic CHF, S/p Successful PCI/drug eluting stent placement to the left circumflex artery and successful PTCA to the obtuse marginal branch 05/31 acute blood loss anemia, upper GI bleed, ? gastritis= S/p cardiac arrest from ventricular fibrillation and underwent CPR/defibrillations and successful conversion to sinus rhythm - 05/31 chest pain from chest compressions History of Present Illness History of Present Illness 06/04, out of ICU this AM start PT nd OT cont current change meds to PO for pain hgb stable Vitals Vitals Vital Signs Date Time Temp Pulse Resp B/P (MAP) Pulse Ox O2 Delivery O2 Flow Rate FiO2 06/04/19 10:34 98.5 73 12 100/55 (70) 96 Nasal Cannula 2.0 98.5 Physical Exam Physical Exam GENERAL: Propped up in bed, alert, eating HEENT: Pupils are equal and reactive. Normal conjunctivae. Oral cavity, pharynx dry. NECK: Supple LUNGS: Clear to auscultation bilaterally. HEART: S1, S2, regular ABDOMEN: Soft nontender EXTREMITIES: Without clubbing, cyanosis or gross edema. SKIN: Warm to touch without signs of rash. NEUROLOGIC: Nonfocal. PIVs General: Alert, Oriented X3, mild distress Heart: Regular rate, Other (heart rate is irregular) Lungs: Clear Abdomen: Soft Extremities: No cyanosis, No edema Skin: No rashes Labs LABS Laboratory Tests Test 06/03/19 22:05 06/04/19 04:30 06/04/19 11:38 Glucose (Fingerstick) 111 mg/dL (70-99) 117 mg/dL (70-99) White Blood Count 7.9 x10^3/uL (4.0-11.0) Red Blood Count 2.86 x10^6/uL (3.50-5.40) Hemoglobin 8.5 g/dL (12.0-15.5) Hematocrit 25.0 % (36.0-47.0) Mean Corpuscular Volume 87 fL (79-100) Mean Corpuscular Hemoglobin 30 pg (25-35) Mean Corpuscular Hemoglobin Concent 34 g/dL (31-37) Red Cell Distribution Width 17.7 % (11.5-14.5) Platelet Count 156 x10^3/uL (140-400) Neutrophils (%) (Auto) 73 % (31-73) Lymphocytes (%) (Auto) 14 % (24-48) Monocytes (%) (Auto) 8 % (0-9) Eosinophils (%) (Auto) 4 % (0-3) Basophils (%) (Auto) 1 % (0-3) Neutrophils # (Auto) 5.8 x10^3/uL (1.8-7.7) Lymphocytes # (Auto) 1.1 x10^3/uL (1.0-4.8) Monocytes # (Auto) 0.6 x10^3/uL (0.0-1.1) Eosinophils # (Auto) 0.3 x10^3/uL (0.0-0.7) Basophils # (Auto) 0.0 x10^3/uL (0.0-0.2) Sodium Level 143 mmol/L (136-145) Potassium Level 3.7 mmol/L (3.5-5.1) Chloride Level 111 mmol/L (98-107) Carbon Dioxide Level 22 mmol/L (21-32) Anion Gap 10 (6-14) Blood Urea Nitrogen 14 mg/dL (7-20) Creatinine 1.1 mg/dL (0.6-1.0) Estimated GFR (Cockcroft-Gault) 50.2 BUN/Creatinine Ratio 13 (6-20) Glucose Level 155 mg/dL (70-99) Calcium Level 8.2 mg/dL (8.5-10.1) Total Bilirubin 0.3 mg/dL (0.2-1.0) Aspartate Amino Transf (AST/SGOT) 29 U/L (15-37) Alanine Aminotransferase (ALT/SGPT) 14 U/L (14-59) Alkaline Phosphatase 67 U/L (46-116) Total Protein 4.9 g/dL (6.4-8.2) Albumin 2.2 g/dL (3.4-5.0) Albumin/Globulin Ratio 0.8 (1.0-1.7) Assessment and Plan Assessmemt and Plan Problems Medical Problems: (1) ABDULLAHI (acute kidney injury) Status: Acute (2) Anemia Status: Acute (3) Atrial fibrillation with RVR Status: Acute (4) CAD (coronary artery disease) Status: Chronic (5) Coffee ground emesis Status: Acute (6) GERD (gastroesophageal reflux disease) Status: Chronic (7) Hemorrhoids Status: Chronic (8) Hiatal hernia Status: Chronic (9) Intractable nausea and vomiting Status: Acute (10) Schatzki's ring Status: Chronic (11) Severe sepsis Status: Acute (12) STEMI (ST elevation myocardial infarction) Status: Acute (13) Upper GI bleeding Status: Acute (14) Ventricular fibrillation Status: Acute Comment Review of Relevant I have reviewed the following items mumtaz (where applicable) has been applied. Labs Laboratory Tests Test 06/02/19 12:31 06/02/19 15:05 06/02/19 17:14 06/02/19 22:06 Glucose (Fingerstick) 195 mg/dL (70-99) 121 mg/dL (70-99) 93 mg/dL (70-99) White Blood Count 8.2 x10^3/uL (4.0-11.0) Red Blood Count 2.82 x10^6/uL (3.50-5.40) Hemoglobin 8.3 g/dL (12.0-15.5) Hematocrit 24.8 % (36.0-47.0) Mean Corpuscular Volume 88 fL (79-100) Mean Corpuscular Hemoglobin 30 pg (25-35) Mean Corpuscular Hemoglobin Concent 34 g/dL (31-37) Red Cell Distribution Width 17.9 % (11.5-14.5) Platelet Count 125 x10^3/uL (140-400) Test 06/03/19 00:20 06/03/19 05:11 06/03/19 22:05 06/04/19 04:30 Vancomycin Level Trough 21.4 mcg/mL (10.0-20.0) Vancomycin Last Dose Date Vancomycin Last Dose Time 1300 White Blood Count 8.9 x10^3/uL (4.0-11.0) 7.9 x10^3/uL (4.0-11.0) Red Blood Count 2.92 x10^6/uL (3.50-5.40) 2.86 x10^6/uL (3.50-5.40) Hemoglobin 8.6 g/dL (12.0-15.5) 8.5 g/dL (12.0-15.5) Hematocrit 25.7 % (36.0-47.0) 25.0 % (36.0-47.0) Mean Corpuscular Volume 88 fL (79-100) 87 fL (79-100) Mean Corpuscular Hemoglobin 30 pg (25-35) 30 pg (25-35) Mean Corpuscular Hemoglobin Concent 34 g/dL (31-37) 34 g/dL (31-37) Red Cell Distribution Width 17.8 % (11.5-14.5) 17.7 % (11.5-14.5) Platelet Count 141 x10^3/uL (140-400) 156 x10^3/uL (140-400) Neutrophils (%) (Auto) 72 % (31-73) 73 % (31-73) Lymphocytes (%) (Auto) 16 % (24-48) 14 % (24-48) Monocytes (%) (Auto) 8 % (0-9) 8 % (0-9) Eosinophils (%) (Auto) 4 % (0-3) 4 % (0-3) Basophils (%) (Auto) 0 % (0-3) 1 % (0-3) Neutrophils # (Auto) 6.4 x10^3/uL (1.8-7.7) 5.8 x10^3/uL (1.8-7.7) Lymphocytes # (Auto) 1.5 x10^3/uL (1.0-4.8) 1.1 x10^3/uL (1.0-4.8) Monocytes # (Auto) 0.7 x10^3/uL (0.0-1.1) 0.6 x10^3/uL (0.0-1.1) Eosinophils # (Auto) 0.3 x10^3/uL (0.0-0.7) 0.3 x10^3/uL (0.0-0.7) Basophils # (Auto) 0.0 x10^3/uL (0.0-0.2) 0.0 x10^3/uL (0.0-0.2) Sodium Level 143 mmol/L (136-145) 143 mmol/L (136-145) Potassium Level 3.8 mmol/L (3.5-5.1) 3.7 mmol/L (3.5-5.1) Chloride Level 114 mmol/L (98-107) 111 mmol/L (98-107) Carbon Dioxide Level 19 mmol/L (21-32) 22 mmol/L (21-32) Anion Gap 10 (6-14) 10 (6-14) Blood Urea Nitrogen 11 mg/dL (7-20) 14 mg/dL (7-20) Creatinine 0.9 mg/dL (0.6-1.0) 1.1 mg/dL (0.6-1.0) Estimated GFR (Cockcroft-Gault) 63.2 50.2 BUN/Creatinine Ratio 12 (6-20) 13 (6-20) Glucose Level 91 mg/dL (70-99) 155 mg/dL (70-99) Calcium Level 8.1 mg/dL (8.5-10.1) 8.2 mg/dL (8.5-10.1) Total Bilirubin 0.4 mg/dL (0.2-1.0) 0.3 mg/dL (0.2-1.0) Aspartate Amino Transf (AST/SGOT) 53 U/L (15-37) 29 U/L (15-37) Alanine Aminotransferase (ALT/SGPT) 18 U/L (14-59) 14 U/L (14-59) Alkaline Phosphatase 59 U/L (46-116) 67 U/L (46-116) Total Protein 4.8 g/dL (6.4-8.2) 4.9 g/dL (6.4-8.2) Albumin 2.5 g/dL (3.4-5.0) 2.2 g/dL (3.4-5.0) Albumin/Globulin Ratio 1.1 (1.0-1.7) 0.8 (1.0-1.7) Glucose (Fingerstick) 111 mg/dL (70-99) Test 06/04/19 11:38 Glucose (Fingerstick) 117 mg/dL (70-99) Laboratory Tests Test 06/03/19 22:05 06/04/19 04:30 06/04/19 11:38 Glucose (Fingerstick) 111 mg/dL (70-99) 117 mg/dL (70-99) White Blood Count 7.9 x10^3/uL (4.0-11.0) Red Blood Count 2.86 x10^6/uL (3.50-5.40) Hemoglobin 8.5 g/dL (12.0-15.5) Hematocrit 25.0 % (36.0-47.0) Mean Corpuscular Volume 87 fL (79-100) Mean Corpuscular Hemoglobin 30 pg (25-35) Mean Corpuscular Hemoglobin Concent 34 g/dL (31-37) Red Cell Distribution Width 17.7 % (11.5-14.5) Platelet Count 156 x10^3/uL (140-400) Neutrophils (%) (Auto) 73 % (31-73) Lymphocytes (%) (Auto) 14 % (24-48) Monocytes (%) (Auto) 8 % (0-9) Eosinophils (%) (Auto) 4 % (0-3) Basophils (%) (Auto) 1 % (0-3) Neutrophils # (Auto) 5.8 x10^3/uL (1.8-7.7) Lymphocytes # (Auto) 1.1 x10^3/uL (1.0-4.8) Monocytes # (Auto) 0.6 x10^3/uL (0.0-1.1) Eosinophils # (Auto) 0.3 x10^3/uL (0.0-0.7) Basophils # (Auto) 0.0 x10^3/uL (0.0-0.2) Sodium Level 143 mmol/L (136-145) Potassium Level 3.7 mmol/L (3.5-5.1) Chloride Level 111 mmol/L (98-107) Carbon Dioxide Level 22 mmol/L (21-32) Anion Gap 10 (6-14) Blood Urea Nitrogen 14 mg/dL (7-20) Creatinine 1.1 mg/dL (0.6-1.0) Estimated GFR (Cockcroft-Gault) 50.2 BUN/Creatinine Ratio 13 (6-20) Glucose Level 155 mg/dL (70-99) Calcium Level 8.2 mg/dL (8.5-10.1) Total Bilirubin 0.3 mg/dL (0.2-1.0) Aspartate Amino Transf (AST/SGOT) 29 U/L (15-37) Alanine Aminotransferase (ALT/SGPT) 14 U/L (14-59) Alkaline Phosphatase 67 U/L (46-116) Total Protein 4.9 g/dL (6.4-8.2) Albumin 2.2 g/dL (3.4-5.0) Albumin/Globulin Ratio 0.8 (1.0-1.7) Microbiology 05/31/19 Blood Culture - Preliminary, Resulted NO GROWTH AFTER 3 DAYS 05/31/19 Urine Culture - Final, Complete 05/31/19 Urine Culture Result 1 (SUZETTE) - Final, Complete 05/31/19 Antimicrobic Susceptibility - Final, Complete Medications Current Medications Sodium Chloride 1,000 ml @ 1,000 mls/hr Q1H IV Last administered on 05/31/19at 09:29; Start 05/31/19 at 08:56; Stop 05/31/19 at 09:55; Status DC Ondansetron HCl (Zofran) 4 mg 1X ONCE IV Last administered on 05/31/19at 09:29; Start 05/31/19 at 09:00; Stop 05/31/19 at 22:26; Status DC Fentanyl Citrate (Fentanyl 2ml Vial) 50 mcg 1X ONCE IV Last administered on 05/31/19at 09:49; Start 05/31/19 at 09:45; Stop 05/31/19 at 09:46; Status DC Pantoprazole Sodium (PROTONIX VIAL for IV PUSH) 40 mg STK-MED ONCE IVP ; Start 05/31/19 at 10:08; Stop 05/31/19 at 10:09; Status DC Diltiazem HCl (Cardizem Iv Push) 25 mg STK-MED ONCE .ROUTE ; Start 05/31/19 at 10:09; Stop 05/31/19 at 10:09; Status DC Diltiazem HCl (Cardizem Iv Push) 15 mg 1X ONCE IVP Last administered on 9at 10:18; Start 05/31/19 at 10:30; Stop 05/31/19 at 10:31; Status DC Pantoprazole Sodium (PROTONIX VIAL for IV PUSH) 80 mg 1X ONCE IVP Last administered on 05/31/19at 11:34; Start 05/31/19 at 10:30; Stop 05/31/19 at 10:31; Status DC Sodium Chloride 1,000 ml @ 1,000 mls/hr 1X ONCE IV Last administered on 05/31/19at 10:14; Start 05/31/19 at 10:15; Stop 05/31/19 at 11:14; Status DC Ondansetron HCl (Zofran) 4 mg 1X ONCE IV Last administered on 05/31/19at 10:14; Start 05/31/19 at 10:15; Stop 05/31/19 at 10:16; Status DC Amiodarone HCl 900 mg/Dextrose 518 ml @ 0 mls/hr CONT PRN IV SEE I/O RECORD Last administered on 05/31/19at 10:41; Start 05/31/19 at 10:15; Stop 05/31/19 at 10:41; Status DC Pantoprazole Sodium 80 mg/ Sodium Chloride 100 ml @ 10 mls/hr 1X ONCE IV Last administered on 05/31/19at 14:05; Start 05/31/19 at 10:30; Stop 05/31/19 at 20:29; Status DC Vancomycin HCl 250 ml @ 250 mls/hr 1X ONCE IV ; Start 05/31/19 at 10:30; Stop 05/31/19 at 11:29; Status DC Piperacillin Sod/ Tazobactam Sod 3.375 gm/Sodium Chloride 50 ml @ 100 mls/hr 1X ONCE IV Last administered on 05/31/19at 10:52; Start 05/31/19 at 10:30; Stop 05/31/19 at 10:59; Status DC Sodium Chloride 500 ml @ 500 mls/hr 1X ONCE IV ; Start 05/31/19 at 10:30; Stop 05/31/19 at 11:29; Status DC Sodium Chloride 1,000 ml @ 150 mls/hr Q6H40M IV ; Start 05/31/19 at 10:16; Stop 06/01/19 at 10:15; Status DC Sodium Chloride 1,000 ml @ 1,000 mls/hr 1X ONCE IV Last administered on 05/31/19at 10:40; Start 05/31/19 at 10:30; Stop 05/31/19 at 11:29; Status DC Iodixanol (Visipaque 320) 100 ml STK-MED ONCE .ROUTE ; Start 05/31/19 at 10:58; Stop 05/31/19 at 10:58; Status DC Heparin Sodium/ Sodium Chloride 500 ml @ As Directed STK-MED ONCE .ROUTE ; Start 05/31/19 at 10:58; Stop 05/31/19 at 10:59; Status DC Iodixanol (Visipaque 320) 100 ml STK-MED ONCE .ROUTE ; Start 05/31/19 at 11:02; Stop 05/31/19 at 11:02; Status DC Lidocaine HCl (Lidocaine 1% 20ml Vial) 20 ml STK-MED ONCE .ROUTE ; Start 05/31/19 at 11:02; Stop 05/31/19 at 11:02; Status DC Heparin Sodium/ Sodium Chloride 500 ml @ As Directed STK-MED ONCE .ROUTE ; Start 05/31/19 at 11:04; Stop 05/31/19 at 11:04; Status DC Norepinephrine Bitartrate 250 ml @ 14.17 mls/ hr CONT PRN IV SEE I/O RECORD Last administered on 05/31/19at 12:33; Start 05/31/19 at 11:15 Bivalirudin (Angiomax) 250 mg STK-MED ONCE IV ; Start 05/31/19 at 11:23; Stop 05/31/19 at 11:24; Status DC Midazolam HCl (Versed) 2 mg STK-MED ONCE .ROUTE ; Start 05/31/19 at 11:28; Stop 05/31/19 at 11:28; Status DC Fentanyl Citrate (Fentanyl 2ml Vial) 100 mcg STK-MED ONCE .ROUTE ; Start 05/31/19 at 11:28; Stop 05/31/19 at 11:28; Status DC Heparin Sodium/ Sodium Chloride (HEPARIN for ARTERIAL LINE FLUSH) 1,000 unit 1X ONCE IART Last administered on 05/31/19at 12:33; Start 05/31/19 at 11:30; Stop 05/31/19 at 11:38; Status DC Heparin Sodium/ Sodium Chloride (HEPARIN for ARTERIAL LINE FLUSH) 1,000 unit 1X ONCE IART Last administered on 05/31/19at 12:33; Start 05/31/19 at 11:30; Stop 05/31/19 at 11:39; Status DC Midazolam HCl (Versed) 2 mg 1X ONCE IV Last administered on 05/31/19at 12:33; Start 05/31/19 at 11:30; Stop 05/31/19 at 11:40; Status DC Fentanyl Citrate (Fentanyl 2ml Vial) 100 mcg 1X ONCE IV Last administered on 05/31/19at 12:33; Start 05/31/19 at 11:30; Stop 05/31/19 at 11:38; Status DC Iodixanol (Visipaque 320) 100 ml 1X ONCE IART Last administered on 05/31/19at 12:33; Start 05/31/19 at 11:30; Stop 05/31/19 at 11:39; Status DC Bivalirudin (Angiomax) 250 mg 1X ONCE IV Last administered on 05/31/19at 12:33; Start 05/31/19 at 11:30; Stop 05/31/19 at 11:41; Status DC Lidocaine HCl (Lidocaine 1% 20ml Vial) 20 ml 1X ONCE INJ Last administered on 05/31/19at 12:33; Start 05/31/19 at 11:30; Stop 05/31/19 at 11:39; Status DC Info (CONTRAST GIVEN -- Rx MONITORING) 1 each PRN DAILY PRN MC SEE COMMENTS; Start 05/31/19 at 11:45; Stop 06/02/19 at 11:44; Status DC Nitroglycerin (Nitroglycerin) 200 mcg 1X ONCE ICAR Last administered on 05/31/19at 12:34; Start 05/31/19 at 12:00; Stop 05/31/19 at 12:01; Status DC Clopidogrel Bisulfate (Plavix) 600 mg 1X ONCE PO Last administered on 05/31/19at 12:34; Start 05/31/19 at 12:00; Stop 05/31/19 at 12:01; Status DC Aspirin (Naomi Aspirin) 325 mg 1X ONCE PO Last administered on 05/31/19at 12:34; Start 05/31/19 at 12:00; Stop 05/31/19 at 12:01; Status DC Ondansetron HCl (Zofran) 4 mg STK-MED ONCE .ROUTE ; Start 05/31/19 at 12:22; Stop 05/31/19 at 12:23; Status DC Ondansetron HCl (Zofran) 4 mg 1X ONCE IV Last administered on 05/31/19at 12:41; Start 05/31/19 at 12:45; Stop 05/31/19 at 12:46; Status DC Ondansetron HCl (Zofran) 4 mg PRN Q6HRS PRN IV NAUSEA/VOMITING Last administered on 06/03/19 17:47; Start 05/31/19 at 13:45 Fentanyl Citrate (Fentanyl 2ml Vial) 50 mcg PRN Q2HR PRN IV MODERATE PAIN, SEVERE PAIN Last administered on 06/03/19 13:42; Start 05/31/19 at 13:45 Sodium Chloride 1,000 ml @ 75 mls/hr [id number] IV Last administered on 06/01/19 21:52; Start 05/31/19 at 13:46; Stop 06/02/19 at 12:45; Status DC Aspirin (Ecotrin) 81 mg DAILYWBKFT PO Last administered on 06/04/19 10:03; Start 06/01/19 at 08:00 Clopidogrel Bisulfate (Plavix) 75 mg DAILYWBKFT PO Last administered on 06/04/19 10:03; Start 06/01/19 at 08:00 Atorvastatin Calcium (Lipitor) 40 mg QHS PO Last administered on 06/03/19 21:48; Start 05/31/19 at 21:00 Acetaminophen (Tylenol) 650 mg PRN Q6HRS PRN PO MILD PAIN / TEMP Last administered on 06/03/19 20:20; Start 05/31/19 at 14:00 Nitroglycerin (Nitrostat) 0.4 mg PRN Q5MIN PRN SL CHEST PAIN; Start 05/31/19 at 14:00 Aspirin (Children'S Aspirin) 81 mg DAILY PO ; Start 06/01/19 at 09:00; Status UNV Bupropion HCl (Wellbutrin Sr) 150 mg BID PO Last administered on 06/04/19 10:03; Start 05/31/19 at 21:00 Carvedilol (Coreg) 12.5 mg BIDWMEALS PO Last administered on 06/04/19 10:03; Start 05/31/19 at 17:00 Citalopram Hydrobromide (CeleXA) 10 mg DAILY PO Last administered on 06/04/19 10:03; Start 06/01/19 at 09:00 Isosorbide Mononitrate (Imdur) 30 mg BID PO Last administered on 06/04/19 10:03; Start 05/31/19 at 21:00 Lactobacillus Rhamnosus (Culturelle) 1 cap BID PO Last administered on 06/04/19 10:03; Start 05/31/19 at 21:00 Lisinopril (Prinivil) 5 mg DAILY PO Last administered on 06/03/19at 11:29; Start 06/01/19 at 09:00 Ondansetron HCl (Zofran Odt) 4 mg PRN Q6HRS PRN PO NAUSEA/VOMITING, 1ST CHOICE PO; Start 05/31/19 at 16:00 Promethazine HCl (Phenergan Syrup) 12.5 mg PRN Q6HRS PRN PO NAUSEA/VOMITING, 2ND CHOICE PO Last administered on 06/03/19at 13:42; Start 05/31/19 at 16:00 Clonazepam (KlonoPIN) 1 mg BID PO Last administered on 06/04/19at 10:03; Start 05/31/19 at 21:00 Famotidine (Pepcid) 20 mg QHS PO Last administered on 05/31/19at 21:10; Start 05/31/19 at 21:00; Stop 06/01/19 at 11:44; Status DC Rivaroxaban (Xarelto) 20 mg DAILYWSUP PO Last administered on 05/31/19at 18:20; Start 05/31/19 at 17:00; Stop 06/01/19 at 13:30; Status DC Ketorolac Tromethamine (Toradol 15mg Vial) 15 mg PRN Q6HRS PRN IV MILD PAIN 1-3 Last administered on 06/04/19at 10:03; Start 05/31/19 at 16:00; Stop 06/05/19 at 15:59 Pharmacy Consult (C.diff Med Screen By Rx) 1 each 1X MC ; Start 05/31/19 at 17:45; Status UNV Amiodarone HCl (Cordarone) 400 mg DAILY PO ; Start 06/01/19 at 10:45; Stop 06/01/19 at 10:55; Status DC Amiodarone HCl 900 mg/Dextrose 518 ml @ 0 mls/hr CONT PRN IV SEE I/O RECORD; Start 06/01/19 at 11:00; Status UNV Amiodarone HCl 450 mg/Dextrose 259 ml @ 17.267 mls/ hr CONT PRN IV SEE I/O RECORD Last administered on 06/02/19at 03:33; Start 06/01/19 at 11:00; Stop 06/02/19 at 12:34; Status DC Pantoprazole Sodium 80 mg/ Sodium Chloride 100 ml @ 10 mls/hr Q10H IV Last administered on 06/02/19at 03:33; Start 06/01/19 at 12:00; Stop 06/02/19 at 12:19; Status DC Vancomycin HCl (Vanco Per Pharmacy) 1 each PRN DAILY PRN MC SEE COMMENTS Last administered on 06/03/19at 15:13; Start 06/01/19 at 13:00 Piperacillin Sod/ Tazobactam Sod 3.375 gm/Sodium Chloride 50 ml @ 100 mls/hr Q6HRS IV Last administered on 06/02/19at 05:59; Start 06/01/19 at 13:00; Stop 06/02/19 at 07:40; Status DC Vancomycin HCl (Vancomycin Oral Solution) 125 mg BID PO Last administered on 06/04/19at 10:03; Start 06/01/19 at 13:00 Vancomycin HCl 1.75 gm/Sodium Chloride 500 ml @ 250 mls/hr 1X ONCE IV Last administered on 06/01/19 13:06; Start 06/01/19 at 14:00; Stop 06/01/19 at 15:59; Status DC Lidocaine (Lidoderm) 1 patch DAILY TD Last administered on 06/04/19at 10:03; Start 06/01/19 at 13:45 Magnesium Sulfate 50 ml @ 25 mls/hr 1X ONCE IV Last administered on 06/01/19at 15:25; Start 06/01/19 at 13:45; Stop 06/01/19 at 15:44; Status DC Furosemide (Lasix) 20 mg 1X ONCE IVP ; Start 06/01/19 at 13:45; Stop 06/01/19 at 13:47; Status DC Vancomycin HCl 1.25 gm/Sodium Chloride 250 ml @ 167 mls/hr Q12H IV Last administered on 06/02/19at 12:19; Start 06/02/19 at 01:00; Stop 06/03/19 at 00:57; Status DC Vancomycin HCl (Vancomycin Trough Level) 1 each 1X ONCE MC Last administered on 06/03/19at 02:19; Start 06/03/19 at 00:30; Stop 06/03/19 at 00:31; Status DC Hydromorphone HCl (Dilaudid) 1 mg PRN Q4HRS PRN IV PAIN; Start 06/01/19 at 20:45; Status Cancel Pantoprazole Sodium (Protonix) 40 mg DAILYAC PO Last administered on 06/04/19at 10:03; Start 06/02/19 at 13:00 Furosemide (Lasix) 20 mg DAILY PO Last administered on 06/03/19at 11:29; Start 06/02/19 at 12:45 Amiodarone HCl (Cordarone) 400 mg DAILY PO Last administered on 06/03/19at 11:29; Start 06/02/19 at 12:30 Vancomycin HCl 1.25 gm/Sodium Chloride 250 ml @ 167 mls/hr Q18H IV ; Start 06/03/19 at 01:30; Stop 06/03/19 at 01:18; Status DC Vancomycin HCl (Vancomycin Trough Level) 1 each 1X ONCE MC ; Start 06/04/19 at 11:30; Stop 06/04/19 at 11:31; Status DC Vancomycin HCl 1.25 gm/Sodium Chloride 250 ml @ 167 mls/hr Q18H IV Last administered on 06/03/19at 17:28; Start 06/03/19 at 18:00 Influenza Virus Vaccine Quadrival (Afluria Quad 2019-20 (3yr Up) Syringe) 0.5 ml ONCE ONCE VAX IM Last administered on 06/03/19at 17:28; Start 06/03/19 at 17:00; Stop 06/03/19 at 17:01; Status DC Active Scripts Active Culturelle (Lactobacillus Rhamnosus Gg) 1 Each Cap.sprink 1 Cap PO BID 30 Days Vancomycin Hcl 500 Mg Vial 125 Mg PO [id number] 14 Days Ondansetron Odt (Ondansetron) 4 Mg Tab.rapdis 4 Mg PO PRN Q6HRS PRN 30 Days Reported Ranitidine Hcl 300 Mg Tablet 1 Tab PO QHS Aspirin 81 Mg Tab.chew 1 Tab PO DAILY Clonazepam 1 Mg Tablet 1 Mg PO BID Isosorbide Mononitrate Er (Isosorbide Mononitrate) 30 Mg Tab.er.24h 30 Mg PO BID Citalopram Hbr (Citalopram Hydrobromide) 10 Mg Tablet 10 Mg PO DAILY Promethazine Hcl 6.25 Mg/5 Ml Syrup 10 Ml PO PRN Q6HRS PRN Coreg (Carvedilol) 12.5 Mg Tablet 1 Tab PO BID Lisinopril 5 Mg Tablet 1 Tab PO DAILY Xarelto (Rivaroxaban) 20 Mg Tablet 20 Mg PO DAILY Wellbutrin Sr (Bupropion Hcl) 150 Mg Tablet.er 1 Tab PO BID Vitals/I & O Vital Sign - Last 24 Hours 06/03/19 06/03/19 06/03/19 06/03/19 12:00 13:42 16:00 17:07 Temp 98.4 98.0 98.4 98.0 Pulse 82 66 Resp 18 18 B/P (MAP) 97/59 (72) 93/54 (67) Pulse Ox 94 96 98 96 O2 Delivery Nasal Cannula Nasal Cannula Nasal Cannula Nasal Cannula O2 Flow Rate 2.0 2.0 2.0 2.0 06/03/19 06/03/19 06/03/19 06/04/19 20:00 20:00 21:48 00:00 Temp 98.0 97.5 98.0 97.5 Pulse 62 72 65 Resp 20 17 B/P (MAP) 107/59 (75) 107/59 99/55 (70) Pulse Ox 96 97 O2 Delivery Nasal Cannula Nasal Cannula Nasal Cannula O2 Flow Rate 2.0 2.0 2.0 06/04/19 06/04/19 06/04/19 06/04/19 04:00 08:54 10:03 10:03 Temp 97.2 97.9 97.2 97.9 Pulse 71 77 76 77 Resp 12 12 B/P (MAP) 86/50 (62) 136/65 (88) 121/70 121/70 Pulse Ox 97 90 O2 Delivery Nasal Cannula Room Air O2 Flow Rate 2.0 06/04/19 10:34 Temp 98.5 98.5 Pulse 73 Resp 12 B/P (MAP) 100/55 (70) Pulse Ox 96 O2 Delivery Nasal Cannula O2 Flow Rate 2.0 Intake and Output 06/03/19 06/03/19 06/04/19 15:00 23:00 07:00 Intake Total 500 ml 500 ml Output Total 2300 ml 850 ml Balance -1800 ml -350 ml Nutrition Consultation Dietary Evaluation: Recommendations by RD: Protein supplementation Comments: REC Ensure clear (dinner) Advance diet as able pending GI status, goal diet cardiac/ADA w/snacks/supplements as needed Expected Outcomes/Goals: diet advancement Interpretation of weight loss: >7.5% in 3 months Malnutrition Findings: Food and Nutrition Intake (Mod: <75% est energy req 7days Weight Status: Overweight WILLIAM SOTELO MD Jun 04, 2019 11:50
[2019-06-04] MEDS: VANCOMYCIN PER PHARMACY MC PRN ×2 (11:53→13:18)
[2019-06-04] MEDS: AMIODARONE HCL 200 MG TABLET. PO SCH (12:20)
[2019-06-04] MEDS: oxyCODONE IR 5 MG TABLET PO PRN ×2 (12:21→20:57)
[2019-06-04 12:26] LABS: VANC TR 13.6 mcg/mL (10.0-20.0)
[2019-06-04] MEDS: VANCOMYCIN 1.25 GM in IV NORMAL SALINE 250ML 250 ML IV SCH (13:47)
[2019-06-04] MEDS: FUROSEMIDE 20 MG TABLET PO SCH (13:54)
[2019-06-04] MEDS: ONDANSETRON ODT 4 MG TAB.RAPDIS. PO PRN (13:57)
[2019-06-04] MEDS: fentaNYL PF VIAL 100 MCG/2 ML VIAL IV PRN (18:02)
[2019-06-04] MEDS: ATORVASTATIN CALCIUM 40 MG TABLET. PO SCH (20:56)
[2019-06-05] MEDS: KETOROLAC 15 MG/ML VIAL. IV PRN ×3 (02:01→16:52)
[2019-06-05 02:50] VITALS: BP 94/66
[2019-06-05] MEDS: VANCOMYCIN 1.25 GM in IV NORMAL SALINE 250ML 250 ML IV SCH (05:58)
[2019-06-05] MEDS: ONDANSETRON PF 4 MG/2 ML VIAL. IV PRN ×3 (06:12→16:52)
[2019-06-05 07:00] VITALS: BP 109/69
[2019-06-05] MEDS: PANTOPRAZOLE 40 MG TABLET.DR. PO SCH (08:42)
[2019-06-05] MEDS: ASPIRIN ENTERIC COATED 81 MG TABLET.DR. PO SCH (08:43)
[2019-06-05] MEDS: LACTOBACILLUS RHAMNOSUS GG 1 CAPSULE. PO SCH ×2 (08:43→21:47)
[2019-06-05] MEDS: clonazePAM 0.5 MG TABLET PO SCH ×2 (08:43→21:46)
[2019-06-05] MEDS: CLOPIDOGREL BISULFATE 75 MG TABLET PO SCH (08:43)
[2019-06-05] MEDS: buPROPion SR 150 MG TABLET.SA PO SCH ×2 (08:43→21:46)
[2019-06-05] MEDS: FUROSEMIDE 20 MG TABLET PO SCH (08:43)
[2019-06-05] MEDS: CITALOPRAM 10 MG TABLET. PO SCH (08:44)
[2019-06-05] MEDS: AMIODARONE HCL 200 MG TABLET. PO SCH (08:44)
[2019-06-05] MEDS: LIDOCAINE (700MG/PATCH) PATCH. TD SCH (08:45)
[2019-06-05] MEDS: CARVEDILOL 12.5 MG TABLET. PO SCH ×2 (08:45→17:58)
[2019-06-05] MEDS: VANCOMYCIN 125 MG/2.5 ML ORAL SOLUTION. PO SCH ×2 (08:45→21:47)
--- NOTE | 2019-06-05 09:05 | PDOC ---
Infectious Disease Note Subjective Subjective Feeling better ROS ROS no n/v/d/pain/fever Vital Sign Vital Signs Vital Signs Date Time Temp Pulse Resp B/P (MAP) Pulse Ox O2 Delivery O2 Flow Rate FiO2 06/05/19 08:45 63 109/69 06/05/19 02:50 98.2 18 92 Nasal Cannula 2.0 98.2 Physical Exam PHYSICAL EXAM GENERAL: Propped up in bed, alert, eating HEENT: Pupils are equal and reactive. Normal conjunctivae. Oral cavity, pharynx dry. NECK: Supple LUNGS: Clear to auscultation bilaterally. HEART: S1, S2, regular ABDOMEN: Soft nontender EXTREMITIES: Without clubbing, cyanosis or gross edema. SKIN: Warm to touch without signs of rash. NEUROLOGIC: Nonfocal. PIVs Labs Lab Laboratory Tests Test 06/04/19 11:38 06/04/19 11:45 06/04/19 16:47 06/04/19 20:54 Glucose (Fingerstick) 117 mg/dL (70-99) 118 mg/dL (70-99) 123 mg/dL (70-99) Vancomycin Level Trough 13.6 mcg/mL (10.0-20.0) Vancomycin Last Dose Date 06/03/19 Vancomycin Last Dose Time 1800 Test 06/05/19 08:44 Glucose (Fingerstick) 86 mg/dL (70-99) Micro BLOOD CULTURE LC Final Preliminary report Final report BLD CULT RESULT 1 Final Comment Coagulase negative Staphylococcus species. Performed at: - [facility], [place], [place] [id number] Account Associate: JENNIFER Vasques MD, Phone: [phone] Staphylococcus epidermidis Based on resistance to oxacillin this isolate would be resistant to all currently available beta-lactam antimicrobial agents, with the exception of the newer cephalosporins with anti-MRSA activity, such as Ceftaroline ANTIMICROBIAL SUSCEPTIBILITY Final Comment S = Susceptible; I = Intermediate; R = Resistant P = Positive; N = Negative MICS are expressed in micrograms per mL Antibiotic RSLT#1 RSLT#2 RSLT#3 RSLT#4 Ciprofloxacin S<=0.5 Clindamycin S<=0.25 Erythromycin S<=0.25 Gentamicin S<=0.5 Levofloxacin S =0.25 Linezolid S =1 Oxacillin R>=4 Penicillin R>=0.5 Quinupristin/Dalfopristin S<=0.25 Rifampin S<=0.5 Tetracycline S =2 Trimethoprim/Sulfa S<=10 Vancomycin S =2 Performed at: DA - [facility] Objective Assessment GPC sepsis 05/31 POA,, coag neg staph STEMI Urinary retention s/p Wilson. UA + squamous epi cells, GNR in urine S/p Successful PCI/drug eluting stent placement to the left circumflex artery and successful PTCA to the obtuse marginal branch 05/31 Leukocytosis - better Anemia - getting PRBCs S/p cardiac arrest from ventricular fibrillation and underwent CPR/defibrillations and successful conversion to sinus rhythm - 05/31 H/o C-diff April 20 h/o E. coli and Giardia on stool panel treated in January 2019 at [facility] Plan Plan of Care po zyvox for 5 days PO BID Vanc for 10 days Probiotics F/u labs and cults ok to d/c to SNF ROSALINE SINGH MD Jun 05, 2019 09:05
[2019-06-05 11:00] VITALS: BP 124/64
[2019-06-05] MEDS: ISOSORBIDE MONONITRATE ER 30 MG TAB.ER.24H PO SCH ×2 (13:47→21:46)
[2019-06-05] MEDS: LISINOPRIL 5 MG TABLET. PO SCH (13:47)
[2019-06-05] MEDS: oxyCODONE IR 5 MG TABLET PO PRN ×2 (13:50→21:47)
--- NOTE | 2019-06-05 14:00 | PDOC ---
Subjective: Subjective: "Alive and kickin!" Tolerating diet, no n/v, no abd pain, no diarrhea. Says possible DC tomorrow. Wonders if her chronic n/v issues were all cardiac-related. Objective: Objective: No GI concerns per nurse. Vital Signs: Vital Signs Date Time Temp Pulse Resp B/P (MAP) Pulse Ox O2 Delivery O2 Flow Rate FiO2 06/05/19 13:50 93 Nasal Cannula 2.0 06/05/19 13:50 63 124/64 06/05/19 11:00 97.8 18 97.8 Labs: Laboratory Tests Test 06/04/19 16:47 06/04/19 20:54 06/05/19 08:44 06/05/19 12:22 Glucose (Fingerstick) 118 mg/dL 123 mg/dL 86 mg/dL 127 mg/dL PE: GEN: NAD - up in chair watching tv LUNGS: CTAB HEART: RRR ABD: S/ND/NT NEURO/PSYCH: A & O �3 A/P: STEMI s/p stent placement - on Plavix and ASA Coffee-ground emesis (in ER - none since), anemia - 'scopes up to date UTI, bacteremia -- Improved GI-urias. Continue PPI. Okay to hold off on outpt GES for now (which was the plan after last discharge). FRANCISCO JAVIER TOBIAS Jun 05, 2019 14:00
[2019-06-05 15:00] VITALS: BP 121/59
[2019-06-05] MEDS: fentaNYL PF VIAL 100 MCG/2 ML VIAL IV PRN (16:23)
--- NOTE | 2019-06-05 19:19 | PDOC ---
PROGRESS NOTES Chief Complaint Chief Complaint Nausea, vomiting, diarrhea, chest pain sepsis, bacteremia STEMI - acute systolic CHF, S/p Successful PCI/drug eluting stent placement to the left circumflex artery and successful PTCA to the obtuse marginal branch 05/31 acute blood loss anemia, upper GI bleed, ? gastritis= S/p cardiac arrest from ventricular fibrillation and underwent CPR/defibrillations and successful conversion to sinus rhythm - 05/31 chest pain from chest compressions History of Present Illness History of Present Illness 06/05, had planned SNU, she now refuses, feels very weak when standing, had pre-syncopal event today that scared her,but she wants to DC home per soc services consult, I had advocated SNU cont current c hgb stable Vitals Vitals Vital Signs Date Time Temp Pulse Resp B/P (MAP) Pulse Ox O2 Delivery O2 Flow Rate FiO2 06/05/19 17:58 69 121/59 06/05/19 17:40 93 Nasal Cannula 2.0 06/05/19 15:00 97.9 18 97.9 Physical Exam Physical Exam GENERAL: Propped up in bed, alert, eating HEENT: Pupils are equal and reactive. Normal conjunctivae. Oral cavity, pharynx dry. NECK: Supple LUNGS: Clear to auscultation bilaterally. HEART: S1, S2, regular ABDOMEN: Soft nontender EXTREMITIES: Without clubbing, cyanosis or gross edema. SKIN: Warm to touch without signs of rash. NEUROLOGIC: Nonfocal. PIVs General: Alert, Oriented X3, mild distress Heart: Regular rate, Other (heart rate is irregular) Lungs: Clear Abdomen: Soft Extremities: No cyanosis, No edema Skin: No rashes Labs LABS Laboratory Tests Test 06/04/19 20:54 06/05/19 08:44 06/05/19 12:22 06/05/19 17:34 Glucose (Fingerstick) 123 mg/dL (70-99) 86 mg/dL (70-99) 127 mg/dL (70-99) 154 mg/dL (70-99) Assessment and Plan Assessmemt and Plan Problems Medical Problems: (1) ABDULLAHI (acute kidney injury) Status: Acute (2) Anemia Status: Acute (3) Atrial fibrillation with RVR Status: Acute (4) CAD (coronary artery disease) Status: Chronic (5) Coffee ground emesis Status: Acute (6) GERD (gastroesophageal reflux disease) Status: Chronic (7) Hemorrhoids Status: Chronic (8) Hiatal hernia Status: Chronic (9) Intractable nausea and vomiting Status: Acute (10) Schatzki's ring Status: Chronic (11) Severe sepsis Status: Acute (12) STEMI (ST elevation myocardial infarction) Status: Acute (13) Upper GI bleeding Status: Acute (14) Ventricular fibrillation Status: Acute Comment Review of Relevant I have reviewed the following items mumtaz (where applicable) has been applied. Labs Laboratory Tests Test 06/03/19 22:05 06/04/19 04:30 06/04/19 11:38 06/04/19 11:45 Glucose (Fingerstick) 111 mg/dL (70-99) 117 mg/dL (70-99) White Blood Count 7.9 x10^3/uL (4.0-11.0) Red Blood Count 2.86 x10^6/uL (3.50-5.40) Hemoglobin 8.5 g/dL (12.0-15.5) Hematocrit 25.0 % (36.0-47.0) Mean Corpuscular Volume 87 fL (79-100) Mean Corpuscular Hemoglobin 30 pg (25-35) Mean Corpuscular Hemoglobin Concent 34 g/dL (31-37) Red Cell Distribution Width 17.7 % (11.5-14.5) Platelet Count 156 x10^3/uL (140-400) Neutrophils (%) (Auto) 73 % (31-73) Lymphocytes (%) (Auto) 14 % (24-48) Monocytes (%) (Auto) 8 % (0-9) Eosinophils (%) (Auto) 4 % (0-3) Basophils (%) (Auto) 1 % (0-3) Neutrophils # (Auto) 5.8 x10^3/uL (1.8-7.7) Lymphocytes # (Auto) 1.1 x10^3/uL (1.0-4.8) Monocytes # (Auto) 0.6 x10^3/uL (0.0-1.1) Eosinophils # (Auto) 0.3 x10^3/uL (0.0-0.7) Basophils # (Auto) 0.0 x10^3/uL (0.0-0.2) Sodium Level 143 mmol/L (136-145) Potassium Level 3.7 mmol/L (3.5-5.1) Chloride Level 111 mmol/L (98-107) Carbon Dioxide Level 22 mmol/L (21-32) Anion Gap 10 (6-14) Blood Urea Nitrogen 14 mg/dL (7-20) Creatinine 1.1 mg/dL (0.6-1.0) Estimated GFR (Cockcroft-Gault) 50.2 BUN/Creatinine Ratio 13 (6-20) Glucose Level 155 mg/dL (70-99) Calcium Level 8.2 mg/dL (8.5-10.1) Total Bilirubin 0.3 mg/dL (0.2-1.0) Aspartate Amino Transf (AST/SGOT) 29 U/L (15-37) Alanine Aminotransferase (ALT/SGPT) 14 U/L (14-59) Alkaline Phosphatase 67 U/L (46-116) Total Protein 4.9 g/dL (6.4-8.2) Albumin 2.2 g/dL (3.4-5.0) Albumin/Globulin Ratio 0.8 (1.0-1.7) Vancomycin Level Trough 13.6 mcg/mL (10.0-20.0) Vancomycin Last Dose Date 06/03/19 Vancomycin Last Dose Time 1800 Test 06/04/19 16:47 06/04/19 20:54 06/05/19 08:44 06/05/19 12:22 Glucose (Fingerstick) 118 mg/dL (70-99) 123 mg/dL (70-99) 86 mg/dL (70-99) 127 mg/dL (70-99) Test 06/05/19 17:34 Glucose (Fingerstick) 154 mg/dL (70-99) Laboratory Tests Test 06/04/19 20:54 06/05/19 08:44 06/05/19 12:22 06/05/19 17:34 Glucose (Fingerstick) 123 mg/dL (70-99) 86 mg/dL (70-99) 127 mg/dL (70-99) 154 mg/dL (70-99) Microbiology 05/31/19 Blood Culture - Final, Complete NO GROWTH AFTER 5 DAYS 05/31/19 Urine Culture - Final, Complete 05/31/19 Urine Culture Result 1 (SUZETTE) - Final, Complete 05/31/19 Antimicrobic Susceptibility - Final, Complete Medications Current Medications Sodium Chloride 1,000 ml @ 1,000 mls/hr Q1H IV Last administered on 05/31/19at 09:29; Start 05/31/19 at 08:56; Stop 05/31/19 at 09:55; Status DC Ondansetron HCl (Zofran) 4 mg 1X ONCE IV Last administered on 05/31/19at 09:29; Start 05/31/19 at 09:00; Stop 05/31/19 at 22:26; Status DC Fentanyl Citrate (Fentanyl 2ml Vial) 50 mcg 1X ONCE IV Last administered on 05/31/19at 09:49; Start 05/31/19 at 09:45; Stop 05/31/19 at 09:46; Status DC Pantoprazole Sodium (PROTONIX VIAL for IV PUSH) 40 mg STK-MED ONCE IVP ; Start 05/31/19 at 10:08; Stop 05/31/19 at 10:09; Status DC Diltiazem HCl (Cardizem Iv Push) 25 mg STK-MED ONCE .ROUTE ; Start 05/31/19 at 10:09; Stop 05/31/19 at 10:09; Status DC Diltiazem HCl (Cardizem Iv Push) 15 mg 1X ONCE IVP Last administered on 05/31/19at 10:18; Start 05/31/19 at 10:30; Stop 05/31/19 at 10:31; Status DC Pantoprazole Sodium (PROTONIX VIAL for IV PUSH) 80 mg 1X ONCE IVP Last administered on 05/31/19at 11:34; Start 05/31/19 at 10:30; Stop 05/31/19 at 10:31; Status DC Sodium Chloride 1,000 ml @ 1,000 mls/hr 1X ONCE IV Last administered on 05/31/19at 10:14; Start 05/31/19 at 10:15; Stop 05/31/19 at 11:14; Status DC Ondansetron HCl (Zofran) 4 mg 1X ONCE IV Last administered on 05/31/19at 10:14; Start 05/31/19 at 10:15; Stop 05/31/19 at 10:16; Status DC Amiodarone HCl 900 mg/Dextrose 518 ml @ 0 mls/hr CONT PRN IV SEE I/O RECORD Last administered on 05/31/19at 10:41; Start 05/31/19 at 10:15; Stop 05/31/19 at 10:41; Status DC Pantoprazole Sodium 80 mg/ Sodium Chloride 100 ml @ 10 mls/hr 1X ONCE IV Last administered on 05/31/19at 14:05; Start 05/31/19 at 10:30; Stop 05/31/19 at 20:29; Status DC Vancomycin HCl 250 ml @ 250 mls/hr 1X ONCE IV ; Start 05/31/19 at 10:30; Stop 05/31/19 at 11:29; Status DC Piperacillin Sod/ Tazobactam Sod 3.375 gm/Sodium Chloride 50 ml @ 100 mls/hr 1X ONCE IV Last administered on 05/31/19at 10:52; Start 05/31/19 at 10:30; Stop 05/31/19 at 10:59; Status DC Sodium Chloride 500 ml @ 500 mls/hr 1X ONCE IV ; Start 05/31/19 at 10:30; Stop 05/31/19 at 11:29; Status DC Sodium Chloride 1,000 ml @ 150 mls/hr Q6H40M IV ; Start 05/31/19 at 10:16; Stop 06/01/19 at 10:15; Status DC Sodium Chloride 1,000 ml @ 1,000 mls/hr 1X ONCE IV Last administered on 05/31/19at 10:40; Start 05/31/19 at 10:30; Stop 05/31/19 at 11:29; Status DC Iodixanol (Visipaque 320) 100 ml STK-MED ONCE .ROUTE ; Start 05/31/19 at 10:58; Stop 05/31/19 at 10:58; Status DC Heparin Sodium/ Sodium Chloride 500 ml @ As Directed STK-MED ONCE .ROUTE ; Start 05/31/19 at 10:58; Stop 05/31/19 at 10:59; Status DC Iodixanol (Visipaque 320) 100 ml STK-MED ONCE .ROUTE ; Start 05/31/19 at 11:02; Stop 05/31/19 at 11:02; Status DC Lidocaine HCl (Lidocaine 1% 20ml Vial) 20 ml STK-MED ONCE .ROUTE ; Start 05/31/19 at 11:02; Stop 05/31/19 at 11:02; Status DC Heparin Sodium/ Sodium Chloride 500 ml @ As Directed STK-MED ONCE .ROUTE ; Start 05/31/19 at 11:04; Stop 05/31/19 at 11:04; Status DC Norepinephrine Bitartrate 250 ml @ 14.17 mls/ hr CONT PRN IV SEE I/O RECORD Last administered on 05/31/19at 12:33; Start 05/31/19 at 11:15 Bivalirudin (Angiomax) 250 mg STK-MED ONCE IV ; Start 05/31/19 at 11:23; Stop 05/31/19 at 11:24; Status DC Midazolam HCl (Versed) 2 mg STK-MED ONCE .ROUTE ; Start 05/31/19 at 11:28; Stop 05/31/19 at 11:28; Status DC Fentanyl Citrate (Fentanyl 2ml Vial) 100 mcg STK-MED ONCE .ROUTE ; Start 05/31/19 at 11:28; Stop 05/31/19 at 11:28; Status DC Heparin Sodium/ Sodium Chloride (HEPARIN for ARTERIAL LINE FLUSH) 1,000 unit 1X ONCE IART Last administered on 05/31/19at 12:33; Start 05/31/19 at 11:30; Stop 05/31/19 at 11:38; Status DC Heparin Sodium/ Sodium Chloride (HEPARIN for ARTERIAL LINE FLUSH) 1,000 unit 1X ONCE IART Last administered on 05/31/19at 12:33; Start 05/31/19 at 11:30; Stop 05/31/19 at 11:39; Status DC Midazolam HCl (Versed) 2 mg 1X ONCE IV Last administered on 05/31/19at 12:33; Start 05/31/19 at 11:30; Stop 05/31/19 at 11:40; Status DC Fentanyl Citrate (Fentanyl 2ml Vial) 100 mcg 1X ONCE IV Last administered on 05/31/19at 12:33; Start 05/31/19 at 11:30; Stop 05/31/19 at 11:38; Status DC Iodixanol (Visipaque 320) 100 ml 1X ONCE IART Last administered on 05/31/19at 12:33; Start 05/31/19 at 11:30; Stop 05/31/19 at 11:39; Status DC Bivalirudin (Angiomax) 250 mg 1X ONCE IV Last administered on 05/31/19 12:33; Start 05/31/19 at 11:30; Stop 05/31/19 at 11:41; Status DC Lidocaine HCl (Lidocaine 1% 20ml Vial) 20 ml 1X ONCE INJ Last administered on 05/31/19 12:33; Start 05/31/19 at 11:30; Stop 05/31/19 at 11:39; Status DC Info (CONTRAST GIVEN -- Rx MONITORING) 1 each PRN DAILY PRN MC SEE COMMENTS; Start 05/31/19 at 11:45; Stop 06/02/19 at 11:44; Status DC Nitroglycerin (Nitroglycerin) 200 mcg 1X ONCE ICAR Last administered on 05/31/19 12:34; Start 05/31/19 at 12:00; Stop 05/31/19 at 12:01; Status DC Clopidogrel Bisulfate (Plavix) 600 mg 1X ONCE PO Last administered on 05/31/19 12:34; Start 05/31/19 at 12:00; Stop 05/31/19 at 12:01; Status DC Aspirin (Naomi Aspirin) 325 mg 1X ONCE PO Last administered on 05/31/19 12:34; Start 05/31/19 at 12:00; Stop 05/31/19 at 12:01; Status DC Ondansetron HCl (Zofran) 4 mg STK-MED ONCE .ROUTE ; Start 05/31/19 at 12:22; Stop 05/31/19 at 12:23; Status DC Ondansetron HCl (Zofran) 4 mg 1X ONCE IV Last administered on 05/31/19 12:41; Start 05/31/19 at 12:45; Stop 05/31/19 at 12:46; Status DC Ondansetron HCl (Zofran) 4 mg PRN Q6HRS PRN IV NAUSEA/VOMITING Last administered on 06/05/19 16:55; Start 05/31/19 at 13:45 Fentanyl Citrate (Fentanyl 2ml Vial) 50 mcg PRN Q2HR PRN IV MODERATE PAIN, SEVERE PAIN Last administered on 06/05/19 16:30; Start 05/31/19 at 13:45 Sodium Chloride 1,000 ml @ 75 mls/hr [id number] IV Last administered on 06/01/19 21:52; Start 05/31/19 at 13:46; Stop 06/02/19 at 12:45; Status DC Aspirin (Ecotrin) 81 mg DAILYWBKFT PO Last administered on 06/05/19 08:45; Start 06/01/19 at 08:00 Clopidogrel Bisulfate (Plavix) 75 mg DAILYWBKFT PO Last administered on 06/05/19 08:45; Start 06/01/19 at 08:00 Atorvastatin Calcium (Lipitor) 40 mg QHS PO Last administered on 06/04/19 20:57; Start 05/31/19 at 21:00 Acetaminophen (Tylenol) 650 mg PRN Q6HRS PRN PO HEADACHE / TEMP Last administered on 06/03/19 20:20; Start 05/31/19 at 14:00 Nitroglycerin (Nitrostat) 0.4 mg PRN Q5MIN PRN SL CHEST PAIN; Start 05/31/19 at 14:00 Aspirin (Children'S Aspirin) 81 mg DAILY PO ; Start 06/01/19 at 09:00; Status UNV Bupropion HCl (Wellbutrin Sr) 150 mg BID PO Last administered on 06/05/19 08:45; Start 05/31/19 at 21:00 Carvedilol (Coreg) 12.5 mg BIDWMEALS PO Last administered on 06/05/19 17:58; Start 05/31/19 at 17:00 Citalopram Hydrobromide (CeleXA) 10 mg DAILY PO Last administered on 06/05/19 08:45; Start 06/01/19 at 09:00 Isosorbide Mononitrate (Imdur) 30 mg BID PO Last administered on 06/05/19 13:50; Start 05/31/19 at 21:00 Lactobacillus Rhamnosus (Culturelle) 1 cap BID PO Last administered on 06/05/19 08:45; Start 05/31/19 at 21:00 Lisinopril (Prinivil) 5 mg DAILY PO Last administered on 06/05/19 13:50; Start 06/01/19 at 09:00 Ondansetron HCl (Zofran Odt) 4 mg PRN Q6HRS PRN PO NAUSEA/VOMITING, 1ST CHOICE PO Last administered on 06/04/19 13:57; Start 05/31/19 at 16:00 Promethazine HCl (Phenergan Syrup) 12.5 mg PRN Q6HRS PRN PO NAUSEA/VOMITING, 2ND CHOICE PO Last administered on 06/03/19at 13:42; Start 05/31/19 at 16:00 Clonazepam (KlonoPIN) 1 mg BID PO Last administered on 06/05/19at 08:45; Start 05/31/19 at 21:00 Famotidine (Pepcid) 20 mg QHS PO Last administered on 05/31/19at 21:10; Start 05/31/19 at 21:00; Stop 06/01/19 at 11:44; Status DC Rivaroxaban (Xarelto) 20 mg DAILYWSUP PO Last administered on 05/31/19at 18:20; Start 05/31/19 at 17:00; Stop 06/01/19 at 13:30; Status DC Ketorolac Tromethamine (Toradol 15mg Vial) 15 mg PRN Q6HRS PRN IV MILD PAIN 1-3 Last administered on 06/05/19at 08:45; Start 05/31/19 at 16:00; Stop 06/05/19 at 15:59; Status DC Pharmacy Consult (C.diff Med Screen By Rx) 1 each 1X MC ; Start 05/31/19 at 17:45; Status UNV Amiodarone HCl (Cordarone) 400 mg DAILY PO ; Start 06/01/19 at 10:45; Stop 06/01/19 at 10:55; Status DC Amiodarone HCl 900 mg/Dextrose 518 ml @ 0 mls/hr CONT PRN IV SEE I/O RECORD; Start 06/01/19 at 11:00; Status UNV Amiodarone HCl 450 mg/Dextrose 259 ml @ 17.267 mls/ hr CONT PRN IV SEE I/O RECORD Last administered on 06/02/19at 03:33; Start 06/01/19 at 11:00; Stop 06/02/19 at 12:34; Status DC Pantoprazole Sodium 80 mg/ Sodium Chloride 100 ml @ 10 mls/hr Q10H IV Last administered on 06/02/19at 03:33; Start 06/01/19 at 12:00; Stop 06/02/19 at 12:19; Status DC Vancomycin HCl (Vanco Per Pharmacy) 1 each PRN DAILY PRN MC SEE COMMENTS Last administered on 06/04/19at 13:18; Start 06/01/19 at 13:00; Stop 06/05/19 at 13:55; Status DC Piperacillin Sod/ Tazobactam Sod 3.375 gm/Sodium Chloride 50 ml @ 100 mls/hr Q6HRS IV Last administered on 06/02/19at 05:59; Start 06/01/19 at 13:00; Stop 06/02/19 at 07:40; Status DC Vancomycin HCl (Vancomycin Oral Solution) 125 mg BID PO Last administered on 06/05/19at 08:45; Start 06/01/19 at 13:00; Stop 06/11/19 at 21:01 Vancomycin HCl 1.75 gm/Sodium Chloride 500 ml @ 250 mls/hr 1X ONCE IV Last administered on 06/01/19at 13:06; Start 06/01/19 at 14:00; Stop 06/01/19 at 15:59; Status DC Lidocaine (Lidoderm) 1 patch DAILY TD Last administered on 06/05/19at 08:45; Start 06/01/19 at 13:45 Magnesium Sulfate 50 ml @ 25 mls/hr 1X ONCE IV Last administered on 06/01/19at 15:25; Start 06/01/19 at 13:45; Stop 06/01/19 at 15:44; Status DC Furosemide (Lasix) 20 mg 1X ONCE IVP ; Start 06/01/19 at 13:45; Stop 06/01/19 at 13:47; Status DC Vancomycin HCl 1.25 gm/Sodium Chloride 250 ml @ 167 mls/hr Q12H IV Last administered on 06/02/19at 12:19; Start 06/02/19 at 01:00; Stop 06/03/19 at 00:5 7; Status DC Vancomycin HCl (Vancomycin Trough Level) 1 each 1X ONCE MC Last administered on 06/03/19at 02:19; Start 06/03/19 at 00:30; Stop 06/03/19 at 00:31; Status DC Hydromorphone HCl (Dilaudid) 1 mg PRN Q4HRS PRN IV PAIN; Start 06/01/19 at 20:45; Status Cancel Pantoprazole Sodium (Protonix) 40 mg DAILYAC PO Last administered on 06/05/19at 08:45; Start 06/02/19 at 13:00 Furosemide (Lasix) 20 mg DAILY PO Last administered on 06/05/19at 08:45; Start 06/02/19 at 12:45 Amiodarone HCl (Cordarone) 400 mg DAILY PO Last administered on 06/05/19at 08:45; Start 06/02/19 at 12:30 Vancomycin HCl 1.25 gm/Sodium Chloride 250 ml @ 167 mls/hr Q18H IV ; Start 06/03/19 at 01:30; Stop 06/03/19 at 01:18; Status DC Vancomycin HCl (Vancomycin Trough Level) 1 each 1X ONCE MC Last administered on 06/04/19at 17:26; Start 06/04/19 at 11:30; Stop 06/04/19 at 11:31; Status DC Vancomycin HCl 1.25 gm/Sodium Chloride 250 ml @ 167 mls/hr Q18H IV Last administered on 06/05/19at 05:58; Start 06/03/19 at 18:00; Stop 06/05/19 at 1 3:56; Status DC Influenza Virus Vaccine Quadrival (Afluria Quad 2019-20 (3yr Up) Syringe) 0.5 ml ONCE ONCE VAX IM Last administered on 06/03/19at 17:28; Start 06/03/19 at 17:00; Stop 06/03/19 at 17:01; Status DC Oxycodone HCl (Roxicodone) 5 mg PRN Q6HRS PRN PO PAIN Last administered on 06/05/19at 13:50; Start 06/04/19 at 12:00 Linezolid (Zyvox) 600 mg BID PO ; Start 06/05/19 at 21:00; Stop 06/10/19 at 09:01 Ketorolac Tromethamine (Toradol 15mg Vial) 15 mg PRN Q6HRS PRN IV PAIN Last administered on 06/05/19at 16:55; Start 06/05/19 at 16:45; Stop 06/10/19 at 16:44 Active Scripts Active Culturelle (Lactobacillus Rhamnosus Gg) 1 Each Cap.sprink 1 Cap PO BID 30 Days Vancomycin Hcl 500 Mg Vial 125 Mg PO [id number] 14 Days Ondansetron Odt (Ondansetron) 4 Mg Tab.rapdis 4 Mg PO PRN Q6HRS PRN 30 Days Reported Ranitidine Hcl 300 Mg Tablet 1 Tab PO QHS Aspirin 81 Mg Tab.chew 1 Tab PO DAILY Clonazepam 1 Mg Tablet 1 Mg PO BID Isosorbide Mononitrate Er (Isosorbide Mononitrate) 30 Mg Tab.er.24h 30 Mg PO BID Citalopram Hbr (Citalopram Hydrobromide) 10 Mg Tablet 10 Mg PO DAILY Promethazine Hcl 6.25 Mg/5 Ml Syrup 10 Ml PO PRN Q6HRS PRN Coreg (Carvedilol) 12.5 Mg Tablet 1 Tab PO BID Lisinopril 5 Mg Tablet 1 Tab PO DAILY Xarelto (Rivaroxaban) 20 Mg Tablet 20 Mg PO DAILY Wellbutrin Sr (Bupropion Hcl) 150 Mg Tablet.er 1 Tab PO BID Vitals/I & O Vital Sign - Last 24 Hours 06/04/19 06/04/19 06/04/19 06/04/19 19:25 20:03 20:04 20:57 Temp 97.6 97.6 Pulse 71 71 Resp 18 B/P (MAP) 116/68 (84) 116/68 Pulse Ox 92 92 O2 Delivery Nasal Cannula Nasal Cannula Nasal Cannula O2 Flow Rate 2.0 2.0 2.0 06/04/19 06/04/19 06/04/19 06/05/19 20:57 22:28 22:45 02:50 Temp 98.3 98.2 98.3 98.2 Pulse 73 72 Resp 18 18 B/P (MAP) 106/56 (73) 94/66 (75) Pulse Ox 92 92 92 92 O2 Delivery Nasal Cannula Nasal Cannula Nasal Cannula Nasal Cannula O2 Flow Rate 2.0 2.0 2.0 2.0 06/05/19 06/05/19 06/05/19 06/05/19 07:00 08:00 08:45 08:45 Temp 98.2 98.2 Pulse 64 63 63 Resp 18 B/P (MAP) 109/69 (82) 109/69 Pulse Ox 94 O2 Delivery Room Air Nasal Cannula O2 Flow Rate 2.0 06/05/19 06/05/19 06/05/19 06/05/19 11:00 13:50 13:50 13:50 Temp 97.8 97.8 Pulse 63 63 63 Resp 18 B/P (MAP) 124/64 (84) 124/64 124/64 Pulse Ox 93 93 O2 Delivery Room Air Nasal Cannula O2 Flow Rate 2.0 06/05/19 06/05/19 06/05/19 06/05/19 15:00 15:29 16:30 17:40 Temp 97.9 97.9 Pulse 69 Resp 18 B/P (MAP) 121/59 (79) Pulse Ox 96 93 93 93 O2 Delivery Room Air Nasal Cannula Nasal Cannula Nasal Cannula O2 Flow Rate 2.0 2.0 2.0 06/05/19 17:58 Pulse 69 B/P (MAP) 121/59 Intake and Output 06/04/19 06/04/19 06/05/19 15:00 23:00 07:00 Intake Total 240 ml 800 ml 200 ml Balance 240 ml 800 ml 200 ml Nutrition Consultation Dietary Evaluation: Recommendations by RD: Increase Calorie Intake Comments: Continue w/ADA/GI soft diet as ordered, honor food preferences, and provide snacks as requested; will not add cardiac restriction at this time to promote PO intake. Anticipate pt to meet nutrition needs via PO intake of meals at this time Expected Outcomes/Goals: diet advancement - met, new goal established New goal 06/05: PO intake to meet >75% est needs Interpretation of weight loss: >7.5% in 3 months Malnutrition Findings: Food and Nutrition Intake (Mod: <75% est energy req 7days Weight Status: Overweight WILLIAM SOTELO MD Jun 05, 2019 19:19
[2019-06-05 20:10] VITALS: BP 101/60
[2019-06-05] MEDS: ATORVASTATIN CALCIUM 40 MG TABLET. PO SCH (21:47)
[2019-06-05] MEDS: LINEZOLID 600 MG TABLET PO SCH (21:47)
[2019-06-05 23:30] VITALS: BP 102/58
[2019-06-06] VITALS (7 sets, daily range): BP systolic 79–109; BP diastolic 50–66
[2019-06-06] MEDS: KETOROLAC 15 MG/ML VIAL. IV PRN ×2 (02:46→10:22)
[2019-06-06] MEDS: clonazePAM 0.5 MG TABLET PO SCH ×2 (08:51→21:32)
[2019-06-06] MEDS: ASPIRIN ENTERIC COATED 81 MG TABLET.DR. PO SCH (08:51)
[2019-06-06] MEDS: CARVEDILOL 12.5 MG TABLET. PO SCH ×2 (08:52→17:38)
[2019-06-06] MEDS: ISOSORBIDE MONONITRATE ER 30 MG TAB.ER.24H PO SCH ×2 (08:52→21:32)
[2019-06-06] MEDS: PANTOPRAZOLE 40 MG TABLET.DR. PO SCH (08:52)
[2019-06-06] MEDS: LACTOBACILLUS RHAMNOSUS GG 1 CAPSULE. PO SCH ×2 (08:52→21:33)
[2019-06-06] MEDS: LISINOPRIL 5 MG TABLET. PO SCH (08:52)
[2019-06-06] MEDS: FUROSEMIDE 20 MG TABLET PO SCH (08:53)
[2019-06-06] MEDS: CLOPIDOGREL BISULFATE 75 MG TABLET PO SCH (08:53)
[2019-06-06] MEDS: LINEZOLID 600 MG TABLET PO SCH ×2 (08:53→21:34)
[2019-06-06] MEDS: CITALOPRAM 10 MG TABLET. PO SCH (08:53)
[2019-06-06] MEDS: buPROPion SR 150 MG TABLET.SA PO SCH ×2 (08:53→21:33)
[2019-06-06] MEDS: VANCOMYCIN 125 MG/2.5 ML ORAL SOLUTION. PO SCH ×2 (08:54→21:34)
[2019-06-06] MEDS: LIDOCAINE (700MG/PATCH) PATCH. TD SCH (08:54)
[2019-06-06] MEDS: AMIODARONE HCL 200 MG TABLET. PO SCH (08:54)
--- NOTE | 2019-06-06 08:55 | PDOC ---
Infectious Disease Note Subjective Subjective Feeling better ROS ROS no n/v/d/sob Vital Sign Vital Signs Vital Signs Date Time Temp Pulse Resp B/P (MAP) Pulse Ox O2 Delivery O2 Flow Rate FiO2 06/06/19 07:00 97.9 67 18 107/53 (71) 93 Room Air 97.9 06/06/19 03:45 2.0 Physical Exam PHYSICAL EXAM GENERAL: Propped up in bed, alert, eating HEENT: Pupils are equal and reactive. Normal conjunctivae. Oral cavity, pharynx dry. NECK: Supple LUNGS: Clear to auscultation bilaterally. HEART: S1, S2, regular ABDOMEN: Soft nontender EXTREMITIES: Without clubbing, cyanosis or gross edema. SKIN: Warm to touch without signs of rash. NEUROLOGIC: Nonfocal. PIVs Labs Lab Laboratory Tests Test 06/05/19 12:22 06/05/19 17:34 06/05/19 21:18 06/06/19 07:57 Glucose (Fingerstick) 127 mg/dL (70-99) 154 mg/dL (70-99) 145 mg/dL (70-99) 104 mg/dL (70-99) Micro BLOOD CULTURE LC Final Preliminary report Final report BLD CULT RESULT 1 Final Comment Coagulase negative Staphylococcus species. Performed at: [facility] [id number], [place], [place] [id number] Glucose And Syrup Weigher: JENNIFER Vasques MD, Phone: [phone] Staphylococcus epidermidis Based on resistance to oxacillin this isolate would be resistant to all currently available beta-lactam antimicrobial agents, with the exception of the newer cephalosporins with anti-MRSA activity, such as Ceftaroline ANTIMICROBIAL SUSCEPTIBILITY Final Comment S = Susceptible; I = Intermediate; R = Resistant P = Positive; N = Negative MICS are expressed in micrograms per mL Antibiotic RSLT#1 RSLT#2 RSLT#3 RSLT#4 Ciprofloxacin S<=0.5 Clindamycin S<=0.25 Erythromycin S<=0.25 Gentamicin S<=0.5 Levofloxacin S =0.25 Linezolid S =1 Oxacillin R>=4 Penicillin R>=0.5 Quinupristin/Dalfopristin S<=0.25 Rifampin S<=0.5 Tetracycline S =2 Trimethoprim/Sulfa S<=10 Vancomycin S =2 Performed at: [facility] Objective Assessment GPC sepsis 05/31 POA,, coag neg staph STEMI Urinary retention s/p Wilson. UA + squamous epi cells, GNR in urine S/p Successful PCI/drug eluting stent placement to the left circumflex artery and successful PTCA to the obtuse marginal branch 05/31 Leukocytosis - better Anemia - getting PRBCs S/p cardiac arrest from ventricular fibrillation and underwent CPR/defibrillations and successful conversion to sinus rhythm - 05/31 H/o C-diff April 20 h/o E. coli and Giardia on stool panel treated in January 2019 at [facility] Plan Plan of Care po zyvox for 5 days PO BID Vanc for 10 days Probiotics F/u labs and cults ok to d/c to SNF ROSALINE SINGH MD Jun 06, 2019 08:55
[2019-06-06] MEDS: ONDANSETRON ODT 4 MG TAB.RAPDIS. PO PRN (09:21)
[2019-06-06] MEDS: oxyCODONE IR 5 MG TABLET PO PRN ×3 (09:21→23:44)
[2019-06-06] MEDS ORDERED: CLOP75TA PO (10:19)
--- NOTE | 2019-06-06 11:21 | PDOC ---
[facility] [facility] PROGRESS NOTE Chief Complaint Chief Complaint Nausea, vomiting, diarrhea, chest pain STEMI Sepsis Acute systolic CHF S/p Successful PCI/drug eluting stent placement to the left circumflex artery and successful PTCA to the obtuse marginal branch 05/31 Acute blood loss anemia, upper GI bleed, possible gastritis S/p cardiac arrest from ventricular fibrillation and underwent CPR/defibrillations and successful conversion to sinus rhythm - 05/31 Chest pain from chest compressions History of Present Illness History of Present Illness 06/06/19 Pt was seen and examined at bedside No acute distress Complains about chest pain from compressions and blood in the stool Vitals/I&O Vitals/I&O: Vital Signs Date Time Temp Pulse Resp B/P (MAP) Pulse Ox O2 Delivery O2 Flow Rate FiO2 06/06/19 10:22 93 Nasal Cannula 2.0 06/06/19 08:55 67 107/53 06/06/19 07:00 97.9 18 97.9 I & O 06/05/19 06/05/19 06/06/19 15:00 23:00 07:00 Intake Total 200 ml Balance 200 ml Physical Exam Physical Exam: GENERAL: Propped up in bed, alert, eating HEENT: Pupils are equal and reactive. Normal conjunctivae. Oral cavity, pharynx dry. NECK: Supple LUNGS: Clear to auscultation bilaterally. HEART: S1, S2, regular ABDOMEN: Soft nontender EXTREMITIES: Without clubbing, cyanosis or gross edema. SKIN: Warm to touch without signs of rash. NEUROLOGIC: Nonfocal. PIVs General: Alert, Oriented X3, mild distress Heart: Regular rate, Other (heart rate is irregular) Lungs: Clear Abdomen: Soft Extremities: No cyanosis, No edema Skin: No rashes Labs Labs: Laboratory Tests Test 06/05/19 12:22 06/05/19 17:34 06/05/19 21:18 06/06/19 07:57 Glucose (Fingerstick) 127 mg/dL (70-99) 154 mg/dL (70-99) 145 mg/dL (70-99) 104 mg/dL (70-99) Review of Systems Review of Systems: No nausea, no vomiting No headache, no loss of vision Assessment and Plan Assessmemt and Plan Problems Medical Problems: (1) ABDULLAHI (acute kidney injury) Status: Acute (2) Anemia Status: Acute (3) Atrial fibrillation with RVR Status: Acute (4) CAD (coronary artery disease) Status: Chronic (5) Coffee ground emesis Status: Acute (6) GERD (gastroesophageal reflux disease) Status: Chronic (7) Hemorrhoids Status: Chronic (8) Hiatal hernia Status: Chronic (9) Intractable nausea and vomiting Status: Acute (10) Schatzki's ring Status: Chronic (11) Severe sepsis Status: Acute (12) STEMI (ST elevation myocardial infarction) Status: Acute (13) Upper GI bleeding Status: Acute (14) Ventricular fibrillation Status: Acute Assessment STEMI ABDULLAHI Anemia Ventricular fibrillation Acute systolic CHF S/p stent placement Plan Cardiac monitoring IV vancomycin Meds per cardiology input Serial enzymes/EKG Labs Wait further input from GI PPI PT/OT Full code Home health Discharge disposition pending Comment Review of Relevant I have reviewed the following items mumtaz (where applicable) has been applied. Medications: Current Medications Medications (Trade) Dose Ordered Sig/Lelia Route PRN Reason Start Time Stop Time Status Last Admin Dose Admin Linezolid (Zyvox) 600 mg BID PO 06/05/19 21:00 06/10/19 09:01 06/06/19 08:55 Ketorolac Tromethamine (Toradol 15mg Vial) 15 mg PRN Q6HRS PRN IV MILD PAIN 1-3 06/05/19 16:45 06/10/19 16:44 06/06/19 10:22 RACHEL RODRIGUEZ III DO Jun 06, 2019 11:20
[2019-06-06] MEDS ORDERED: LINE600T37 PO (12:43)
[2019-06-06] MEDS ORDERED: VANC125C3 PO (12:47)
[2019-06-06] MEDS ORDERED: AMIO200T4 PO (13:17)
[2019-06-06] MEDS ORDERED: ATOR40TA59 PO (13:20)
[2019-06-06] MEDS ORDERED: PANT20TA2 PO (13:20)
--- NOTE | 2019-06-06 13:54 | PDOC ---
Subjective: Subjective: Would like to stay another night. One black stool occurred in shower without warning - "blob" - then occurred twice more - staff didn't see because housekeeping flushed. Has an appetite which pleases her. Low back pain. Objective: Objective: D/w nurse earlier - has discharge orders but had 2-3 black stools since yesterday - last Hgb 06/04. Vital Signs: Vital Signs Date Time Temp Pulse Resp B/P (MAP) Pulse Ox O2 Delivery O2 Flow Rate FiO2 06/06/19 11:00 97.6 60 109/66 (80) 98 97.6 06/06/19 10:22 Nasal Cannula 2.0 06/06/19 07:00 18 Labs: Laboratory Tests Test 06/05/19 17:34 06/05/19 21:18 06/06/19 07:57 06/06/19 12:08 Glucose (Fingerstick) 154 mg/dL 145 mg/dL 104 mg/dL 132 mg/dL PE: GEN: NAD - in recliner watching tv LUNGS: CTAB HEART: RRR ABD: S/ND/NT NEURO/PSYCH: A & O �3 A/P: STEMI s/p stent placement - on Plavix and ASA Coffee-ground emesis (no recurrence), anemia, "black stools" - had both EGD and colonoscopy in 01/2019 UTI, bacteremia -- Check Hgb. Continue PPI - left Rx w/ nurse to give to pt at discharge. Okay w/ GI to hold discharge until tomorrow. FRANCISCO JAVIER TOBIAS Jun 06, 2019 13:54
[2019-06-06 13:57] LABS: HEMOGLOBIN 7.8 g/dL (12.0-15.5)
--- NOTE | 2019-06-06 19:26 | DS ---
DATE OF DISCHARGE: 06/06/2019 ADMISSION DIAGNOSIS: Acute myocardial infarction. DISCHARGE DIAGNOSIS: Resolving acute myocardial infarction with status post cardiac stent to the left anterior descending (this is her 13th stent). HOSPITAL COURSE: The patient is a pleasant 63-year-old female, who presented with nausea, vomiting, and chest pain. While in the emergency room, she had a brief code. They had to do compressions and shock her. We took her to the Industrial Engineer. She got a stent to the left anterior descending. Over the past few days, she has improved. She had a little nausea and possibility of some gastrointestinal bleeding, but Gastroenterology did not feel like there was anything serious at this time. I saw her and examined this morning. Heart tones were normal. Lungs were clear. We plan to discharge with close outpatient followup. DISPOSITION: Home. ACTIVITY: As tolerated. DIET: Low-sodium diet. MEDICATIONS: Please see the MRAD. TOTAL TIME: 32 minutes. RACHEL RODRIGUEZ DO DR: KAITY/michael JOB#: [id number] / [id number]
[2019-06-06] MEDS: ATORVASTATIN CALCIUM 40 MG TABLET. PO SCH (21:33)
[2019-06-07 03:20] VITALS: BP 112/57
[2019-06-07 05:20] LABS: CALCIUM 8.2 mg/dL (8.5-10.1); CREATININE 1.5 mg/dL (0.6-1.0); GFR 35.1; POTASSIUM 4.4 mmol/L (3.5-5.1)
[2019-06-07 06:21] LABS: HEMOGLOBIN 7.8 g/dL (12.0-15.5); RED BLOOD COUNT 2.64 x10^6/uL (3.50-5.40); RED CELL DISTRIBUTION WIDTH 17.7 % (11.5-14.5); WHITE BLOOD COUNT 7.5 x10^3/uL (4.0-11.0)
[2019-06-07 07:00] VITALS: BP 121/63
[2019-06-07] MEDS: PANTOPRAZOLE 40 MG TABLET.DR. PO SCH (07:59)
[2019-06-07] MEDS: ACETAMINOPHEN 325 MG TABLET. PO PRN ×2 (07:59→16:33)
[2019-06-07] MEDS: ONDANSETRON ODT 4 MG TAB.RAPDIS. PO PRN (08:44)
[2019-06-07] MEDS: LACTOBACILLUS RHAMNOSUS GG 1 CAPSULE. PO SCH (08:45)
[2019-06-07] MEDS: FUROSEMIDE 20 MG TABLET PO SCH (08:45)
[2019-06-07] MEDS: LINEZOLID 600 MG TABLET PO SCH (08:45)
[2019-06-07] MEDS: clonazePAM 0.5 MG TABLET PO SCH (08:45)
[2019-06-07] MEDS: buPROPion SR 150 MG TABLET.SA PO SCH (08:46)
[2019-06-07] MEDS: LISINOPRIL 5 MG TABLET. PO SCH (08:46)
[2019-06-07] MEDS: ISOSORBIDE MONONITRATE ER 30 MG TAB.ER.24H PO SCH (08:46)
[2019-06-07] MEDS: ASPIRIN ENTERIC COATED 81 MG TABLET.DR. PO SCH (08:46)
[2019-06-07] MEDS: CLOPIDOGREL BISULFATE 75 MG TABLET PO SCH (08:46)
[2019-06-07] MEDS: AMIODARONE HCL 200 MG TABLET. PO SCH (08:46)
[2019-06-07] MEDS: CARVEDILOL 12.5 MG TABLET. PO SCH (08:47)
[2019-06-07] MEDS: CITALOPRAM 10 MG TABLET. PO SCH (08:47)
[2019-06-07] MEDS: LIDOCAINE (700MG/PATCH) PATCH. TD SCH (08:48)
--- NOTE | 2019-06-07 10:30 | PDOC ---
Infectious Disease Note Subjective Subjective Feeling better ROS ROS no n/v/d/ Vital Sign Vital Signs Vital Signs Date Time Temp Pulse Resp B/P (MAP) Pulse Ox O2 Delivery O2 Flow Rate FiO2 06/07/19 08:48 70 121/63 06/07/19 08:00 Nasal Cannula 2.0 06/07/19 07:00 97.8 18 93 97.8 Physical Exam PHYSICAL EXAM GENERAL: Propped up in bed, alert, eating HEENT: Pupils are equal and reactive. Normal conjunctivae. Oral cavity, pharynx dry. NECK: Supple LUNGS: Clear to auscultation bilaterally. HEART: S1, S2, regular ABDOMEN: Soft nontender EXTREMITIES: Without clubbing, cyanosis or gross edema. SKIN: Warm to touch without signs of rash. NEUROLOGIC: Nonfocal. PIVs Labs Lab Laboratory Tests Test 06/06/19 12:08 06/06/19 13:40 06/06/19 16:57 06/06/19 21:25 Glucose (Fingerstick) 132 mg/dL (70-99) 120 mg/dL (70-99) 136 mg/dL (70-99) Hemoglobin 7.8 g/dL (12.0-15.5) Hematocrit 23.0 % (36.0-47.0) Mean Corpuscular Hemoglobin Concent 34 g/dL (31-37) Test 06/07/19 04:35 06/07/19 07:35 White Blood Count 7.5 x10^3/uL (4.0-11.0) Red Blood Count 2.64 x10^6/uL (3.50-5.40) Hemoglobin 7.8 g/dL (12.0-15.5) Hematocrit 23.0 % (36.0-47.0) Mean Corpuscular Volume 87 fL (79-100) Mean Corpuscular Hemoglobin 30 pg (25-35) Mean Corpuscular Hemoglobin Concent 34 g/dL (31-37) Red Cell Distribution Width 17.7 % (11.5-14.5) Platelet Count 208 x10^3/uL (140-400) Sodium Level 139 mmol/L (136-145) Potassium Level 4.4 mmol/L (3.5-5.1) Chloride Level 107 mmol/L (98-107) Carbon Dioxide Level 21 mmol/L (21-32) Anion Gap 11 (6-14) Blood Urea Nitrogen 16 mg/dL (7-20) Creatinine 1.5 mg/dL (0.6-1.0) Estimated GFR (Cockcroft-Gault) 35.1 Glucose Level 115 mg/dL (70-99) Calcium Level 8.2 mg/dL (8.5-10.1) Glucose (Fingerstick) 105 mg/dL (70-99) Micro BLOOD CULTURE LC Final Preliminary report Final report BLD CULT RESULT 1 Final Comment Coagulase negative Staphylococcus species. Performed at: [facility] [address], [place], [place] [id number] Automobile Glass Technician: JENNIFER Vasques MD, Phone: [phone] Staphylococcus epidermidis Based on resistance to oxacillin this isolate would be resistant to all currently available beta-lactam antimicrobial agents, with the exception of the newer cephalosporins with anti-MRSA activity, such as Ceftaroline ANTIMICROBIAL SUSCEPTIBILITY Final Comment S = Susceptible; I = Intermediate; R = Resistant P = Positive; N = Negative MICS are expressed in micrograms per mL Antibiotic RSLT#1 RSLT#2 RSLT#3 RSLT#4 Ciprofloxacin S<=0.5 Clindamycin S<=0.25 Erythromycin S<=0.25 Gentamicin S<=0.5 Levofloxacin S =0.25 Linezolid S =1 Oxacillin R>=4 Penicillin R>=0.5 Quinupristin/Dalfopristin S<=0.25 Rifampin S<=0.5 Tetracycline S =2 Trimethoprim/Sulfa S<=10 Vancomycin S =2 Performed at: [facility] Objective Assessment GPC sepsis 05/31 POA,, coag neg staph STEMI Urinary retention s/p Wilson. UA + squamous epi cells, GNR in urine S/p Successful PCI/drug eluting stent placement to the left circumflex artery and successful PTCA to the obtuse marginal branch 05/31 Leukocytosis - better Anemia - getting PRBCs S/p cardiac arrest from ventricular fibrillation and underwent CPR/defibrillations and successful conversion to sinus rhythm - 05/31 H/o C-diff April 20 h/o E. coli and Giardia on stool panel treated in January 2019 at [facility] Plan Plan of Care pt is treated now for coag neg staph PO BID Vanc for 10 days Probiotics F/u labs and cults ok to d/c ROSALINE SINGH MD Jun 07, 2019 10:30
[2019-06-07 11:00] VITALS: BP 103/59
[2019-06-07] MEDS: VANCOMYCIN 125 MG/2.5 ML ORAL SOLUTION. PO SCH (11:02)
--- NOTE | 2019-06-07 11:02 | PDOC ---
Objective: Objective: D/w nurse - probable DC today, brown stools now. Vital Signs: Vital Signs Date Time Temp Pulse Resp B/P (MAP) Pulse Ox O2 Delivery O2 Flow Rate FiO2 06/07/19 08:48 70 121/63 06/07/19 08:00 Nasal Cannula 2.0 06/07/19 07:00 97.8 18 93 97.8 Labs: Laboratory Tests Test 06/06/19 12:08 06/06/19 13:40 06/06/19 16:57 06/06/19 21:25 Glucose (Fingerstick) 132 mg/dL 120 mg/dL 136 mg/dL Hemoglobin 7.8 g/dL Hematocrit 23.0 % Mean Corpuscular Hemoglobin Concent 34 g/dL Test 06/07/19 04:35 06/07/19 07:35 White Blood Count 7.5 x10^3/uL Red Blood Count 2.64 x10^6/uL Hemoglobin 7.8 g/dL Hematocrit 23.0 % Mean Corpuscular Volume 87 fL Mean Corpuscular Hemoglobin 30 pg Mean Corpuscular Hemoglobin Concent 34 g/dL Red Cell Distribution Width 17.7 % Platelet Count 208 x10^3/uL Sodium Level 139 mmol/L Potassium Level 4.4 mmol/L Chloride Level 107 mmol/L Carbon Dioxide Level 21 mmol/L Anion Gap 11 Blood Urea Nitrogen 16 mg/dL Creatinine 1.5 mg/dL Estimated GFR (Cockcroft-Gault) 35.1 Glucose Level 115 mg/dL Calcium Level 8.2 mg/dL Glucose (Fingerstick) 105 mg/dL PE: GEN: NAD - sleeping in chair NEURO/PSYCH: not awakened A/P: STEMI s/p stent placement - on Plavix and ASA Coffee-ground emesis (no recurrence), "black stools" (resolved) Anemia - stable UTI, bacteremia -- Okay to DC on PPI (Rx provided yesterday) per GI. FRANCISCO JAVIER TOBIAS Jun 07, 2019 11:02
[2019-06-07] MEDS: oxyCODONE IR 5 MG TABLET PO PRN (11:05)
--- NOTE | 2019-06-07 11:27 | PDOC ---
CARDIO Progress Notes Date and Time Date of Service 06/07/2019 Time of Evaluation 1120 Subjective Subjective: No Chest Pain, No shortness of breath, No Palpitations, Other (feels better today) Vitals Vitals Vital Signs Date Time Temp Pulse Resp B/P (MAP) Pulse Ox O2 Delivery O2 Flow Rate FiO2 06/07/19 11:05 93 Room Air 06/07/19 08:48 70 121/63 06/07/19 08:00 2.0 06/07/19 07:00 97.8 18 97.8 Weight Weight [ ] Input and Output Intake and Output Intake and Output 06/07/19 07:00 Intake Total 1490 ml Balance 1490 ml Intake Oral 1490 ml # Voids 2 # Bowel Movements 1 Laboratory Labs Laboratory Tests Test 06/06/19 12:08 06/06/19 13:40 06/06/19 16:57 06/06/19 21:25 Glucose (Fingerstick) 132 mg/dL (70-99) 120 mg/dL (70-99) 136 mg/dL (70-99) Hemoglobin 7.8 g/dL (12.0-15.5) Hematocrit 23.0 % (36.0-47.0) Mean Corpuscular Hemoglobin Concent 34 g/dL (31-37) Test 06/07/19 04:35 06/07/19 07:35 White Blood Count 7.5 x10^3/uL (4.0-11.0) Red Blood Count 2.64 x10^6/uL (3.50-5.40) Hemoglobin 7.8 g/dL (12.0-15.5) Hematocrit 23.0 % (36.0-47.0) Mean Corpuscular Volume 87 fL (79-100) Mean Corpuscular Hemoglobin 30 pg (25-35) Mean Corpuscular Hemoglobin Concent 34 g/dL (31-37) Red Cell Distribution Width 17.7 % (11.5-14.5) Platelet Count 208 x10^3/uL (140-400) Sodium Level 139 mmol/L (136-145) Potassium Level 4.4 mmol/L (3.5-5.1) Chloride Level 107 mmol/L (98-107) Carbon Dioxide Level 21 mmol/L (21-32) Anion Gap 11 (6-14) Blood Urea Nitrogen 16 mg/dL (7-20) Creatinine 1.5 mg/dL (0.6-1.0) Estimated GFR (Cockcroft-Gault) 35.1 Glucose Level 115 mg/dL (70-99) Calcium Level 8.2 mg/dL (8.5-10.1) Glucose (Fingerstick) 105 mg/dL (70-99) Microbiology Micro Microbiology 05/31/19 Blood Culture - Final, Complete NO GROWTH AFTER 5 DAYS 05/31/19 Urine Culture - Final, Complete 05/31/19 Urine Culture Result 1 (SUZETTE) - Final, Complete 05/31/19 Antimicrobic Susceptibility - Final, Complete Physical Exam HEENT: Neck Supple W Full Motion Chest: Symmetric LUNGS: Other (diminished bases) Heart: RRR (SR) Abdomen: Soft N/T Extremities: No Calf Tenderness, Other (trace LE edema) Neurology: alert, oriented, follow commands Assessment Assessment 1. Brief Vfib arrest: shock x1, AFIB RVR then SR. 2. Acute inferior AR: S/P PCI/ANABEL to LCx and PTCA to OM 3. Acute GI bleed, +gastroccult. unclear source, Hgb stable. 5. Nausea/vomiting/hematemesis/diarrhea: with hx of gastroparesis. None further GI following 6. DM2 7. Acute anemia: Hgb stable at 7.8 post transfusion 8. ICM/systolic CHF: EF 40%, appears compensated 9. PAFIB: maintaining SR 10. HTN: controlled Recommendations 1. Continue BB, ACEi, lasix therapy. Continue with PPI. Daily wt. 2L FR 2. Amiodarone. No xarelto. Continue ASA/plavix. Statin 3. Home with home health. extra dose lasix today 4. MCOT as oupt to note AFIB burden. follow up as scheduled. 5. Cardiac rehab. KRISTA RUIZ APRN Jun 07, 2019 11:27
--- NOTE | 2019-06-07 11:59 | RAD ---
Single AP view of the chest. Comparison: None. Indication: CHF Findings: The heart is enlarged. There is no pneumothorax or effusion. There is very mild pulmonary vascular congestion. Impression: 1. Cardiomegaly with only very mild pulmonary vascular congestion identified. Electronically signed by: Justo Link MD (06/07/2019 11:56 AM) [facility]
[2019-06-07] MEDS ORDERED: FUROSEMIDE 20 MG/2 ML VIAL. IVP ONE (12:15)
--- NOTE | 2019-06-07 13:21 | PDOC ---
[employer] [facility] PROGRESS NOTE Chief Complaint Chief Complaint Nausea, vomiting, diarrhea, chest pain STEMI Sepsis Acute systolic CHF S/p Successful PCI/drug eluting stent placement to the left circumflex artery and successful PTCA to the obtuse marginal branch 05/31 Acute blood loss anemia, upper GI bleed, possible gastritis S/p cardiac arrest from ventricular fibrillation and underwent CPR/defibrillations and successful conversion to sinus rhythm - 05/31 Chest pain from chest compressions History of Present Illness History of Present Illness 06/07/19 Pt seen and examined sitting upright Appears well and energetic No distress Stools are now brown Pt is eager to be discharged D/w RN 06/06/19 Pt was seen and examined at bedside No acute distress Complains about chest pain from compressions and blood in the stool Vitals/I&O Vitals/I&O: Vital Signs Date Time Temp Pulse Resp B/P (MAP) Pulse Ox O2 Delivery O2 Flow Rate FiO2 06/07/19 12:12 94 Room Air 06/07/19 11:00 97.9 69 18 103/59 (74) 2.0 97.9 I & O 06/06/19 06/06/19 06/07/19 15:00 23:00 07:00 Intake Total 690 ml 800 ml Balance 690 ml 800 ml Physical Exam Physical Exam: GENERAL: Propped up in bed, alert, eating HEENT: Pupils are equal and reactive. Normal conjunctivae. Oral cavity, pharynx dry. NECK: Supple LUNGS: Clear to auscultation bilaterally. HEART: S1, S2, regular ABDOMEN: Soft nontender EXTREMITIES: Without clubbing, cyanosis or gross edema. SKIN: Warm to touch without signs of rash. NEUROLOGIC: Nonfocal. PIVs General: Alert, Oriented X3, mild distress Heart: Regular rate, Other (heart rate is irregular) Lungs: Clear Abdomen: Soft Extremities: No cyanosis, No edema Skin: No rashes Labs Labs: Laboratory Tests Test 06/06/19 13:40 06/06/19 16:57 06/06/19 21:25 06/07/19 04:35 Hemoglobin 7.8 g/dL (12.0-15.5) 7.8 g/dL (12.0-15.5) Hematocrit 23.0 % (36.0-47.0) 23.0 % (36.0-47.0) Mean Corpuscular Hemoglobin Concent 34 g/dL (31-37) 34 g/dL (31-37) Glucose (Fingerstick) 120 mg/dL (70-99) 136 mg/dL (70-99) White Blood Count 7.5 x10^3/uL (4.0-11.0) Red Blood Count 2.64 x10^6/uL (3.50-5.40) Mean Corpuscular Volume 87 fL (79-100) Mean Corpuscular Hemoglobin 30 pg (25-35) Red Cell Distribution Width 17.7 % (11.5-14.5) Platelet Count 208 x10^3/uL (140-400) Sodium Level 139 mmol/L (136-145) Potassium Level 4.4 mmol/L (3.5-5.1) Chloride Level 107 mmol/L (98-107) Carbon Dioxide Level 21 mmol/L (21-32) Anion Gap 11 (6-14) Blood Urea Nitrogen 16 mg/dL (7-20) Creatinine 1.5 mg/dL (0.6-1.0) Estimated GFR (Cockcroft-Gault) 35.1 Glucose Level 115 mg/dL (70-99) Calcium Level 8.2 mg/dL (8.5-10.1) Test 06/07/19 07:35 06/07/19 11:59 Glucose (Fingerstick) 105 mg/dL (70-99) 142 mg/dL (70-99) Review of Systems Review of Systems: Pt denies headache Pt denies fever Assessment and Plan Assessmemt and Plan Problems Medical Problems: (1) ABDULLAHI (acute kidney injury) Status: Acute (2) Anemia Status: Acute (3) Atrial fibrillation with RVR Status: Acute (4) CAD (coronary artery disease) Status: Chronic (5) Coffee ground emesis Status: Acute (6) GERD (gastroesophageal reflux disease) Status: Chronic (7) Hemorrhoids Status: Chronic (8) Hiatal hernia Status: Chronic (9) Intractable nausea and vomiting Status: Acute (10) Schatzki's ring Status: Chronic (11) Severe sepsis Status: Acute (12) STEMI (ST elevation myocardial infarction) Status: Acute (13) Upper GI bleeding Status: Acute (14) Ventricular fibrillation Status: Acute Assessment STEMI ABDULLAHI Anemia Ventricular fibrillation Acute systolic CHF S/p stent placement Plan Discharge in progress Cardiac monitoring Meds per cardiology input Appreciate input from Cardiology, GI, and ID PPI PT/OT Full code Home health Comment Review of Relevant I have reviewed the following items mumtaz (where applicable) has been applied. RACHEL RODRIGUEZ III DO Jun 07, 2019 13:21
--- NOTE | 2019-06-07 13:22 | SNU/HH DC ---
DISCHARGE WITH HOME HEALTH DISCHARGE INFORMATION: Final Diagnosis: Problems Medical Problems: (1) ABDULLAHI (acute kidney injury) Status: Acute (2) Anemia Status: Acute (3) Atrial fibrillation with RVR Status: Acute (4) CAD (coronary artery disease) Status: Chronic (5) Coffee ground emesis Status: Acute (6) GERD (gastroesophageal reflux disease) Status: Chronic (7) Hemorrhoids Status: Chronic (8) Hiatal hernia Status: Chronic (9) Intractable nausea and vomiting Status: Acute (10) Schatzki's ring Status: Chronic (11) Severe sepsis Status: Acute (12) STEMI (ST elevation myocardial infarction) Status: Acute (13) Upper GI bleeding Status: Acute (14) Ventricular fibrillation Status: Acute Condition on Discharge: Stable CODE STATUS: Code Status: Full HOME HEALTH: Face to Face: I certify this patient is under my care and that I, or a nurse practitioner or physician's assistant spa manager working with me, had a face to face encounter that meets the physician face to face encounter requirements with this patient on []. Medical Complications: Other (cad) RN For Eval/Treatment: Yes Physical Therapy For: Evalulation/Treatment Occupational Therapy For: Evaluation/Treatment Home Health Aide For: Self-care RELOCATION SPECIALIST For: Community Resources Pt Meets Homebound Status: Extreme weakness w/ amb. POST DISCHARGE ORDERS: Activity Instructions for Disc: No restrictions Weight Bearing Status after Di: No restrictions DIET AFTER DISCHARGE: Cardiac CHECKS AFTER DISCHARGE: Checks after discharge: Check blood press - daily FOLLOW-UP: Follow up with: Cardiology in 4 weeks Follow Up With: Primary Care Physician 1-2 weeks TREATMENT/EQUIPMENT ORDERS: Adaptive Equipment Issued: None CERTIFICATION STATEMENT: Certification Statement: Certification Statement: Based on the above finding, I certify that this patient is confined to the home and needs intermittent long term care, physical therapy and/or speech therapy, or continues to need occupational therapy.~ This patient is under my care, and I have initiated the establishment of the plan of care.~ This patient will be followed by myself or a community physician who will periodically review the plan of care. Home Meds Active Scripts Clopidogrel Bisulfate (CLOPIDOGREL) 75 Mg Tablet, 75 MG PO DAILYWBKFT for new cardiac stent for 3 Days, #3 TAB Prov:CASTLE,NIAL K III DO 06/06/19 Lactobacillus Rhamnosus Gg (CULTURELLE) 1 Each Cap.sprink, 1 CAP PO BID for c- diff for 30 Days, #60 CAP Prov:LEAH GOLDMAN MD 05/09/19 Ondansetron (ONDANSETRON ODT) 4 Mg Tab.rapdis, 4 MG PO PRN Q6HRS PRN for NAUSEA/VOMITING for 30 Days, #60 TAB 5 Refills Prov:ELAINE CROOKS MD 01/28/19 Reported Medications Atorvastatin Calcium (ATORVASTATIN CALCIUM) 40 Mg Tablet, 40 MG PO HS for FOR CHOLESTEROL, #30 TAB 0 Refills 06/06/19 Pantoprazole Sodium (PROTONIX) 20 Mg Tablet.dr, 40 MG PO DAILY for GERD, TAB 06/06/19 Amiodarone Hcl (AMIODARONE HCL) 200 Mg Tablet, 400 MG PO DAILY for afib, TAB 06/06/19 Vancomycin Hcl (VANCOMYCIN HCL) 125 Mg Capsule, 125 MG PO BID for +BC for 10 Days, #20 CAP 06/06/19 Aspirin (ASPIRIN) 81 Mg Tab.chew, 1 TAB PO DAILY for TN hx, #90 TAB 3 Refills 05/05/19 Clonazepam (CLONAZEPAM) 1 Mg Tablet, 1 MG PO BID for anxiety, TAB 05/05/19 Isosorbide Mononitrate (ISOSORBIDE MONONITRATE ER) 30 Mg Tab.er.24h, 30 MG PO BID for high blood pressure, TAB.SR 01/25/19 Citalopram Hydrobromide (CITALOPRAM HBR) 10 Mg Tablet, 10 MG PO DAILY for depression, TAB 01/25/19 Promethazine Hcl (PROMETHAZINE HCL) 6.25 Mg/5 Ml Syrup, 10 ML PO PRN Q6HRS PRN for MIGRAINE HEADACHE, #400 ML 01/25/19 Carvedilol (COREG ) 12.5 Mg Tablet, 1 TAB PO BID for htn, #180 TAB 1 Refill 06/21/17 Lisinopril (LISINOPRIL) 5 Mg Tablet, 1 TAB PO DAILY for htn, #30 TAB 5 Refills 06/21/17 Bupropion Hcl (WELLBUTRIN SR) 150 Mg Tablet.er, 1 TAB PO BID for depression, #60 TAB 5 Refills 05/18/14 Discontinued Reported Medications Sitagliptin Phosphate (JANUVIA) 100 Mg Tablet, 1 TAB PO DAILY for diabetes, #30 TAB 5 Refills 01/25/19 RACHEL RODRIGUEZ III DO Jun 07, 2019 13:22
[2019-06-07 15:00] VITALS: BP 113/74
[2019-06-07] MEDS ORDERED: FURO20TA3 PO (15:28)
--- NOTE | 2019-06-09 14:48 | DS ---
DATE OF DISCHARGE: 06/07/2019 ADMISSION DIAGNOSES: Chest pain, nausea, vomiting, possible acute myocardial infarction. DISCHARGE DIAGNOSIS: Status post cardiac cath with her 13th stent placed. HOSPITAL COURSE: The patient is a pleasant middle-aged female, who is admitted with nausea and vomiting. Then, she developed chest pain in the ER. Then, she developed VFib. They had a brief code in the ER. She was taken emergently to the labor utilization superintendent and received her 13th stent to the LAD. The patient was observed for another day or two, then we discharged to home health. DISPOSITION: Home health. ACTIVITY: As tolerated. DIET: Low sodium. MEDICATIONS: Please see MRAD. TOTAL TIME: 32 minutes. RACHEL RODRIGUEZ DO DR: KAITY/michael JOB#: [id number] / [id number]
== END 2019-06-07 16:40 | disposition home health service (06) | DRG 853 ==
LOC: ER 08:35 → 1 WEST ICU 10:44 → 2 NORTH 06-04 08:10
PROVIDERS: ADMIT Internal Medicine; ATTEND Internal Medicine
PROC: 027034Z Dilation of Coronary Artery, One Artery with Drug-eluting Intraluminal Device, Percutaneous Approach (ICD-10-PCS; principal; 2019-05-31)
PROC: 02703ZZ Dilation of Coronary Artery, One Artery, Percutaneous Approach (ICD-10-PCS; 2019-05-31)
PROC: 4A023N7 Measurement of Cardiac Sampling and Pressure, Left Heart, Percutaneous Approach (ICD-10-PCS; 2019-05-31)
PROC: B2111ZZ Fluoroscopy of Multiple Coronary Arteries using Low Osmolar Contrast (ICD-10-PCS; 2019-05-31)
PROC: B2151ZZ Fluoroscopy of Left Heart using Low Osmolar Contrast (ICD-10-PCS; 2019-05-31)
PROC: 30233N1 Transfusion of Nonautologous Red Blood Cells into Peripheral Vein, Percutaneous Approach (ICD-10-PCS; 2019-05-31)
PROC: 5A12012 Performance of Cardiac Output, Single, Manual (ICD-10-PCS; 2019-05-31)
PROC: 5A2204Z Restoration of Cardiac Rhythm, Single (ICD-10-PCS; 2019-05-31)
DX: A41.89 Other specified sepsis (principal); I21.19 ST elevation (STEMI) myocardial infarction involving other coronary artery of inferior wall; I49.01 Ventricular fibrillation; I50.21 Acute systolic (congestive) heart failure; I46.2 Cardiac arrest due to underlying cardiac condition; N17.9 Acute kidney failure, unspecified; N39.0 Urinary tract infection, site not specified; D62 Acute posthemorrhagic anemia; T82.855A Stenosis of coronary artery stent, initial encounter; K92.2 Gastrointestinal hemorrhage, unspecified; R65.20 Severe sepsis without septic shock; E11.43 Type 2 diabetes mellitus with diabetic autonomic (poly)neuropathy; F41.9 Anxiety disorder, unspecified; G43.909 Migraine, unspecified, not intractable, without status migrainosus; I11.0 Hypertensive heart disease with heart failure; I25.10 Atherosclerotic heart disease of native coronary artery without angina pectoris; I48.0 Paroxysmal atrial fibrillation; K21.9 Gastro-esophageal reflux disease without esophagitis; F32.9 Major depressive disorder, single episode, unspecified; G89.29 Other chronic pain; K22.2 Esophageal obstruction; K64.9 Unspecified hemorrhoids; I25.2 Old myocardial infarction; Z79.01 Long term (current) use of anticoagulants; Z80.9 Family history of malignant neoplasm, unspecified; Z81.8 Family history of other mental and behavioral disorders; Z82.3 Family history of stroke; Z82.49 Family history of ischemic heart disease and other diseases of the circulatory system; Z90.710 Acquired absence of both cervix and uterus; Z95.5 Presence of coronary angioplasty implant and graft; Z87.891 Personal history of nicotine dependence; Z88.8 Allergy status to other drugs, medicaments and biological substances; Z90.49 Acquired absence of other specified parts of digestive tract; I25.5 Ischemic cardiomyopathy
CPT/HCPCS: 92941; 93458; 96361; 96374; 96375; 99291; 99292; G0269; 36415; 71045; 80048; 80053; 80202; 81001; 82271; 82550; 82962; 83605; 83690; 83735; 83880; 84132; 84484; 85014; 85018; 85025; 85027; 85610; 85730; 86850; 86900; 86901; 86902; 86922; 87040; 87077; 87086; 87186; 87205; 90471; 90686; 93005; 93306; 99152; 99153; C1725; C1760; C1769; C1874; C1887; C1892; C9113; J0282; J0583; J1644; J1885; J1940; J2250; J2405; J2543; J3010; J3370; J3475; J3490; J7030; J7040; J7050; P9016; Q0162; Q9967; 97110; 97116; 97530; C1713; C1771; G0378

== ENCOUNTER → 2020-03-14 | Outpatient (CLI) | payer BC ==
[~2020-03-14] MED LIST changes: +AMIO200T4 PO; +ATOR40TA59 PO; +CLOP75TA PO; +FURO20TA3 PO; +LINE600T12 PO; -OMEP20CA10 PO; +OMEP20CA16 PO; +OMEP40CA45 PO; -OMEP40CA5 PO; +PANT20TA2 PO; +VANC125C3 PO
== END | disposition home or self-care (01) ==
LOC: LAB 12:25
PROVIDERS: ATTEND Internal Medicine Gastroenterology
DX: Z11.59 Encounter for screening for other viral diseases (principal)
CPT/HCPCS: U0003-CS

== ENCOUNTER → 2020-03-18 | Day surgery (SDC) | payer BC ==
[~2020-03-18] MED LIST changes: +IV RINGERS,LACTATED 1000ML 1,000 ML IV SCH; +LIDOCAINE 2% PF 5 ML VIAL. ONE; +PROPOFOL 10 MG/ML (20ML) VIAL. IV ONE
[2020-03-18 10:43] VITALS: BP 118/68
--- NOTE | 2020-03-18 11:49 | OP ---
DATE OF SURGERY: 03/18/2020 UPPER ENDOSCOPY REPORT I am dictating this report today as the computer system is down at [place], so dictated report is my only option. REQUESTING PHYSICIAN: Chantal Wilson. PRIMARY CARE PHYSICIAN: Chantal Wilson. REASON FOR PROCEDURE: Dysphagia. HISTORY OF PRESENT ILLNESS: This is a 64-year-old female who presents with dysphagia. She got a hot dog stuck. She is to undergo upper endoscopy for further evaluation. The risks and benefits including bleeding, perforation, non-diagnosis and sedation were explained and she is agreed to proceed. Of note, she has been off her Plavix for 4-5 days. MEDICATIONS: Propofol per anesthesia. DESCRIPTION OF PROCEDURE: The upper Olympus endoscope was introduced from the mouth and passed to the upper, middle, and lower esophagus. Esophagitis was noted at 35 cm from the incisors. At the site, a Schatzki's ring was also noted. The scope was then passed into the fundus, body and antrum of the stomach. Retroflexion was performed and the fundus was examined. The scope was then withdrawn and the antrum was evaluated. Mild gastritis noted but erythema was found. The scope was passed through the pylorus into the first and second portion of the duodenum. No mucosal abnormalities were found. Cold biopsy forceps were taken for histology. The scope was withdrawn back into the antrum and body and cold biopsy forceps were taken for histology. The scope was completely withdrawn. A 54-Icelandic Voss dilator was passed with ease. The dilator was withdrawn and the scope was then reinserted. There was no mucosal disruption. Cold biopsy forceps were taken in the distal esophagus at 35 cm from the incisors. Biopsies were also taken in the mid esophagus at 20 cm from the incisors. The scope was completely withdrawn. The patient suffered no complications. FINDINGS: 1. Normal mid esophagus, status post biopsy. 2. Esophagitis at 35 cm from the incisors, status post biopsy. 3. Schatzki's ring at 35 cm from the incisors, status post dilation with 54-Icelandic Voss. 4. Gastritis, status post biopsy. 5. Normal duodenum, status post biopsy of the second portion and bulb. 6. Await biopsy results. 7. Favor a full liquid diet and advance diet as tolerated today. 8. Okay to use a throat lozenge for throat discomfort today. Call me if there are any issues. Otherwise, she does have a followup appointment set up with me on 04/11/2020 at 01:45 as a phone visit. Thank you for allowing me to participate in the care of this patient. MOLLY WAYNE MD DR: NAIMA/michael JOB#: [id number] / [id number] SHENG Herrera MD, DARCY MD
--- NOTE | 2020-03-19 17:06 | PATHOLOGY ---
[facility] Accession Number: [id number] . 01 Material submitted: . PART A: small bowel - SMALL BOWEL BIOPSY PART B: stomach - GASTRIC ANTRUM AND BODY BIOPSY. Modifiers: body PART C: esophagus - DISTAL ESOPHAGUS BIOPSY. Modifiers: distal PART D: esophagus - MID ESOPHAGUS BIOPSY. Modifiers: mid . 01 Clinical history: . dysphagia . 02 Diagnosis: A. Small bowel biopsies: - No significant pathologic abnormalities. . B. Gastric biopsies, gastric body and gastric antrum: - Congestion and minimal chronic inflammation. . C. Esophageal biopsies, distal esophagus: - Reflux esophagitis. . D. Esophageal biopsies, middle esophagus: - Segments of mildly hyperplastic squamous esophageal mucosa. . (MORENITAM:bob; 03/19/2020) [facility] 03/19/2020 1024 Local . 02 Comment: Sections of the small bowel biopsy reveal segments of duodenal and small intestine mucosa. Where best oriented, the mucosal villi show no sprue-like changes or significant inflammatory changes. . Sections of the gastric biopsy reveal segments of gastric body and gastric antral mucosa, showing congestion and minimal chronic inflammation. A properly-controlled immunoperoxidase stain for Helicobacter is negative for Helicobacter organisms. . Sections of the distal esophageal biopsy reveal segments of tangentially-oriented, obviously hyperplastic squamous esophageal mucosa consistent with reflux esophagitis. There is no evidence of Velez's change, dysplasia, or malignancy. . Sections of the middle esophageal biopsy reveal segments of tangentially-oriented mildly hyperplastic squamous esophageal mucosa, suggestive of reflux changes. There is no evidence of Velez's change, dysplasia, or malignancy. . Special stain performed (B1): Immunoperoxidase stain for Helicobacter . (MORENITAM:bob; 03/19/2020) . 02 Electronically signed: . Aman Shukla MD, Pathologist NPI- [id number] . 01 Gross description: . A. The specimen is received in formalin, labeled "Stroble, Kamilla, small bowel BX" and consists of 4 fragments of pink-lauren tissue measuring 1.0 x 0.6 x 0.3 cm aggregate which are entirely submitted in A1. . B. The specimen is received in formalin, labeled "Stroble, Kamilla, gastric antrum and body BX" and consists of 2 fragments of pink-lauren tissue measuring 0.3 x 0.2 cm and 0.6 x 0.3 cm which are entirely submitted in B1. . C. The specimen is received in formalin, labeled "Stroble, Kamilla, distal esophagus BX" and consists of multiple fragments of pink-lauren tissue measuring 0.9 x 0.6 x 0.2 cm in aggregate which are entirely submitted in C1. . D. The specimen is received in formalin, labeled "Stroble, Kamilla, mid esophagus BX" and consists of multiple translucent fragments of pink-alva tissue measuring 0.7 x 0.5 x 0.2 cm in aggregate which are entirely submitted in D1. (SDY; 03/18/2020) SYU/SYU 03/19/2020 1017 Local . 02 Pathologist provided ICD-10: K29.50, K21.0, R13.10 . 02 CPT . 086073, 168299, 417376, 615216, [id number] Specimen Comment: A courtesy copy of this report has been sent to [phone] Specimen Comment: [id number] Specimen Comment: Report sent to / DR JUAREZ Performed at: 01 [facility] [address], [place] [id number] MD Huey Jay MD Phone: [phone] Performed at: 02 [facility] [address], [place] [id number] MD Aman Shukla MD Phone: [phone]
== END ==
LOC: SURG 10:16
PROVIDERS: ATTEND Internal Medicine Gastroenterology
DX: R13.10 Dysphagia, unspecified (principal); K22.2 Esophageal obstruction; K29.50 Unspecified chronic gastritis without bleeding; K21.0 Gastro-esophageal reflux disease with esophagitis; K57.30 Diverticulosis of large intestine without perforation or abscess without bleeding; F32.9 Major depressive disorder, single episode, unspecified; I25.2 Old myocardial infarction; E78.00 Pure hypercholesterolemia, unspecified; F41.9 Anxiety disorder, unspecified; I48.91 Unspecified atrial fibrillation; F15.90 Other stimulant use, unspecified, uncomplicated; Z88.6 Allergy status to analgesic agent; Z88.5 Allergy status to narcotic agent; Z88.8 Allergy status to other drugs, medicaments and biological substances; Z87.891 Personal history of nicotine dependence; Z72.89 Other problems related to lifestyle; Z79.82 Long term (current) use of aspirin; Z90.710 Acquired absence of both cervix and uterus; Z98.890 Other specified postprocedural states
CPT/HCPCS: 43239; 43450; 88305; 88342; J2704

== ENCOUNTER → 2021-09-22 | Outpatient (CLI) | payer BC ==
[2020-03-18 10:43] VITALS: BP 118/68
[~2021-09-22] MED LIST changes: -AMIO200T4 PO; +AMIO200T53 PO; -CITA10TA4 PO; +CITA10TA5 PO; +CYCL10TA19 PO; -CYCL10TA2 PO; -ISOS30TA4 PO; +ISOS30TA68 PO; -IV RINGERS,LACTATED 1000ML 1,000 ML IV SCH; -LIDOCAINE 2% PF 5 ML VIAL. ONE; -LISI-338 PO; +LISI5TAB15 PO; -OMEP40CA45 PO; +OMEP40CA7 PO; -PROPOFOL 10 MG/ML (20ML) VIAL. IV ONE
--- NOTE | 2021-09-22 14:12 | CARD ---
MR#: [id number] Date of Study: 09/22/2021 Ordering Physician: CYDNEY JC, Referring Physician: CYDNEY JC, Tech: Linda Garrett [facility] APPROVED REPORT EXAM: Two-dimensional and M-mode echocardiogram with Doppler and color Doppler. Other Information Quality : AverageHR: 57bpm INDICATION Cardiac Disease: CAD RISK FACTORS Hypertension Hyperlipidemia Diabetes 2D DIMENSIONS RVDd3.6 (2.9-3.5cm)Left Atrium(2D)4.0 (1.6-4.0cm) IVSd1.1 (0.7-1.1cm)Aortic Root(2D)2.7 (2.0-3.7cm) LVDd5.1 (3.9-5.9cm)LVOT Diameter2.0 (1.8-2.4cm) PWd1.2 (0.7-1.1cm)LVDs4.0 (2.5-4.0cm) FS (%) 22.2 %SV55.9 ml LVEF(%)44.5 (>50%) Aortic Valve AoV Peak Shaun.132.7cm/sAoV VTI27.1cm AO Peak GR.7.0mmHgLVOT Peak Shaun.80.9cm/s LVOT VTI 17.70cmAO Mean GR.4mmHg ANABEL (VMAX)1.14ct0GJO (VTI)2.09cm2 Mitral Valve MV E Kcwschml47.9cm/sMV DECEL UVLO941io MV A Mqzpdfip92.2cm/sMV E Mean Gr.1mmHg MV VQD196nmC/A Ratio0.5 MVA (PHT)1.83cm2 TDI E/Lateral E'10.6E/Medial E'9.3 Pulmonary Valve PV Peak Nmhirjhy02.3cm/sPV Peak Grad.3mmHg Tricuspid Valve TR P. Yzeowzbk250vt/sRAP OUFCALCI8zsUa TR Peak Gr.14ysNfQNTM67jfOq Pulmonary Vein S1 Hzmwjfcf55.5cm/sD2 Xkpaskxb62.3cm/s PVa cvgbnnti022pohj LEFT VENTRICLE The left ventricle is normal size. There is mild concentric left ventricular hypertrophy. The left ve ntricular systolic function is mildly impaired. The Ejection Fraction is 45-50%. There is slight glob al hypokinesis of the left ventricle. Transmitral Doppler flow pattern is Grade I-abnormal relaxation pattern. RIGHT VENTRICLE The right ventricle is normal size. There is normal right ventricular wall thickness. The right ventr icular systolic function is normal. ATRIA The left atrium is borderline dilated. The right atrium size is normal. The interatrial septum is int act with no evidence for an atrial septal defect or patent foramen ovale as noted on 2-D or Doppler i maging. AORTIC VALVE The aortic valve is normal in structure and function. Doppler and Color Flow revealed trace aortic re gurgitation. There is no significant aortic valvular stenosis. Calculated aortic valve area is 2.16 c m2 with maximum pressure gradient of 8 mmHg and mean pressure gradient of 4 mmHg. MITRAL VALVE The mitral valve is normal in structure and function. There is no evidence of mitral valve prolapse. There is no mitral valve stenosis. Doppler and Color-flow revealed trace mitral regurgitation. TRICUSPID VALVE The tricuspid valve is normal in structure and function. Doppler and Color Flow revealed trace tricus pid regurgitation with an estimated PAP of 29 mmHg. There is no tricuspid valve stenosis. PULMONIC VALVE The pulmonary valve is normal in structure and function. Doppler and Color Flow revealed mild pulmoni c valvular regurgitation. GREAT VESSELS The aortic root is normal in size. The IVC is normal in size and collapses >50% with inspiration. PERICARDIAL EFFUSION There is no evidence of significant pericardial effusion. Critical Notification Critical Value: No <Conclusion> The left ventricular systolic function is mildly impaired. The Ejection Fraction is 45-50%. Transmitral Doppler flow pattern is Grade I-abnormal relaxation pattern. Trace mitral regurgitation. Trace tricuspid regurgitation with an estimated PAP of 29 mmHg. There is no evidence of significant pericardial effusion. Signed by : Cydney Jc, Electronically Approved : 09/22/2021 14:11:45
== END ==
LOC: ECHO 10:33
PROVIDERS: ATTEND Internal Medicine Cardiovascular Disease
DX: I37.1 Nonrheumatic pulmonary valve insufficiency (principal); I51.7 Cardiomegaly; I25.10 Atherosclerotic heart disease of native coronary artery without angina pectoris
CPT/HCPCS: 93306

== ENCOUNTER → 2021-10-24 | Outpatient (CLI) | payer BC ==
[2020-03-18 10:43] VITALS: BP 118/68
[2021-10-24 14:09] LABS: BASO # 0.1 x10^3/uL (0.0-0.2); BASO % 1 % (0-3); EOS # 0.3 x10^3/uL (0.0-0.7); EOS % 3 % (0-3); HEMATOCRIT 42.1 % (36.0-47.0); HEMOGLOBIN 14.1 g/dL (12.0-15.5); LYMPH # 2.1 x10^3/uL (1.0-4.8); LYMPH % 24 % (24-48); MEAN CORPUSCULAR HEMOGLOBIN 30 pg (25-35); MEAN CORPUSCULAR HGB CONC 34 g/dL (31-37); MEAN CORPUSCULAR VOLUME 88 fL (79-100); MONO # 0.6 x10^3/uL (0.0-1.1); MONO % 7 % (0-9); NEUT # 5.7 x10^3/uL (1.8-7.7); NEUT % 65 % (31-73); PLATELET COUNT 237 x10^3/uL (140-400); RED BLOOD COUNT 4.78 x10^6/uL (3.50-5.40); RED CELL DISTRIBUTION WIDTH 14.2 % (11.5-14.5); WHITE BLOOD COUNT 8.9 x10^3/uL (4.0-11.0)
[2021-10-24 14:25] LABS: ALBUMIN 3.6 g/dL (3.4-5.0); CALCIUM 8.7 mg/dL (8.5-10.1); CREATININE 1.2 mg/dL (0.6-1.0); GFR 44.9; PHOSPHORUS 3.7 mg/dL (2.6-4.7); POTASSIUM 4.5 mmol/L (3.5-5.1)
[2021-10-25 10:18] LABS: CALCIUM PTH 9.9 mg/dL (8.7-10.3); PHOSPHORUS PTH 3.8 mg/dL (3.0-4.3); PTH INTACT 49 pg/mL (15-65)
== END ==
LOC: LAB 13:34
PROVIDERS: ATTEND Internal Medicine Nephrology
DX: N18.9 Chronic kidney disease, unspecified (principal)
CPT/HCPCS: 36415; 80069; 82570; 83970; 84156; 85025